=== PATIENT | male | born 1950 | race African-American/Black ===

== ENCOUNTER 2016-12-18 23:55 | Emergency (ER) | payer MEDICARE, SELFPAY ==
[~2016-12-18 23:55] MED LIST: /AMLO25TA PO; /PANT40TA PO; ALB2.5NEB INH; ALBU17IN INH; ALBU17IN2 INH; AMLO10TA PO; AMLO2.5T PO; AMLO5TAB2 PO; AMOX500T PO; ASPI81TA85 PO; BIAX500T PO; BISAPOW4 PO; BUDEPOW INH; CARA1SUS PO; CARA1TAB2 PO; HYDR12.55 PO; INSUH10VL SC; INSUHUMDS SC; INSULANT SC; IRON325T3 PO; KLOR1TAB69 PO; LEVA500T PO; LISI20TA PO; LOPR1TAB6 PO; METO12TA PO; METO25TAB PO; MICR10CA PO; MONT10TA2 PO; MULTCAP PO; NICO14DI20 TD; NICO14PA EXT; POTA20TA4 PO; PROT1TAB2 PO; REGL10TA6 PO; SPIRIVA HANDIHALER INH; SUCR1TA PO; SYMB16INH INH; TIOT18INH INH; TIOTROPIUM INH; VIAG100T PO; VITMTA PO; ZEST40TA PO
[2016-12-19] MEDS ORDERED: ONDANSETRON 4MG/2ML VIAL (J2405) As Ordered ONE (00:33)
[2016-12-19] MEDS ORDERED: METOCLOPRAMIDE INJ 10MG/2ML VIAL (J2765) As Ordered ONE (00:58)
[2016-12-19 01:02] LABS: BASO % 0.2 % (0.0-1.0); EOS # 0.1 K/mm3 (0.0-0.50); LARGE UNSTAINED CELL # 0.2 K/mm3 (0.0-0.4); LARGE UNSTAINED CELL % 3.1 % (0.0-4.0); LYMPH % 25.9 % (24.0-44.0); MEAN CORPUSCULAR HEMOGLOBIN 24.6 pg (27.0-33.0); MEAN CORPUSCULAR HGB CONC 31.5 g/dl (32.0-36.5); MEAN CORPUSCULAR VOLUME 78.1 fl (80.0-96.0); MONO # 0.5 K/mm3 (0.0-0.8); MONO % 7.1 % (0.0-5.0); NEUTROPHILS # 4.8 K/mm3 (1.8-7.7); NEUTROPHILS % 62.7 % (36.0-66.0); PLATELET COUNT, AUTOMATED 254 k/mm3 (150-450); RED CELL DISTRIBUTION WIDTH 17.4 % (11.5-14.5); WHITE BLOOD COUNT 7.7 K/mm3 (4.0-10.0)
[2016-12-19 01:19] LABS: ALBUMIN 3.8 GM/DL (3.2-5.2); ALBUMIN/GLOBULIN RATIO 0.76 (1.00-1.93); ALKALINE PHOSPHATASE 131 U/L (45-117); ALT/SGPT 133 U/L (12-78); AMYLASE 69 U/L (25-115); ANION GAP 9 MEQ/L (8-16); AST/SGOT 141 U/L (15-37); BILIRUBIN,DIRECT 0.5 MG/DL (0.0-0.2); BILIRUBIN,TOTAL 1.4 MG/DL (0.2-1.0); BLOOD UREA NITROGEN 7 MG/DL (7-18); CARBON DIOXIDE LEVEL 29 MEQ/L (21-32); CHLORIDE LEVEL 98 MEQ/L (98-107); CREATININE FOR GFR 1.22 MG/DL (0.70-1.30); GLOMERULAR FILTRATION RATE > 60.0 (>49); GLUCOSE, FASTING 145 MG/DL (80-110); POTASSIUM SERUM 3.7 MEQ/L (3.5-5.1); SODIUM LEVEL 136 MEQ/L (136-145); TOTAL PROTEIN 8.8 GM/DL (6.4-8.2)
[2016-12-19] MEDS ORDERED: SIMETHICONE 80 MG CHEW TAB PO ONE (01:30)
[2016-12-19] MEDS ORDERED: MORPHINE 2 MG/ML 1ML SYRINGE As Ordered ONE (01:58)
[2016-12-19] MEDS ORDERED: ISOVUE-370 76% 100ML VIAL (Q9967) As Ordered ONE (01:59)
--- NOTE | 2016-12-19 03:10 | REPUSA ---
CLINICAL HISTORY: Abdominal pain. TECHNIQUE: Multiple axial, sagittal and coronal CT images were obtained through the abdomen and pelvi s after administration of intravenous contrast material. COMMENTS: Comparison is made to the prior exam performed on 09/18/2016. Small sliding hernia. Fluid filled distended stomach. The liver is mildly enlarged with decreased attenuation without mass or defect. There is no intra or extrahepatic biliary ductal dilatation. The spleen is normal. The gallbladder contains a gallstone.. The pancreas is of normal contour and attenuation characteristics. There is no evidence of adrenal ma ss. Both kidneys demonstrate prompt and equal nephrograms. The kidneys are normal in size, shape and conf iguration. There is no evidence of renal or ureteral mass. No renal or ureteral calculi are identifie d. There is no hydroureter or hydronephrosis. No evidence for appendicitis. There is no bowel wall thickening. No evidence for small or large katie l obstruction. There is no evidence of abdominal ascites or lymphadenopathy. There is no evidence of intrinsic or extrinsic bladder mass. There is no pelvic ascites or lymphadeno maddie. Images of the lung bases show no evidence of pleural or parenchymal mass. There are no pleural effusi ons. The bony structures are free of lytic or blastic lesions. Multilevel degenerative changes are seen in volving the thoracolumbar spine. Scattered calcifications are seen involving the aorta and major bran ches compatible with atherosclerosis. IMPRESSION: Mild irregularity of the hepatic contour. Fatty liver infiltration. Hiatal hernia. Gastroparesis. Cholelithiasis. No evidence of acute abdominal or pelvic pathology. Thank you for your kind referral of this patient.
[2016-12-19] MEDS ORDERED: HYDROmorphone HCL 1 MG/ML SYRINGE (J1170) As Ordered ONE (03:17)
[2016-12-19] MEDS ORDERED: cloNIDine 0.2 MG TAB As Ordered ONE (03:54)
--- NOTE | 2016-12-19 04:50 | EDDOCDS ---
Nurse's Notes [facility] Name: Kenny Ramirez Age: 66 yrs Sex: Male : 1950 Arrival Date: 12/18/2016 Time: 23:55 Bed 9 Private MD: [facility] Diagnosis: Cholelithiasis;Nonalcoholic steatohepatitis (BAKER);Gastroparesis Presentation: 12/19 00:05 Presenting complaint: Patient states: Epigastric pain, nausea, vomiting. Adult Sepsis km Screening: The patient does not have new or worsening altered mentation. Patient has a respiratory rate of greater than or equal to 22 (1 point). Systolic blood pressure is greater than 100. Patient has a qSOFA score of 0- Negative Sepsis Screen. Suicide/Homicide risk assessment- the patient denies having any suicidal and/or homicidal ideations and does not present with any other emotional, behavioral or mental health complaints. 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 Transition of care: patient was not received from another setting of care. 00:05 Acuity: LETICIA Level 3 km 00:05 Method Of Arrival: Walkin/Carried/Asstd km Triage Assessment: 00:10 General: Appears ill, uncomfortable, well nourished, Behavior is appropriate for age, kmg1 cooperative. Pain: Location: epigastric area Pain currently is 9 out of 10 on a pain scale. Quality of pain is described as pressure, "uncomfortable" Alleviated by nothing. Aggravated by nothing. HIV screening NA for this visit Offered previously. Respiratory: Airway is patent Respiratory effort is even, unlabored, Respiratory pattern is regular, symmetrical. GI: Pt is actively vomiting clear fluid, Reports epigastric pain, nausea, vomiting. Historical: - Allergies: No known drug Allergies; - Home Meds: 1. albuterol sulfate 90 mcg/actuation Inhl aepb 2 puffs every 6 hours (Last dose: 12/18/2016) 2. amlodipine 5 mg Oral tab twice a day (Last dose: 12/18/2016 09:00) 3. budesonide-formoterol 160-4.5 mcg/actuation inhalation HFAA 2 puffs 2 times per day (Last dose: 12/18/2016) 4. Carafate 1 gram Oral tab 1 tab 4 times per day (Last dose: 12/18/2016 12:00) 5. insulin aspart sliding scale subcutaneous crtg daily 6. insulin glargine 100 unit/mL (3 mL) Sub-Q inpn 30 unit daily 7. metoprolol tartrate 25 mg Oral tab 1 tab three times a day (Last dose: 12/18/2016 09:00) 8. multivitamin Oral tab 1 tab daily (Last dose: 12/18/2016) 9. pantoprazole 40 mg oral TbEC 1 tab 2 times per day (Last dose: 12/18/2016 21:00) 10. Spiriva with HandiHaler 18 mcg Inhl CpDv 1 cap once daily (Last dose: 12/18/2016) - PMHx: Asthma; COPD; Diabetes - IDDM: uncontrolled; gi bleed; Hiatal Hernia; Hypertension; - Social history: Smoking status: Patient uses tobacco products, light tobacco smoker. No barriers to communication noted, The patient speaks fluent Angolan, Speaks appropriately for age. - : The pt / caregiver states he / she is not on anticoagulants. Home medication list is obtained from the patient, [employer] import data. - Exposure Risk Screening:: None identified. Screenin:54 Screening information is obtained from the patient. Fall risk: No risks identified. mcp Assistance ADL's: requires no assistance with activities of daily living. Abuse/DV Screen: The patient / caregiver reports he/she is: not in a situation that causes fear, pain or injury. Nutritional screening: No deficits noted. Advance Directives: There is no active DNR order. home support is adequate. Assessment: 00:30 General: Appears ill, uncomfortable, Behavior is cooperative. Pain: Location: mcp epigastric area Pain currently is 8 out of 10 on a pain scale. Neurological: No deficits noted. Respiratory: Airway is patent Respiratory effort is even, unlabored. GI: Pt is actively vomiting bile, Bowel sounds present X 4 quads. Abd is soft X 4 quads Reports epigastric pain, nausea, vomiting. Derm: Skin is pink, warm & dry. 01:52 Reassessment: pt requesting pain medication for his discomfort provider aware. cz 03:11 Reassessment: pt vomited 200 cc of dark emesis . cz 03:26 Adult Sepsis Screening: The patient does not have new or worsening altered mentation. cz Patient's respiratory rate is less than 22. Systolic blood pressure is greater than 100. Patient has a qSOFA score of 0- Negative Sepsis Screen. Vital Signs: 12/18 23:57 BP 223 / 100; Pulse 92; Resp 22 S; Temp 98.0; Pulse Ox 97% on R/A; Weight 92.99 kg (R); dd6 Height 5 ft. 11 in. (180.34 cm) (R); 12/19 00:15 BP 225 / 101 (auto/); cz 00:30 Pulse 74 MON; Pulse Ox 95% ; cz 00:31 BP 206 / 104 (auto/); cz 00:44 Pulse 74 MON; Pulse Ox 95% ; cz 00:45 BP 205 / 95 (auto/); cz 00:59 Pulse 72 MON; Pulse Ox 95% ; cz 01:00 BP 207 / 95 (auto/); cz 01:14 Pulse 64 MON; Pulse Ox 97% ; cz 01:15 BP 203 / 96 (auto/); cz 01:29 Pulse 78 MON; Pulse Ox 100% ; cz 01:30 BP 219 / 93 (auto/); cz 01:44 Pulse 88 MON; cz 01:45 BP 235 / 102 (auto/); cz 01:59 Pulse 66 MON; Pulse Ox 97% ; cz 02:00 BP 178 / 86 (auto/); cz 04:36 BP 192 / 96; Pulse 98; Resp 16; Pulse Ox 99% on R/A; cz 12/18 23:57 Body Mass Index 28.59 (92.99 kg, 180.34 cm) dd6 Vitals: 12/18 23:57 Log In Time: December 18, 2016 at 23:55. dd6 23:58 RN notified that patient meets Red Flag criteria. dd6 ED Course: 23:56 Patient visited by Luiz Johnson PCA. dd6 23:56 Patient moved to Waiting dd6 23:57 [facility] is Private Physician. dd6 23:59 Patient moved to 9 km 12/19 00:06 Triage Initiated kmg1 00:13 Patient visited by Josselin Conte, HILDA. kmg1 00:16 EKG done. (by ED staff). Reviewed by Mynor Villegas DO. kb5 00:17 Patient visited by Riaz Alicia PCA. kb5 00:30 Inserted saline lock: 20 gauge in right antecubital area and blood collected. The [facility] patient tolerated the procedure well. Labs drawn. (by ED staff). Sent per order to lab. 00:33 Mynor Villegas DO is Attending Physician. cs11 00:33 Patient visited by Mynor Villegas DO. cs11 00:53 Cardiac Marker Panel Sent. mcp 00:53 Lipase Sent. mcp 00:53 Amylase Sent. mcp 00:53 Liver Profile Sent. mcp 00:53 MED Profile Sent. mcp 00:53 CBC with Diff Sent. mcp 00:55 Patient visited by Melinda Leigh RN. mcp 01:08 Patient visited by Melinda Leigh RN. mcp 01:39 Patient visited by Ibrahima Bright RN. cz 02:[address] cz 02:15 Patient visited by Ibrahima Bright RN. cz 02:15 Patient moved to 9 cz 02:38 Patient visited by Lauren Mims. ng1 03:10 Patient visited by Ibrahima Bright RN. cz 03:15 Chriss Matamoros is Referral Physician. cs11 03:27 CT ABD & PELVIS: IV Contrast Only Returned. EDMS 03:35 [facility] Payment Agreement was scanned into [employer] and attached to record. [facility] 04:49 The patient / caregiver is instructed regarding the plan of care and ED course. cz 04:49 No procedures done that require assistance. cz Administered Medications: 00:30 Drug: Ondansetron 4 mg [ondansetron HCl 2 mg/mL intravenous solution (2 mL)] Route: mcp IVP; Site: right antecubital; 01:00 Drug: NS 0.9% 1000 ml [sodium chloride 0.9 % intravenous solution] Route: IV; Rate: mcp bolus; Site: right antecubital; 04:48 Follow up: IV Status: Completed infusion cz 01:00 Drug: Metoclopramide 10 mg [metoclopramide 5 mg/mL injection solution] Route: IV; Rate: mcp 40 mg/hr; Infused Over: 15 mins; Site: right antecubital; 01:28 Drug: Simethicone 360 mg {Note: 4 tabs of simethcone given one tab fell on the floor.} cz Route: PO; 02:00 Drug: morphine 2 mg [morphine 2 mg/mL intravenous cartridge (1 mL)] Route: IVP; Site: cz right antecubital; 03:20 Drug: Dilaudid - HYDROmorphone 1 mg [hydromorphone 1 mg/mL injection syringe (1 mL)] cz Route: IVP; Site: right antecubital; 03:57 Drug: cloNIDine 0.2 mg [clonidine HCl 0.2 mg tablet (1 tabs)] Route: PO; cz Output: 02:27 Gastric: 300.00ml (Emesis); Total: 300.00ml. cz 02:37 Urine: 300.00ml (Voided); Total: 600.00ml. cz 03:10 Gastric: 200.00ml (Emesis); Total: 800.00ml. cz 03:24 Urine: 500.00ml (Voided); Total: 1300.00ml. cz Order Results: Lab Order: CBC with Diff; SPEC'M 12/19/16 00:31 Test: WHITE BLOOD COUNT; Value: 7.7; Range: 4.0-10.0; Units: K/mm3; Status: F Test: RED BLOOD COUNT; Value: 5.78; Range: 4.30-6.10; Units: M/mm3; Status: F Test: HEMOGLOBIN; Value: 14.2; Range: 14.0-18.0; Units: g/dl; Status: F Test: HEMATOCRIT; Value: 45.1; Range: 42.0-52.0; Units: %; Status: F Test: MEAN CORPUSCULAR VOLUME; Value: 78.1; Range: 80.0-96.0; Abnormal: Below low normal; Units: fl; Status: F Test: MEAN CORPUSCULAR HEMOGLOBIN; Value: 24.6; Range: 27.0-33.0; Abnormal: Below low normal; Units: pg; Status: F Test: MEAN CORPUSCULAR HGB CONC; Value: 31.5; Range: 32.0-36.5; Abnormal: Below low normal; Units: g/dl; Status: F Test: RED CELL DISTRIBUTION WIDTH; Value: 17.4; Range: 11.5-14.5; Abnormal: Above high normal; Units: %; Status: F Test: PLATELET COUNT, AUTOMATED; Value: 254; Range: 150-450; Units: k/mm3; Status: F Test: NEUTROPHILS %; Value: 62.7; Range: 36.0-66.0; Units: %; Status: F Test: LYMPH %; Value: 25.9; Range: 24.0-44.0; Units: %; Status: F Test: MONO %; Value: 7.1; Range: 0.0-5.0; Abnormal: Above high normal; Units: %; Status: F Test: EOS %; Value: 1.0; Range: 0.0-3.0; Units: %; Status: F Test: BASO %; Value: 0.2; Range: 0.0-1.0; Units: %; Status: F Test: LARGE UNSTAINED CELL %; Value: 3.1; Range: 0.0-4.0; Units: %; Status: F Test: NEUTROPHILS #; Value: 4.8; Range: 1.8-7.7; Units: K/mm3; Status: F Test: LYMPH #; Value: 2.0; Range: 1.5-4.5; Units: K/mm3; Status: F Test: MONO #; Value: 0.5; Range: 0.0-0.8; Units: K/mm3; Status: F Test: EOS #; Value: 0.1; Range: 0.0-0.50; Units: K/mm3; Status: F Test: BASO #; Value: 0.0; Range: 0.0-0.2; Units: K/mm3; Status: F Test: LARGE UNSTAINED CELL #; Value: 0.2; Range: 0.0-0.4; Units: K/mm3; Status: F Lab Order: MED Profile; SPEC'M 12/19/16 00:31 Test: GLUCOSE, FASTING; Value: 145; Range: 80-110; Abnormal: Above high normal; Units: MG/DL; Status: F Test: BLOOD UREA NITROGEN; Value: 7; Range: 7-18; Units: MG/DL; Status: F Test: CREATININE FOR GFR; Value: 1.22; Range: 0.70-1.30; Units: MG/DL; Status: F Test: GLOMERULAR FILTRATION RATE; Value: > 60.0; Range: >49; Status: F Test: SODIUM LEVEL; Value: 136; Range: 136-145; Units: MEQ/L; Status: F Test: POTASSIUM SERUM; Value: 3.7; Range: 3.5-5.1; Units: MEQ/L; Status: F Test: CHLORIDE LEVEL; Value: 98; Range: 98-107; Units: MEQ/L; Status: F Test: CARBON DIOXIDE LEVEL; Value: 29; Range: 21-32; Units: MEQ/L; Status: F Test: ANION GAP; Value: 9; Range: 8-16; Units: MEQ/L; Status: F Test: CALCIUM LEVEL; Value: 10.0; Range: 8.8-10.2; Units: MG/DL; Status: F Test Note: ; Units are mL/min/1.73 m2 Chronic Kidney Disease Staging per NKF: Stage I & II GFR >=60 Normal to Mildly Decreased Stage III GFR 30-59 Moderately Decreased Stage IV GFR 15-29 Severely Decreased Stage V GFR <15 Very Little GFR Left ESRD GFR <15 on CALCULUS TUTOR Lab Order: Liver Profile; SPEC'M 12/19/16 00:31 Test: AST/SGOT; Value: 141; Range: 15-37; Abnormal: Above high normal; Units: U/L; Status: F Test: ALT/SGPT; Value: 133; Range: 12-78; Abnormal: Above high normal; Units: U/L; Status: F Test: ALKALINE PHOSPHATASE; Value: 131; Range: 45-117; Abnormal: Above high normal; Units: U/L; Status: F Test: BILIRUBIN,TOTAL; Value: 1.4; Range: 0.2-1.0; Abnormal: Above high normal; Units: MG/DL; Status: F Test: BILIRUBIN,DIRECT; Value: 0.5; Range: 0.0-0.2; Abnormal: Above high normal; Units: MG/DL; Status: F Test: TOTAL PROTEIN; Value: 8.8; Range: 6.4-8.2; Abnormal: Above high normal; Units: GM/DL; Status: F Test: ALBUMIN; Value: 3.8; Range: 3.2-5.2; Units: GM/DL; Status: F Test: ALBUMIN/GLOBULIN RATIO; Value: 0.76; Range: 1.00-1.93; Abnormal: Below low normal; Status: F Lab Order: Amylase; SPEC'M 12/19/16 00:31 Test: AMYLASE; Value: 69; Range: 25-115; Units: U/L; Status: F Lab Order: Lipase; SPEC'M 12/19/16 00:31 Test: LIPASE; Value: 101; Range: 73-393; Units: U/L; Status: F Lab Order: Cardiac Marker Panel; SPEC'M 12/19/16 00:31 Test: CPK CREATINE PHOSPHOKINASE; Value: 510; Range: 39-308; Abnormal: Above high normal; Units: U/L; Status: F Test: CK-MB VALUE MASS; Value: 4.4; Range: 0.0-3.6; Abnormal: Above high normal; Units: NG/ML; Status: F Test: MB/CK RELATIVE INDEX; Value: 0.86; Range: < OR =4; Status: F Test: TROPONIN I; Value: < 0.02; Range: < 0.10; Units: NG/ML; Status: F Test Note: ; DIAGNOSIS CRITERIA MMB ng/ml Relative Index (RI) NON-AMI < or = 5 N/A FLEMING ZONE > 5 < or = 4 AMI > 5 > 4 Radiology Order: CT ABD & PELVIS: IV Contrast Only Test: CT ABD & PELVIS: IV Contrast Only REASON FOR EXAMINATION: Biliary Colic; ; CLINICAL HISTORY: Abdominal pain.; TECHNIQUE: Multiple axial, sagittal and coronal CT images were obtained through the abdomen and pelvi; s after administration of intravenous contrast material.; COMMENTS:; Comparison is made to the prior exam performed on 09/18/2016.; Small sliding hernia. Fluid filled distended stomach.; The liver is mildly enlarged with decreased attenuation without mass or defect. There is no intra or; extrahepatic biliary ductal dilatation. The spleen is normal. The gallbladder contains a gallstone..; The pancreas is of normal contour and attenuation characteristics. There is no evidence of adrenal ma; ss.; Both kidneys demonstrate prompt and equal nephrograms. The kidneys are normal in size, shape and conf; iguration. There is no evidence of renal or ureteral mass. No renal or ureteral calculi are identifie; d. There is no hydroureter or hydronephrosis.; No evidence for appendicitis. There is no bowel wall thickening. No evidence for small or large katie; l obstruction. There is no evidence of abdominal ascites or lymphadenopathy.; There is no evidence of intrinsic or extrinsic bladder mass. There is no pelvic ascites or lymphadeno; maddie.; Images of the lung bases show no evidence of pleural or parenchymal mass. There are no pleural effusi; ons.; The bony structures are free of lytic or blastic lesions. Multilevel degenerative changes are seen in; volving the thoracolumbar spine. Scattered calcifications are seen involving the aorta and major bran; ches compatible with atherosclerosis.; IMPRESSION:; Mild irregularity of the hepatic contour.; Fatty liver infiltration.; Hiatal hernia.; Gastroparesis.; Cholelithiasis.; No evidence of acute abdominal or pelvic pathology.; Thank you for your kind referral of this patient.; ; Outcome: 03:17 Discharge ordered by Provider. cs11 04:48 Discharge Assessment: Patient awake, alert and oriented x 3. No cognitive and/or cz functional deficits noted. Patient verbalized understanding of disposition instructions. patient administered narcotics - yes. Pt provided with safe discharge. The following High Risk Discharge criteria are identified: None. Discharged to home ambulatory, with family. Condition: stable. Discharge instructions given to patient, Instructed on discharge instructions, follow up and referral plans. Demonstrated understanding of instructions, Pt was receptive of discharge instructions/ teaching. CT Study completed. Property :Personal belongings accompany Pt. pt was discharged via wheelchair to daughter who picked pt up at E.D. entrance. 04:50 Patient left the ED. cz Signatures: Dispatcher [employer] EDMS Josselin Conte RN RN kmg1 Melinda Leigh RN Ibrahima James mcp, RN RN Riaz Alicia, ADJUNCT INSTRUCTOR OF WOMEN'S STUDIES ADJUNCT INSTRUCTOR OF WOMEN'S STUDIES kb5 Luiz Johnson, ADJUNCT INSTRUCTOR OF WOMEN'S STUDIES ADJUNCT INSTRUCTOR OF WOMEN'S STUDIES dd6 Mynor Villegas, DO cs11 Lauren Mims1 Sandra Barragan [facility] MTDD
--- NOTE | 2016-12-19 04:50 | EDDOCDS ---
Physician Documentation [facility] Name: Kenny Ramirez Age: 66 yrs Sex: Male : 1950 Arrival Date: 12/18/2016 Time: 23:55 Bed 9 Private MD: [facility] Disposition: 12/19/16 03:17 Discharged to Home/Self Care. Impression: Cholelithiasis, Nonalcoholic steatohepatitis (BAKER), Gastroparesis. - Condition is Stable. - Medication Reconciliation, Local Pharmacy Hours form. - Follow up: Chriss Matamoros; When: Call to arrange an appointment; Reason: Recheck today's complaints. - Problem is chronic. - Symptoms have improved. Historical: - Allergies: No known drug Allergies; - Home Meds: 1. albuterol sulfate 90 mcg/actuation Inhl aepb 2 puffs every 6 hours (Last dose: 12/18/2016) 2. amlodipine 5 mg Oral tab twice a day (Last dose: 12/18/2016 09:00) 3. budesonide-formoterol 160-4.5 mcg/actuation inhalation HFAA 2 puffs 2 times per day (Last dose: 12/18/2016) 4. Carafate 1 gram Oral tab 1 tab 4 times per day (Last dose: 12/18/2016 12:00) 5. insulin aspart sliding scale subcutaneous crtg daily 6. insulin glargine 100 unit/mL (3 mL) Sub-Q inpn 30 unit daily 7. metoprolol tartrate 25 mg Oral tab 1 tab three times a day (Last dose: 12/18/2016 09:00) 8. multivitamin Oral tab 1 tab daily (Last dose: 12/18/2016) 9. pantoprazole 40 mg oral TbEC 1 tab 2 times per day (Last dose: 12/18/2016 21:00) 10. Spiriva with HandiHaler 18 mcg Inhl CpDv 1 cap once daily (Last dose: 12/18/2016) - PMHx: Asthma; COPD; Diabetes - IDDM: uncontrolled; gi bleed; Hiatal Hernia; Hypertension; - Social history: Smoking status: Patient uses tobacco products, light tobacco smoker. No barriers to communication noted, The patient speaks fluent Persian, Speaks appropriately for age. - : The pt / caregiver states he / she is not on anticoagulants. Home medication list is obtained from the patient, [employer] import data. - Exposure Risk Screening:: None identified. Vital Signs: 12/18 23:57 BP 223 / 100; Pulse 92; Resp 22 S; Temp 98.0; Pulse Ox 97% on R/A; Weight 92.99 kg / dd6 205.01 lbs (R); Height 5 ft. 11 in. (180.34 cm) (R); 12/19 00:15 BP 225 / 101 (auto/); cz 00:30 Pulse 74 MON; Pulse Ox 95% ; cz 00:31 BP 206 / 104 (auto/); cz 00:44 Pulse 74 MON; Pulse Ox 95% ; cz 00:45 BP 205 / 95 (auto/); cz 00:59 Pulse 72 MON; Pulse Ox 95% ; cz 01:00 BP 207 / 95 (auto/); cz 01:14 Pulse 64 MON; Pulse Ox 97% ; cz 01:15 BP 203 / 96 (auto/); cz 01:29 Pulse 78 MON; Pulse Ox 100% ; cz 01:30 BP 219 / 93 (auto/); cz 01:44 Pulse 88 MON; cz 01:45 BP 235 / 102 (auto/); cz 01:59 Pulse 66 MON; Pulse Ox 97% ; cz 02:00 BP 178 / 86 (auto/); cz 04:36 BP 192 / 96; Pulse 98; Resp 16; Pulse Ox 99% on R/A; cz 12/18 23:57 Body Mass Index 28.59 (92.99 kg, 180.34 cm) dd6 MDM: 00:10 ECG WITH READING ER PHYS+CARDIAG ordered. EDMS 00:42 NS 0.9% 1000 ml IV at bolus once ordered. cs11 00:42 Metoclopramide 10 mg IV at 40 mg/hr once over 15 mins ordered. cs11 00:42 Simethicone 360 mg PO once ordered. cs11 00:42 Ondansetron 4 mg IVP once ordered. cs11 00:43 CBC with Diff Ordered. EDMS 00:43 MED Profile Ordered. EDMS 00:43 Liver Profile Ordered. EDMS 00:43 Amylase Ordered. EDMS 00:43 Lipase Ordered. EDMS 00:43 Cardiac Marker Panel Ordered. EDMS 01:53 CBC with Diff Reviewed. cs11 01:53 MED Profile Reviewed. cs11 01:53 Liver Profile Reviewed. cs11 01:53 Cardiac Marker Panel Reviewed. cs11 01:53 Amylase Reviewed. cs11 01:53 Lipase Reviewed. cs11 01:55 morphine 2 mg IVP once ordered. cs11 01:55 CT ABD & PELVIS: IV Contrast Only Ordered. EDVT 01:57 Financial registration complete. [facility] 03:12 Dilaudid - HYDROmorphone 1 mg IVP once ordered. [facility] 03:35 [facility] Payment Agreement was scanned into [employer] and attached to record. [facility] 03:52 cloNIDine 0.2 mg PO once ordered. cs11 Administered Medications: 00:30 Drug: Ondansetron 4 mg [ondansetron HCl 2 mg/mL intravenous solution (2 mL)] Route: mcp IVP; Site: right antecubital; 01:00 Drug: NS 0.9% 1000 ml [sodium chloride 0.9 % intravenous solution] Route: IV; Rate: mcp bolus; Site: right antecubital; 04:48 Follow up: IV Status: Completed infusion 01:00 Drug: Metoclopramide 10 mg [metoclopramide 5 mg/mL injection solution] Route: IV; Rate: mcp 40 mg/hr; Infused Over: 15 mins; Site: right antecubital; 01:28 Drug: Simethicone 360 mg {Note: 4 tabs of simethcone given one tab fell on the floor.} cz Route: PO; 02:00 Drug: morphine 2 mg [morphine 2 mg/mL intravenous cartridge (1 mL)] Route: IVP; Site: cz right antecubital; 03:20 Drug: Dilaudid - HYDROmorphone 1 mg [hydromorphone 1 mg/mL injection syringe (1 mL)] cz Route: IVP; Site: right antecubital; 03:57 Drug: cloNIDine 0.2 mg [clonidine HCl 0.2 mg tablet (1 tabs)] Route: PO; cz Signatures: Dispatcher [employer] EDVT Josselin Conte RN RN [facility] Ibrahima Bright RN RN cz Schiff, Craig, DO DO cs11 Sandra Barragan Melinda Tirado RN [facility] The chart was reviewed and I authenticate all verbal orders and agree with the evaluation and treatment provided.Attachments: 03:35 [facility] Payment Agreement [facility] MTDD
--- NOTE | 2016-12-19 08:17 | ECGEPIP ---
Stationary ECG Study [facility] - ED Test Date: 2016-12-19 Pat Name: HATTIE DAMON Department: Room: - Gender: M [employer]: COS[employer] : 1950 Requested By: HERB PENA Order Number: [id number] Reading MD: Hanna Cassidy Measurements Intervals [place] Rate: 80 P: 62 [place]: 198 QRS: -72 QRSD: 170 T: 20 QT: 411 QTc: 475 Interpretive Statements SINUS RHYTHM RIGHT BUNDLE BRANCH BLOCK LEFT ANTERIOR FASCICULAR BLOCK VOLTAGE CRITERIA FOR LVH T WAVE ABNORMALITY SEEN 09/29/16 RESOLVED Electronically Signed On 12-19-2016 8:16:43 EST by Hanna Cassidy
[2016-12-20] MEDS ORDERED: METO25TAB PO (07:40)
[2016-12-20] MEDS ORDERED: AMLO5TAB2 PO (07:40)
--- NOTE | 2016-12-21 05:51 | EDDOCDS ---
Nurse's Notes [facility] Name: Kenny Ramirez Age: 66 yrs Sex: Male : 1950 Arrival Date: 12/18/2016 Time: 23:55 Bed 9 Private MD: [facility] Diagnosis: Cholelithiasis;Nonalcoholic steatohepatitis (BAKER);Gastroparesis Presentation: 12/19 00:05 Presenting complaint: Patient states: Epigastric pain, nausea, vomiting. Adult Sepsis km Screening: The patient does not have new or worsening altered mentation. Patient has a respiratory rate of greater than or equal to 22 (1 point). Systolic blood pressure is greater than 100. Patient has a qSOFA score of 0- Negative Sepsis Screen. Suicide/Homicide risk assessment- the patient denies having any suicidal and/or homicidal ideations and does not present with any other emotional, behavioral or mental health complaints. Status: Patient is not a phlebotomy services representative or dependent. Transition of care: patient was not received from another setting of care. 00:05 Acuity: LETICIA Level 3 km 00:05 Method Of Arrival: Walkin/Carried/Asstd km Triage Assessment: 00:10 General: Appears ill, uncomfortable, well nourished, Behavior is appropriate for age, kmg1 cooperative. Pain: Location: epigastric area Pain currently is 9 out of 10 on a pain scale. Quality of pain is described as pressure, "uncomfortable" Alleviated by nothing. Aggravated by nothing. HIV screening NA for this visit Offered previously. Respiratory: Airway is patent Respiratory effort is even, unlabored, Respiratory pattern is regular, symmetrical. GI: Pt is actively vomiting clear fluid, Reports epigastric pain, nausea, vomiting. Historical: - Allergies: No known drug Allergies; - Home Meds: 1. albuterol sulfate 90 mcg/actuation Inhl aepb 2 puffs every 6 hours (Last dose: 12/18/2016) 2. amlodipine 5 mg Oral tab twice a day (Last dose: 12/18/2016 09:00) 3. budesonide-formoterol 160-4.5 mcg/actuation inhalation HFAA 2 puffs 2 times per day (Last dose: 12/18/2016) 4. Carafate 1 gram Oral tab 1 tab 4 times per day (Last dose: 12/18/2016 12:00) 5. insulin aspart sliding scale subcutaneous crtg daily 6. insulin glargine 100 unit/mL (3 mL) Sub-Q inpn 30 unit daily 7. metoprolol tartrate 25 mg Oral tab 1 tab three times a day (Last dose: 12/18/2016 09:00) 8. multivitamin Oral tab 1 tab daily (Last dose: 12/18/2016) 9. pantoprazole 40 mg oral TbEC 1 tab 2 times per day (Last dose: 12/18/2016 21:00) 10. Spiriva with HandiHaler 18 mcg Inhl CpDv 1 cap once daily (Last dose: 12/18/2016) - PMHx: Asthma; COPD; Diabetes - IDDM: uncontrolled; gi bleed; Hiatal Hernia; Hypertension; - Social history: Smoking status: Patient uses tobacco products, light tobacco smoker. No barriers to communication noted, The patient speaks fluent Greenlandic, Speaks appropriately for age. - : The pt / caregiver states he / she is not on anticoagulants. Home medication list is obtained from the patient, [email or web address] import data. - Exposure Risk Screening:: None identified. Screenin:54 Screening information is obtained from the patient. Fall risk: No risks identified. mcp Assistance ADL's: requires no assistance with activities of daily living. Abuse/DV Screen: The patient / caregiver reports he/she is: not in a situation that causes fear, pain or injury. Nutritional screening: No deficits noted. Advance Directives: There is no active DNR order. home support is adequate. Assessment: 00:30 General: Appears ill, uncomfortable, Behavior is cooperative. Pain: Location: mcp epigastric area Pain currently is 8 out of 10 on a pain scale. Neurological: No deficits noted. Respiratory: Airway is patent Respiratory effort is even, unlabored. GI: Pt is actively vomiting bile, Bowel sounds present X 4 quads. Abd is soft X 4 quads Reports epigastric pain, nausea, vomiting. Derm: Skin is pink, warm & dry. 01:52 Reassessment: pt requesting pain medication for his discomfort provider aware. cz 03:11 Reassessment: pt vomited 200 cc of dark emesis . cz 03:26 Adult Sepsis Screening: The patient does not have new or worsening altered mentation. cz Patient's respiratory rate is less than 22. Systolic blood pressure is greater than 100. Patient has a qSOFA score of 0- Negative Sepsis Screen. Vital Signs: 12/18 23:57 BP 223 / 100; Pulse 92; Resp 22 S; Temp 98.0; Pulse Ox 97% on R/A; Weight 92.99 kg (R); dd6 Height 5 ft. 11 in. (180.34 cm) (R); 12/19 00:15 BP 225 / 101 (auto/); cz 00:30 Pulse 74 MON; Pulse Ox 95% ; cz 00:31 BP 206 / 104 (auto/); cz 00:44 Pulse 74 MON; Pulse Ox 95% ; cz 00:45 BP 205 / 95 (auto/); cz 00:59 Pulse 72 MON; Pulse Ox 95% ; cz 01:00 BP 207 / 95 (auto/); cz 01:14 Pulse 64 MON; Pulse Ox 97% ; cz 01:15 BP 203 / 96 (auto/); cz 01:29 Pulse 78 MON; Pulse Ox 100% ; cz 01:30 BP 219 / 93 (auto/); cz 01:44 Pulse 88 MON; cz 01:45 BP 235 / 102 (auto/); cz 01:59 Pulse 66 MON; Pulse Ox 97% ; cz 02:00 BP 178 / 86 (auto/); cz 04:36 BP 192 / 96; Pulse 98; Resp 16; Pulse Ox 99% on R/A; cz 12/18 23:57 Body Mass Index 28.59 (92.99 kg, 180.34 cm) dd6 Vitals: 12/18 23:57 Log In Time: December 18, 2016 at 23:55. dd6 23:58 RN notified that patient meets Red Flag criteria. dd6 ED Course: 23:56 Patient visited by Luiz Johnson PCA. dd6 23:56 Patient moved to Waiting dd6 23:57 [facility] is Private Physician. dd6 23:59 Patient moved to 9 km 12/19 00:06 Triage Initiated kmg1 00:13 Patient visited by Josselin Conte, HILDA. kmg1 00:16 EKG done. (by ED staff). Reviewed by Herb Pena DO. kb5 00:17 Patient visited by Riaz Alicia PCA. kb5 00:30 Inserted saline lock: 20 gauge in right antecubital area and blood collected. The [facility] patient tolerated the procedure well. Labs drawn. (by ED staff). Sent per order to lab. 00:33 Herb Pena DO is Attending Physician. cs11 00:33 Patient visited by Herb Pena DO. cs11 00:53 Cardiac Marker Panel Sent. mcp 00:53 Lipase Sent. mcp 00:53 Amylase Sent. mcp 00:53 Liver Profile Sent. mcp 00:53 MED Profile Sent. mcp 00:53 CBC with Diff Sent. mcp 00:55 Patient visited by Melinda Leigh RN. mcp 01:08 Patient visited by Melinda Leigh RN. mcp 01:39 Patient visited by Ibrahima Bright RN. cz 02:[address] cz 02:15 Patient visited by Ibrahima Bright RN. cz 02:15 Patient moved to 9 cz 02:38 Patient visited by Lauren Mims. ng1 03:10 Patient visited by Ibrahima Bright RN. cz 03:15 Chriss Matamoros is Referral Physician. cs11 03:27 CT ABD & PELVIS: IV Contrast Only Returned. EDMS 03:35 [facility] Payment Agreement was scanned into [employer] and attached to record. [facility] 04:49 The patient / caregiver is instructed regarding the plan of care and ED course. cz 04:49 No procedures done that require assistance. cz 08:42 EKG-ADULT Returned. EDMS 12:49 ECG/EKG was scanned into [employer] and attached to record. gb 12:50 T-Sheet-- Draft Copy was scanned into [employer] and attached to record. gb 12:50 Radiology Report was scanned into [employer] and attached to record. gb 14:48 Radiology Report was scanned into [employer] and attached to record. gb Administered Medications: 00:30 Drug: Ondansetron 4 mg [ondansetron HCl 2 mg/mL intravenous solution (2 mL)] Route: mcp IVP; Site: right antecubital; 01:00 Drug: NS 0.9% 1000 ml [sodium chloride 0.9 % intravenous solution] Route: IV; Rate: mcp bolus; Site: right antecubital; 04:48 Follow up: IV Status: Completed infusion cz 01:00 Drug: Metoclopramide 10 mg [metoclopramide 5 mg/mL injection solution] Route: IV; Rate: mcp 40 mg/hr; Infused Over: 15 mins; Site: right antecubital; 01:28 Drug: Simethicone 360 mg {Note: 4 tabs of simethcone given one tab fell on the floor.} cz Route: PO; 02:00 Drug: morphine 2 mg [morphine 2 mg/mL intravenous cartridge (1 mL)] Route: IVP; Site: cz right antecubital; 03:20 Drug: Dilaudid - HYDROmorphone 1 mg [hydromorphone 1 mg/mL injection syringe (1 mL)] cz Route: IVP; Site: right antecubital; 03:57 Drug: cloNIDine 0.2 mg [clonidine HCl 0.2 mg tablet (1 tabs)] Route: PO; cz Output: 02:27 Gastric: 300.00ml (Emesis); Total: 300.00ml. cz 02:37 Urine: 300.00ml (Voided); Total: 600.00ml. cz 03:10 Gastric: 200.00ml (Emesis); Total: 800.00ml. cz 03:24 Urine: 500.00ml (Voided); Total: 1300.00ml. cz Order Results: Lab Order: CBC with Diff; SPEC'M 12/19/16 00:31 Test: WHITE BLOOD COUNT; Value: 7.7; Range: 4.0-10.0; Units: K/mm3; Status: F Test: RED BLOOD COUNT; Value: 5.78; Range: 4.30-6.10; Units: M/mm3; Status: F Test: HEMOGLOBIN; Value: 14.2; Range: 14.0-18.0; Units: g/dl; Status: F Test: HEMATOCRIT; Value: 45.1; Range: 42.0-52.0; Units: %; Status: F Test: MEAN CORPUSCULAR VOLUME; Value: 78.1; Range: 80.0-96.0; Abnormal: Below low normal; Units: fl; Status: F Test: MEAN CORPUSCULAR HEMOGLOBIN; Value: 24.6; Range: 27.0-33.0; Abnormal: Below low normal; Units: pg; Status: F Test: MEAN CORPUSCULAR HGB CONC; Value: 31.5; Range: 32.0-36.5; Abnormal: Below low normal; Units: g/dl; Status: F Test: RED CELL DISTRIBUTION WIDTH; Value: 17.4; Range: 11.5-14.5; Abnormal: Above high normal; Units: %; Status: F Test: PLATELET COUNT, AUTOMATED; Value: 254; Range: 150-450; Units: k/mm3; Status: F Test: NEUTROPHILS %; Value: 62.7; Range: 36.0-66.0; Units: %; Status: F Test: LYMPH %; Value: 25.9; Range: 24.0-44.0; Units: %; Status: F Test: MONO %; Value: 7.1; Range: 0.0-5.0; Abnormal: Above high normal; Units: %; Status: F Test: EOS %; Value: 1.0; Range: 0.0-3.0; Units: %; Status: F Test: BASO %; Value: 0.2; Range: 0.0-1.0; Units: %; Status: F Test: LARGE UNSTAINED CELL %; Value: 3.1; Range: 0.0-4.0; Units: %; Status: F Test: NEUTROPHILS #; Value: 4.8; Range: 1.8-7.7; Units: K/mm3; Status: F Test: LYMPH #; Value: 2.0; Range: 1.5-4.5; Units: K/mm3; Status: F Test: MONO #; Value: 0.5; Range: 0.0-0.8; Units: K/mm3; Status: F Test: EOS #; Value: 0.1; Range: 0.0-0.50; Units: K/mm3; Status: F Test: BASO #; Value: 0.0; Range: 0.0-0.2; Units: K/mm3; Status: F Test: LARGE UNSTAINED CELL #; Value: 0.2; Range: 0.0-0.4; Units: K/mm3; Status: F Lab Order: MED Profile; SPEC'M 12/19/16 00:31 Test: GLUCOSE, FASTING; Value: 145; Range: 80-110; Abnormal: Above high normal; Units: MG/DL; Status: F Test: BLOOD UREA NITROGEN; Value: 7; Range: 7-18; Units: MG/DL; Status: F Test: CREATININE FOR GFR; Value: 1.22; Range: 0.70-1.30; Units: MG/DL; Status: F Test: GLOMERULAR FILTRATION RATE; Value: > 60.0; Range: >49; Status: F Test: SODIUM LEVEL; Value: 136; Range: 136-145; Units: MEQ/L; Status: F Test: POTASSIUM SERUM; Value: 3.7; Range: 3.5-5.1; Units: MEQ/L; Status: F Test: CHLORIDE LEVEL; Value: 98; Range: 98-107; Units: MEQ/L; Status: F Test: CARBON DIOXIDE LEVEL; Value: 29; Range: 21-32; Units: MEQ/L; Status: F Test: ANION GAP; Value: 9; Range: 8-16; Units: MEQ/L; Status: F Test: CALCIUM LEVEL; Value: 10.0; Range: 8.8-10.2; Units: MG/DL; Status: F Test Note: ; Units are mL/min/1.73 m2 Chronic Kidney Disease Staging per NKF: Stage I & II GFR >=60 Normal to Mildly Decreased Stage III GFR 30-59 Moderately Decreased Stage IV GFR 15-29 Severely Decreased Stage V GFR <15 Very Little GFR Left ESRD GFR <15 on ATHLETIC DIRECTOR Lab Order: Liver Profile; [facility]' 12/19/16 00:31 Test: AST/SGOT; Value: 141; Range: 15-37; Abnormal: Above high normal; Units: U/L; Status: F Test: ALT/SGPT; Value: 133; Range: 12-78; Abnormal: Above high normal; Units: U/L; Status: F Test: ALKALINE PHOSPHATASE; Value: 131; Range: 45-117; Abnormal: Above high normal; Units: U/L; Status: F Test: BILIRUBIN,TOTAL; Value: 1.4; Range: 0.2-1.0; Abnormal: Above high normal; Units: MG/DL; Status: F Test: BILIRUBIN,DIRECT; Value: 0.5; Range: 0.0-0.2; Abnormal: Above high normal; Units: MG/DL; Status: F Test: TOTAL PROTEIN; Value: 8.8; Range: 6.4-8.2; Abnormal: Above high normal; Units: GM/DL; Status: F Test: ALBUMIN; Value: 3.8; Range: 3.2-5.2; Units: GM/DL; Status: F Test: ALBUMIN/GLOBULIN RATIO; Value: 0.76; Range: 1.00-1.93; Abnormal: Below low normal; Status: F Lab Order: Amylase; SPEC'M 12/19/16 00:31 Test: AMYLASE; Value: 69; Range: 25-115; Units: U/L; Status: F Lab Order: Lipase; SPEC'M 12/19/16 00:31 Test: LIPASE; Value: 101; Range: 73-393; Units: U/L; Status: F Lab Order: Cardiac Marker Panel; SPEC'M 12/19/16 00:31 Test: CPK CREATINE PHOSPHOKINASE; Value: 510; Range: 39-308; Abnormal: Above high normal; Units: U/L; Status: F Test: CK-MB VALUE MASS; Value: 4.4; Range: 0.0-3.6; Abnormal: Above high normal; Units: NG/ML; Status: F Test: MB/CK RELATIVE INDEX; Value: 0.86; Range: < OR =4; Status: F Test: TROPONIN I; Value: < 0.02; Range: < 0.10; Units: NG/ML; Status: F Test Note: ; DIAGNOSIS CRITERIA MMB ng/ml Relative Index (RI) NON-AMI < or = 5 N/A FLEMING ZONE > 5 < or = 4 AMI > 5 > 4 Radiology Order: EKG-ADULT Test: EKG-ADULT REASON FOR EXAMINATION: epigastric pain; Stationary ECG Study; [facility] - ED; ; Test Date: 2016-12-19; Pat Name: KENNY RAMIREZ Department:; Room: -; Gender: M Front 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 Associate: KB; : 1950 Requested By: HERB PENA; Order Number: [id number] Reading MD: Hanna Cassidy; Measurements; Intervals [place]; Rate: 80 P: 62; VT: 198 QRS: -72; QRSD: 170 T: 20; QT: 411; QTc: 475; Interpretive Statements; SINUS RHYTHM; RIGHT BUNDLE BRANCH BLOCK; LEFT ANTERIOR FASCICULAR BLOCK; VOLTAGE CRITERIA FOR LVH; T WAVE ABNORMALITY SEEN 11/1/16 RESOLVED; Electronically Signed On 12-19-2016 8:16:43 EST by Hanna Cassidy; Radiology Order: CT ABD & PELVIS: IV Contrast Only Test: CT ABD & PELVIS: IV Contrast Only REASON FOR EXAMINATION: Biliary Colic; ; CLINICAL HISTORY: Abdominal pain.; TECHNIQUE: Multiple axial, sagittal and coronal CT images were obtained through the abdomen and pelvi; s after administration of intravenous contrast material.; COMMENTS:; Comparison is made to the prior exam performed on 09/18/2016.; Small sliding hernia. Fluid filled distended stomach.; The liver is mildly enlarged with decreased attenuation without mass or defect. There is no intra or; extrahepatic biliary ductal dilatation. The spleen is normal. The gallbladder contains a gallstone..; The pancreas is of normal contour and attenuation characteristics. There is no evidence of adrenal ma; ss.; Both kidneys demonstrate prompt and equal nephrograms. The kidneys are normal in size, shape and conf; iguration. There is no evidence of renal or ureteral mass. No renal or ureteral calculi are identifie; d. There is no hydroureter or hydronephrosis.; No evidence for appendicitis. There is no bowel wall thickening. No evidence for small or large katie; l obstruction. There is no evidence of abdominal ascites or lymphadenopathy.; There is no evidence of intrinsic or extrinsic bladder mass. There is no pelvic ascites or lymphadeno; maddie.; Images of the lung bases show no evidence of pleural or parenchymal mass. There are no pleural effusi; ons.; The bony structures are free of lytic or blastic lesions. Multilevel degenerative changes are seen in; volving the thoracolumbar spine. Scattered calcifications are seen involving the aorta and major bran; ches compatible with atherosclerosis.; IMPRESSION:; Mild irregularity of the hepatic contour.; Fatty liver infiltration.; Hiatal hernia.; Gastroparesis.; Cholelithiasis.; No evidence of acute abdominal or pelvic pathology.; Thank you for your kind referral of this patient.; ; Outcome: 03:17 Discharge ordered by Provider. cs11 04:48 Discharge Assessment: Patient awake, alert and oriented x 3. No cognitive and/or cz functional deficits noted. Patient verbalized understanding of disposition instructions. patient administered narcotics - yes. Pt provided with safe discharge. The following High Risk Discharge criteria are identified: None. Discharged to home ambulatory, with family. Condition: stable. Discharge instructions given to patient, Instructed on discharge instructions, follow up and referral plans. Demonstrated understanding of instructions, Pt was receptive of discharge instructions/ teaching. CT Study completed. Property :Personal belongings accompany Pt. pt was discharged via wheelchair to daughter who picked pt up at E.D. entrance. 04:50 Patient left the ED. cz Signatures: Dispatcher [employer] EDMS Josselin Conte, RN RN kmg1 Melinda Leigh RN RN Ibrahima Bosch, RN RN cz Arminda Clements, Reg Reg gb Riaz Alicia, PLAYER MANAGER PLAYER MANAGER kb5 Luiz Johnson, PLAYER MANAGER PLAYER MANAGER dd6 Herb Pena, DO cs11 Lauren Mims ng1 Sandra Barragan [facility] Chart Complete MTDD
--- NOTE | 2016-12-21 05:51 | EDDOCDS ---
Physician Documentation [facility] Name: Kenny Ramirez Age: 66 yrs Sex: Male : 1950 Arrival Date: 12/18/2016 Time: 23:55 Bed 9 Private MD: [facility] [place] Disposition: 12/19/16 03:17 Discharged to Home/Self Care. Impression: Cholelithiasis, Nonalcoholic steatohepatitis (BAKER), Gastroparesis. - Condition is Stable. - Medication Reconciliation, Local Pharmacy Hours form. - Follow up: Chriss Matamoros; When: Call to arrange an appointment; Reason: Recheck today's complaints. - Problem is chronic. - Symptoms have improved. Historical: - Allergies: No known drug Allergies; - Home Meds: 1. albuterol sulfate 90 mcg/actuation Inhl aepb 2 puffs every 6 hours (Last dose: 12/18/2016) 2. amlodipine 5 mg Oral tab twice a day (Last dose: 12/18/2016 09:00) 3. budesonide-formoterol 160-4.5 mcg/actuation inhalation HFAA 2 puffs 2 times per day (Last dose: 12/18/2016) 4. Carafate 1 gram Oral tab 1 tab 4 times per day (Last dose: 12/18/2016 12:00) 5. insulin aspart sliding scale subcutaneous crtg daily 6. insulin glargine 100 unit/mL (3 mL) Sub-Q inpn 30 unit daily 7. metoprolol tartrate 25 mg Oral tab 1 tab three times a day (Last dose: 12/18/2016 09:00) 8. multivitamin Oral tab 1 tab daily (Last dose: 12/18/2016) 9. pantoprazole 40 mg oral TbEC 1 tab 2 times per day (Last dose: 12/18/2016 21:00) 10. Spiriva with HandiHaler 18 mcg Inhl CpDv 1 cap once daily (Last dose: 12/18/2016) - PMHx: Asthma; COPD; Diabetes - IDDM: uncontrolled; gi bleed; Hiatal Hernia; Hypertension; - Social history: Smoking status: Patient uses tobacco products, light tobacco smoker. No barriers to communication noted, The patient speaks fluent Thai, Speaks appropriately for age. - : The pt / caregiver states he / she is not on anticoagulants. Home medication list is obtained from the patient, [employer] import data. - Exposure Risk Screening:: None identified. Vital Signs: 12/18 23:57 BP 223 / 100; Pulse 92; Resp 22 S; Temp 98.0; Pulse Ox 97% on R/A; Weight 92.99 kg / dd6 205.01 lbs (R); Height 5 ft. 11 in. (180.34 cm) (R); 12/19 00:15 BP 225 / 101 (auto/); cz 00:30 Pulse 74 MON; Pulse Ox 95% ; cz 00:31 BP 206 / 104 (auto/); cz 00:44 Pulse 74 MON; Pulse Ox 95% ; cz 00:45 BP 205 / 95 (auto/); cz 00:59 Pulse 72 MON; Pulse Ox 95% ; cz 01:00 BP 207 / 95 (auto/); cz 01:14 Pulse 64 MON; Pulse Ox 97% ; cz 01:15 BP 203 / 96 (auto/); cz 01:29 Pulse 78 MON; Pulse Ox 100% ; cz 01:30 BP 219 / 93 (auto/); cz 01:44 Pulse 88 MON; cz 01:45 BP 235 / 102 (auto/); cz 01:59 Pulse 66 MON; Pulse Ox 97% ; cz 02:00 BP 178 / 86 (auto/); cz 04:36 BP 192 / 96; Pulse 98; Resp 16; Pulse Ox 99% on R/A; cz 12/18 23:57 Body Mass Index 28.59 (92.99 kg, 180.34 cm) dd6 MDM: 00:10 ECG WITH READING ER PHYS+CARDIAG ordered. EDMS 00:42 NS 0.9% 1000 ml IV at bolus once ordered. cs11 00:42 Metoclopramide 10 mg IV at 40 mg/hr once over 15 mins ordered. cs11 00:42 Simethicone 360 mg PO once ordered. cs11 00:42 Ondansetron 4 mg IVP once ordered. cs11 00:43 CBC with Diff Ordered. EDMS 00:43 MED Profile Ordered. EDMS 00:43 Liver Profile Ordered. EDMS 00:43 Amylase Ordered. EDMS 00:43 Lipase Ordered. EDMS 00:43 Cardiac Marker Panel Ordered. EDMS 01:53 CBC with Diff Reviewed. cs11 01:53 MED Profile Reviewed. cs11 01:53 Liver Profile Reviewed. cs11 01:53 Cardiac Marker Panel Reviewed. cs11 01:53 Amylase Reviewed. cs11 01:53 Lipase Reviewed. cs11 01:55 morphine 2 mg IVP once ordered. cs11 01:55 CT ABD & PELVIS: IV Contrast Only Ordered. EDMS 01:57 Financial registration complete. [facility] 03:12 Dilaudid - HYDROmorphone 1 mg IVP once ordered. cs11 03:35 [facility] [place] Agreement was scanned into [employer] and attached to record. [facility] 03:52 cloNIDine 0.2 mg PO once ordered. cs11 12:49 ECG/EKG was scanned into [employer] and attached to record. gb 12:50 T-Sheet-- Draft Copy was scanned into [employer] and attached to record. gb 12:50 Radiology Report was scanned into [employer] and attached to record. gb 14:48 Radiology Report was scanned into [employer] and attached to record. gb Administered Medications: 00:30 Drug: Ondansetron 4 mg [ondansetron HCl 2 mg/mL intravenous solution (2 mL)] Route: mcp IVP; Site: right antecubital; 01:00 Drug: NS 0.9% 1000 ml [sodium chloride 0.9 % intravenous solution] Route: IV; Rate: mcp bolus; Site: right antecubital; 04:48 Follow up: IV Status: Completed infusion cz 01:00 Drug: Metoclopramide 10 mg [metoclopramide 5 mg/mL injection solution] Route: IV; Rate: mcp 40 mg/hr; Infused Over: 15 mins; Site: right antecubital; 01:28 Drug: Simethicone 360 mg {Note: 4 tabs of simethcone given one tab fell on the floor.} cz Route: PO; 02:00 Drug: morphine 2 mg [morphine 2 mg/mL intravenous cartridge (1 mL)] Route: IVP; Site: cz right antecubital; 03:20 Drug: Dilaudid - HYDROmorphone 1 mg [hydromorphone 1 mg/mL injection syringe (1 mL)] cz Route: IVP; Site: right antecubital; 03:57 Drug: cloNIDine 0.2 mg [clonidine HCl 0.2 mg tablet (1 tabs)] Route: PO; cz Signatures: Dispatcher [employer] EDMS Conte, Josselin, RN RN kmg1 Ibrahima Bright RN RN cz Arminda Clements, Tayo Reg gb Mynor Villegas, DO cs11 Sandra Barragan Mary RN mcp The chart was reviewed and I authenticate all verbal orders and agree with the evaluation and treatment provided.Attachments: 03:35 [facility] [place] Agreement [facility] 12:49 ECG/EKG 12:50 T-Sheet-- Draft Copy gb Chart Complete MTDD
--- NOTE | 2016-12-21 05:51 | EDDOCDS ---
Physician Documentation [facility] Name: Kenny Ramirez Age: 66 yrs Sex: Male : 1950 Arrival Date: 12/18/2016 Time: 23:55 Bed 9 Private MD: [facility] Disposition: 12/19/16 03:17 Discharged to Home/Self Care. Impression: Cholelithiasis, Nonalcoholic steatohepatitis (BAKER), Gastroparesis. - Condition is Stable. - Medication Reconciliation, Local Pharmacy Hours form. - Follow up: Chriss Matamoros; When: Call to arrange an appointment; Reason: Recheck today's complaints. - Problem is chronic. - Symptoms have improved. Historical: - Allergies: No known drug Allergies; - Home Meds: 1. albuterol sulfate 90 mcg/actuation Inhl aepb 2 puffs every 6 hours (Last dose: 12/18/2016) 2. amlodipine 5 mg Oral tab twice a day (Last dose: 12/18/2016 09:00) 3. budesonide-formoterol 160-4.5 mcg/actuation inhalation HFAA 2 puffs 2 times per day (Last dose: 12/18/2016) 4. Carafate 1 gram Oral tab 1 tab 4 times per day (Last dose: 12/18/2016 12:00) 5. insulin aspart sliding scale subcutaneous crtg daily 6. insulin glargine 100 unit/mL (3 mL) Sub-Q inpn 30 unit daily 7. metoprolol tartrate 25 mg Oral tab 1 tab three times a day (Last dose: 12/18/2016 09:00) 8. multivitamin Oral tab 1 tab daily (Last dose: 12/18/2016) 9. pantoprazole 40 mg oral TbEC 1 tab 2 times per day (Last dose: 12/18/2016 21:00) 10. Spiriva with HandiHaler 18 mcg Inhl CpDv 1 cap once daily (Last dose: 12/18/2016) - PMHx: Asthma; COPD; Diabetes - IDDM: uncontrolled; gi bleed; Hiatal Hernia; Hypertension; - Social history: Smoking status: Patient uses tobacco products, light tobacco smoker. No barriers to communication noted, The patient speaks fluent Thai, Speaks appropriately for age. - : The pt / caregiver states he / she is not on anticoagulants. Home medication list is obtained from the patient, [employer] import data. - Exposure Risk Screening:: None identified. Vital Signs: 12/18 23:57 BP 223 / 100; Pulse 92; Resp 22 S; Temp 98.0; Pulse Ox 97% on R/A; Weight 92.99 kg / dd6 205.01 lbs (R); Height 5 ft. 11 in. (180.34 cm) (R); 12/19 00:15 BP 225 / 101 (auto/); cz 00:30 Pulse 74 MON; Pulse Ox 95% ; cz 00:31 BP 206 / 104 (auto/); cz 00:44 Pulse 74 MON; Pulse Ox 95% ; cz 00:45 BP 205 / 95 (auto/); cz 00:59 Pulse 72 MON; Pulse Ox 95% ; cz 01:00 BP 207 / 95 (auto/); cz 01:14 Pulse 64 MON; Pulse Ox 97% ; cz 01:15 BP 203 / 96 (auto/); cz 01:29 Pulse 78 MON; Pulse Ox 100% ; cz 01:30 BP 219 / 93 (auto/); cz 01:44 Pulse 88 MON; cz 01:45 BP 235 / 102 (auto/); cz 01:59 Pulse 66 MON; Pulse Ox 97% ; cz 02:00 BP 178 / 86 (auto/); cz 04:36 BP 192 / 96; Pulse 98; Resp 16; Pulse Ox 99% on R/A; cz 12/18 23:57 Body Mass Index 28.59 (92.99 kg, 180.34 cm) dd6 MDM: 00:10 ECG WITH READING ER PHYS+CARDIAG ordered. EDMS 00:42 NS 0.9% 1000 ml IV at bolus once ordered. cs11 00:42 Metoclopramide 10 mg IV at 40 mg/hr once over 15 mins ordered. cs11 00:42 Simethicone 360 mg PO once ordered. cs11 00:42 Ondansetron 4 mg IVP once ordered. cs11 00:43 CBC with Diff Ordered. EDMS 00:43 MED Profile Ordered. EDMS 00:43 Liver Profile Ordered. EDMS 00:43 Amylase Ordered. EDMS 00:43 Lipase Ordered. EDMS 00:43 Cardiac Marker Panel Ordered. EDMS 01:53 CBC with Diff Reviewed. cs11 01:53 MED Profile Reviewed. cs11 01:53 Liver Profile Reviewed. cs11 01:53 Cardiac Marker Panel Reviewed. cs11 01:53 Amylase Reviewed. cs11 01:53 Lipase Reviewed. cs11 01:55 morphine 2 mg IVP once ordered. cs11 01:55 CT ABD & PELVIS: IV Contrast Only Ordered. EDMS 01:57 Financial registration complete. [facility] 03:12 Dilaudid - HYDROmorphone 1 mg IVP once ordered. cs11 03:35 [facility] [place] Payment Agreement was scanned into [employer] and attached to record. [facility] 03:52 cloNIDine 0.2 mg PO once ordered. cs11 12:49 ECG/EKG was scanned into [employer] and attached to record. gb 12:50 T-Sheet-- Draft Copy was scanned into [employer] and attached to record. gb 12:50 Radiology Report was scanned into [employer] and attached to record. gb 14:48 Radiology Report was scanned into [employer] and attached to record. gb Administered Medications: 00:30 Drug: Ondansetron 4 mg [ondansetron HCl 2 mg/mL intravenous solution (2 mL)] Route: mcp IVP; Site: right antecubital; 01:00 Drug: NS 0.9% 1000 ml [sodium chloride 0.9 % intravenous solution] Route: IV; Rate: mcp bolus; Site: right antecubital; 04:48 Follow up: IV Status: Completed infusion cz 01:00 Drug: Metoclopramide 10 mg [metoclopramide 5 mg/mL injection solution] Route: IV; Rate: mcp 40 mg/hr; Infused Over: 15 mins; Site: right antecubital; 01:28 Drug: Simethicone 360 mg {Note: 4 tabs of simethcone given one tab fell on the floor.} cz Route: PO; 02:00 Drug: morphine 2 mg [morphine 2 mg/mL intravenous cartridge (1 mL)] Route: IVP; Site: cz right antecubital; 03:20 Drug: Dilaudid - HYDROmorphone 1 mg [hydromorphone 1 mg/mL injection syringe (1 mL)] cz Route: IVP; Site: right antecubital; 03:57 Drug: cloNIDine 0.2 mg [clonidine HCl 0.2 mg tablet (1 tabs)] Route: PO; cz Signatures: Dispatcher [employer] EDMS Conte, Josselin, RN RN kmg1 Ibrahima Bright RN RN cz Arminda Clements, Tayo Reg gb Mynor Villegas, DO cs11 Sandra Barragan Mary RN mcp The chart was reviewed and I authenticate all verbal orders and agree with the evaluation and treatment provided.Attachments: 03:35 [facility] [place] Payment Agreement [facility] 12:49 ECG/EKG 12:50 T-Sheet-- Draft Copy gb Chart Complete MTDD
== END 2016-12-19 04:50 | disposition home or self-care (01) ==
LOC: M ED 23:55
DX: K80.20 Calculus of gallbladder without cholecystitis without obstruction (principal); K75.81 Nonalcoholic steatohepatitis (NASH); K31.84 Gastroparesis; E11.9 Type 2 diabetes mellitus without complications; I10 Essential (primary) hypertension; J44.9 Chronic obstructive pulmonary disease, unspecified; J45.909 Unspecified asthma, uncomplicated; K21.9 Gastro-esophageal reflux disease without esophagitis; K44.9 Diaphragmatic hernia without obstruction or gangrene; Z87.19 Personal history of other diseases of the digestive system; Z79.899 Other long term (current) drug therapy; F17.210 Nicotine dependence, cigarettes, uncomplicated

== ENCOUNTER 2016-12-20 03:50 | Inpatient (IN) | payer MEDICARE ==
[~2016-12-20] VITALS: Ht 180.3 cm; Wt 94.0 kg
[2016-12-20 04:48] LABS: BASO % 0.1 % (0.0-1.0); EOS # 0.1 K/mm3 (0.0-0.50); EOS % 0.9 % (0.0-3.0); LARGE UNSTAINED CELL # 0.1 K/mm3 (0.0-0.4); LARGE UNSTAINED CELL % 0.8 % (0.0-4.0); LYMPH # 1.5 K/mm3 (1.5-4.5); LYMPH % 11.3 % (24.0-44.0); MEAN CORPUSCULAR HEMOGLOBIN 24.9 pg (27.0-33.0); MEAN CORPUSCULAR HGB CONC 31.9 g/dl (32.0-36.5); MEAN CORPUSCULAR VOLUME 78.1 fl (80.0-96.0); MONO # 0.7 K/mm3 (0.0-0.8); MONO % 5.1 % (0.0-5.0); NEUTROPHILS # 11.2 K/mm3 (1.8-7.7); NEUTROPHILS % 81.8 % (36.0-66.0); PLATELET COUNT, AUTOMATED 270 k/mm3 (150-450); RED CELL DISTRIBUTION WIDTH 17.2 % (11.5-14.5); WHITE BLOOD COUNT 13.7 K/mm3 (4.0-10.0)
[2016-12-20 06:05] LABS: ALBUMIN 3.9 GM/DL (3.2-5.2); ALBUMIN/GLOBULIN RATIO 0.81 (1.00-1.93); BILIRUBIN,DIRECT 0.7 MG/DL (0.0-0.2); CALCIUM LEVEL 11.5 MG/DL (8.8-10.2); CREATININE FOR GFR 1.7 MG/DL (0.70-1.30); GLOMERULAR FILTRATION RATE 52.6 (>49); POTASSIUM SERUM 3.4 MEQ/L (3.5-5.1); TOTAL PROTEIN 8.7 GM/DL (6.4-8.2)
[2016-12-20] MEDS ORDERED: PANTOPRAZOLE 40MG INJ (PROTONIX) (C9113) As Ordered ONE ×4 (06:39→18:46)
[2016-12-20] MEDS ORDERED: AMLO5TAB2 PO (07:40)
[2016-12-20] MEDS ORDERED: METO25TAB PO (07:40)
[2016-12-20] MEDS: TIOTROPIUM INHALER/CAPSULE (SPIRIVA) INH SCH (08:00)
[2016-12-20] MEDS: PANTOPRAZOLE SODIUM 40 MG in D5W MINI-BAG PLUS 50 ML IV SCH ×3 (08:45→18:50)
[2016-12-20] MEDS ORDERED: NS 1,000 ML IV SCH (08:45)
[2016-12-20] MEDS: MULTIVITAMINS/MINERALS THERAP 1 TAB PO SCH (09:00)
[2016-12-20] MEDS: SYMBICORT 160/4.5MCG INHALER 6GM INH SCH ×2 (09:00→21:00)
[2016-12-20] MEDS ORDERED: KCL 40MEQ in NS 1000ML 1,000 ML IV SCH (09:00)
[2016-12-20] MEDS ORDERED: LORazepam 2 MG/ML VIAL (J2060) IM PRN (09:15)
[2016-12-20] MEDS ORDERED: GLUCAGON FOR INJ 1 MG VIAL (J1610) SC PRN (09:15)
[2016-12-20] MEDS ORDERED: DEXTROSE 50% 50 ML SYRINGE IV PRN (09:15)
[2016-12-20] MEDS ORDERED: ALBUTEROL 90 MCG/ACT 8GM HFA INHALER INH PRN (09:15)
[2016-12-20] MEDS ORDERED: GLUCOSE 4 GM CHEW TABLET PO PRN (09:15)
[2016-12-20] MEDS ORDERED: KCL 40MEQ IN 0.9%NACL 1000ML As Ordered ONE (09:29)
[2016-12-20 09:40] LABS: MAGNESIUM LEVEL 2.6 MG/DL (1.8-2.4)
[2016-12-20 10:28] LABS: OSMOLALITY URINE 547 MOSM/KG (500-800)
[2016-12-20 12:00] VITALS: BP 174/90
[2016-12-20] MEDS: SUCRALFATE 1 GM TAB PO SCH ×2 (12:00→18:03)
[2016-12-20] MEDS ORDERED: MULTIVITAMINS/MINERALS THERAP 1 TAB As Ordered ONE (12:55)
[2016-12-20] MEDS ORDERED: LEVEMIR (INSULIN DETEMIR) 1 UNITS/0.01ML As Ordered ONE (12:56)
[2016-12-20] MEDS: LEVEMIR (INSULIN DETEMIR) 1 UNITS/0.01ML SC SCH (13:00)
[2016-12-20] MEDS ORDERED: HumaLOG INSULIN (NovoLOG) PER UNIT As Ordered ONE ×2 (13:08→18:00)
[2016-12-20] MEDS: HumaLOG INSULIN (NovoLOG) PER UNIT SC SCH ×2 (13:12→18:03)
--- NOTE | 2016-12-20 14:36 | HPE ---
DATE OF ADMISSION: 12/20/2016 PRIMARY CARE PROVIDER: [facility]. TAP PULLER: Dr. Foster, covered by Dr. Bingham. CONVEYOR WEIGHER OPERATOR: Dr. Pearl. CHIEF COMPLAINT: Coffee ground emesis, upper gastrointestinal (GI) bleed. HISTORY OF PRESENT ILLNESS: This is a 66-year-old male patient with underlying medical history of chronic obstructive pulmonary disease (COPD), insulin-dependent diabetes, history of gastrointestinal bleed in September 2016, hiatal hernia, hypertension, was scoped by Dr. Pearl, hepatitis C, presented to [facility] with epigastric pain and episodes of coffee ground emesis since Wednesday. Prior to admission, as per patient, occasional bright red blood in the emesis, later coffee ground. The patient reported lightheadedness, reported vomiting about 10 times over the last 24 hours. Denies any melena. The patient reported epigastric pain, 7-8 out of 10. Denies any chest pain, shortness of breath. Feeling nauseas and uncomfortable. Denies any fevers or chills. Denies any diarrhea. ALLERGIES: No known drug allergies. PAST MEDICAL HISTORY: 1. Hepatitis C. 2. Chronic obstructive pulmonary disease (COPD). 3. Insulin-dependent type 2 diabetes. 4. Gastrointestinal (GI) bleed. 5. Hiatal hernia. 6. Hypertension. 7. Also reported history of alcohol use, cutting down significantly 2012. PAST SURGICAL HISTORY: 1. Left pinky toe removal. 2. Esophagogastroduodenoscopy (EGD). 3. Banding of esophageal varices. SOCIAL HISTORY: The patient smokes a half a pack per day for 30 plus years. He used to drink a significant amount of alcohol, beers, has stopped since 2012. The patient also has a history of IV drug use in the past. FAMILY HISTORY: Noncontributory. REVIEW OF SYSTEMS: 11-point review of systems is negative except for those mentioned in the history of present illness (HPI). HOME MEDICATIONS: - Ventolin inhaler every four hours as needed - Norvasc 5 mg by mouth twice a day - Symbicort 160/4.5 mcg inhalation twice a day - NovoLog pre-meal via scale - Lantus 30 units subcutaneous daily - metoprolol 25 mg by mouth twice a day - multivitamin one tablet by mouth daily - Protonix 40 mg by mouth twice a day - Carafate 1 gram by mouth before meals and at bedtime - Spiriva inhalation once daily PHYSICAL EXAMINATION: GENERAL: The patient is alert and oriented times three, uncomfortable secondary to nasogastric (NG) tube. VITAL SIGNS: Blood pressure 178/84, pulse 104, respirations 22, temperature 96.9, pulse oximetry 100% on room air. HEENT: Normocephalic, atraumatic. Extraocular motor is intact. NG tube in place putting out coffee ground gastric content. CARDIAC: Regular, tachycardic, S1, S2. PULMONARY: Bilateral mild expiratory wheeze. No rhonchi. ABDOMEN: Soft, nontender, nondistended. Positive bowel sounds. No rebound or guarding. EXTREMITIES: No edema of bilateral lower extremities. LABORATORY DATA: WBC 13.7, hemoglobin and hematocrit 13.6/44.3, platelets 270. Chemistry: Sodium 137, potassium 3.4, chloride 88, bicarbonate 34, BUN 20, creatinine 1.7. Cardiac enzymes negative times two. CT of the abdomen shows mild irregularity of the hepatic contour, fatty liver infiltrates, hiatal hernia, gastroparesis, cholelithiasis. No evidence of acute abdominal or pelvic pathology. ASSESSMENT AND PLAN: This is a 66-year-old male patient with underlying medical history of chronic obstructive pulmonary disease (COPD), insulin-dependent diabetes, chronic kidney disease (CKD), hepatitis C, gastrointestinal (GI) bleed, hiatal hernia, hypertension, admitted with coffee ground emesis. 1. Coffee ground emesis. The patient consented for transfusion, IV fluids, followup blood pressure. Followup hemoglobin and hematocrit. Transfuse as needed. Dr. Pearl has been consulted. Protonix drip. Likely esophagogastroduodenoscopy (EGD) tomorrow, currently nothing by mouth. Continue Carafate. Nasogastric (NG) tube placed in the emergency department (ED) by emergency room team. 2. Hypokalemia, likely secondary to vomiting. Continue supplementation. Followup potassium and magnesium. Followup electrolytes. 3. Nausea and vomiting, possibly secondary to upper GI bleed. Zofran as needed, NG tube to low suction. CT scan of the abdomen appreciated. 4. Leukocytosis, likely reactive to GI bleed. Followup cultures. 5. History of COPD. Continue Symbicort. Smoking cessation counseling. Nebulizer treatment as needed and Spiriva. 6. Insulin-dependent diabetes. Patient is currently nothing by mouth. Long-acting insulin dosage has been reduced significantly, every six hours fingersticks, insulin as per scale. 7. History of alcohol abuse. Vitamins, thiamine, folic acid, Ativan as needed, monitor for withdrawal. 8. Acute on chronic renal insufficiency. Baseline creatinine 1.1 to 1.2, currently much elevated. IV fluids for hydration. Renal ultrasound. Followup renal studies. 9. Hypertension. Withholding blood pressure medication given the patient is having active GI bleed and also nothing by mouth. We will give IV medication as needed. 10. Deep vein thrombosis (DVT) prophylaxis. Venodyne sequential compression device. Avoid pharmacological agent given the patient's active GI bleed. DISPOSITION PLANNING: Pending gastroenterology (GI) consultation, esophagogastroduodenoscopy (EGD), clinical improvement.
[2016-12-20 15:00] VITALS: BP 157/72
[2016-12-20 15:38] VITALS: BP 163/78
[2016-12-20] MEDS ORDERED: LABETALOL HCL 100 MG/20 ML VIAL As Ordered ONE ×2 (15:46→22:28)
[2016-12-20 16:00] VITALS: BP 143/77
[2016-12-20] MEDS: LABETALOL HCL 100 MG/20 ML VIAL IV SCH ×2 (16:00→22:30)
[2016-12-20 16:04] LABS: ANION GAP 9 MEQ/L (8-16); BLOOD UREA NITROGEN 19 MG/DL (7-18); CALCIUM LEVEL 9.3 MG/DL (8.8-10.2); CARBON DIOXIDE LEVEL 36 MEQ/L (21-32); CHLORIDE LEVEL 96 MEQ/L (98-107); GLOMERULAR FILTRATION RATE > 60.0 (>49); GLUCOSE, FASTING 127 MG/DL (80-110); MAGNESIUM LEVEL 2.5 MG/DL (1.8-2.4); POTASSIUM SERUM 4.3 MEQ/L (3.5-5.1); SODIUM LEVEL 141 MEQ/L (136-145)
[2016-12-20] MEDS ORDERED: THIAMINE HCL 200 MG/2 ML VIAL (J3411) As Ordered ONE (16:41)
[2016-12-20] MEDS ORDERED: MORPHINE 2 MG/ML 1ML SYRINGE As Ordered ONE ×2 (16:48→20:56)
[2016-12-20] MEDS: MORPHINE 2 MG/ML 1ML SYRINGE IV PRN ×2 (16:51→21:08)
[2016-12-20] MEDS: THIAMINE HCL 200 MG/2 ML VIAL (J3411) IV SCH (16:51)
[2016-12-20] MEDS ORDERED: KCL 20MEQ IN 0.9 NS 1000 ML BAG As Ordered ONE (17:51)
[2016-12-20] MEDS: KCL 20MEQ in NS 1000ML 1,000 ML IV SCH (17:55)
[2016-12-20] MEDS ORDERED: SUCRALFATE 1 GM TAB As Ordered ONE (18:00)
[2016-12-20 20:00] VITALS: BP 167/74
--- NOTE | 2016-12-20 20:26 | REP ---
Renal ultrasound 12/20/2016 Indication acute on chronic renal disease Comparison: CT of the pelvis 12/19/2016 Findings: Kirk scale imaging ultrasound performed of the kidneys and bladder 12/20/2016 Findings: Right kidney measures 9.6 x 4.4 x 4.7 cm. The left kidney measures 9.7 x 3.2 by 4.3 cm. Kidneys are of normal contour and echogenicity bilaterally. There is no hydronephrosis bilaterally. There is mild increased renal sinus fat bilaterally.There are no visualized intrarenal masses or cysts. The bladder is moderately urine-filled and unremarkable in appearance Impression 1. Kidneys without hydronephrosis, intrarenal masses or cysts . 2. Renal cortical echogenicity within normal limits. Mild prominence of renal sinus fat bilaterally 3. Bladder is unremarkable as visualized Signed by Norma Martínez MD 12/20/2016 08:18 P
[2016-12-20] MEDS ORDERED: ONDANSETRON 4MG/2ML VIAL (J2405) As Ordered ONE (20:56)
[2016-12-20] MEDS: FOLIC ACID 1 MG in NS 50 ML IV SCH (21:06)
[2016-12-20] MEDS: ONDANSETRON 4MG/2ML VIAL (J2405) IV PRN (21:06)
[2016-12-20] MEDS: SUCRALFATE SUSP 1GM/10ML UD PO SCH (21:12)
[2016-12-21] VITALS (8 sets, daily range): BP systolic 152–173; BP diastolic 70–76; PULSE 75
[2016-12-21] MEDS: HumaLOG INSULIN (NovoLOG) PER UNIT SC SCH ×5 (00:06→20:28)
[2016-12-21] MEDS ORDERED: PANTOPRAZOLE 40MG INJ (PROTONIX) (C9113) As Ordered ONE ×3 (00:07→09:42)
[2016-12-21] MEDS: PANTOPRAZOLE SODIUM 40 MG in D5W MINI-BAG PLUS 50 ML IV SCH ×3 (00:10→10:09)
[2016-12-21] MEDS ORDERED: KCL 20MEQ IN 0.9 NS 1000 ML BAG As Ordered ONE (04:04)
[2016-12-21] MEDS: KCL 20MEQ in NS 1000ML 1,000 ML IV SCH (04:05)
[2016-12-21] MEDS: LABETALOL HCL 100 MG/20 ML VIAL IV SCH ×2 (04:06→10:00)
[2016-12-21 06:46] LABS: MEAN CORPUSCULAR HGB CONC 31.3 g/dl (32.0-36.5); RED CELL DISTRIBUTION WIDTH 17.1 % (11.5-14.5); WHITE BLOOD COUNT 11.6 K/mm3 (4.0-10.0)
[2016-12-21] MEDS ORDERED: HumaLOG INSULIN (NovoLOG) PER UNIT As Ordered ONE (06:57)
[2016-12-21 07:28] LABS: ANION GAP 11 MEQ/L (8-16); BLOOD UREA NITROGEN 17 MG/DL (7-18); CARBON DIOXIDE LEVEL 30 MEQ/L (21-32); CHLORIDE LEVEL 102 MEQ/L (98-107); GLOMERULAR FILTRATION RATE > 60.0 (>49); GLUCOSE, FASTING 108 MG/DL (80-110); MAGNESIUM LEVEL 2.5 MG/DL (1.8-2.4); POTASSIUM SERUM 3.8 MEQ/L (3.5-5.1); SODIUM LEVEL 143 MEQ/L (136-145)
[2016-12-21] MEDS: LEVEMIR (INSULIN DETEMIR) 1 UNITS/0.01ML SC SCH (09:00)
[2016-12-21] MEDS: SYMBICORT 160/4.5MCG INHALER 6GM INH SCH ×2 (09:08→21:00)
[2016-12-21] MEDS: TIOTROPIUM INHALER/CAPSULE (SPIRIVA) INH SCH (09:08)
[2016-12-21] MEDS ORDERED: IPRATROPIUM 0.5MG/ALBUTEROL 2.5MG INH SOL UD 3ML (DUONEB)(J7620) As Ordered ONE (09:13)
[2016-12-21] MEDS: IPRATROPIUM 0.5MG/ALBUTEROL 2.5MG INH SOL UD 3ML (DUONEB)(J7620) NEB SCH ×3 (09:15→19:55)
[2016-12-21] MEDS ORDERED: IPRATROPIUM 0.5MG/ALBUTEROL 2.5MG INH SOL UD 3ML (DUONEB)(J7620) NEB PRN (09:15)
[2016-12-21] MEDS ORDERED: LEVEMIR (INSULIN DETEMIR) 1 UNITS/0.01ML As Ordered ONE (09:54)
[2016-12-21] MEDS: SUCRALFATE SUSP 1GM/10ML UD PO SCH ×4 (10:06→20:49)
[2016-12-21] MEDS: MULTIVITAMINS/MINERALS THERAP 1 TAB PO SCH (10:07)
[2016-12-21] MEDS: THIAMINE HCL 200 MG/2 ML VIAL (J3411) IV SCH (10:10)
[2016-12-21] MEDS ORDERED: LABETALOL HCL 100 MG/20 ML VIAL As Ordered ONE (10:14)
[2016-12-21] MEDS ORDERED: MORPHINE 2 MG/ML 1ML SYRINGE As Ordered ONE (10:56)
[2016-12-21] MEDS: MORPHINE 2 MG/ML 1ML SYRINGE IV PRN (11:04)
--- NOTE | 2016-12-21 12:02 | EDDOCDS ---
Physician Documentation [facility] Name: Kenny Ramirez Jr Age: 66 yrs Sex: Male : 1950 Arrival Date: 12/20/2016 Time: 03:50 Bed Admit Hold Private MD: Disposition: 12/20/16 07:12 Hospitalization ordered by Tony Champion for Inpatient Admission. Preliminary diagnosis is Gastrointestinal hemorrhage, unspecified. - [facility] - Status is Inpatient Admission. [facility] - Condition is Stable. - Problem is an ongoing problem. - Symptoms have improved. Historical: - Allergies: No known drug Allergies; - Home Meds: 1. albuterol sulfate 90 mcg/actuation Inhl aepb 2 puffs every 6 hours 2. budesonide-formoterol 160-4.5 mcg/actuation inhalation HFAA 2 puffs 2 times per day 3. insulin glargine 100 unit/mL (3 mL) Sub-Q inpn 30 unit daily 4. Carafate 1 gram Oral tab 1 tab 4 times per day 5. metoprolol tartrate 25 mg Oral tab 1 tab three times a day 6. pantoprazole 40 mg oral TbEC 1 tab 2 times per day 7. insulin aspart sliding scale subcutaneous crtg daily 8. multivitamin Oral tab 1 tab daily 9. Spiriva with HandiHaler 18 mcg Inhl CpDv 1 cap once daily 10. amlodipine 5 mg Oral tab twice a day - PMHx: Asthma; COPD; Diabetes - IDDM: uncontrolled; gi bleed; Hiatal Hernia; Hypertension; - PSHx: left pinky toe removed; - Social history: No barriers to communication noted, The patient speaks fluent Georgian, Speaks appropriately for age, Smoking status: Patient uses tobacco products, light tobacco smoker. - Family history: Not pertinent. - : The pt / caregiver states he / she is not on anticoagulants. Home medication list is obtained from the patient, [employer] import data. - Exposure Risk Screening:: None identified. Vital Signs: 12/20 04:16 BP 156 / 99; Pulse 119; Resp 22; Temp 96.9(O); Pulse Ox 99% on R/A; Weight 92.99 kg / js15 205.01 lbs; Height 5 ft. 11 in. (180.34 cm); Pain 8/10; 04:45 BP 158 / 90 (auto/); js15 04:45 Pulse 108 MON; Pulse Ox 96% ; js15 05:00 BP 157 / 97 (auto/); js15 05:00 Pulse 117 MON; Pulse Ox 96% ; js15 05:15 BP 169 / 104 (auto/); js15 05:15 Pulse 131 MON; Pulse Ox 100% ; js15 05:35 BP 163 / 82 (auto/); js15 05:35 Pulse 116 MON; Pulse Ox 97% ; 15 05:45 BP 171 / 90 (auto/); js15 05:45 Pulse 120 MON; Pulse Ox 96% ; 15 06:00 BP 158 / 76 (auto/); js15 06:00 Pulse 107 MON; Pulse Ox 99% ; 15 06:15 BP 182 / 86 (auto/); 15 06:15 Pulse 112 MON; Pulse Ox 100% ; 15 06:30 BP 169 / 75 (auto/); 15 06:30 Pulse 104 MON; Pulse Ox 99% ; 15 06:45 BP 178 / 84 (auto/); 15 06:45 Pulse 111 MON; Pulse Ox 100% ; 15 07:00 Pulse 113 MON; Pulse Ox 100% ; srm 07:00 BP 170 / 79 (auto/); srm 07:15 BP 176 / 82 (auto/); srm 07:15 Pulse 106 MON; Resp 18; Pulse Ox 100% ; srm 07:30 Pulse 105 MON; Pulse Ox 100% ; srm 07:30 BP 154 / 74 (auto/); srm 07:45 Pulse 103 MON; Pulse Ox 99% ; srm 07:45 BP 168 / 81 (auto/); srm 08:00 BP 160 / 80 (auto/); srm 08:00 Pulse 106 MON; Resp 18; Pulse Ox 97% ; srm 08:15 Pulse 107 MON; Pulse Ox 99% ; srm 08:15 BP 157 / 78 (auto/); srm 08:30 Pulse 101 MON; Pulse Ox 99% ; srm 08:30 BP 159 / 77 (auto/); srm 08:44 Pulse 102 MON; Pulse Ox 99% ; srm 08:45 BP 162 / 80 (auto/); srm 09:00 BP 168 / 81 (auto/); srm 09:00 Pulse 99 MON; Resp 18; Pulse Ox 98% ; srm 09:15 Pulse 96 MON; Pulse Ox 96% ; srm 09:15 BP 177 / 86 (auto/); srm 09:30 Pulse 109 MON; srm 09:30 BP 179 / 96 (auto/); srm 10:09 BP 154 / 92 (auto/); srm 10:11 Pulse 107 MON; Resp 18; Pulse Ox 98% ; srm 10:23 Temp 97.7(O); tk 11:09 Pulse 95 MON; Pulse Ox 98% ; srm 11:09 BP 184 / 90 (auto/); srm 11:21 BP 172 / 83 (auto/); srm 11:21 Pulse 98 MON; Resp 18; Pulse Ox 100% ; srm 04:16 Body Mass Index 28.59 (92.99 kg, 180.34 cm) js15 MDM: 04:01 Undress patient appropriately for examination ordered. nov 04:01 IV Saline Lock ordered. nov 04:02 Amylase Ordered. EDMS 04:02 Basic Metabolic Profile Ordered. EDMS 04:02 CBC with Diff Ordered. EDMS 04:02 Lipase Ordered. EDMS 04:02 Liver Profile Ordered. EDMS 04:02 Type & Screen Ordered. EDMS 04:02 NOTHING BY MOUTH+DIET ordered. EDMS 04:43 IV Saline Lock ordered. nov 04:43 NS 0.9% 1000 ml IV at bolus once ordered. nov 04:43 NG Tube, 18Fr ordered. nov 04:47 Pt & Aptt Ordered. EDMS 05:29 CBC with Diff Reviewed. cs11 05:34 [facility] Payment Agreement was scanned into [employer] and attached to record. b 05:34 Financial registration complete. gjb 06:29 Basic Metabolic Profile Reviewed. cs11 06:29 Liver Profile Reviewed. cs11 06:29 Pt & Aptt Reviewed. cs11 06:29 Amylase Reviewed. cs11 06:29 Lipase Reviewed. cs11 06:29 pantoprazole 40 mg IV at bolus once ordered. cs11 06:59 BED REQUEST+ADM ordered. EDMS 09:04 CARDIAC MARKER PANEL Ordered. EDMS 09:04 BLOOD CULTURES Ordered. EDMS 09:05 BLOOD CULTURES Ordered. EDMS 09:08 RENAL US Ordered. EDMS 09:09 HEMOGLOBIN & HEMATOCRIT Ordered. EDMS 09:09 HEMOGLOBIN & HEMATOCRIT Ordered. EDMS 09:09 HEMOGLOBIN & HEMATOCRIT Ordered. EDMS 09:12 URINALYSIS Ordered. EDMS 09:12 TOTAL PROTEIN,RANDOM URINE Ordered. EDMS 09:12 CREATININE,RANDOM URINE Ordered. EDMS 09:12 OSMOLALITY,URINE Ordered. EDMS 09:12 SODIUM,RANDOM URINE Ordered. EDMS 09:12 CHLORIDE,RANDOM URINE Ordered. EDMS 09:12 POTASSIUM,RANDOM URINE Ordered. EDMS 09:14 Admission / Observation Status ordered. EDMS 09:23 CARDIAC MARKER PANEL Ordered. EDMS 09:23 MAGNESIUM LEVEL Ordered. EDMS 12:44 Fingerstick Blood Sugar Ordered. EDMS 15:35 BASIC METABOLIC PROFILE Ordered. EDMS 15:35 MAGNESIUM LEVEL Ordered. EDMS 16:02 Labetalol 10 mg IVP at bolus once over 2 mins ordered. ld5 18:06 Fingerstick Blood Sugar Ordered. EDMS 19:32 HEMOGLOBIN & HEMATOCRIT Ordered. EDMS 19:33 HEMOGLOBIN & HEMATOCRIT Ordered. EDMS 19:33 HEMOGLOBIN & HEMATOCRIT Ordered. EDMS 19:33 HEMOGLOBIN & HEMATOCRIT Ordered. EDMS 19:33 HEMOGLOBIN & HEMATOCRIT Ordered. EDMS 19:33 COMPLETE BLOOD COUNT Ordered. EDMS 19:34 BASIC METABOLIC PROFILE Ordered. EDMS 19:34 MAGNESIUM LEVEL Ordered. EDMS 12/21 07:03 Fingerstick Blood Sugar Ordered. EDMS Administered Medications: 12/20 05:00 Drug: NS 0.9% 1000 ml [sodium chloride 0.9 % intravenous solution] Route: IV; Rate: js15 bolus; Site: right hand; 06:00 Follow up: IV Status: Completed infusion; IV Intake: 1000ml js15 06:43 Drug: pantoprazole 40 mg [pantoprazole 40 mg intravenous solution] Route: IV; Rate: js15 bolus; Site: right hand; 16:00 Drug: Labetalol 10 mg [labetalol 5 mg/mL intravenous solution (2 mL)] Route: IVP; Rate: ld5 bolus; Infused Over: 2 mins; Site: right hand; Signatures: Dispatcher [employer] EDMS Charley Andrade, [employer] Unit deg Cristy Washington RN RN jan Dickerson, LauraRN RN ld5 Eugenia Ramirez RN RN cj Mynor Villegas DO DO cs11 Jaymie Chan RN RN js15 Rose Purvis The chart was reviewed and I authenticate all verbal orders and agree with the evaluation and treatment provided.Corrections: (The following items were deleted from the chart) 09:21 09:04 CARDIAC MARKER PANEL ordered. EDMS EDMS 09:23 09:04 MAGNESIUM LEVEL ordered. EDMS EDMS 12:47 09:04 ELECTROCARDIOGRAM ADULT ordered. EDMS EDMS 15:37 09:09 BASIC METABOLIC PROFILE ordered. EDMS EDMS 15:37 09:09 MAGNESIUM LEVEL ordered. EDMS EDMS 21:53 19:32 HEMOGLOBIN & HEMATOCRIT ordered. EDMS EDMS Attachments: 05:34 [facility] Payment Agreement gjb MTDD
--- NOTE | 2016-12-21 12:03 | EDDOCDS ---
Nurse's Notes [facility] Name: Kenny Ramirez Jr Age: 66 yrs Sex: Male : 1950 Arrival Date: 12/20/2016 Time: 03:50 Bed Admit Hold Private MD: Diagnosis: Gastrointestinal hemorrhage, unspecified Presentation: 12/20 04:00 Presenting complaint: Patient states: Pt states that he was seen here last night for js15 vomiting and heartburn; was discharged and sent home. Pt has continued to vomit intermittently since discharge and vomited moderate amount of dark red/brown emesis in waiting room; epigastric pain 8/10. Suicide/Homicide risk assessment- the patient denies having any suicidal and/or homicidal ideations and does not present with any other emotional, behavioral or mental health complaints. Status: . Transition of care: patient was not received from another setting of care. 04:00 Acuity: LETICIA Level 3 js15 04:00 Method Of Arrival: Wheelchair js15 04:19 Adult Sepsis Screening: The patient does not have new or worsening altered mentation. js15 Patient has a respiratory rate of greater than or equal to 22 (1 point). Systolic blood pressure is greater than 100. Patient has a qSOFA score of 1- Negative Sepsis Screen. Triage Assessment: 04:16 General: Appears uncomfortable, Behavior is cooperative. Pain: Location: epigastric js15 area Pain currently is 8 out of 10 on a pain scale. HIV screening NA for this visit Offered previously. The patient is triaged at the bedside. See Assessment in Nurses Notes section of ED record. Neurological: Level of Consciousness is awake, alert, obeys commands, Oriented to person, place, time. EENT:. Cardiovascular: Rhythm is sinus tachycardia. Respiratory: Airway is patent Respiratory effort is even, unlabored, Respiratory pattern is regular, symmetrical. Derm: Skin is normal. Historical: - Allergies: No known drug Allergies; - Home Meds: 1. albuterol sulfate 90 mcg/actuation Inhl aepb 2 puffs every 6 hours 2. budesonide-formoterol 160-4.5 mcg/actuation inhalation HFAA 2 puffs 2 times per day 3. insulin glargine 100 unit/mL (3 mL) Sub-Q inpn 30 unit daily 4. Carafate 1 gram Oral tab 1 tab 4 times per day 5. metoprolol tartrate 25 mg Oral tab 1 tab three times a day 6. pantoprazole 40 mg oral TbEC 1 tab 2 times per day 7. insulin aspart sliding scale subcutaneous crtg daily 8. multivitamin Oral tab 1 tab daily 9. Spiriva with HandiHaler 18 mcg Inhl CpDv 1 cap once daily 10. amlodipine 5 mg Oral tab twice a day - PMHx: Asthma; COPD; Diabetes - IDDM: uncontrolled; gi bleed; Hiatal Hernia; Hypertension; - PSHx: left pinky toe removed; - Social history: No barriers to communication noted, The patient speaks fluent Vietnamese, Speaks appropriately for age, Smoking status: Patient uses tobacco products, light tobacco smoker. - Family history: Not pertinent. - : The pt / caregiver states he / she is not on anticoagulants. Home medication list is obtained from the patient, [email or web address] import data. - Exposure Risk Screening:: None identified. Screenin:19 Screening information is obtained from the patient. Fall risk: At risk due to weakness. js15 The following interventions are performed due to a positive Fall Risk Screen: bed in low position, call light in reach, family at bedside. Assistance ADL's: requires no assistance with activities of daily living. Abuse/DV Screen: The patient / caregiver reports he/she is: not in a situation that causes fear, pain or injury. Nutritional screening: No deficits noted. Advance Directives: There is no active DNR order. home support is adequate. Assessment: 04:15 General: see triage note. GI: Bowel sounds present X 4 quads. Abd is soft and non js15 tender X 4 quads. 05:30 Reassessment: Pt sitting up on stretcher following NG tube insertion and hooked to low js15 intermittent suction; no distress or difficulty breathing, respirations even and unlabored; skin normal, intact. cardiac rhythm is sinus tach. will continue to monitor. 06:35 GI: Abdomen is. js15 06:35 Reassessment: Patient appears in no apparent distress at this time. Pt sitting up on js15 stretcher, awake and alert with daughter at bedside; respirations even, unlabored; skin intact, warm, dry. 07:34 General: Appears in no apparent distress, Behavior is appropriate for age, cooperative. srm Pain: Location: epigastric area Pain currently is 7 out of 10 on a pain scale. Neurological: No deficits noted. EENT: No deficits noted. Cardiovascular: Capillary refill < 3 seconds in bilateral Heart tones present. Respiratory: Airway is patent Respiratory effort is even, unlabored, Breath sounds are clear bilaterally. GI: Abdomen is distended, Bowel sounds hypoactive in right upper quadrant, left upper quadrant, right lower quadrant and left lower quadrant Abd is soft and non tender X 4 quads. Derm: Skin is intact, Skin is dry, Skin is pink, warm & dry. Skin temperature is warm. 08:22 General: pt resting on stretcher. voices no c/o. vs stable. brown secretions noted in srm NG tube. . 08:41 General: NS at 100cc/hr up per dr Ray. . srm 09:59 General: Appears in no apparent distress, Behavior is appropriate for age, cooperative. srm Neurological: Level of Consciousness is awake, alert, Oriented to person, place, time. Cardiovascular: Rhythm is sinus rhythm. Respiratory: No deficits noted. GI: Abdomen is distended, Bowel sounds hypoactive in suprapubic area, right upper quadrant, left upper quadrant, right lower quadrant and left lower quadrant Abd is soft and non tender X 4 quads. 10:15 General: at 0939 protonix drip initiated in right hand 18 G. at 0945 ns with 40 me KCL srm /L initiated to right ac 20 g. pt moved to hospital bed. voices no c/o except having hiccups. 16:02 General: First contact with pt. This RN asked to administer IV labetalol to pt. Order ld5 printed from [employer]. Pt's BP just prior to med administration was 163/78 and heart rate was 102. Pt medicated. Pt tolerated well. Will reassess BP at appropriate time. Lj RN made aware of med administration. Care turned back to lj RN (Raad Blake RN). Vital Signs: 04:16 BP 156 / 99; Pulse 119; Resp 22; Temp 96.9(O); Pulse Ox 99% on R/A; Weight 92.99 kg; js15 Height 5 ft. 11 in. (180.34 cm); Pain 8/10; 04:45 BP 158 / 90 (auto/); js15 04:45 Pulse 108 MON; Pulse Ox 96% ; js15 05:00 BP 157 / 97 (auto/); js15 05:00 Pulse 117 MON; Pulse Ox 96% ; js15 05:15 BP 169 / 104 (auto/); js15 05:15 Pulse 131 MON; Pulse Ox 100% ; js15 05:35 BP 163 / 82 (auto/); js15 05:35 Pulse 116 MON; Pulse Ox 97% ; js15 05:45 BP 171 / 90 (auto/); js15 05:45 Pulse 120 MON; Pulse Ox 96% ; js15 06:00 BP 158 / 76 (auto/); js15 06:00 Pulse 107 MON; Pulse Ox 99% ; js15 06:15 BP 182 / 86 (auto/); js15 06:15 Pulse 112 MON; Pulse Ox 100% ; 15 06:30 BP 169 / 75 (auto/); 15 06:30 Pulse 104 MON; Pulse Ox 99% ; 15 06:45 BP 178 / 84 (auto/); js15 06:45 Pulse 111 MON; Pulse Ox 100% ; 15 07:00 Pulse 113 MON; Pulse Ox 100% ; srm 07:00 BP 170 / 79 (auto/); srm 07:15 BP 176 / 82 (auto/); srm 07:15 Pulse 106 MON; Resp 18; Pulse Ox 100% ; srm 07:30 Pulse 105 MON; Pulse Ox 100% ; srm 07:30 BP 154 / 74 (auto/); srm 07:45 Pulse 103 MON; Pulse Ox 99% ; srm 07:45 BP 168 / 81 (auto/); srm 08:00 BP 160 / 80 (auto/); srm 08:00 Pulse 106 MON; Resp 18; Pulse Ox 97% ; srm 08:15 Pulse 107 MON; Pulse Ox 99% ; srm 08:15 BP 157 / 78 (auto/); srm 08:30 Pulse 101 MON; Pulse Ox 99% ; srm 08:30 BP 159 / 77 (auto/); srm 08:44 Pulse 102 MON; Pulse Ox 99% ; srm 08:45 BP 162 / 80 (auto/); srm 09:00 BP 168 / 81 (auto/); srm 09:00 Pulse 99 MON; Resp 18; Pulse Ox 98% ; srm 09:15 Pulse 96 MON; Pulse Ox 96% ; srm 09:15 BP 177 / 86 (auto/); srm 09:30 Pulse 109 MON; srm 09:30 BP 179 / 96 (auto/); srm 10:09 BP 154 / 92 (auto/); srm 10:11 Pulse 107 MON; Resp 18; Pulse Ox 98% ; srm 10:23 Temp 97.7(O); tk 11:09 Pulse 95 MON; Pulse Ox 98% ; srm 11:09 BP 184 / 90 (auto/); srm 11:21 BP 172 / 83 (auto/); srm 11:21 Pulse 98 MON; Resp 18; Pulse Ox 100% ; srm 04:16 Body Mass Index 28.59 (92.99 kg, 180.34 cm) js15 Vitals: 05:43 Log In Time: December 20, 2016 at 03:50. js15 ED Course: 03:51 Patient visited by Rose Purvis. gjb 03:51 Patient moved to Waiting gjb 03:55 Patient moved to 5 js15 04:15 Triage Initiated js15 04:19 The patient / caregiver is instructed regarding the plan of care and ED course. js15 04:38 Patient moved to Nov 04:46 Mynor Villegas DO is Attending Physician. cs11 04:46 Patient visited by Mynor Villegas DO. cs11 04:55 Inserted saline lock: 18 gauge in right hand The patient tolerated the procedure well. js15 05:25 NGT inserted 18 Fr. via right nare. Placement verified. Returned gastric contents. to js15 intermittent suction. Returned gastric contents. 05:34 [facility] Payment Agreement was scanned into [employer] and attached to record. gjb 05:39 Patient name changed from Kenny\S\E\S\James\S\ to Kenny\S\E\S\James Blackwood. EDMS 05:40 Patient visited by Jaymie Chan RN. js15 06:34 Patient visited by Jaymie Chan RN. js15 07:05 Report received from Malcolm Chan RN. srm 07:11 Tony Champion is Hospitalizing Provider. cs11 07:35 Patient visited by Luz Elena Stewart RN. srm 08:23 Patient visited by Luz Elena Stewart, HILDA. srm 08:42 Patient visited by Luz Elena Stewart, HILDA. srm 09:56 Inserted saline lock: 20 gauge in right antecubital area. srm 10:00 Patient visited by Luz Elena Stewart RN. srm 10:00 OSMOLALITY,URINE Sent. srm 10:01 Patient visited by Luz Elena Stewart RN. srm 10:01 URINALYSIS Sent. srm 10:01 CHLORIDE,RANDOM URINE Sent. srm 10:01 SODIUM,RANDOM URINE Sent. srm 10:01 POTASSIUM,RANDOM URINE Sent. srm 10:16 Patient visited by Luz Elena Stewart RN. srm 10:24 Patient visited by Sudheer Guy. tk 12:01 Patient moved to Ultrasound sm5 12:14 Patient visited by Luz Elena Stewart RN. srm 12:14 Report given to DOUG STEVENS. srm 12:28 Patient moved to 19 sm5 16:06 Patient visited by Lora aMrc RN. ld5 20:57 RENAL US Returned. EDMS 21:37 Patient moved to Admit Hold ml3 Administered Medications: 05:00 Drug: NS 0.9% 1000 ml [sodium chloride 0.9 % intravenous solution] Route: IV; Rate: js15 bolus; Site: right hand; 06:00 Follow up: IV Status: Completed infusion; IV Intake: 1000ml js15 06:43 Drug: pantoprazole 40 mg [pantoprazole 40 mg intravenous solution] Route: IV; Rate: js15 bolus; Site: right hand; 16:00 Drug: Labetalol 10 mg [labetalol 5 mg/mL intravenous solution (2 mL)] Route: IVP; Rate: ld5 bolus; Infused Over: 2 mins; Site: right hand; Intake: 06:00 IV: 1000.00ml; Total: 1000.00ml. js15 Output: 10:16 Urine: 350.00ml (Voided); Gastric: 500.00ml (NGT); Total: 850.00ml. srm Order Results: Lab Order: Amylase; SPEC'M 12/20/16 05:32 Test: AMYLASE; Value: 72; Range: 25-115; Units: U/L; Status: F Lab Order: Basic Metabolic Profile; SPEC'M 12/20/16 05:32 Test: GLUCOSE, FASTING; Value: 174; Range: 80-110; Abnormal: Above high normal; Units: MG/DL; Status: F Test: BLOOD UREA NITROGEN; Value: 20; Range: 7-18; Abnormal: High; Units: MG/DL; Status: F Test: CREATININE FOR GFR; Value: 1.70; Range: 0.70-1.30; Abnormal: Above high normal; Units: MG/DL; Status: F Test: GLOMERULAR FILTRATION RATE; Value: 52.6; Range: >49; Status: F Test: SODIUM LEVEL; Value: 137; Range: 136-145; Units: MEQ/L; Status: F Test: POTASSIUM SERUM; Value: 3.4; Range: 3.5-5.1; Abnormal: Below low normal; Units: MEQ/L; Status: F Test: CHLORIDE LEVEL; Value: 88; Range: 98-107; Abnormal: Below low normal; Units: MEQ/L; Status: F Test: CARBON DIOXIDE LEVEL; Value: 34; Range: 21-32; Abnormal: Above high normal; Units: MEQ/L; Status: F Test: ANION GAP; Value: 15; Range: 8-16; Units: MEQ/L; Status: F Test: CALCIUM LEVEL; Value: 11.5; Range: 8.8-10.2; Abnormal: Above high normal; Units: MG/DL; Status: F Test Note: ; Units are mL/min/1.73 m2 Chronic Kidney Disease Staging per NKF: Stage I & II GFR >=60 Normal to Mildly Decreased Stage III GFR 30-59 Moderately Decreased Stage IV GFR 15-29 Severely Decreased Stage V GFR <15 Very Little GFR Left ESRD GFR <15 on PETROLEUM ENGINEERING TEACHER Lab Order: CBC with Diff; SPEC'M 12/20/16 04:37 Test: WHITE BLOOD COUNT; Value: 13.7; Range: 4.0-10.0; Abnormal: Above high normal; Units: K/mm3; Status: F Test: RED BLOOD COUNT; Value: 6.06; Range: 4.30-6.10; Units: M/mm3; Status: F Test: HEMOGLOBIN; Value: 15.1; Range: 14.0-18.0; Units: g/dl; Status: F Test: HEMATOCRIT; Value: 47.3; Range: 42.0-52.0; Units: %; Status: F Test: MEAN CORPUSCULAR VOLUME; Value: 78.1; Range: 80.0-96.0; Abnormal: Below low normal; Units: fl; Status: F Test: MEAN CORPUSCULAR HEMOGLOBIN; Value: 24.9; Range: 27.0-33.0; Abnormal: Below low normal; Units: pg; Status: F Test: MEAN CORPUSCULAR HGB CONC; Value: 31.9; Range: 32.0-36.5; Abnormal: Below low normal; Units: g/dl; Status: F Test: RED CELL DISTRIBUTION WIDTH; Value: 17.2; Range: 11.5-14.5; Abnormal: Above high normal; Units: %; Status: F Test: PLATELET COUNT, AUTOMATED; Value: 270; Range: 150-450; Units: k/mm3; Status: F Test: NEUTROPHILS %; Value: 81.8; Range: 36.0-66.0; Abnormal: Above high normal; Units: %; Status: F Test: LYMPH %; Value: 11.3; Range: 24.0-44.0; Abnormal: Below low normal; Units: %; Status: F Test: MONO %; Value: 5.1; Range: 0.0-5.0; Abnormal: Above high normal; Units: %; Status: F Test: EOS %; Value: 0.9; Range: 0.0-3.0; Units: %; Status: F Test: BASO %; Value: 0.1; Range: 0.0-1.0; Units: %; Status: F Test: LARGE UNSTAINED CELL %; Value: 0.8; Range: 0.0-4.0; Units: %; Status: F Test: NEUTROPHILS #; Value: 11.2; Range: 1.8-7.7; Abnormal: Above high normal; Units: K/mm3; Status: F Test: LYMPH #; Value: 1.5; Range: 1.5-4.5; Units: K/mm3; Status: F Test: MONO #; Value: 0.7; Range: 0.0-0.8; Units: K/mm3; Status: F Test: EOS #; Value: 0.1; Range: 0.0-0.50; Units: K/mm3; Status: F Test: BASO #; Value: 0.0; Range: 0.0-0.2; Units: K/mm3; Status: F Test: LARGE UNSTAINED CELL #; Value: 0.1; Range: 0.0-0.4; Units: K/mm3; Status: F Lab Order: Lipase; SPEC'M 12/20/16 05:32 Test: LIPASE; Value: 153; Range: 73-393; Units: U/L; Status: F Lab Order: Liver Profile; [facility] 12/20/16 05:32 Test: AST/SGOT; Value: 75; Range: 15-37; Abnormal: Above high normal; Units: U/L; Status: F Test: ALT/SGPT; Value: 109; Range: 12-78; Abnormal: Above high normal; Units: U/L; Status: F Test: ALKALINE PHOSPHATASE; Value: 106; Range: 45-117; Units: U/L; Status: F Test: BILIRUBIN,TOTAL; Value: 2.0; Range: 0.2-1.0; Abnormal: Above high normal; Units: MG/DL; Status: F Test: BILIRUBIN,DIRECT; Value: 0.7; Range: 0.0-0.2; Abnormal: Above high normal; Units: MG/DL; Status: F Test: TOTAL PROTEIN; Value: 8.7; Range: 6.4-8.2; Abnormal: Above high normal; Units: GM/DL; Status: F Test: ALBUMIN; Value: 3.9; Range: 3.2-5.2; Units: GM/DL; Status: F Test: ALBUMIN/GLOBULIN RATIO; Value: 0.81; Range: 1.00-1.93; Abnormal: Below low normal; Status: F Lab Order: Type & Screen; [facility] 12/20/16 05:32 Test: BLOOD TYPE; Value: B POS; Status: F Test: AB SCREEN (INDIRECT BRANDY)GEL; Value: NEGATIVE; Status: F Lab Order: Pt & Aptt; [facility] 12/20/16 05:32 Test: PROTHROMBIN TIME; Value: 13.3; Range: 12.3-14.5; Units: SECONDS; Status: F Test: INR; Value: 1.00; Status: F Test: PARTIAL THROMBOPLASTIN TIME; Value: 24.8; Range: 26.6-37.1; Abnormal: Below low normal; Units: SECONDS; Status: F Test Note: ; THERAPUTIC HUMAN INR VALUES INDICATIONS NORMAL RANGES PROPHYLAXIS/TREATMENT OF: VENOUS THROMBOSIS 2.0-3.0 PULMONARY EMBOLISM 2.0-3.0 PREVENTION OF SYSTEMIC EMBOLISM FROM: TISSUE HEART VALVES 2.0-3.0 ACUTE MYOCARDIAL INFARCTION 2.0-3.0 VALVULAR HEART DISEASE 2.0-3.0 ATRIAL FIBRILLATION 2.0-3.0 MECHANICAL VALVES(HIGH RISK) 2.5-3.5 RECURRENT MYOCARDIAL INFARCTION 2.5-3.5 Lab Order: CARDIAC MARKER PANEL; [facility] 12/20/16 15:28 Test: CPK CREATINE PHOSPHOKINASE; Value: 500; Range: 39-308; Abnormal: Above high normal; Units: U/L; Status: F Test: CK-MB VALUE MASS; Value: 2.8; Range: 0.0-3.6; Units: NG/ML; Status: F Test: MB/CK RELATIVE INDEX; Value: 0.56; Range: < OR =4; Status: F Test: TROPONIN I; Value: 0.06; Range: < 0.10; Abnormal: Delta; Units: NG/ML; Status: F Test Note: ; DIAGNOSIS CRITERIA MMB ng/ml Relative Index (RI) NON-AMI < or = 5 N/A KIRK ZONE > 5 < or = 4 AMI > 5 > 4 Lab Order: BLOOD CULTURES; [facility] 12/20/16 09:54 Test: BLOOD CULTURE; Value: No growth after 24 hours . All specimens observed; Status: F Test: BLOOD CULTURE; Value: for 7 days. Results final at that time.; Status: F Lab Order: BLOOD CULTURES; [facility] 12/20/16 10:01 Test: BLOOD CULTURE; Value: No growth after 24 hours . All specimens observed; Status: F Test: BLOOD CULTURE; Value: for 7 days. Results final at that time.; Status: F Lab Order: HEMOGLOBIN & HEMATOCRIT; [facility] 12/20/16 11:49 Test: HEMOGLOBIN; Value: 13.6; Range: 14.0-18.0; Abnormal: Below low normal; Units: g/dl; Status: F Test: HEMATOCRIT; Value: 44.3; Range: 42.0-52.0; Units: %; Status: F Lab Order: HEMOGLOBIN & HEMATOCRIT; [facility] 12/20/16 15:28 Test: HEMOGLOBIN; Value: 13.2; Range: 14.0-18.0; Abnormal: Below low normal; Units: g/dl; Status: F Test: HEMATOCRIT; Value: 42.2; Range: 42.0-52.0; Units: %; Status: F Lab Order: HEMOGLOBIN & HEMATOCRIT; SPEC'M 12/20/16 19:59 Test: HEMOGLOBIN; Value: 12.6; Range: 14.0-18.0; Abnormal: Below low normal; Units: g/dl; Status: F Test: HEMATOCRIT; Value: 39.5; Range: 42.0-52.0; Abnormal: Below low normal; Units: %; Status: F Lab Order: URINALYSIS; SPEC'M 12/20/16 09:58 Test: APPEARANCE, URINE; Value: HAZY; Range: CLEAR; Status: F Test: COLOR, URINE; Value: YELLOW; Range: YELLOW; Status: F Test: PH,URINE; Value: 9.0; Range: 5.0-9.0; Units: UNITS; Status: F Test: SPECIFIC GRAVITY URINE AUTO; Value: 1.013; Range: 1.002-1.035; Status: F Test: PROTEIN, URINE AUTO; Value: 1+; Range: NEGATIVE; Abnormal: Above high normal; Units: mg/dL; Status: F Test: GLUCOSE, URINE (UA) AUTO; Value: NEGATIVE; Range: NEGATIVE; Units: mg/dL; Status: F Test: KETONE, URINE AUTO; Value: TRACE; Range: NEGATIVE; Abnormal: Above high normal; Units: mg/dL; Status: F Test: UROBILINOGEN, URINE AUTO; Value: 0.2; Range: 0.0-2.0; Units: mg/dL; Status: F Test: BILIRUBIN, URINE AUTO; Value: NEGATIVE; Range: NEGATIVE; Status: F Test: NITRITE, URINE AUTO; Value: NEGATIVE; Range: NEGATIVE; Status: F Test: LEUKOCYTE ESTERASE, URINE AUTO; Value: NEGATIVE; Range: NEGATIVE; Status: F Test: BLOOD, URINE BLOOD; Value: NEGATIVE; Range: NEGATIVE; Status: F Test: WBC, URINE AUTO; Value: 2; Range: 0-3; Units: /HPF; Status: F Test: RBC, URINE AUTO; Value: 1; Range: 0-3; Units: /HPF; Status: F Test: BACTERIA, URINE AUTO; Value: NEGATIVE; Range: NEGATIVE; Status: F Test: SQUAMOUS EPITHELIAL CELL UR AU; Value: 0; Range: 0-6; Units: /HPF; Status: F Test: MUCUS, URINE; Value: SMALL; Range: NEGATIVE; Status: F Test: HYALINE CAST, URINE AUTO; Value: 0; Range: 0-1; Units: /LPF; Status: F Test: AMORPHOUS SEDIMENT; Value: SMALL; Range: NEGATIVE; Abnormal: Above high normal; Status: F Lab Order: TOTAL PROTEIN,RANDOM URINE; 12/20/16 09:58 Test: TOTAL PROTEIN,RANDOM URINE; Value: 22.9; Range: 0.0-12.0; Abnormal: Above high normal; Units: MG/DL; Status: F Lab Order: CREATININE,RANDOM URINE; 12/20/16 09:58 Test: CREATININE,RANDOM URINE; Value: 103.0; Units: MG/DL; Status: F Lab Order: OSMOLALITY,URINE; 12/20/16 09:58 Test: OSMOLALITY URINE; Value: 547; Range: 500-800; Units: MOSM/KG; Status: F Lab Order: SODIUM,RANDOM URINE; 12/20/16 09:58 Test: SODIUM,RANDOM URINE; Value: 91; Units: MEQ/L; Status: F Lab Order: CHLORIDE,RANDOM URINE; 12/20/16 09:58 Test: CHLORIDE,RANDOM URINE; Value: 23; Units: MEQ/L; Status: F Lab Order: POTASSIUM,RANDOM URINE; 12/20/16 09:58 Test: POTASSIUM RANDOM URINE; Value: 51.7; Units: MEQ/L; Status: F Lab Order: CARDIAC MARKER PANEL; 12/20/16 05:32 Test: CPK CREATINE PHOSPHOKINASE; Value: 408; Range: 39-308; Abnormal: Above high normal; Units: U/L; Status: F Test: CK-MB VALUE MASS; Value: 2.8; Range: 0.0-3.6; Units: NG/ML; Status: F Test: MB/CK RELATIVE INDEX; Value: 0.68; Range: < OR =4; Status: F Test: TROPONIN I; Value: 0.02; Range: < 0.10; Units: NG/ML; Status: F Test Note: ; DIAGNOSIS CRITERIA MMB ng/ml Relative Index (RI) NON-AMI < or = 5 N/A KIRK ZONE > 5 < or = 4 AMI > 5 > 4 Lab Order: MAGNESIUM LEVEL; [facility] 12/20/16 05:32 Test: MAGNESIUM LEVEL; Value: 2.6; Range: 1.8-2.4; Abnormal: Above high normal; Units: MG/DL; Status: F Lab Order: Fingerstick Blood Sugar; [facility] 12/20/16 12:36 Test: BEDSIDE GLUCOSE; Value: 147; Range: 80-115; Abnormal: Above high normal; Units: MG/DL; Status: F Lab Order: BASIC METABOLIC PROFILE; [facility] 12/20/16 15:28 Test: GLUCOSE, FASTING; Value: 127; Range: 80-110; Abnormal: Above high normal; Units: MG/DL; Status: F Test: BLOOD UREA NITROGEN; Value: 19; Range: 7-18; Abnormal: Above high normal; Units: MG/DL; Status: F Test: CREATININE FOR GFR; Value: 1.40; Range: 0.70-1.30; Abnormal: Above high normal; Units: MG/DL; Status: F Test: GLOMERULAR FILTRATION RATE; Value: > 60.0; Range: >49; Status: F Test: SODIUM LEVEL; Value: 141; Range: 136-145; Units: MEQ/L; Status: F Test: POTASSIUM SERUM; Value: 4.3; Range: 3.5-5.1; Abnormal: Delta; Units: MEQ/L; Status: F Test: CHLORIDE LEVEL; Value: 96; Range: 98-107; Abnormal: Below low normal; Units: MEQ/L; Status: F Test: CARBON DIOXIDE LEVEL; Value: 36; Range: 21-32; Abnormal: Above high normal; Units: MEQ/L; Status: F Test: ANION GAP; Value: 9; Range: 8-16; Units: MEQ/L; Status: F Test: CALCIUM LEVEL; Value: 9.3; Range: 8.8-10.2; Abnormal: Delta; Units: MG/DL; Status: F Test Note: ; Units are mL/min/1.73 m2 Chronic Kidney Disease Staging per NKF: Stage I & II GFR >=60 Normal to Mildly Decreased Stage III GFR 30-59 Moderately Decreased Stage IV GFR 15-29 Severely Decreased Stage V GFR <15 Very Little GFR Left ESRD GFR <15 on PETROLEUM ENGINEERING TEACHER Lab Order: MAGNESIUM LEVEL; [facility] 12/20/16 15:28 Test: MAGNESIUM LEVEL; Value: 2.5; Range: 1.8-2.4; Abnormal: Above high normal; Units: MG/DL; Status: F Lab Order: Fingerstick Blood Sugar; [facility] 12/20/16 17:54 Test: BEDSIDE GLUCOSE; Value: 146; Range: 80-115; Abnormal: Above high normal; Units: MG/DL; Status: F Lab Order: HEMOGLOBIN & HEMATOCRIT; [facility] 12/20/16 23:50 Test: HEMOGLOBIN; Value: 11.9; Range: 14.0-18.0; Abnormal: Below low normal; Units: g/dl; Status: F Test: HEMATOCRIT; Value: 39.6; Range: 42.0-52.0; Abnormal: Below low normal; Units: %; Status: F Lab Order: HEMOGLOBIN & HEMATOCRIT; [facility] 12/21/16 11:01 Test: HEMOGLOBIN; Value: 11.2; Range: 14.0-18.0; Abnormal: Below low normal; Units: g/dl; Status: F Test: HEMATOCRIT; Value: 36.6; Range: 42.0-52.0; Abnormal: Below low normal; Units: %; Status: F Lab Order: COMPLETE BLOOD COUNT; [facility] 12/21/16 06:29 Test: WHITE BLOOD COUNT; Value: 11.6; Range: 4.0-10.0; Abnormal: Above high normal; Units: K/mm3; Status: F Test: RED BLOOD COUNT; Value: 4.66; Range: 4.30-6.10; Units: M/mm3; Status: F Test: HEMOGLOBIN; Value: 11.7; Range: 14.0-18.0; Abnormal: Below low normal; Units: g/dl; Status: F Test: HEMATOCRIT; Value: 37.3; Range: 42.0-52.0; Abnormal: Below low normal; Units: %; Status: F Test: MEAN CORPUSCULAR VOLUME; Value: 80.0; Range: 80.0-96.0; Units: fl; Status: F Test: MEAN CORPUSCULAR HEMOGLOBIN; Value: 25.0; Range: 27.0-33.0; Abnormal: Below low normal; Units: pg; Status: F Test: MEAN CORPUSCULAR HGB CONC; Value: 31.3; Range: 32.0-36.5; Abnormal: Below low normal; Units: g/dl; Status: F Test: RED CELL DISTRIBUTION WIDTH; Value: 17.1; Range: 11.5-14.5; Abnormal: Above high normal; Units: %; Status: F Test: PLATELET COUNT, AUTOMATED; Value: 166; Range: 150-450; Units: k/mm3; Status: F Lab Order: BASIC METABOLIC PROFILE; SPEC'12/21/16 06:29 Test: GLUCOSE, FASTING; Value: 108; Range: 80-110; Units: MG/DL; Status: F Test: BLOOD UREA NITROGEN; Value: 17; Range: 7-18; Units: MG/DL; Status: F Test: CREATININE FOR GFR; Value: 1.20; Range: 0.70-1.30; Units: MG/DL; Status: F Test: GLOMERULAR FILTRATION RATE; Value: > 60.0; Range: >49; Status: F Test: SODIUM LEVEL; Value: 143; Range: 136-145; Units: MEQ/L; Status: F Test: POTASSIUM SERUM; Value: 3.8; Range: 3.5-5.1; Units: MEQ/L; Status: F Test: CHLORIDE LEVEL; Value: 102; Range: 98-107; Units: MEQ/L; Status: F Test: CARBON DIOXIDE LEVEL; Value: 30; Range: 21-32; Units: MEQ/L; Status: F Test: ANION GAP; Value: 11; Range: 8-16; Units: MEQ/L; Status: F Test: CALCIUM LEVEL; Value: 8.0; Range: 8.8-10.2; Abnormal: Below low normal; Units: MG/DL; Status: F Test Note: ; Units are mL/min/1.73 m2 Chronic Kidney Disease Staging per NKF: Stage I & II GFR >=60 Normal to Mildly Decreased Stage III GFR 30-59 Moderately Decreased Stage IV GFR 15-29 Severely Decreased Stage V GFR <15 Very Little GFR Left ESRD GFR <15 on [employer] Lab Order: MAGNESIUM LEVEL; SPEC'12/21/16 06:29 Test: MAGNESIUM LEVEL; Value: 2.5; Range: 1.8-2.4; Abnormal: Above high normal; Units: MG/DL; Status: F Lab Order: Fingerstick Blood Sugar; SPEC'M 12/20/16 23:43 Test: BEDSIDE GLUCOSE; Value: 136; Range: 80-115; Abnormal: Above high normal; Units: MG/DL; Status: F Lab Order: Fingerstick Blood Sugar; SPEC'M 12/21/16 06:54 Test: BEDSIDE GLUCOSE; Value: 148; Range: 80-115; Abnormal: Above high normal; Units: MG/DL; Status: F Radiology Order: RENAL US Test: RENAL US REASON FOR EXAMINATION: acute on chronic; Renal ultrasound 12/20/2016; ; Indication acute on chronic renal disease; ; Comparison: CT of the pelvis 12/19/2016; ; Findings: Kirk scale imaging ultrasound performed of the kidneys and bladder; 12/20/2016; ; Findings: Right kidney measures 9.6 x 4.4 x 4.7 cm. The left kidney measures; 9.7 x 3.2 by 4.3 cm. Kidneys are of normal contour and echogenicity bilaterally.; There is no hydronephrosis bilaterally. There is mild increased renal sinus fat; bilaterally.There are no visualized intrarenal masses or cysts.; ; The bladder is moderately urine-filled and unremarkable in appearance; ; Impression; 1. Kidneys without hydronephrosis, intrarenal masses or cysts .; 2. Renal cortical echogenicity within normal limits. Mild prominence of renal; sinus fat bilaterally; 3. Bladder is unremarkable as visualized; ; ; Signed by; Norma Martínez MD 12/20/2016 08:18 P; Outcome: 07:12 Decision to Hospitalize by Provider. [id number] 12/21 12:[address] the [address] [facility] Signatures: Dispatcher [employer] EDMS Luz Elena Stewart, RN HILDA [facility] Cristy Washington RN RN jan Montroy, Stacy 5 Milly Mitchell, Lap Layer Unit ml3 Lora MarcRN RN ld5 Eugenia Ramirez RN RN [facility] Mynor Villegas DO DO cs11 Jaymie Chan RN RN [id number] Sudheer Guy Gabriela gjb MTDD
--- NOTE | 2016-12-21 15:05 | IPN ---
DATE: 12/21/2016 The patient is seen and examined. No acute events overnight. Denies any further nausea or vomiting. Does report some epigastric pain. Denies any fevers or chills, chest pain, pressure or discomfort. VITAL SIGNS: Temperature 98.3, pulse 75, respirations 20, blood pressure 163/71, pulse oximetry 96% on 2 liters nasal cannula. LABORATORY: WBC 11.6, hemoglobin and hematocrit 11.9/39.5, platelets 166. Chemistry: Sodium 143, potassium 3.8, chloride 102, bicarbonate 30, BUN 17, creatinine 1.2. PHYSICAL EXAMINATION: GENERAL: The patient is comfortable, in no acute distress. Nasogastric tube in place. HEENT: Normocephalic, atraumatic. Extraocular muscles intact. CARDIAC: Regular rate and rhythm. No longer tachycardia. S1, S2. PULMONARY: Bilateral expiratory wheeze. No rhonchi. ABDOMEN: Soft, nontender, nondistended. Positive bowel sounds. No rebound. No guarding. EXTREMITIES: No edema in bilateral lower extremities. ASSESSMENT AND PLAN: This is a 66-year-old male patient with underlying medical history of chronic obstructive pulmonary disease (COPD), insulin-dependent diabetes, chronic kidney disease, hepatitis C, gastroesophageal reflux disease (GERD), hiatal hernia, hypertension, admitted for coffee ground emesis. 1. Coffee ground emesis. The patient consented for transfusion, intravenous fluids. Followup blood pressure. Followup hemoglobin and hematocrit. Transfuse as needed. Dr. Pearl consulted. Protonix drip. Likely esophagogastroduodenoscopy (EGD) today. Nothing by mouth for now. Carafate. 2. Hypokalemia. Likely secondary to vomiting. Continue supplementation. Followup potassium and magnesium. Followup electrolytes. 3. Nausea and vomiting. Possibly secondary to gastrointestinal bleed. Zofran ordered. CT scan appreciated. Continue to follow. Initially had nasogastric tube to low suction, currently nasogastric tube removed, got dislodged and the patient refused for the nasogastric tube replacement. We will hold given the patient is no longer having nausea and vomiting. 4. Leukocytosis, likely reactive to gastrointestinal bleed. Followup cultures. 5. History of chronic obstructive pulmonary disease (COPD). Continue Symbicort. Smoking cessation counseling. Nebulizer treatment as needed. Spiriva. 6. Insulin-dependent diabetes. The patient is currently nothing by mouth. Long acting insulin dosage has been reduced significantly. Every 6 hour fingerstick. Insulin as per protocol. 7. History of alcohol abuse. Vitamin, thiamine, folic acid, and Ativan as needed. Monitor for withdrawal. 8. Acute on chronic renal insufficiency. Baseline creatinine 1.1 to 1.2. Currently much elevated. Intravenous fluids for hydration. Kidney ultrasound. Followup renal studies. Currently improved. 9. Hypertension. Holding blood pressure medications. Labetalol intravenously has been added given the patient is nothing by mouth. We will switch the patient to home medications once the patient is tolerating oral. 10. Deep vein thrombosis (DVT) prophylaxis. Venodyne sequential compression device (SCD). Avoid pharmacological agents given the patient is having active gastrointestinal bleed. DISPOSITION: EGD, clinical improvement, GI consultation.
[2016-12-21] MEDS: amLODIPine 5 MG TAB PO SCH ×2 (15:44→20:50)
[2016-12-21] MEDS ORDERED: PROPOFOL 200 MG/20 ML VIAL As Ordered ONE (15:46)
[2016-12-21] MEDS ORDERED: LIDOCAINE 2% INJ 100 MG/5 ML SDV (FOR ANES.) As Ordered ONE (15:46)
--- NOTE | 2016-12-21 15:55 | ROOR ---
Patient Name: Kenny Ramirez Procedure Date: 12/21/2016 3:34 PM Date of : 1950 Age: 66 Room: [facility] Gender: Male Note Status: Finalized Procedure: Upper GI endoscopy + Biopsies Indications: Hematemesis Providers: Brando Pearl MD Referring MD: [facility], Admin. Requesting Provider: Medicines: Monitored Anesthesia Care Complications: No immediate complications. Procedure: Pre-Anesthesia Assessment: - The heart rate, respiratory rate, oxygen saturations, blood pressure, adequacy of pulmonary ventilation, and response to care were monitored throughout the procedure. The Endoscope was introduced through the mouth, and advanced to the second part of duodenum. The upper GI endoscopy was accomplished without difficulty. The patient tolerated the procedure well. Findings: The Z-line was irregular and was found 25 cm from the incisors. Non-severe esophagitis with no bleeding was found 30 cm from the incisors. Biopsies were taken with a cold forceps for histology. A medium-sized hiatus hernia was present. Diffuse mild inflammation characterized by congestion (edema) and erosions was found in the entire examined stomach. The exam was otherwise without abnormality. Impression: - Z-line irregular, 25 cm from the incisors. - Non-severe reflux esophagitis. Rule out Pineda's esophagus. Biopsied. - Medium-sized hiatus hernia. - Acute gastritis. - The examination was otherwise normal. Recommendation: - Await pathology results. - [facility] to [facility] care. - Continue present medications. - Return to referring physician. - The findings and recommendations were discussed with the patient's family. Brando Pearl MD Brando Pearl MD 12/21/2016 3:55:15 PM This report has been signed electronically. Number of Addenda: 0 Note Initiated On: 12/21/2016 3:34 PM Estimated Blood Loss: Estimated blood loss: none.
[2016-12-21] MEDS ORDERED: GLUCAGON FOR INJ 1 MG VIAL (J1610) SC PRN (17:15)
[2016-12-21] MEDS ORDERED: GLUCOSE 4 GM CHEW TABLET PO PRN (17:15)
[2016-12-21] MEDS ORDERED: DEXTROSE 50% 50 ML SYRINGE IV PRN (17:15)
[2016-12-21] MEDS: PANTOPRAZOLE 40MG INJ (PROTONIX) (C9113) IV SCH (20:48)
[2016-12-21] MEDS: FOLIC ACID 1 MG in NS 50 ML IV SCH (20:49)
[2016-12-21] MEDS: METOPROLOL TART 25 MG TABLET PO SCH (20:49)
[2016-12-21] MEDS: ONDANSETRON 4MG/2ML VIAL (J2405) IV PRN (20:50)
[2016-12-22] MEDS: IPRATROPIUM 0.5MG/ALBUTEROL 2.5MG INH SOL UD 3ML (DUONEB)(J7620) NEB SCH ×4 (02:08→20:00)
[2016-12-22 04:00] VITALS: BP 143/67
--- NOTE | 2016-12-22 06:10 | CR ---
DATE OF CONSULTATION: 12/21/2016 This is a 66-year-old white male admitted to [facility] ([facility]) on 12/20/2016 with apparent history of sudden onset of coffee ground emesis. Patient has multiple medical problems including chronic obstructive pulmonary disease (COPD), diabetes mellitus, previous history of upper gastrointestinal (GI) bleed and last upper endoscopy was in September of 2016. He has a large hiatal hernia, hypertension, past history of apparent hepatitis C. He apparently presented to the emergency room (ER) with epigastric pain and started vomiting coffee grounds on Wednesday. Patient apparently, appeared to be stable and went home. However, he came back in with intractable vomiting again and was admitted again for vomiting and abdominal pain and had coffee ground emesis. He denies any previous episodes of abdominal pain, or shaking chills. No hematochezia or bright red blood per rectum. The patient's past medical history is positive for: 1. Apparent hepatitis C, unclear whether this has been treated. 2. COPD. 3. Diabetes mellitus. 4. Recurrent GI bleeding. 5. Hiatal hernia. 6. Hypertension. 7. Patient has a history of alcohol use and apparently, according to the patient he has decreased his ethyl alcohol intake since 2012. Past surgical history is positive for upper endoscopy previously and apparently there was some history of banding of varices. Though the last upper endoscopy did not show any varices. SOCIAL HISTORY: Patient smokes cigarettes. Smokes a pack a day for 30 years and has a longstanding history of alcohol use with alcohol and beer, also a history of IV drug abuse. Family history is noncontributory to the above problem. REVIEW OF SYSTEMS: 11 point review of systems is negative except for the history of present illness. Home medications include: - Ventolin inhaler - Norvasc - Symbicort - NovoLog - Lantus - metoprolol - Protonix 40 mg by mouth twice a day - Carafate four times a day GENERAL: He is a well-developed, well-nourished, male in no acute distress. Appears stated age. CHEST: Clear to auscultation. CARDIOVASCULAR EXAM: Showed a regular rhythm. No murmurs or gallops. Normal physiological split S1 to S2. ABDOMEN: Soft, nontender. No masses, guarding, rebound, hepatosplenomegaly. Bowel sounds positive. EXTREMITIES: No cyanosis, clubbing or edema. John's negative. Laboratory studies on admission, from 12/20/2016, showed a white count of 13,700 with a hemoglobin and hematocrit of 13 and 47.3. After hydration, the patient's count has fallen to 11.2 and 36.7. No further episodes of bleeding was noted. Coagulation profile showed a INR of 1 with a chemistry showing a total bilirubin of 2.0 with AST of 75, ALT of 109. Alkaline phosphatase was normal. Albumin is 3.9. Lipase and amylase were normal. BUN was 20, creatinine 1.7. Electrolytes were essentially normal, slightly low potassium. Imaging studies on admission: Patient currently had a renal ultrasound for possible renal insufficiency. Kidneys were without hydronephrosis or masses. Previous visits for other episodes of GI bleeding, the patient was again scoped in September and he was admitted in August. He has had a previous GI bleed in July, had episodes of vomiting in April of 2016. Hematemesis again and gastritis in January, February. The patient almost monthly in the year of 2014 comes to the emergency room for nausea and vomiting. He also had episodes of nausea and vomiting and apparent upper GI bleed in 2013. ANALYSIS: Gastrointestinal bleeding, hematemesis of unknown etiology. At the present time, going back to the patient's past medical history, he has chronic bouts of nausea and vomiting. He is also a known diabetic. I am wondering whether he has gastroparesis that is contributing to poor gastric emptying and contributing to his nausea and vomiting. Plan will be: 1. To immediately perform upper endoscopy for evaluation of bleeding. 2. Carafate will be continued. 3. IV Protonix will used and will switch over to oral medications once the upper endoscopy is performed and he is cleared. [facility]ITAL[facility]
[2016-12-22 06:18] LABS: MEAN CORPUSCULAR HEMOGLOBIN 24.6 pg (27.0-33.0); MEAN CORPUSCULAR HGB CONC 31.1 g/dl (32.0-36.5); MEAN CORPUSCULAR VOLUME 79.2 fl (80.0-96.0); RED CELL DISTRIBUTION WIDTH 16.6 % (11.5-14.5); WHITE BLOOD COUNT 7.8 K/mm3 (4.0-10.0)
[2016-12-22 06:39] LABS: ANION GAP 7 MEQ/L (8-16); BLOOD UREA NITROGEN 14 MG/DL (7-18); CALCIUM LEVEL 7.7 MG/DL (8.8-10.2); CARBON DIOXIDE LEVEL 29 MEQ/L (21-32); CHLORIDE LEVEL 102 MEQ/L (98-107); CREATININE FOR GFR 1.07 MG/DL (0.70-1.30); GLOMERULAR FILTRATION RATE > 60.0 (>49); GLUCOSE, FASTING 93 MG/DL (80-110); MAGNESIUM LEVEL 2.4 MG/DL (1.8-2.4); POTASSIUM SERUM 3.1 MEQ/L (3.5-5.1); SODIUM LEVEL 138 MEQ/L (136-145)
[2016-12-22] MEDS: HumaLOG INSULIN (NovoLOG) PER UNIT SC SCH ×4 (07:30→22:17)
[2016-12-22] MEDS: SYMBICORT 160/4.5MCG INHALER 6GM INH SCH ×2 (07:42→20:52)
[2016-12-22 08:00] VITALS: BP 151/79
[2016-12-22] MEDS: SUCRALFATE SUSP 1GM/10ML UD PO SCH ×4 (08:09→22:16)
[2016-12-22] MEDS: LEVEMIR (INSULIN DETEMIR) 1 UNITS/0.01ML SC SCH (08:10)
[2016-12-22] MEDS: THIAMINE HCL 200 MG/2 ML VIAL (J3411) IV SCH (08:10)
[2016-12-22] MEDS: MULTIVITAMINS/MINERALS THERAP 1 TAB PO SCH (08:10)
[2016-12-22] MEDS: PANTOPRAZOLE 40MG INJ (PROTONIX) (C9113) IV SCH ×2 (08:10→22:17)
[2016-12-22] MEDS: METOPROLOL TART 25 MG TABLET PO SCH ×2 (08:11→22:16)
[2016-12-22] MEDS: amLODIPine 5 MG TAB PO SCH ×2 (08:11→22:16)
[2016-12-22] MEDS ORDERED: POTASSIUM CHLORIDE 10% LIQ 20 MEQ/15 ML UDC PO ONE (09:00)
[2016-12-22] MEDS: TIOTROPIUM INHALER/CAPSULE (SPIRIVA) INH SCH (10:29)
[2016-12-22 12:00] VITALS: BP 151/73
[2016-12-22] MEDS ORDERED: MAALOX 30 ML SUSP *UDC PO PRN (12:00)
--- NOTE | 2016-12-22 16:55 | IPNPDOC ---
Assessment/Plan Date Seen The patient was seen on 12/22/16. Plan / VTE VTE Prophylaxis Ordered?: Yes Plan Plan Text 1. Coffee ground emesis. Status post EGD yesterday-patient noted to have esophagitis, but no active bleeding source We will continue the patient on Protonix, Carafate Hemoglobin has been stable here, with no additional episodes of hematemesis We will continue to monitor the patient's CBC and advance him to a regular diet 2. Hypokalemia. Given 40 mEq of potassium this morning We'll follow up with BMP 3. Nausea and vomiting. Patient has no longer had any episodes of nausea or vomiting here Continue Zofran when necessary 4. Leukocytosis, likely reactive to gastrointestinal bleed This is resolved 5. History of chronic obstructive pulmonary disease (COPD). Continue Symbicort. Smoking cessation counseling. Nebulizer treatment as needed. Spiriva. 6. Insulin-dependent diabetes. Continue insulin regimen, insulin sliding scale 7. History of alcohol abuse. Vitamin, thiamine, folic acid, and Ativan as needed. Monitor for withdrawal. 8. Acute on chronic kidney injury Serum creatinine has returned back to its baseline level 9. Hypertension, controlled 10. Deep vein thrombosis (DVT) prophylaxis. sequential compression device (SCD). DISPOSITION: We will continue to monitor the patient, and anticipate discharge in the next 24 hours. Subjective Review of Systems CC/HPI The patient is a 66-year-old male admitted with a reason for visit of Gi Bleed. General: Denies: Chills, Night Sweats Constitutional: Denies: Chills, Fever ENT: Denies: Ear Pain, Head Aches Pulmonary: Denies: Cough, Dyspnea Cardiovascular: Denies: Chest Pain, Orthopnea, Palpitations Gastrointestinal: Denies: Abdominal Pain, Nausea, Vomiting Musculoskeletal: Denies: Back Pain, Neck Pain Objective Physical Examination General Exam: Positive: Alert, Cooperative, No Acute Distress ENT Exam: Positive: Atraumatic, Mucous membr. moist/pink Chest Exam: Positive: Clear to auscultation, Normal air movement Heart Exam: Positive: Normal S1, Normal S2, Rate Normal Abdomen Exam: Positive: Soft, Negative: Tenderness Extremity Exam: Negative: Edema, Tenderness Vital Signs/I&O Vital Signs Date Time Temp Pulse Resp B/P Pulse Ox O2 Delivery O2 Flow Rate FiO2 12/22/16 12:00 97.1 68 18 151/73 99 Room Air 12/21/16 11:15 2.0 I&O- Last 24 Hours up to 6 AM 12/22/16 06:00 Intake Total 1040.2 ml Output Total 1300 ml Balance -259.8 ml Laboratory Data Labs 24H Laboratory Tests 2 12/21/16 16:54: Bedside Glucose (Misc Panel) 112 12/21/16 20:22: Bedside Glucose (Misc Panel) 85 12/22/16 05:57: Anion Gap 7L, Blood Urea Nitrogen 14, Creatinine 1.07, Sodium Level 138, Potassium Level 3.1L, Chloride Level 102, Carbon Dioxide Level 29, Calcium Level 7.7L, Glomerular Filtration Rate > 60.0, Magnesium Level 2.4 12/22/16 11:36: Bedside Glucose (Misc Panel) 87 12/22/16 16:29: Bedside Glucose (Misc Panel) 192H CBC/BMP Laboratory Tests 12/21/16 16:58 12/21/16 19:46 12/22/16 00:12 12/22/16 05:57 Calcium Level 7.7 L, Red Blood Count 4.21 L, Mean Corpuscular Volume 79.2 L, Mean Corpuscular Hemoglobin 24.6 L, Mean Corpuscular Hemoglobin Concent 31.1 L, Red Cell Distribution Width 16.6 H FSBS Laboratory Tests Test 12/21/16 16:54 12/21/16 20:22 12/22/16 11:36 12/22/16 16:29 Range/Units Bedside Glucose (Misc Panel) 112 85 87 192 80-115 MG/DL Microbiology Microbiology 12/20/16 Blood Culture - Preliminary, Resulted No Growth after 48 hours. All Specime... 12/20/16 Blood Culture - Preliminary, Resulted No Growth after 48 hours. All Specime... ANIYA TSE MD Dec 22, 2016 16:55
[2016-12-22 20:00] VITALS: BP 157/72
[2016-12-22] MEDS: FOLIC ACID 1 MG in NS 50 ML IV SCH (22:32)
[2016-12-22 23:59] VITALS: BP 143/71
[2016-12-23] MEDS: IPRATROPIUM 0.5MG/ALBUTEROL 2.5MG INH SOL UD 3ML (DUONEB)(J7620) NEB SCH ×3 (01:36→13:15)
[2016-12-23 04:00] VITALS: BP 146/69
[2016-12-23 06:25] LABS: MEAN CORPUSCULAR HEMOGLOBIN 24.5 pg (27.0-33.0); MEAN CORPUSCULAR HGB CONC 31.6 g/dl (32.0-36.5); MEAN CORPUSCULAR VOLUME 77.7 fl (80.0-96.0); RED CELL DISTRIBUTION WIDTH 16.2 % (11.5-14.5); WHITE BLOOD COUNT 6.1 K/mm3 (4.0-10.0)
[2016-12-23 06:33] LABS: ANION GAP 10 MEQ/L (8-16); BLOOD UREA NITROGEN 11 MG/DL (7-18); CALCIUM LEVEL 7.6 MG/DL (8.8-10.2); CARBON DIOXIDE LEVEL 27 MEQ/L (21-32); CHLORIDE LEVEL 102 MEQ/L (98-107); CREATININE FOR GFR 1.14 MG/DL (0.70-1.30); GLOMERULAR FILTRATION RATE > 60.0 (>49); GLUCOSE, FASTING 146 MG/DL (80-110); MAGNESIUM LEVEL 2.3 MG/DL (1.8-2.4); SODIUM LEVEL 139 MEQ/L (136-145)
[2016-12-23] MEDS: TIOTROPIUM INHALER/CAPSULE (SPIRIVA) INH SCH (07:33)
[2016-12-23] MEDS: SYMBICORT 160/4.5MCG INHALER 6GM INH SCH (07:33)
[2016-12-23 08:00] VITALS: BP_SYST 150; BP_SYST 152; BP_DIAS 74
[2016-12-23 08:05] VITALS: BP 149/71
[2016-12-23 08:10] VITALS: BP 150/73
[2016-12-23] MEDS: POTASSIUM CHLORIDE 10% LIQ 20 MEQ/15 ML UDC PO ONE ×2 (08:15→08:47)
[2016-12-23] MEDS: SUCRALFATE SUSP 1GM/10ML UD PO SCH ×2 (08:45→12:36)
[2016-12-23 08:46] VITALS: BP 150/70
[2016-12-23] MEDS: METOPROLOL TART 25 MG TABLET PO SCH (08:46)
[2016-12-23] MEDS: MULTIVITAMINS/MINERALS THERAP 1 TAB PO SCH (08:47)
[2016-12-23] MEDS: amLODIPine 5 MG TAB PO SCH (08:47)
[2016-12-23] MEDS: LEVEMIR (INSULIN DETEMIR) 1 UNITS/0.01ML SC SCH (08:48)
[2016-12-23] MEDS: THIAMINE HCL 200 MG/2 ML VIAL (J3411) IV SCH (08:48)
[2016-12-23] MEDS: PANTOPRAZOLE 40MG INJ (PROTONIX) (C9113) IV SCH (08:48)
[2016-12-23] MEDS: HumaLOG INSULIN (NovoLOG) PER UNIT SC SCH ×2 (08:49→12:37)
[2016-12-23] MEDS ORDERED: POTASSIUM CHLORIDE 10 MEQ SR TABLET PO ONE ×2 (10:15→10:30)
[2016-12-23 12:00] VITALS: BP 146/78
--- NOTE | 2016-12-23 13:03 | EDDOCDS ---
Nurse's Notes [facility] Name: Kenny Ramirez Jr Age: 66 yrs Sex: Male : 1950 Arrival Date: 12/20/2016 Time: 03:50 Bed Admit Hold Private MD: Diagnosis: Gastrointestinal hemorrhage, unspecified Presentation: 12/20 04:00 Presenting complaint: Patient states: Pt states that he was seen here last night for js15 vomiting and heartburn; was discharged and sent home. Pt has continued to vomit intermittently since discharge and vomited moderate amount of dark red/brown emesis in waiting room; epigastric pain 8/10. Suicide/Homicide risk assessment- the patient denies having any suicidal and/or homicidal ideations and does not present with any other emotional, behavioral or mental health complaints. Status: . Transition of care: patient was not received from another setting of care. 04:00 Acuity: LETICIA Level 3 js15 04:00 Method Of Arrival: Wheelchair js15 04:19 Adult Sepsis Screening: The patient does not have new or worsening altered mentation. js15 Patient has a respiratory rate of greater than or equal to 22 (1 point). Systolic blood pressure is greater than 100. Patient has a qSOFA score of 1- Negative Sepsis Screen. Triage Assessment: 04:16 General: Appears uncomfortable, Behavior is cooperative. Pain: Location: epigastric js15 area Pain currently is 8 out of 10 on a pain scale. HIV screening NA for this visit Offered previously. The patient is triaged at the bedside. See Assessment in Nurses Notes section of ED record. Neurological: Level of Consciousness is awake, alert, obeys commands, Oriented to person, place, time. EENT:. Cardiovascular: Rhythm is sinus tachycardia. Respiratory: Airway is patent Respiratory effort is even, unlabored, Respiratory pattern is regular, symmetrical. Derm: Skin is normal. Historical: - Allergies: No known drug Allergies; - Home Meds: 1. albuterol sulfate 90 mcg/actuation Inhl aepb 2 puffs every 6 hours 2. budesonide-formoterol 160-4.5 mcg/actuation inhalation HFAA 2 puffs 2 times per day 3. insulin glargine 100 unit/mL (3 mL) Sub-Q inpn 30 unit daily 4. Carafate 1 gram Oral tab 1 tab 4 times per day 5. metoprolol tartrate 25 mg Oral tab 1 tab three times a day 6. pantoprazole 40 mg oral TbEC 1 tab 2 times per day 7. insulin aspart sliding scale subcutaneous crtg daily 8. multivitamin Oral tab 1 tab daily 9. Spiriva with HandiHaler 18 mcg Inhl CpDv 1 cap once daily 10. amlodipine 5 mg Oral tab twice a day - PMHx: Asthma; COPD; Diabetes - IDDM: uncontrolled; gi bleed; Hiatal Hernia; Hypertension; - PSHx: left pinky toe removed; - Social history: No barriers to communication noted, The patient speaks fluent Jordanian, Speaks appropriately for age, Smoking status: Patient uses tobacco products, light tobacco smoker. - Family history: Not pertinent. - : The pt / caregiver states he / she is not on anticoagulants. Home medication list is obtained from the patient, [employer] import data. - Exposure Risk Screening:: None identified. Screenin:19 Screening information is obtained from the patient. Fall risk: At risk due to weakness. js15 The following interventions are performed due to a positive Fall Risk Screen: bed in low position, call light in reach, family at bedside. Assistance ADL's: requires no assistance with activities of daily living. Abuse/DV Screen: The patient / caregiver reports he/she is: not in a situation that causes fear, pain or injury. Nutritional screening: No deficits noted. Advance Directives: There is no active DNR order. home support is adequate. Assessment: 04:15 General: see triage note. GI: Bowel sounds present X 4 quads. Abd is soft and non js15 tender X 4 quads. 05:30 Reassessment: Pt sitting up on stretcher following NG tube insertion and hooked to low js15 intermittent suction; no distress or difficulty breathing, respirations even and unlabored; skin normal, intact. cardiac rhythm is sinus tach. will continue to monitor. 06:35 GI: Abdomen is. js15 06:35 Reassessment: Patient appears in no apparent distress at this time. Pt sitting up on js15 stretcher, awake and alert with daughter at bedside; respirations even, unlabored; skin intact, warm, dry. 07:34 General: Appears in no apparent distress, Behavior is appropriate for age, cooperative. srm Pain: Location: epigastric area Pain currently is 7 out of 10 on a pain scale. Neurological: No deficits noted. EENT: No deficits noted. Cardiovascular: Capillary refill < 3 seconds in bilateral Heart tones present. Respiratory: Airway is patent Respiratory effort is even, unlabored, Breath sounds are clear bilaterally. GI: Abdomen is distended, Bowel sounds hypoactive in right upper quadrant, left upper quadrant, right lower quadrant and left lower quadrant Abd is soft and non tender X 4 quads. Derm: Skin is intact, Skin is dry, Skin is pink, warm & dry. Skin temperature is warm. 08:22 General: pt resting on stretcher. voices no c/o. vs stable. brown secretions noted in srm NG tube. . 08:41 General: NS at 100cc/hr up per dr Ray. . srm 09:59 General: Appears in no apparent distress, Behavior is appropriate for age, cooperative. srm Neurological: Level of Consciousness is awake, alert, Oriented to person, place, time. Cardiovascular: Rhythm is sinus rhythm. Respiratory: No deficits noted. GI: Abdomen is distended, Bowel sounds hypoactive in suprapubic area, right upper quadrant, left upper quadrant, right lower quadrant and left lower quadrant Abd is soft and non tender X 4 quads. 10:15 General: at 0939 protonix drip initiated in right hand 18 G. at 0945 ns with 40 me KCL srm /L initiated to right ac 20 g. pt moved to hospital bed. voices no c/o except having hiccups. 16:02 General: First contact with pt. This RN asked to administer IV labetalol to pt. Order ld5 printed from 1bib. Pt's BP just prior to med administration was 163/78 and heart rate was 102. Pt medicated. Pt tolerated well. Will reassess BP at appropriate time. Lj RN made aware of med administration. Care turned back to lj RN (Raad Blake RN). Vital Signs: 04:16 BP 156 / 99; Pulse 119; Resp 22; Temp 96.9(O); Pulse Ox 99% on R/A; Weight 92.99 kg; js15 Height 5 ft. 11 in. (180.34 cm); Pain 8/10; 04:45 BP 158 / 90 (auto/); js15 04:45 Pulse 108 MON; Pulse Ox 96% ; js15 05:00 BP 157 / 97 (auto/); js15 05:00 Pulse 117 MON; Pulse Ox 96% ; js15 05:15 BP 169 / 104 (auto/); js15 05:15 Pulse 131 MON; Pulse Ox 100% ; js15 05:35 BP 163 / 82 (auto/); js15 05:35 Pulse 116 MON; Pulse Ox 97% ; js15 05:45 BP 171 / 90 (auto/); js15 05:45 Pulse 120 MON; Pulse Ox 96% ; js15 06:00 BP 158 / 76 (auto/); js15 06:00 Pulse 107 MON; Pulse Ox 99% ; js15 06:15 BP 182 / 86 (auto/); js15 06:15 Pulse 112 MON; Pulse Ox 100% ; 15 06:30 BP 169 / 75 (auto/); 15 06:30 Pulse 104 MON; Pulse Ox 99% ; 15 06:45 BP 178 / 84 (auto/); js15 06:45 Pulse 111 MON; Pulse Ox 100% ; 15 07:00 Pulse 113 MON; Pulse Ox 100% ; srm 07:00 BP 170 / 79 (auto/); srm 07:15 BP 176 / 82 (auto/); srm 07:15 Pulse 106 MON; Resp 18; Pulse Ox 100% ; srm 07:30 Pulse 105 MON; Pulse Ox 100% ; srm 07:30 BP 154 / 74 (auto/); srm 07:45 Pulse 103 MON; Pulse Ox 99% ; srm 07:45 BP 168 / 81 (auto/); srm 08:00 BP 160 / 80 (auto/); srm 08:00 Pulse 106 MON; Resp 18; Pulse Ox 97% ; srm 08:15 Pulse 107 MON; Pulse Ox 99% ; srm 08:15 BP 157 / 78 (auto/); srm 08:30 Pulse 101 MON; Pulse Ox 99% ; srm 08:30 BP 159 / 77 (auto/); srm 08:44 Pulse 102 MON; Pulse Ox 99% ; srm 08:45 BP 162 / 80 (auto/); srm 09:00 BP 168 / 81 (auto/); srm 09:00 Pulse 99 MON; Resp 18; Pulse Ox 98% ; srm 09:15 Pulse 96 MON; Pulse Ox 96% ; srm 09:15 BP 177 / 86 (auto/); srm 09:30 Pulse 109 MON; srm 09:30 BP 179 / 96 (auto/); srm 10:09 BP 154 / 92 (auto/); srm 10:11 Pulse 107 MON; Resp 18; Pulse Ox 98% ; srm 10:23 Temp 97.7(O); tk 11:09 Pulse 95 MON; Pulse Ox 98% ; srm 11:09 BP 184 / 90 (auto/); srm 11:21 BP 172 / 83 (auto/); srm 11:21 Pulse 98 MON; Resp 18; Pulse Ox 100% ; srm 04:16 Body Mass Index 28.59 (92.99 kg, 180.34 cm) js15 Vitals: 05:43 Log In Time: December 20, 2016 at 03:50. js15 ED Course: 03:51 Patient visited by Rose Purvis. gjb 03:51 Patient moved to Waiting gjb 03:55 Patient moved to 5 js15 04:15 Triage Initiated js15 04:19 The patient / caregiver is instructed regarding the plan of care and ED course. js15 04:38 Patient moved to Nov 04:46 Mynor Villegas DO is Attending Physician. cs11 04:46 Patient visited by Mynor Villegas DO. cs11 04:55 Inserted saline lock: 18 gauge in right hand The patient tolerated the procedure well. js15 05:25 NGT inserted 18 Fr. via right nare. Placement verified. Returned gastric contents. to js15 intermittent suction. Returned gastric contents. 05:34 [facility] Payment Agreement was scanned into [employer] and attached to record. gjb 05:39 Patient name changed from Kenny\S\E\S\James\S\ to Kenny\S\E\S\James Blackwood. EDMS 05:40 Patient visited by Jaymie Chan RN. js15 06:34 Patient visited by Jaymie Chan RN. js15 07:05 Report received from Malcolm Chan RN. srm 07:11 Tony Champion is Hospitalizing Provider. cs11 07:35 Patient visited by Luz Elena Stewart RN. srm 08:23 Patient visited by Luz Elena Stewart, HILDA. srm 08:42 Patient visited by Luz Elena Stewart, HILDA. srm 09:56 Inserted saline lock: 20 gauge in right antecubital area. srm 10:00 Patient visited by Luz Elena Stewart RN. srm 10:00 OSMOLALITY,URINE Sent. srm 10:01 Patient visited by Luz Elena Stewart RN. srm 10:01 URINALYSIS Sent. srm 10:01 CHLORIDE,RANDOM URINE Sent. srm 10:01 SODIUM,RANDOM URINE Sent. srm 10:01 POTASSIUM,RANDOM URINE Sent. srm 10:16 Patient visited by Luz Elena Stewart RN. srm 10:24 Patient visited by Sudheer Guy. tk 12:01 Patient moved to Ultrasound sm5 12:14 Patient visited by Luz Elena Stewart RN. srm 12:14 Report given to DOUG STEVENS. srm 12:28 Patient moved to 19 sm5 16:06 Patient visited by Lora Marc RN. ld5 20:57 RENAL US Returned. EDMS 21:37 Patient moved to Admit Hold ml3 12/21 14:33 T-Sheet-- Draft Copy was scanned into [employer] and attached to record. gb Administered Medications: 12/20 05:00 Drug: NS 0.9% 1000 ml [sodium chloride 0.9 % intravenous solution] Route: IV; Rate: js15 bolus; Site: right hand; 06:00 Follow up: IV Status: Completed infusion; IV Intake: 1000ml js15 06:43 Drug: pantoprazole 40 mg [pantoprazole 40 mg intravenous solution] Route: IV; Rate: js15 bolus; Site: right hand; 16:00 Drug: Labetalol 10 mg [labetalol 5 mg/mL intravenous solution (2 mL)] Route: IVP; Rate: ld5 bolus; Infused Over: 2 mins; Site: right hand; Intake: 06:00 IV: 1000.00ml; Total: 1000.00ml. js15 Output: 10:16 Urine: 350.00ml (Voided); Gastric: 500.00ml (NGT); Total: 850.00ml. srm Order Results: Lab Order: Amylase; SPEC'M 12/20/16 05:32 Test: AMYLASE; Value: 72; Range: 25-115; Units: U/L; Status: F Lab Order: Basic Metabolic Profile; SPEC'M 12/20/16 05:32 Test: GLUCOSE, FASTING; Value: 174; Range: 80-110; Abnormal: Above high normal; Units: MG/DL; Status: F Test: BLOOD UREA NITROGEN; Value: 20; Range: 7-18; Abnormal: High; Units: MG/DL; Status: F Test: CREATININE FOR GFR; Value: 1.70; Range: 0.70-1.30; Abnormal: Above high normal; Units: MG/DL; Status: F Test: GLOMERULAR FILTRATION RATE; Value: 52.6; Range: >49; Status: F Test: SODIUM LEVEL; Value: 137; Range: 136-145; Units: MEQ/L; Status: F Test: POTASSIUM SERUM; Value: 3.4; Range: 3.5-5.1; Abnormal: Below low normal; Units: MEQ/L; Status: F Test: CHLORIDE LEVEL; Value: 88; Range: 98-107; Abnormal: Below low normal; Units: MEQ/L; Status: F Test: CARBON DIOXIDE LEVEL; Value: 34; Range: 21-32; Abnormal: Above high normal; Units: MEQ/L; Status: F Test: ANION GAP; Value: 15; Range: 8-16; Units: MEQ/L; Status: F Test: CALCIUM LEVEL; Value: 11.5; Range: 8.8-10.2; Abnormal: Above high normal; Units: MG/DL; Status: F Test Note: ; Units are mL/min/1.73 m2 Chronic Kidney Disease Staging per NKF: Stage I & II GFR >=60 Normal to Mildly Decreased Stage III GFR 30-59 Moderately Decreased Stage IV GFR 15-29 Severely Decreased Stage V GFR <15 Very Little GFR Left ESRD GFR <15 on ELECTRICIAN OFFICE Lab Order: CBC with Diff; SPEC'M 12/20/16 04:37 Test: WHITE BLOOD COUNT; Value: 13.7; Range: 4.0-10.0; Abnormal: Above high normal; Units: K/mm3; Status: F Test: RED BLOOD COUNT; Value: 6.06; Range: 4.30-6.10; Units: M/mm3; Status: F Test: HEMOGLOBIN; Value: 15.1; Range: 14.0-18.0; Units: g/dl; Status: F Test: HEMATOCRIT; Value: 47.3; Range: 42.0-52.0; Units: %; Status: F Test: MEAN CORPUSCULAR VOLUME; Value: 78.1; Range: 80.0-96.0; Abnormal: Below low normal; Units: fl; Status: F Test: MEAN CORPUSCULAR HEMOGLOBIN; Value: 24.9; Range: 27.0-33.0; Abnormal: Below low normal; Units: pg; Status: F Test: MEAN CORPUSCULAR HGB CONC; Value: 31.9; Range: 32.0-36.5; Abnormal: Below low normal; Units: g/dl; Status: F Test: RED CELL DISTRIBUTION WIDTH; Value: 17.2; Range: 11.5-14.5; Abnormal: Above high normal; Units: %; Status: F Test: PLATELET COUNT, AUTOMATED; Value: 270; Range: 150-450; Units: k/mm3; Status: F Test: NEUTROPHILS %; Value: 81.8; Range: 36.0-66.0; Abnormal: Above high normal; Units: %; Status: F Test: LYMPH %; Value: 11.3; Range: 24.0-44.0; Abnormal: Below low normal; Units: %; Status: F Test: MONO %; Value: 5.1; Range: 0.0-5.0; Abnormal: Above high normal; Units: %; Status: F Test: EOS %; Value: 0.9; Range: 0.0-3.0; Units: %; Status: F Test: BASO %; Value: 0.1; Range: 0.0-1.0; Units: %; Status: F Test: LARGE UNSTAINED CELL %; Value: 0.8; Range: 0.0-4.0; Units: %; Status: F Test: NEUTROPHILS #; Value: 11.2; Range: 1.8-7.7; Abnormal: Above high normal; Units: K/mm3; Status: F Test: LYMPH #; Value: 1.5; Range: 1.5-4.5; Units: K/mm3; Status: F Test: MONO #; Value: 0.7; Range: 0.0-0.8; Units: K/mm3; Status: F Test: EOS #; Value: 0.1; Range: 0.0-0.50; Units: K/mm3; Status: F Test: BASO #; Value: 0.0; Range: 0.0-0.2; Units: K/mm3; Status: F Test: LARGE UNSTAINED CELL #; Value: 0.1; Range: 0.0-0.4; Units: K/mm3; Status: F Lab Order: Lipase; [facility] 12/20/16 05:32 Test: LIPASE; Value: 153; Range: 73-393; Units: U/L; Status: F Lab Order: Liver Profile; [facility] 12/20/16 05:32 Test: AST/SGOT; Value: 75; Range: 15-37; Abnormal: Above high normal; Units: U/L; Status: F Test: ALT/SGPT; Value: 109; Range: 12-78; Abnormal: Above high normal; Units: U/L; Status: F Test: ALKALINE PHOSPHATASE; Value: 106; Range: 45-117; Units: U/L; Status: F Test: BILIRUBIN,TOTAL; Value: 2.0; Range: 0.2-1.0; Abnormal: Above high normal; Units: MG/DL; Status: F Test: BILIRUBIN,DIRECT; Value: 0.7; Range: 0.0-0.2; Abnormal: Above high normal; Units: MG/DL; Status: F Test: TOTAL PROTEIN; Value: 8.7; Range: 6.4-8.2; Abnormal: Above high normal; Units: GM/DL; Status: F Test: ALBUMIN; Value: 3.9; Range: 3.2-5.2; Units: GM/DL; Status: F Test: ALBUMIN/GLOBULIN RATIO; Value: 0.81; Range: 1.00-1.93; Abnormal: Below low normal; Status: F Lab Order: Type & Screen; 12/20/16:32 Test: BLOOD TYPE; Value: B POS; Status: F Test: AB SCREEN (INDIRECT BRANDY)GEL; Value: NEGATIVE; Status: F Lab Order: Pt & Aptt; [facility] 12/20/16 05:32 Test: PROTHROMBIN TIME; Value: 13.3; Range: 12.3-14.5; Units: SECONDS; Status: F Test: INR; Value: 1.00; Status: F Test: PARTIAL THROMBOPLASTIN TIME; Value: 24.8; Range: 26.6-37.1; Abnormal: Below low normal; Units: SECONDS; Status: F Test Note: ; THERAPUTIC HUMAN INR VALUES INDICATIONS NORMAL RANGES PROPHYLAXIS/TREATMENT OF: VENOUS THROMBOSIS 2.0-3.0 PULMONARY EMBOLISM 2.0-3.0 PREVENTION OF SYSTEMIC EMBOLISM FROM: TISSUE HEART VALVES 2.0-3.0 ACUTE MYOCARDIAL INFARCTION 2.0-3.0 VALVULAR HEART DISEASE 2.0-3.0 ATRIAL FIBRILLATION 2.0-3.0 MECHANICAL VALVES(HIGH RISK) 2.5-3.5 RECURRENT MYOCARDIAL INFARCTION 2.5-3.5 Lab Order: CARDIAC MARKER PANEL; [facility] 12/20/16 15:28 Test: CPK CREATINE PHOSPHOKINASE; Value: 500; Range: 39-308; Abnormal: Above high normal; Units: U/L; Status: F Test: CK-MB VALUE MASS; Value: 2.8; Range: 0.0-3.6; Units: NG/ML; Status: F Test: MB/CK RELATIVE INDEX; Value: 0.56; Range: < OR =4; Status: F Test: TROPONIN I; Value: 0.06; Range: < 0.10; Abnormal: Delta; Units: NG/ML; Status: F Test Note: ; DIAGNOSIS CRITERIA MMB ng/ml Relative Index (RI) NON-AMI < or = 5 N/A KIRK ZONE > 5 < or = 4 AMI > 5 > 4 Lab Order: BLOOD CULTURES; [facility] 12/20/16 09:54 Test: BLOOD CULTURE; Value: No growth after 24 hours . All specimens observed; Status: F Test: BLOOD CULTURE; Value: for 7 days. Results final at that time.; Status: F Lab Order: BLOOD CULTURES; [facility] 12/20/16 10:01 Test: BLOOD CULTURE; Value: No growth after 24 hours . All specimens observed; Status: F Test: BLOOD CULTURE; Value: for 7 days. Results final at that time.; Status: F Lab Order: HEMOGLOBIN & HEMATOCRIT; [facility] 12/20/16 11:49 Test: HEMOGLOBIN; Value: 13.6; Range: 14.0-18.0; Abnormal: Below low normal; Units: g/dl; Status: F Test: HEMATOCRIT; Value: 44.3; Range: 42.0-52.0; Units: %; Status: F Lab Order: HEMOGLOBIN & HEMATOCRIT; [facility] 12/20/16 15:28 Test: HEMOGLOBIN; Value: 13.2; Range: 14.0-18.0; Abnormal: Below low normal; Units: g/dl; Status: F Test: HEMATOCRIT; Value: 42.2; Range: 42.0-52.0; Units: %; Status: F Lab Order: HEMOGLOBIN & HEMATOCRIT; SPE[facility] 12/20/16 19:59 Test: HEMOGLOBIN; Value: 12.6; Range: 14.0-18.0; Abnormal: Below low normal; Units: g/dl; Status: F Test: HEMATOCRIT; Value: 39.5; Range: 42.0-52.0; Abnormal: Below low normal; Units: %; Status: F Lab Order: URINALYSIS; SPE[facility] 12/20/16 09:58 Test: APPEARANCE, URINE; Value: HAZY; Range: CLEAR; Status: F Test: COLOR, URINE; Value: YELLOW; Range: YELLOW; Status: F Test: PH,URINE; Value: 9.0; Range: 5.0-9.0; Units: UNITS; Status: F Test: SPECIFIC GRAVITY URINE AUTO; Value: 1.013; Range: 1.002-1.035; Status: F Test: PROTEIN, URINE AUTO; Value: 1+; Range: NEGATIVE; Abnormal: Above high normal; Units: mg/dL; Status: F Test: GLUCOSE, URINE (UA) AUTO; Value: NEGATIVE; Range: NEGATIVE; Units: mg/dL; Status: F Test: KETONE, URINE AUTO; Value: TRACE; Range: NEGATIVE; Abnormal: Above high normal; Units: mg/dL; Status: F Test: UROBILINOGEN, URINE AUTO; Value: 0.2; Range: 0.0-2.0; Units: mg/dL; Status: F Test: BILIRUBIN, URINE AUTO; Value: NEGATIVE; Range: NEGATIVE; Status: F Test: NITRITE, URINE AUTO; Value: NEGATIVE; Range: NEGATIVE; Status: F Test: LEUKOCYTE ESTERASE, URINE AUTO; Value: NEGATIVE; Range: NEGATIVE; Status: F Test: BLOOD, URINE BLOOD; Value: NEGATIVE; Range: NEGATIVE; Status: F Test: WBC, URINE AUTO; Value: 2; Range: 0-3; Units: /HPF; Status: F Test: RBC, URINE AUTO; Value: 1; Range: 0-3; Units: /HPF; Status: F Test: BACTERIA, URINE AUTO; Value: NEGATIVE; Range: NEGATIVE; Status: F Test: SQUAMOUS EPITHELIAL CELL UR AU; Value: 0; Range: 0-6; Units: /HPF; Status: F Test: MUCUS, URINE; Value: SMALL; Range: NEGATIVE; Status: F Test: HYALINE CAST, URINE AUTO; Value: 0; Range: 0-1; Units: /LPF; Status: F Test: AMORPHOUS SEDIMENT; Value: SMALL; Range: NEGATIVE; Abnormal: Above high normal; Status: F Lab Order: TOTAL PROTEIN,RANDOM URINE; 12/20/16 09:58 Test: TOTAL PROTEIN,RANDOM URINE; Value: 22.9; Range: 0.0-12.0; Abnormal: Above high normal; Units: MG/DL; Status: F Lab Order: CREATININE,RANDOM URINE; 12/20/16 09:58 Test: CREATININE,RANDOM URINE; Value: 103.0; Units: MG/DL; Status: F Lab Order: OSMOLALITY,URINE; 12/20/16 09:58 Test: OSMOLALITY URINE; Value: 547; Range: 500-800; Units: MOSM/KG; Status: F Lab Order: SODIUM,RANDOM URINE; 12/20/16 09:58 Test: SODIUM,RANDOM URINE; Value: 91; Units: MEQ/L; Status: F Lab Order: CHLORIDE,RANDOM URINE; 12/20/16 09:58 Test: CHLORIDE,RANDOM URINE; Value: 23; Units: MEQ/L; Status: F Lab Order: POTASSIUM,RANDOM URINE; 12/20/16 09:58 Test: POTASSIUM RANDOM URINE; Value: 51.7; Units: MEQ/L; Status: F Lab Order: CARDIAC MARKER PANEL; 12/20/16 05:32 Test: CPK CREATINE PHOSPHOKINASE; Value: 408; Range: 39-308; Abnormal: Above high normal; Units: U/L; Status: F Test: CK-MB VALUE MASS; Value: 2.8; Range: 0.0-3.6; Units: NG/ML; Status: F Test: MB/CK RELATIVE INDEX; Value: 0.68; Range: < OR =4; Status: F Test: TROPONIN I; Value: 0.02; Range: < 0.10; Units: NG/ML; Status: F Test Note: ; DIAGNOSIS CRITERIA MMB ng/ml Relative Index (RI) NON-AMI < or = 5 N/A KIRK ZONE > 5 < or = 4 AMI > 5 > 4 Lab Order: MAGNESIUM LEVEL; [facility] 12/20/16 05:32 Test: MAGNESIUM LEVEL; Value: 2.6; Range: 1.8-2.4; Abnormal: Above high normal; Units: MG/DL; Status: F Lab Order: Fingerstick Blood Sugar; [facility] 12/20/16 12:36 Test: BEDSIDE GLUCOSE; Value: 147; Range: 80-115; Abnormal: Above high normal; Units: MG/DL; Status: F Lab Order: BASIC METABOLIC PROFILE; [facility] 12/20/16 15:28 Test: GLUCOSE, FASTING; Value: 127; Range: 80-110; Abnormal: Above high normal; Units: MG/DL; Status: F Test: BLOOD UREA NITROGEN; Value: 19; Range: 7-18; Abnormal: Above high normal; Units: MG/DL; Status: F Test: CREATININE FOR GFR; Value: 1.40; Range: 0.70-1.30; Abnormal: Above high normal; Units: MG/DL; Status: F Test: GLOMERULAR FILTRATION RATE; Value: > 60.0; Range: >49; Status: F Test: SODIUM LEVEL; Value: 141; Range: 136-145; Units: MEQ/L; Status: F Test: POTASSIUM SERUM; Value: 4.3; Range: 3.5-5.1; Abnormal: Delta; Units: MEQ/L; Status: F Test: CHLORIDE LEVEL; Value: 96; Range: 98-107; Abnormal: Below low normal; Units: MEQ/L; Status: F Test: CARBON DIOXIDE LEVEL; Value: 36; Range: 21-32; Abnormal: Above high normal; Units: MEQ/L; Status: F Test: ANION GAP; Value: 9; Range: 8-16; Units: MEQ/L; Status: F Test: CALCIUM LEVEL; Value: 9.3; Range: 8.8-10.2; Abnormal: Delta; Units: MG/DL; Status: F Test Note: ; Units are mL/min/1.73 m2 Chronic Kidney Disease Staging per NKF: Stage I & II GFR >=60 Normal to Mildly Decreased Stage III GFR 30-59 Moderately Decreased Stage IV GFR 15-29 Severely Decreased Stage V GFR <15 Very Little GFR Left ESRD GFR <15 on ELECTRICIAN OFFICE Lab Order: MAGNESIUM LEVEL; [facility] 12/20/16 15:28 Test: MAGNESIUM LEVEL; Value: 2.5; Range: 1.8-2.4; Abnormal: Above high normal; Units: MG/DL; Status: F Lab Order: Fingerstick Blood Sugar; [facility] 12/20/16 17:54 Test: BEDSIDE GLUCOSE; Value: 146; Range: 80-115; Abnormal: Above high normal; Units: MG/DL; Status: F Lab Order: HEMOGLOBIN & HEMATOCRIT; [facility] 12/20/16 23:50 Test: HEMOGLOBIN; Value: 11.9; Range: 14.0-18.0; Abnormal: Below low normal; Units: g/dl; Status: F Test: HEMATOCRIT; Value: 39.6; Range: 42.0-52.0; Abnormal: Below low normal; Units: %; Status: F Lab Order: HEMOGLOBIN & HEMATOCRIT; [facility] 12/21/16 11:01 Test: HEMOGLOBIN; Value: 11.2; Range: 14.0-18.0; Abnormal: Below low normal; Units: g/dl; Status: F Test: HEMATOCRIT; Value: 36.6; Range: 42.0-52.0; Abnormal: Below low normal; Units: %; Status: F Lab Order: COMPLETE BLOOD COUNT; [facility] 12/21/16 06:29 Test: WHITE BLOOD COUNT; Value: 11.6; Range: 4.0-10.0; Abnormal: Above high normal; Units: K/mm3; Status: F Test: RED BLOOD COUNT; Value: 4.66; Range: 4.30-6.10; Units: M/mm3; Status: F Test: HEMOGLOBIN; Value: 11.7; Range: 14.0-18.0; Abnormal: Below low normal; Units: g/dl; Status: F Test: HEMATOCRIT; Value: 37.3; Range: 42.0-52.0; Abnormal: Below low normal; Units: %; Status: F Test: MEAN CORPUSCULAR VOLUME; Value: 80.0; Range: 80.0-96.0; Units: fl; Status: F Test: MEAN CORPUSCULAR HEMOGLOBIN; Value: 25.0; Range: 27.0-33.0; Abnormal: Below low normal; Units: pg; Status: F Test: MEAN CORPUSCULAR HGB CONC; Value: 31.3; Range: 32.0-36.5; Abnormal: Below low normal; Units: g/dl; Status: F Test: RED CELL DISTRIBUTION WIDTH; Value: 17.1; Range: 11.5-14.5; Abnormal: Above high normal; Units: %; Status: F Test: PLATELET COUNT, AUTOMATED; Value: 166; Range: 150-450; Units: k/mm3; Status: F Lab Order: BASIC METABOLIC PROFILE; SPEC'M 12/21/16 06:29 Test: GLUCOSE, FASTING; Value: 108; Range: 80-110; Units: MG/DL; Status: F Test: BLOOD UREA NITROGEN; Value: 17; Range: 7-18; Units: MG/DL; Status: F Test: CREATININE FOR GFR; Value: 1.20; Range: 0.70-1.30; Units: MG/DL; Status: F Test: GLOMERULAR FILTRATION RATE; Value: > 60.0; Range: >49; Status: F Test: SODIUM LEVEL; Value: 143; Range: 136-145; Units: MEQ/L; Status: F Test: POTASSIUM SERUM; Value: 3.8; Range: 3.5-5.1; Units: MEQ/L; Status: F Test: CHLORIDE LEVEL; Value: 102; Range: 98-107; Units: MEQ/L; Status: F Test: CARBON DIOXIDE LEVEL; Value: 30; Range: 21-32; Units: MEQ/L; Status: F Test: ANION GAP; Value: 11; Range: 8-16; Units: MEQ/L; Status: F Test: CALCIUM LEVEL; Value: 8.0; Range: 8.8-10.2; Abnormal: Below low normal; Units: MG/DL; Status: F Test Note: ; Units are mL/min/1.73 m2 Chronic Kidney Disease Staging per NKF: Stage I & II GFR >=60 Normal to Mildly Decreased Stage III GFR 30-59 Moderately Decreased Stage IV GFR 15-29 Severely Decreased Stage V GFR <15 Very Little GFR Left ESRD GFR <15 on ELECTRICIAN OFFICE Lab Order: MAGNESIUM LEVEL; SPEC'M 12/21/16 06:29 Test: MAGNESIUM LEVEL; Value: 2.5; Range: 1.8-2.4; Abnormal: Above high normal; Units: MG/DL; Status: F Lab Order: Fingerstick Blood Sugar; SPEC'M 12/20/16 23:43 Test: BEDSIDE GLUCOSE; Value: 136; Range: 80-115; Abnormal: Above high normal; Units: MG/DL; Status: F Lab Order: Fingerstick Blood Sugar; SPEC'M 12/21/16 06:54 Test: BEDSIDE GLUCOSE; Value: 148; Range: 80-115; Abnormal: Above high normal; Units: MG/DL; Status: F Radiology Order: RENAL US Test: RENAL US REASON FOR EXAMINATION: acute on chronic; Renal ultrasound 12/20/2016; ; Indication acute on chronic renal disease; ; Comparison: CT of the pelvis 12/19/2016; ; Findings: Kirk scale imaging ultrasound performed of the kidneys and bladder; 12/20/2016; ; Findings: Right kidney measures 9.6 x 4.4 x 4.7 cm. The left kidney measures; 9.7 x 3.2 by 4.3 cm. Kidneys are of normal contour and echogenicity bilaterally.; There is no hydronephrosis bilaterally. There is mild increased renal sinus fat; bilaterally.There are no visualized intrarenal masses or cysts.; ; The bladder is moderately urine-filled and unremarkable in appearance; ; Impression; 1. Kidneys without hydronephrosis, intrarenal masses or cysts .; 2. Renal cortical echogenicity within normal limits. Mild prominence of renal; sinus fat bilaterally; 3. Bladder is unremarkable as visualized; ; ; Signed by; Norma Martínez MD 12/20/2016 08:18 P; Outcome: 07:12 Decision to Hospitalize by Provider. cs11 12/21 12:02 Patient left the ED. [facility] Signatures: Dispatcher [employer] EDMS Luz Elena Stewart RN Cristy Quiroz RN RN jan Barnhardt, Gloria, Katelyn Earl 5 Milly Mitchell, Program Admin Unit ml3 Lora Marc RN RN ld5 Eugenia Ramirez RN RN [facility] Mynor Villegas DO DO cs11 Jaymie ChanRN RN js15 Kenealy, Sudheer tk Purvis, Rose gjb Chart Complete MTDD
--- NOTE | 2016-12-23 13:03 | EDDOCDS ---
Physician Documentation [facility] Name: Kenny Ramirez Jr Age: 66 yrs Sex: Male : 1950 Arrival Date: 12/20/2016 Time: 03:50 Bed Admit Hold Private MD: Disposition: 12/20/16 07:12 Hospitalization ordered by Tony Champion for Inpatient Admission. Preliminary diagnosis is Gastrointestinal hemorrhage, unspecified. - [facility] - Status is Inpatient Admission. [facility] - Condition is Stable. - Problem is an ongoing problem. - Symptoms have improved. Historical: - Allergies: No known drug Allergies; - Home Meds: 1. albuterol sulfate 90 mcg/actuation Inhl aepb 2 puffs every 6 hours 2. budesonide-formoterol 160-4.5 mcg/actuation inhalation HFAA 2 puffs 2 times per day 3. insulin glargine 100 unit/mL (3 mL) Sub-Q inpn 30 unit daily 4. Carafate 1 gram Oral tab 1 tab 4 times per day 5. metoprolol tartrate 25 mg Oral tab 1 tab three times a day 6. pantoprazole 40 mg oral TbEC 1 tab 2 times per day 7. insulin aspart sliding scale subcutaneous crtg daily 8. multivitamin Oral tab 1 tab daily 9. Spiriva with HandiHaler 18 mcg Inhl CpDv 1 cap once daily 10. amlodipine 5 mg Oral tab twice a day - PMHx: Asthma; COPD; Diabetes - IDDM: uncontrolled; gi bleed; Hiatal Hernia; Hypertension; - PSHx: left pinky toe removed; - Social history: No barriers to communication noted, The patient speaks fluent Upper Sorbian, Speaks appropriately for age, Smoking status: Patient uses tobacco products, light tobacco smoker. - Family history: Not pertinent. - : The pt / caregiver states he / she is not on anticoagulants. Home medication list is obtained from the patient, [employer] import data. - Exposure Risk Screening:: None identified. Vital Signs: 12/20 04:16 BP 156 / 99; Pulse 119; Resp 22; Temp 96.9(O); Pulse Ox 99% on R/A; Weight 92.99 kg / js15 205.01 lbs; Height 5 ft. 11 in. (180.34 cm); Pain 8/10; 04:45 BP 158 / 90 (auto/); js15 04:45 Pulse 108 MON; Pulse Ox 96% ; js15 05:00 BP 157 / 97 (auto/); js15 05:00 Pulse 117 MON; Pulse Ox 96% ; js15 05:15 BP 169 / 104 (auto/); js15 05:15 Pulse 131 MON; Pulse Ox 100% ; js15 05:35 BP 163 / 82 (auto/); js15 05:35 Pulse 116 MON; Pulse Ox 97% ; 15 05:45 BP 171 / 90 (auto/); js15 05:45 Pulse 120 MON; Pulse Ox 96% ; 15 06:00 BP 158 / 76 (auto/); js15 06:00 Pulse 107 MON; Pulse Ox 99% ; 15 06:15 BP 182 / 86 (auto/); 15 06:15 Pulse 112 MON; Pulse Ox 100% ; 15 06:30 BP 169 / 75 (auto/); 15 06:30 Pulse 104 MON; Pulse Ox 99% ; 15 06:45 BP 178 / 84 (auto/); 15 06:45 Pulse 111 MON; Pulse Ox 100% ; 15 07:00 Pulse 113 MON; Pulse Ox 100% ; srm 07:00 BP 170 / 79 (auto/); srm 07:15 BP 176 / 82 (auto/); srm 07:15 Pulse 106 MON; Resp 18; Pulse Ox 100% ; srm 07:30 Pulse 105 MON; Pulse Ox 100% ; srm 07:30 BP 154 / 74 (auto/); srm 07:45 Pulse 103 MON; Pulse Ox 99% ; srm 07:45 BP 168 / 81 (auto/); srm 08:00 BP 160 / 80 (auto/); srm 08:00 Pulse 106 MON; Resp 18; Pulse Ox 97% ; srm 08:15 Pulse 107 MON; Pulse Ox 99% ; srm 08:15 BP 157 / 78 (auto/); srm 08:30 Pulse 101 MON; Pulse Ox 99% ; srm 08:30 BP 159 / 77 (auto/); srm 08:44 Pulse 102 MON; Pulse Ox 99% ; srm 08:45 BP 162 / 80 (auto/); srm 09:00 BP 168 / 81 (auto/); srm 09:00 Pulse 99 MON; Resp 18; Pulse Ox 98% ; srm 09:15 Pulse 96 MON; Pulse Ox 96% ; srm 09:15 BP 177 / 86 (auto/); srm 09:30 Pulse 109 MON; srm 09:30 BP 179 / 96 (auto/); srm 10:09 BP 154 / 92 (auto/); srm 10:11 Pulse 107 MON; Resp 18; Pulse Ox 98% ; srm 10:23 Temp 97.7(O); tk 11:09 Pulse 95 MON; Pulse Ox 98% ; srm 11:09 BP 184 / 90 (auto/); srm 11:21 BP 172 / 83 (auto/); srm 11:21 Pulse 98 MON; Resp 18; Pulse Ox 100% ; srm 04:16 Body Mass Index 28.59 (92.99 kg, 180.34 cm) js15 MDM: 04:01 Undress patient appropriately for examination ordered. nov 04:01 IV Saline Lock ordered. nov 04:02 Amylase Ordered. EDMS 04:02 Basic Metabolic Profile Ordered. EDMS 04:02 CBC with Diff Ordered. EDMS 04:02 Lipase Ordered. EDMS 04:02 Liver Profile Ordered. EDMS 04:02 Type & Screen Ordered. EDMS 04:02 NOTHING BY MOUTH+DIET ordered. EDMS 04:43 IV Saline Lock ordered. nov 04:43 NS 0.9% 1000 ml IV at bolus once ordered. nov 04:43 NG Tube, 18Fr ordered. nov 04:47 Pt & Aptt Ordered. EDMS 05:29 CBC with Diff Reviewed. cs11 05:34 [facility] Payment Agreement was scanned into [employer]bs[employer] and attached to record. b 05:34 Financial registration complete. gjb 06:29 Basic Metabolic Profile Reviewed. cs11 06:29 Liver Profile Reviewed. cs11 06:29 Pt & Aptt Reviewed. cs11 06:29 Amylase Reviewed. cs11 06:29 Lipase Reviewed. cs11 06:29 pantoprazole 40 mg IV at bolus once ordered. cs11 06:59 BED REQUEST+ADM ordered. EDMS 09:04 CARDIAC MARKER PANEL Ordered. EDMS 09:04 BLOOD CULTURES Ordered. EDMS 09:05 BLOOD CULTURES Ordered. EDMS 09:08 RENAL US Ordered. EDMS 09:09 HEMOGLOBIN & HEMATOCRIT Ordered. EDMS 09:09 HEMOGLOBIN & HEMATOCRIT Ordered. EDMS 09:09 HEMOGLOBIN & HEMATOCRIT Ordered. EDMS 09:12 URINALYSIS Ordered. EDMS 09:12 TOTAL PROTEIN,RANDOM URINE Ordered. EDMS 09:12 CREATININE,RANDOM URINE Ordered. EDMS 09:12 OSMOLALITY,URINE Ordered. EDMS 09:12 SODIUM,RANDOM URINE Ordered. EDMS 09:12 CHLORIDE,RANDOM URINE Ordered. EDMS 09:12 POTASSIUM,RANDOM URINE Ordered. EDMS 09:14 Admission / Observation Status ordered. EDMS 09:23 CARDIAC MARKER PANEL Ordered. EDMS 09:23 MAGNESIUM LEVEL Ordered. EDMS 12:44 Fingerstick Blood Sugar Ordered. EDMS 15:35 BASIC METABOLIC PROFILE Ordered. EDMS 15:35 MAGNESIUM LEVEL Ordered. EDMS 16:02 Labetalol 10 mg IVP at bolus once over 2 mins ordered. ld5 18:06 Fingerstick Blood Sugar Ordered. EDMS 19:32 HEMOGLOBIN & HEMATOCRIT Ordered. EDMS 19:33 HEMOGLOBIN & HEMATOCRIT Ordered. EDMS 19:33 HEMOGLOBIN & HEMATOCRIT Ordered. EDMS 19:33 HEMOGLOBIN & HEMATOCRIT Ordered. EDMS 19:33 HEMOGLOBIN & HEMATOCRIT Ordered. EDMS 19:33 COMPLETE BLOOD COUNT Ordered. EDMS 19:34 BASIC METABOLIC PROFILE Ordered. EDMS 19:34 MAGNESIUM LEVEL Ordered. EDMS 12/21 07:03 Fingerstick Blood Sugar Ordered. EDMS 14:33 T-Sheet-- Draft Copy was scanned into Curbside and attached to record. gb Administered Medications: 12/20 05:00 Drug: NS 0.9% 1000 ml [sodium chloride 0.9 % intravenous solution] Route: IV; Rate: js15 bolus; Site: right hand; 06:00 Follow up: IV Status: Completed infusion; IV Intake: 1000ml js15 06:43 Drug: pantoprazole 40 mg [pantoprazole 40 mg intravenous solution] Route: IV; Rate: js15 bolus; Site: right hand; 16:00 Drug: Labetalol 10 mg [labetalol 5 mg/mL intravenous solution (2 mL)] Route: IVP; Rate: ld5 bolus; Infused Over: 2 mins; Site: right hand; Signatures: Dispatcher MedHost EDMS Charley Andrade, Buffing Wheel Presser Unit deg Cristy Washington RN RN jan Barnhardt, Gloria, Reg Reg gb Lora Marc RN RN ld5 Eugenia Ramirez RN RN [facility] Mynor Villegas DO DO 11 Jaymie ChanRN RN js15 Rose Purvis The chart was reviewed and I authenticate all verbal orders and agree with the evaluation and treatment provided.Corrections: (The following items were deleted from the chart) 09:21 09:04 CARDIAC MARKER PANEL ordered. EDMS EDMS 23 09:04 MAGNESIUM LEVEL ordered. EDMS EDMS 12:47 09:04 ELECTROCARDIOGRAM ADULT ordered. EDMS EDMS 15:37 09:09 BASIC METABOLIC PROFILE ordered. EDMS EDMS 15:37 09:09 MAGNESIUM LEVEL ordered. EDMS EDMS 21:53 19:32 HEMOGLOBIN & HEMATOCRIT ordered. EDMS EDMS Attachments: 05:34 [facility] [place] Agreement gjb 12/21 14:33 T-Sheet-- Draft Copy gb Chart Complete MTDD
--- NOTE | 2016-12-23 13:03 | EDDOCDS ---
Physician Documentation [facility] Name: Kenny Ramirez Jr Age: 66 yrs Sex: Male : 1950 Arrival Date: 12/20/2016 Time: 03:50 Bed Admit Hold Private MD: Disposition: 12/20/16 07:12 Hospitalization ordered by Tony Champion for Inpatient Admission. Preliminary diagnosis is Gastrointestinal hemorrhage, unspecified. - [facility] - Status is Inpatient Admission. [facility] - Condition is Stable. - Problem is an ongoing problem. - Symptoms have improved. Historical: - Allergies: No known drug Allergies; - Home Meds: 1. albuterol sulfate 90 mcg/actuation Inhl aepb 2 puffs every 6 hours 2. budesonide-formoterol 160-4.5 mcg/actuation inhalation HFAA 2 puffs 2 times per day 3. insulin glargine 100 unit/mL (3 mL) Sub-Q inpn 30 unit daily 4. Carafate 1 gram Oral tab 1 tab 4 times per day 5. metoprolol tartrate 25 mg Oral tab 1 tab three times a day 6. pantoprazole 40 mg oral TbEC 1 tab 2 times per day 7. insulin aspart sliding scale subcutaneous crtg daily 8. multivitamin Oral tab 1 tab daily 9. Spiriva with HandiHaler 18 mcg Inhl CpDv 1 cap once daily 10. amlodipine 5 mg Oral tab twice a day - PMHx: Asthma; COPD; Diabetes - IDDM: uncontrolled; gi bleed; Hiatal Hernia; Hypertension; - PSHx: left pinky toe removed; - Social history: No barriers to communication noted, The patient speaks fluent Wolof, Speaks appropriately for age, Smoking status: Patient uses tobacco products, light tobacco smoker. - Family history: Not pertinent. - : The pt / caregiver states he / she is not on anticoagulants. Home medication list is obtained from the patient, [employer] import data. - Exposure Risk Screening:: None identified. Vital Signs: 12/20 04:16 BP 156 / 99; Pulse 119; Resp 22; Temp 96.9(O); Pulse Ox 99% on R/A; Weight 92.99 kg / js15 205.01 lbs; Height 5 ft. 11 in. (180.34 cm); Pain 8/10; 04:45 BP 158 / 90 (auto/); js15 04:45 Pulse 108 MON; Pulse Ox 96% ; js15 05:00 BP 157 / 97 (auto/); js15 05:00 Pulse 117 MON; Pulse Ox 96% ; js15 05:15 BP 169 / 104 (auto/); js15 05:15 Pulse 131 MON; Pulse Ox 100% ; js15 05:35 BP 163 / 82 (auto/); js15 05:35 Pulse 116 MON; Pulse Ox 97% ; 15 05:45 BP 171 / 90 (auto/); js15 05:45 Pulse 120 MON; Pulse Ox 96% ; 15 06:00 BP 158 / 76 (auto/); js15 06:00 Pulse 107 MON; Pulse Ox 99% ; 15 06:15 BP 182 / 86 (auto/); 15 06:15 Pulse 112 MON; Pulse Ox 100% ; 15 06:30 BP 169 / 75 (auto/); 15 06:30 Pulse 104 MON; Pulse Ox 99% ; 15 06:45 BP 178 / 84 (auto/); 15 06:45 Pulse 111 MON; Pulse Ox 100% ; 15 07:00 Pulse 113 MON; Pulse Ox 100% ; srm 07:00 BP 170 / 79 (auto/); srm 07:15 BP 176 / 82 (auto/); srm 07:15 Pulse 106 MON; Resp 18; Pulse Ox 100% ; srm 07:30 Pulse 105 MON; Pulse Ox 100% ; srm 07:30 BP 154 / 74 (auto/); srm 07:45 Pulse 103 MON; Pulse Ox 99% ; srm 07:45 BP 168 / 81 (auto/); srm 08:00 BP 160 / 80 (auto/); srm 08:00 Pulse 106 MON; Resp 18; Pulse Ox 97% ; srm 08:15 Pulse 107 MON; Pulse Ox 99% ; srm 08:15 BP 157 / 78 (auto/); srm 08:30 Pulse 101 MON; Pulse Ox 99% ; srm 08:30 BP 159 / 77 (auto/); srm 08:44 Pulse 102 MON; Pulse Ox 99% ; srm 08:45 BP 162 / 80 (auto/); srm 09:00 BP 168 / 81 (auto/); srm 09:00 Pulse 99 MON; Resp 18; Pulse Ox 98% ; srm 09:15 Pulse 96 MON; Pulse Ox 96% ; srm 09:15 BP 177 / 86 (auto/); srm 09:30 Pulse 109 MON; srm 09:30 BP 179 / 96 (auto/); srm 10:09 BP 154 / 92 (auto/); srm 10:11 Pulse 107 MON; Resp 18; Pulse Ox 98% ; srm 10:23 Temp 97.7(O); tk 11:09 Pulse 95 MON; Pulse Ox 98% ; srm 11:09 BP 184 / 90 (auto/); srm 11:21 BP 172 / 83 (auto/); srm 11:21 Pulse 98 MON; Resp 18; Pulse Ox 100% ; srm 04:16 Body Mass Index 28.59 (92.99 kg, 180.34 cm) js15 MDM: 04:01 Undress patient appropriately for examination ordered. nov 04:01 IV Saline Lock ordered. nov 04:02 Amylase Ordered. EDMS 04:02 Basic Metabolic Profile Ordered. EDMS 04:02 CBC with Diff Ordered. EDMS 04:02 Lipase Ordered. EDMS 04:02 Liver Profile Ordered. EDMS 04:02 Type & Screen Ordered. EDMS 04:02 NOTHING BY MOUTH+DIET ordered. EDMS 04:43 IV Saline Lock ordered. nov 04:43 NS 0.9% 1000 ml IV at bolus once ordered. nov 04:43 NG Tube, 18Fr ordered. nov 04:47 Pt & Aptt Ordered. EDMS 05:29 CBC with Diff Reviewed. cs11 05:34 [facility] Payment Agreement was scanned into [employer] and attached to record. b 05:34 Financial registration complete. gjb 06:29 Basic Metabolic Profile Reviewed. cs11 06:29 Liver Profile Reviewed. cs11 06:29 Pt & Aptt Reviewed. cs11 06:29 Amylase Reviewed. cs11 06:29 Lipase Reviewed. cs11 06:29 pantoprazole 40 mg IV at bolus once ordered. cs11 06:59 BED REQUEST+ADM ordered. EDMS 09:04 CARDIAC MARKER PANEL Ordered. EDMS 09:04 BLOOD CULTURES Ordered. EDMS 09:05 BLOOD CULTURES Ordered. EDMS 09:08 RENAL US Ordered. EDMS 09:09 HEMOGLOBIN & HEMATOCRIT Ordered. EDMS 09:09 HEMOGLOBIN & HEMATOCRIT Ordered. EDMS 09:09 HEMOGLOBIN & HEMATOCRIT Ordered. EDMS 09:12 URINALYSIS Ordered. EDMS 09:12 TOTAL PROTEIN,RANDOM URINE Ordered. EDMS 09:12 CREATININE,RANDOM URINE Ordered. EDMS 09:12 OSMOLALITY,URINE Ordered. EDMS 09:12 SODIUM,RANDOM URINE Ordered. EDMS 09:12 CHLORIDE,RANDOM URINE Ordered. EDMS 09:12 POTASSIUM,RANDOM URINE Ordered. EDMS 09:14 Admission / Observation Status ordered. EDMS 09:23 CARDIAC MARKER PANEL Ordered. EDMS 09:23 MAGNESIUM LEVEL Ordered. EDMS 12:44 Fingerstick Blood Sugar Ordered. EDMS 15:35 BASIC METABOLIC PROFILE Ordered. EDMS 15:35 MAGNESIUM LEVEL Ordered. EDMS 16:02 Labetalol 10 mg IVP at bolus once over 2 mins ordered. ld5 18:06 Fingerstick Blood Sugar Ordered. EDMS 19:32 HEMOGLOBIN & HEMATOCRIT Ordered. EDMS 19:33 HEMOGLOBIN & HEMATOCRIT Ordered. EDMS 19:33 HEMOGLOBIN & HEMATOCRIT Ordered. EDMS 19:33 HEMOGLOBIN & HEMATOCRIT Ordered. EDMS 19:33 HEMOGLOBIN & HEMATOCRIT Ordered. EDMS 19:33 COMPLETE BLOOD COUNT Ordered. EDMS 19:34 BASIC METABOLIC PROFILE Ordered. EDMS 19:34 MAGNESIUM LEVEL Ordered. EDMS 12/21 07:03 Fingerstick Blood Sugar Ordered. EDMS 14:33 T-Sheet-- Draft Copy was scanned into [employer] and attached to record. gb Administered Medications: 12/20 05:00 Drug: NS 0.9% 1000 ml [sodium chloride 0.9 % intravenous solution] Route: IV; Rate: js15 bolus; Site: right hand; 06:00 Follow up: IV Status: Completed infusion; IV Intake: 1000ml js15 06:43 Drug: pantoprazole 40 mg [pantoprazole 40 mg intravenous solution] Route: IV; Rate: js15 bolus; Site: right hand; 16:00 Drug: Labetalol 10 mg [labetalol 5 mg/mL intravenous solution (2 mL)] Route: IVP; Rate: ld5 bolus; Infused Over: 2 mins; Site: right hand; Signatures: Dispatcher MedHost EDMS Charley Andrade, Asset Recovery Specialist Unit deg Cristy Washington RN RN jan Barnhardt, Gloria, Reg Reg gb Lora Marc RN RN ld5 Eugenia Ramirez RN RN [facility] Mynor Villegas DO DO 11 Jaymie ChanRN RN js15 Rose Purvis The chart was reviewed and I authenticate all verbal orders and agree with the evaluation and treatment provided.Corrections: (The following items were deleted from the chart) 09:21 09:04 CARDIAC MARKER PANEL ordered. EDMS EDMS 23 09:04 MAGNESIUM LEVEL ordered. EDMS EDMS 12:47 09:04 ELECTROCARDIOGRAM ADULT ordered. EDMS EDMS 15:37 09:09 BASIC METABOLIC PROFILE ordered. EDMS EDMS 15:37 09:09 MAGNESIUM LEVEL ordered. EDMS EDMS 21:53 19:32 HEMOGLOBIN & HEMATOCRIT ordered. EDMS EDMS Attachments: 05:34 [facility] [place] Payment Agreement gjb 12/21 14:33 T-Sheet-- Draft Copy gb Chart Complete MTDD
[2016-12-23 13:35] LABS: ANION GAP 10 MEQ/L (8-16); BLOOD UREA NITROGEN 12 MG/DL (7-18); CALCIUM LEVEL 7.8 MG/DL (8.8-10.2); CARBON DIOXIDE LEVEL 25 MEQ/L (21-32); CHLORIDE LEVEL 102 MEQ/L (98-107); CREATININE FOR GFR 1.21 MG/DL (0.70-1.30); GLOMERULAR FILTRATION RATE > 60.0 (>49); GLUCOSE, FASTING 137 MG/DL (80-110); POTASSIUM SERUM 3.7 MEQ/L (3.5-5.1); SODIUM LEVEL 137 MEQ/L (136-145)
--- NOTE | 2016-12-23 14:18 | DS.PDOC ---
Discharge Summary General Date of Admission Dec 20, 2016 at 09:10 Date of Discharge 12/23/16 Specialist/Consultants Involve Dr. Pearl of GI Discharge Summary PROCEDURES PERFORMED DURING STAY: EGD COMPLICATIONS/CHIEF COMPLAINT: Gi Bleed ADMISSION DIAGNOSES: 1. . Upper GI bleed 2. . 3. . DISCHARGE DIAGNOSES: 1. . Upper GI bleed 2. . 3. . HISTORY OF PRESENT ILLNESS: 66-year-old male with past medical history of COPD, hepatitis C, type 2 diabetes mellitus, GI bleed, hypertension presented to the ER on 12/20/16 with a chief complaint of epigastric pain and episodes of coffee-ground emesis. The patient reported vomiting about 10 times over the 24 hours preceding his presentation to the ER. He denied any chest pain, shortness of breath, or any fevers, chills, or melanotic stools at home. In the ER, the patient was noted to be hemodynamically stable, with a hemoglobin level that was also within normal limits. The patient was started on a Protonix drip, kept nothing by mouth, and a consult was placed to Dr. Pearl of gastroenterology for an EGD. The patient did have an EGD done on by Dr. Pearl which revealed nonsevere reflux esophagitis with no acute source of bleeding noted. Subsequently, the patient's diet has been advanced and he has been tolerating this well without any acute complaints. His hemoglobin has remained stable throughout his stay here in the hospital. At this time, the patient will be discharged home on Protonix twice a day and Carafate. DISCHARGE MEDICATIONS: Please see below. ALLERGIES: Please see below. PHYSICAL EXAMINATION ON DISCHARGE: VITAL SIGNS: Please see below. General Exam: Positive: Alert, Cooperative, No Acute Distress ENT Exam: Positive: Atraumatic, Mucous membr. moist/pink Chest Exam: Positive: Clear to auscultation, Normal air movement Heart Exam: Positive: Normal S1, Normal S2, Rate Normal Abdomen Exam: Positive: Soft, Negative: Tenderness Extremity Exam: Negative: Edema, Tenderness LABORATORY DATA: Please see below. IMAGING: Procedure: Upper GI endoscopy + Biopsies Indications: Hematemesis Providers: Brando Pearl MD Referring MD: Eddie STEELE, OP Clinic Eddie STEELE [facility], Admin. Requesting Provider: Medicines: Monitored Anesthesia Care Complications: No immediate complications. Procedure: Pre-Anesthesia Assessment: - The heart rate, respiratory rate, oxygen saturations, blood pressure, adequacy of pulmonary ventilation, and response to care were monitored throughout the procedure. The Endoscope was introduced through the mouth, and advanced to the second part of duodenum. The upper GI endoscopy was accomplished without difficulty. The patient tolerated the procedure well. Findings: The Z-line was irregular and was found 25 cm from the incisors. Non-severe esophagitis with no bleeding was found 30 cm from the incisors. Biopsies were taken with a cold forceps for histology. A medium-sized hiatus hernia was present. Diffuse mild inflammation characterized by congestion (edema) and erosions was found in the entire examined stomach. The exam was otherwise without abnormality. Impression: - Z-line irregular, 25 cm from the incisors. - Non-severe reflux esophagitis. Rule out Pineda's esophagus. Biopsied. - Medium-sized hiatus hernia. - Acute gastritis. - The examination was otherwise normal. Recommendation: - Await pathology results. - Return patient to [facility] for [facility] care. - Continue present medications. - Return to referring physician. - The findings and recommendations were discussed with the patient's family. Brando Pearl MD VTE Prophylaxis ordered?: Yes DISCHARGE CONDITION: Medically Stable DISPOSITION: D/C Home ACTIVITY: As Tolerated DIET: Carb Consistent ITEMS TO FOLLOWUP ON OUTPATIENT: 1. .F/U with Pcp within 1 week 2. .F/U with GI regarding Pineda's Esophagus TIME SPENT ON DISCHARGE: Greater than 30 minutes. Vital Signs/I&Os Vital Signs Date Time Temp Pulse Resp B/P Pulse Ox O2 Delivery O2 Flow Rate FiO2 12/23/16 12:00 97.9 75 18 146/78 98 Room Air 12/21/16 11:15 2.0 I&O- Last 24 Hours up to 6 AM 12/23/16 06:00 Intake Total 1920 ml Output Total 2850 ml Balance -930 ml Laboratory Data Labs 24H Laboratory Tests 2 12/22/16 16:29: Bedside Glucose (Misc Panel) 192H 12/22/16 22:15: Bedside Glucose (Misc Panel) 120H 12/23/16 05:45: Anion Gap 10, Blood Urea Nitrogen 11, Creatinine 1.14, Sodium Level 139, Potassium Level 3.0L, Chloride Level 102, Carbon Dioxide Level 27, Calcium Level 7.6L, Glomerular Filtration Rate > 60.0, Magnesium Level 2.3 12/23/16 12:05: Bedside Glucose (Misc Panel) 119H 12/23/16 12:54: Anion Gap 10, Blood Urea Nitrogen 12, Creatinine 1.21, Sodium Level 137, Potassium Level 3.7#, Chloride Level 102, Carbon Dioxide Level 25, Calcium Level 7.8L, Glomerular Filtration Rate > 60.0 CBC/BMP Laboratory Tests 12/23/16 05:45 Calcium Level 7.6 L, Red Blood Count 4.43, Mean Corpuscular Volume 77.7 L, Mean Corpuscular Hemoglobin 24.5 L, Mean Corpuscular Hemoglobin Concent 31.6 L, Red Cell Distribution Width 16.2 H 12/23/16 12:54 Calcium Level 7.8 L FSBS Laboratory Tests Test 12/22/16 16:29 12/22/16 22:15 12/23/16 12:05 Range/Units Bedside Glucose (Misc Panel) 192 120 119 80-115 MG/DL Microbiology Microbiology 12/20/16 Blood Culture - Preliminary, Resulted No Growth after 72 hours. All specime... 12/20/16 Blood Culture - Preliminary, Resulted No Growth after 72 hours. All specime... Medications Scheduled Amlodipine Besylate (Amlodipine Besylate) 5 Mg Tab 5 MG PO BID Budesonide/Formoterol (Symbicort 160-4.5 Mcg/Act) 60 Puff/Inhaler Aers 2 PUFF INH BID Insulin Aspart (Novolog) 100 U/Ml Inj 1 DOSE SC AC TAKES PER SLIDING SCALE Insulin Glargine (Lantus) 1 Units/0.01 Ml Susp 30 UNITS SC DAILY Metoprolol Tartrate (Metoprolol Tartrate) 25 Mg Tab 25 MG PO BID Multivitamins *[facility] STOCKED* (Thera M Plus *[facility] STOCKED*) 1 Tab Tab 1 TAB PO DAILY Pantoprazole Sodium Sesquihydr (Protonix) 40 Mg Tab 40 MG PO BID Sucralfate (Carafate) 1 Gm Tab 1 GM PO ACHS Tiotropium [place] Monohydrate (Spiriva Handihaler) 5 Inhalation/Inhaler Powd 1 INHALATION INH DAILY Scheduled PRN Albuterol Sulfate (Ventolin Hfa) 200 Puff/8 Gm Aers 2 PUFF INH Q4H PRN PRN SHORTNESS OF BREATH Allergies Coded Allergies: No Known Allergies (Unverified , 06/02/13) ANIYA TSE MD Dec 23, 2016 14:18
== END 2016-12-23 16:40 | disposition home or self-care (01) | DRG 378 ==
LOC: M ED 03:50 → M ED INP 09:10 → M PCU 12-21 12:15
PROVIDERS: ADMIT Hospitalist; ATTEND Hospitalist
PROC: 0DB58ZX Excision of Esophagus, Via Natural or Artificial Opening Endoscopic, Diagnostic (ICD-10-PCS; principal; 2016-12-21 16:15)
DX: K92.2 Gastrointestinal hemorrhage, unspecified (principal); N17.9 Acute kidney failure, unspecified; J44.9 Chronic obstructive pulmonary disease, unspecified; E11.9 Type 2 diabetes mellitus without complications; I12.9 Hypertensive chronic kidney disease with stage 1 through stage 4 chronic kidney disease, or unspecified chronic kidney disease; K21.0 Gastro-esophageal reflux disease with esophagitis; K29.90 Gastroduodenitis, unspecified, without bleeding; K44.9 Diaphragmatic hernia without obstruction or gangrene; B18.2 Chronic viral hepatitis C; F17.200 Nicotine dependence, unspecified, uncomplicated; Z79.899 Other long term (current) drug therapy; Z79.4 Long term (current) use of insulin; E87.6 Hypokalemia; N18.9 Chronic kidney disease, unspecified

== ENCOUNTER 2017-01-30 22:46 | Emergency (ER) | payer MEDICARE ==
[~2017-01-30] VITALS: Ht 180.3 cm; Wt 93.0 kg
[2017-01-30 22:47] VITALS: BP 214/110
[2017-01-31] MEDS ORDERED: METOCLOPRAMIDE INJ 10MG/2ML VIAL (J2765) IV ONE
[2017-01-31] MEDS ORDERED: MORPHINE 2 MG/ML 1ML SYRINGE IV ONE
[2017-01-31] MEDS ORDERED: PANTOPRAZOLE 40MG INJ (PROTONIX) (C9113) IV ONE
[2017-01-31] MEDS ORDERED: NS 500 ML IV ONE
[2017-01-31 00:16] LABS: BASO % 0.3 % (0.0-1.0); EOS % 0.7 % (0.0-3.0); LARGE UNSTAINED CELL # 0.1 K/mm3 (0.0-0.4); LARGE UNSTAINED CELL % 2.2 % (0.0-4.0); LYMPH # 1.6 K/mm3 (1.5-4.5); LYMPH % 23.7 % (24.0-44.0); MEAN CORPUSCULAR HEMOGLOBIN 23.7 pg (27.0-33.0); MEAN CORPUSCULAR HGB CONC 31.4 g/dl (32.0-36.5); MEAN CORPUSCULAR VOLUME 75.4 fl (80.0-96.0); MONO # 0.4 K/mm3 (0.0-0.8); MONO % 6.2 % (0.0-5.0); NEUTROPHILS # 4.3 K/mm3 (1.8-7.7); PLATELET COUNT, AUTOMATED 214 k/mm3 (150-450); RED CELL DISTRIBUTION WIDTH 16.5 % (11.5-14.5); WHITE BLOOD COUNT 6.4 K/mm3 (4.0-10.0)
[2017-01-31 00:20] LABS: INR 0.95
[2017-01-31 00:36] LABS: ALBUMIN 3.8 GM/DL (3.2-5.2); ALKALINE PHOSPHATASE 184 U/L (45-117); ALT/SGPT 61 U/L (12-78); AMYLASE 90 U/L (25-115); ANION GAP 11 MEQ/L (8-16); AST/SGOT 86 U/L (15-37); BILIRUBIN,DIRECT 0.3 MG/DL (0.0-0.2); BLOOD UREA NITROGEN 5 MG/DL (7-18); CALCIUM LEVEL 9.2 MG/DL (8.8-10.2); CARBON DIOXIDE LEVEL 29 MEQ/L (21-32); CHLORIDE LEVEL 98 MEQ/L (98-107); CREATININE FOR GFR 1.07 MG/DL (0.70-1.30); GLOMERULAR FILTRATION RATE > 60.0 (>49); GLUCOSE, FASTING 178 MG/DL (80-110); POTASSIUM SERUM 3.7 MEQ/L (3.5-5.1); SODIUM LEVEL 138 MEQ/L (136-145); TOTAL PROTEIN 9.2 GM/DL (6.4-8.2)
[2017-01-31] MEDS ORDERED: HYDROmorphone HCL 1 MG/ML SYRINGE (J1170) IV ONE (01:45)
--- NOTE | 2017-01-31 20:15 | ECGEPIP ---
Stationary ECG Study [facility] - ED Test Date: 2017-01-30 Pat Name: HATTIE DAMON JR Department: Room: - Gender: M Court Messenger: james : 1950 Requested By: HERB PENA Order Number: [id number] Reading MD: Hanna Cassidy Measurements Intervals [place] Rate: 80 P: 60 NV: 184 QRS: -82 QRSD: 159 T: 28 QT: 431 QTc: 500 Interpretive Statements SINUS RHYTHM MARKED LEFT AXIS DEVIATION RIGHT BUNDLE BRANCH BLOCK VOLTAGE CRITERIA FOR LVH SIMILAR 12/19/16 Electronically Signed On 01-31-2017 20:15:23 EST by Hanna Cassidy
== END 2017-01-31 06:17 | disposition left against medical advice (07) ==
LOC: M ED 23:50
DX: K92.2 Gastrointestinal hemorrhage, unspecified (principal); E11.9 Type 2 diabetes mellitus without complications; I10 Essential (primary) hypertension; J44.9 Chronic obstructive pulmonary disease, unspecified; B19.20 Unspecified viral hepatitis C without hepatic coma; F17.210 Nicotine dependence, cigarettes, uncomplicated; Z79.899 Other long term (current) drug therapy; Z79.4 Long term (current) use of insulin; K21.9 Gastro-esophageal reflux disease without esophagitis; Z87.440 Personal history of urinary (tract) infections
CPT/HCPCS: 36415; 80048; 80076; 82150; 83690; 85025; 85610; 85730; 93005; 96374; 96375; 99284; C9113; J1170; J2765

== ENCOUNTER 2017-04-29 12:45 | Emergency (ER) | payer MEDICARE ==
[~2017-04-29] VITALS: Ht 180.3 cm; Wt 90.7 kg
[2017-04-29] MEDS ORDERED: FAMOTIDINE 20 MG TAB PO ONE (13:30)
[2017-04-29] MEDS ORDERED: GI COCKTAIL 50ML BTL(HYOSCYAMINE/MAALOX/LIDOCAINE VISCOUS)(1:3:1) PO ONE (13:30)
[2017-04-29] MEDS ORDERED: SUCRALFATE 1 GM TAB PO ONE (13:30)
[2017-04-29 14:08] LABS: ALBUMIN 3.5 GM/DL (3.2-5.2); ALKALINE PHOSPHATASE 76 U/L (45-117); ALT/SGPT 74 U/L (12-78); AMYLASE 72 U/L (25-115); ANION GAP 10 MEQ/L (8-16); AST/SGOT 67 U/L (15-37); BILIRUBIN,DIRECT 0.4 MG/DL (0.0-0.2); BILIRUBIN,TOTAL 1.3 MG/DL (0.2-1.0); BLOOD UREA NITROGEN 8 MG/DL (7-18); CALCIUM LEVEL 10.1 MG/DL (8.8-10.2); CARBON DIOXIDE LEVEL 27 MEQ/L (21-32); CHLORIDE LEVEL 98 MEQ/L (98-107); CREATININE FOR GFR 1.26 MG/DL (0.70-1.30); GLOMERULAR FILTRATION RATE > 60.0 (>49); GLUCOSE, FASTING 114 MG/DL (80-110); SODIUM LEVEL 135 MEQ/L (136-145); TOTAL PROTEIN 7.9 GM/DL (6.4-8.2)
[2017-04-29 14:27] LABS: BASO % 0.4 % (0.0-1.0); EOS # 0.1 K/mm3 (0.0-0.50); EOS % 1.5 % (0.0-3.0); LARGE UNSTAINED CELL # 0.1 K/mm3 (0.0-0.4); LARGE UNSTAINED CELL % 1.3 % (0.0-4.0); LYMPH # 1.7 K/mm3 (1.5-4.5); LYMPH % 24.9 % (24.0-44.0); MEAN CORPUSCULAR HEMOGLOBIN 22.2 pg (27.0-33.0); MEAN CORPUSCULAR HGB CONC 30.6 g/dl (32.0-36.5); MEAN CORPUSCULAR VOLUME 72.4 fl (80.0-96.0); MONO # 0.5 K/mm3 (0.0-0.8); MONO % 8.2 % (0.0-5.0); NEUTROPHILS # 4.1 K/mm3 (1.8-7.7); NEUTROPHILS % 63.7 % (36.0-66.0); PLATELET COUNT, AUTOMATED 229 k/mm3 (150-450); RED CELL DISTRIBUTION WIDTH 18.4 % (11.5-14.5); WHITE BLOOD COUNT 6.4 K/mm3 (4.0-10.0)
[2017-04-29 14:55] LABS: ADD MORPHOLOGY? YES; ANISOCYTOSIS 2+; HYPOCHROMASIA 2+; MICROCYTOSIS 2+
--- NOTE | 2017-04-29 15:26 | REP ---
Abdominal upper quadrant ultrasound: Comparisons are the CT abdomen pelvis dated 12/19/2016. The right upper quadrant ultrasound dated 12/28/2015. The hepatic parenchyma is a hyperechoic appearance compatible with hepato steatosis. No focal hepatic masses are identified. The and gallbladder is incompletely distended and cannot optimally evaluated. There is a small gallbladder calculus. This was also identified on the comparison CT. The gallbladder wall is apparently thickened measuring up to 3.7 mm, however, this is likely artifactual from incomplete distension. There is no pericholecystic fluid. There is no intrahepatic or extrahepatic biliary duct dilatation. The common duct is 3.8 mm. The pancreas is obscured by bowel. There is no right renal hydronephrosis, calculus, mass or cyst. Right kidney is normal size , in the low normal range, measuring 9.1 cm craniocaudad. Impression: Small gallbladder calculus. Gallbladder incompletely distended. No biliary duct dilatation. Hepato steatosis. Pancreas obscured by bowel. Right kidney unremarkable. Signed by Lm Fermin MD 04/29/2017 03:18 P
[2017-04-29] MEDS ORDERED: PANTOPRAZOLE 40MG INJ (PROTONIX) (C9113) IV ONE (16:15)
[2017-04-29] MEDS ORDERED: ZOFR4TAB3 PO (17:12)
[2017-04-29 17:26] VITALS: BP 181/91
--- NOTE | 2017-05-01 07:09 | ECGEPIP ---
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
== END 2017-04-29 18:04 | disposition home or self-care (01) ==
LOC: M ED 14:14
DX: K21.9 Gastro-esophageal reflux disease without esophagitis (principal); E11.9 Type 2 diabetes mellitus without complications; I10 Essential (primary) hypertension; J44.9 Chronic obstructive pulmonary disease, unspecified; K44.9 Diaphragmatic hernia without obstruction or gangrene; Z86.19 Personal history of other infectious and parasitic diseases; F17.200 Nicotine dependence, unspecified, uncomplicated; K80.20 Calculus of gallbladder without cholecystitis without obstruction; K76.0 Fatty (change of) liver, not elsewhere classified; Z79.4 Long term (current) use of insulin; Z79.899 Other long term (current) drug therapy
CPT/HCPCS: 76705; 80048; 80076; 82150; 82550; 82553; 83690; 84484; 85025; 85610; 85730; 86850; 86900; 86901; 93005; 93041; 96374; 99285; C9113

== ENCOUNTER 2017-05-02 15:13 | Emergency (ER) | payer MEDICARE ==
[~2017-05-02] VITALS: Ht 182.9 cm; Wt 90.7 kg
[~2017-05-02 15:13] MED LIST changes: +ZOFR4TAB3 PO
[2017-05-02] MEDS ORDERED: NS 1,000 ML IV ONE (16:00)
[2017-05-02] MEDS ORDERED: METOCLOPRAMIDE INJ 10MG/2ML VIAL (J2765) IV ONE (16:00)
[2017-05-02 16:10] LABS: ADD MORPHOLOGY? YES; BASO % 0.4 % (0.0-1.0); EOS # 0.1 K/mm3 (0.0-0.50); EOS % 2.2 % (0.0-3.0); LARGE UNSTAINED CELL # 0.1 K/mm3 (0.0-0.4); LARGE UNSTAINED CELL % 1.6 % (0.0-4.0); LYMPH # 1.9 K/mm3 (1.5-4.5); LYMPH % 32.8 % (24.0-44.0); MEAN CORPUSCULAR HEMOGLOBIN 21.3 pg (27.0-33.0); MEAN CORPUSCULAR HGB CONC 29.9 g/dl (32.0-36.5); MEAN CORPUSCULAR VOLUME 71.2 fl (80.0-96.0); MONO # 0.4 K/mm3 (0.0-0.8); MONO % 7.4 % (0.0-5.0); NEUTROPHILS # 3.1 K/mm3 (1.8-7.7); NEUTROPHILS % 55.6 % (36.0-66.0); PLATELET COUNT, AUTOMATED 247 k/mm3 (150-450); RED CELL DISTRIBUTION WIDTH 17.9 % (11.5-14.5); WHITE BLOOD COUNT 5.6 K/mm3 (4.0-10.0)
[2017-05-02 16:24] LABS: ALBUMIN 3.8 GM/DL (3.2-5.2); ALBUMIN/GLOBULIN RATIO 0.79 (1.00-1.93); ALKALINE PHOSPHATASE 77 U/L (45-117); ALT/SGPT 73 U/L (12-78); AMYLASE 79 U/L (25-115); ANION GAP 6 MEQ/L (8-16); AST/SGOT 66 U/L (15-37); BILIRUBIN,DIRECT 0.2 MG/DL (0.0-0.2); BILIRUBIN,TOTAL 1.4 MG/DL (0.2-1.0); BLOOD UREA NITROGEN 8 MG/DL (7-18); CARBON DIOXIDE LEVEL 31 MEQ/L (21-32); CHLORIDE LEVEL 96 MEQ/L (98-107); GLOMERULAR FILTRATION RATE > 60.0 (>49); GLUCOSE, FASTING 112 MG/DL (80-110); POTASSIUM SERUM 4.2 MEQ/L (3.5-5.1); SODIUM LEVEL 133 MEQ/L (136-145); TOTAL PROTEIN 8.6 GM/DL (6.4-8.2)
[2017-05-02] MEDS ORDERED: amLODIPine 5 MG TAB PO ONE (16:30)
[2017-05-02] MEDS ORDERED: METOPROLOL TART 25 MG TABLET PO ONE (16:30)
[2017-05-02] MEDS ORDERED: ISOVUE-370 76% 100ML VIAL (Q9967) As Ordered ONE (16:41)
[2017-05-02 16:46] LABS: ANISOCYTOSIS 1+
[2017-05-02 16:47] LABS: MICROCYTOSIS 2+; POIKILOCYTOSIS 1+
[2017-05-02 16:48] LABS: HYPOCHROMASIA 1+
[2017-05-02 16:50] LABS: STOMATOCYTES 1+
[2017-05-02 16:53] LABS: OVALOCYTES 1+
[2017-05-02] MEDS ORDERED: ONDANSETRON 4MG/2ML VIAL (J2405) IV ONE (17:30)
--- NOTE | 2017-05-02 17:50 | REPUSA ---
CT of the abdomen and pelvis with contrast Clinical statement: Pain. Technique: Multiple axial CT images were obtained from the base of the lungs through the floor of the pelvis utilizing 5 mm axial slices after administration of nonionic intravenous contrast. Coronal an d sagittal reconstructions were also obtained. Comparison: 12/19/2016. Findings: Chest: The visualized lung bases demonstrate mild chronic interstitial changes in emphysema. There is a small hiatal hernia. Abdomen: The liver, spleen, pancreas, kidneys, and adrenal glands are unremarkable. A 1 mm gallstone is seen in the gallbladder is unchanged. The aorta is within normal limits but does demonstrate moder ate atherosclerotic calcifications. There is no evidence of abdominal lymphadenopathy or ascites. Pelvis: The bowel is unremarkable, with no obstructive or inflammatory changes. The appendix is bridget l. There is a very tiny umbilical hernia containing only omental fat. The urinary bladder is within n ormal limits. The other pelvic structures appear grossly intact. There is no evidence of pelvic lymph adenopathy or ascites. Bones: There are no suspicious osseous abnormalities seen. Impression: 1. No obstructive or inflammatory bowel changes. 2. The kidneys and renal collecting system are grossly unremarkable. 3. Cholelithiasis, without evidence of acute cholecystitis. 4. Moderate atherosclerosis of the abdominal aorta. 5. Tiny umbilical hernia containing only omental fat. 6.. Emphysema and pulmonary fibrosis noted in the lung bases.
[2017-05-02 19:03] VITALS: BP 191/100
== END 2017-05-02 19:16 | disposition home or self-care (01) ==
LOC: M ED 15:59
DX: K80.20 Calculus of gallbladder without cholecystitis without obstruction (principal); K42.9 Umbilical hernia without obstruction or gangrene; J43.9 Emphysema, unspecified; I25.10 Atherosclerotic heart disease of native coronary artery without angina pectoris; I10 Essential (primary) hypertension; J45.909 Unspecified asthma, uncomplicated; E11.9 Type 2 diabetes mellitus without complications; Z86.14 Personal history of Methicillin resistant Staphylococcus aureus infection; K92.2 Gastrointestinal hemorrhage, unspecified; F17.200 Nicotine dependence, unspecified, uncomplicated; Z79.4 Long term (current) use of insulin; Z79.899 Other long term (current) drug therapy

== ENCOUNTER 2017-05-04 13:41 | Inpatient (IN) | payer MEDICARE ==
[~2017-05-04] VITALS: Ht 180.3 cm; Wt 92.6 kg
[2017-05-04] MEDS ORDERED: IPRATROPIUM 0.5MG/ALBUTEROL 2.5MG INH SOL UD 3ML (DUONEB)(J7620) As Ordered ONE (14:13)
[2017-05-04] MEDS ORDERED: NS IV ONE (14:15)
[2017-05-04] MEDS ORDERED: DILUENT IV ONE (14:15)
[2017-05-04] MEDS ORDERED: ALBUTEROL SULFATE 2.5 MG/0.5 ML INH NEB SOLN As Ordered ONE (14:25)
[2017-05-04] MEDS ORDERED: IPRATROPIUM 0.5MG/ALBUTEROL 2.5MG INH SOL UD 3ML (DUONEB)(J7620) NEB ONE (14:30)
[2017-05-04] MEDS ORDERED: ALBUTEROL SULFATE 2.5 MG/0.5 ML INH NEB SOLN NEB ONE (14:30)
[2017-05-04] MEDS ORDERED: PANTOPRAZOLE 40MG INJ (PROTONIX) (C9113) IV ONE (14:30)
[2017-05-04 14:41] LABS: ALBUMIN 2.5 GM/DL (3.2-5.2); ALBUMIN/GLOBULIN RATIO 0.81 (1.00-1.93); BILIRUBIN,DIRECT 0.3 MG/DL (0.0-0.2); BILIRUBIN,TOTAL 0.7 MG/DL (0.2-1.0); CALCIUM LEVEL 8.7 MG/DL (8.8-10.2); CREATININE FOR GFR 2.72 MG/DL (0.70-1.30); GLOMERULAR FILTRATION RATE 30.6 (>49); TOTAL PROTEIN 5.6 GM/DL (6.4-8.2)
[2017-05-04 14:48] LABS: ABG BASE EXCESS -17.4 (-2.0-2.0); ABG HCO3 12.8 MEQ/L (22.0-26.0); ABG PARTIAL PRESSURE CO2 50.6 mmHg (35.0-45.0); ABG PARTIAL PRESSURE O2 121.3 mmHg (75.0-100.0); ABG STANDARD HCO3 11.1 MEQ/L (22.0-26.0); ABG TOTAL CO2 14.4 MEQ/L (23.0-31.0)
[2017-05-04 14:49] LABS: ABG pH (ARTERIAL) 7.021 UNITS (7.350-7.450)
[2017-05-04] MEDS ORDERED: SODIUM BICARBONATE 8.4% INJ 50 ML SYRINGE IV STA ×2 (14:55→15:46)
--- NOTE | 2017-05-04 15:04 | REP ---
Chest one-view HISTORY: Sepsis Comparison: 09/27/2016 The lungs are clear. The heart is normal in size. The pulmonary vasculature is normal in appearance. Impression: No acute disease. Signed by Tonio Berman MD 05/04/2017 02:54 P
[2017-05-04] MEDS: PANTOPRAZOLE SODIUM 40 MG in D5W MINI-BAG PLUS 50 ML IV SCH ×2 (15:22→21:14)
--- NOTE | 2017-05-04 15:32 | REP ---
CT HEAD WITHOUT CONTRAST: HISTORY: Trauma. Areas of decreased attenuation are present in the periventricular white matter. This represents small vessel ischemic disease. There is no intraparenchymal hemorrhage, mass or midline shift. The ventricular system and cortical sulci are dilated consistent with minimal volume loss. There is no extracerebral collection. There is no fracture. Mucosal thickening is present in the ethmoid and left maxillary sinuses. IMPRESSION: 1. Small vessel ischemic disease. 2. Minimal volume loss. Signed by Tonio Berman MD 05/04/2017 03:43 P
--- NOTE | 2017-05-04 15:35 | REP ---
CT CERVICAL SPINE WITHOUT CONTRAST: HISTORY: Trauma. There is no acute fracture or subluxation. A disc bulge is present at the C3-4 level. Disc bulges with associated osteophyte formation are present at the C4-5 through C6-7 levels. There is minimal narrowing of the spinal canal. Uncinate process and/or facet hypertrophy are present at the C2-3 through C7-T1 levels. These findings produce minimal to mild narrowing of the neural foramina. The C3-4 through C6-7 intervertebral discs are decreased in height consistent with disc degeneration. Anterior osteophytes are present at the C1-2 through C6-7 levels. IMPRESSION: 1. There is no acute fracture or subluxation. 2. There is cervical spondylosis at the C1-2 through C7-T1 levels. Signed by Tonio Berman MD 05/04/2017 03:43 P
[2017-05-04 16:09] LABS: BASO % 0.2 % (0.0-1.0); EOS # 0.1 K/mm3 (0.0-0.50); EOS % 0.5 % (0.0-3.0); LARGE UNSTAINED CELL # 0.2 K/mm3 (0.0-0.4); LYMPH # 1.4 K/mm3 (1.5-4.5); LYMPH % 6.7 % (24.0-44.0); MEAN CORPUSCULAR HEMOGLOBIN 22.2 pg (27.0-33.0); MEAN CORPUSCULAR HGB CONC 29.5 g/dl (32.0-36.5); MEAN CORPUSCULAR VOLUME 75.2 fl (80.0-96.0); MONO % 5.4 % (0.0-5.0); NEUTROPHILS # 15.8 K/mm3 (1.8-7.7); NEUTROPHILS % 86.2 % (36.0-66.0); PLATELET COUNT, AUTOMATED 195 k/mm3 (150-450); RED CELL DISTRIBUTION WIDTH 17.8 % (11.5-14.5); WHITE BLOOD COUNT 18.3 K/mm3 (4.0-10.0)
[2017-05-04 16:18] LABS: INR 1.35
[2017-05-04 16:38] LABS: ABG BASE EXCESS -5.2 (-2.0-2.0); ABG HCO3 19.4 MEQ/L (22.0-26.0); ABG PARTIAL PRESSURE CO2 34.3 mmHg (35.0-45.0); ABG PARTIAL PRESSURE O2 218.7 mmHg (75.0-100.0); ABG STANDARD HCO3 20.2 MEQ/L (22.0-26.0); ABG TOTAL CO2 20.5 MEQ/L (23.0-31.0); ABG pH (ARTERIAL) 7.371 UNITS (7.350-7.450)
[2017-05-04] MEDS ORDERED: ONDANSETRON 4MG/2ML VIAL (J2405) IV ONE (17:00)
[2017-05-04] MEDS ORDERED: fentaNYL 100 MCG/2 ML INJECTION (J3010) IV ONE (17:00)
[2017-05-04] MEDS ORDERED: GLUCAGON FOR INJ 1 MG VIAL (J1610) SC PRN (18:00)
[2017-05-04] MEDS ORDERED: DEXTROSE 50% 50 ML SYRINGE IV PRN (18:00)
[2017-05-04] MEDS ORDERED: GLUCOSE 4 GM CHEW TABLET PO PRN (18:00)
[2017-05-04 18:55] LABS: ALBUMIN 2.2 GM/DL (3.2-5.2); ALBUMIN/GLOBULIN RATIO 0.88 (1.00-1.93); BILIRUBIN,TOTAL 0.7 MG/DL (0.2-1.0); CALCIUM LEVEL 7.4 MG/DL (8.8-10.2); CREATININE FOR GFR 2.79 MG/DL (0.70-1.30); GLOMERULAR FILTRATION RATE 29.7 (>49); POTASSIUM SERUM 3.8 MEQ/L (3.5-5.1); TOTAL PROTEIN 4.7 GM/DL (6.4-8.2)
--- NOTE | 2017-05-04 19:23 | REP ---
CT study of the abdomen and pelvis without IV or oral contrast: History: Hematemesis. Comparison CT study is from 05/02/2017. 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 There is bilateral lower lobe and right middle lobe and lingular bronchiectasis and fibrosis. There is a moderate size hiatal hernia. The NG tube terminates in the body of the stomach. No focal hepatic lesion is seen. Spleen is unremarkable. There is a tiny gallstone in the dependent portion the gallbladder again seen. No adrenal lesion is seen on either side. The kidneys are morphologically intact bilaterally. There is fluid content seen throughout the nondilated small and large bowel. Heavy vascular calcification is seen in the aorta and iliac arteries. Urinary bladder, prostate and seminal vesicles are unremarkable. No abdominal wall defect is seen. Impression: Moderate size hiatal hernia. NG tube in place. No abnormal vascular channels visualized. Cholelithiasis. Fluid content in the nondilated small and large bowel. Signed by Terrell Roy MD 05/05/2017 01:31 P
--- NOTE | 2017-05-04 19:25 | REP ---
CT study of the right hip without contrast: History: Injury in a fall. Technique: Helical scanning is acquired. 4 mm axial images were reformatted. Coronal and sagittal multiplanar re-formation images are generated and reviewed. CT findings: There is mild osteoarthritic femoral acetabular spurring. No hip or right pelvic fracture is appreciated. Bones joints and soft tissues are otherwise unremarkable. Impression: No fracture seen. Right hip osteoarthritic spurring mild in degree. Signed by Terrell Roy MD 05/05/2017 01:32 P
--- NOTE | 2017-05-04 20:28 | HPEPDOC ---
Medical History and Physical Date of Admission May 04, 2017 at 17:54 History and Physical PRIMARY CARE PROVIDER: [facility] ATTENDING: Chito Blanco MD CHIEF COMPLAINT: Unresponsiveness HISTORY OF PRESENT ILLNESS: This is a 66-year-old male past medical history of acute gastritis, nonsevere subjective this, COPD, insulin-dependent a BE as well as, hepatitis C, hypertension, GERD, history of obesity presents unresponsive. The patient states that since Wednesday, he's been having nausea, and vomiting, of which she states consisted of coffee ground emesis. Patient states since then he's been having 3 bowel movements a day, which were melanotic in nature. Patient states that he was in the bathroom today and had another melanotic bowel movement, and when he went to get up, he notices his right leg numb and tingling, felt dizzy and lightheaded, and could not remember anything else. ED staff state that the son had found patient unresponsive in the bathroom, EMS was called and patient was found to have a blood pressure in the 70s, sinus tachycardia. In the ED patient remained initially hypotensive and unresponsive, until Dr. Perkins had used laryngoscope for possible intubation. Patient then woke up and return to his baseline. Patient received 2-3 L of normal saline in the ED, and was started on 2 units of PRBC. His blood pressure did respond to this therapy. NG tube was placed and coffee ground output was noted. I did speak with Dr. Matamoros and updated him on the patient's status, as well as to 5 g drop in hemoglobin, and we will observe in ICU in case he decompensates. Patient denies any use of aspirin/NSAIDs/steroids. PAST MEDICAL HISTORY: As per HPI PAST SURGICAL HISTORY: Left pinky toe removal SOCIAL HISTORY: H/o alcohol abuse, states he recently drank alcohol a week ago. Smokes half a pack per day 30 years, history of IV drug use. FAMILY HISTORY:Non contributory ALLERGIES: Please see below. REVIEW OF SYSTEMS: HEENT: Denies sore throat/headache CARDIOVASCULAR: Denies chest pain/palpitations RESPIRATORY: Denies shortness of breath/cough GASTROINTESTINAL: + nausea/vomiting GENITOURINARY: Denies dysuria/urinary urgency. MUSCULOSKELETAL: Denies myalgias/arthralgias NEUROLOGICAL: Denies any focal weakness HOME MEDICATIONS: Please see below. PHYSICAL EXAMINATION: Vitals: (see below) General: No acute distress, laying comfortably in bed. HEENT: Moist mucous membranes. NG tube suctioning coffee ground. Neck: No JVD or lymphadenopathy Cardiac: Tachycardic, No murmurs Pulm: Clear to auscultation b/l. No wheezing, rhonchi Abd: NT/ND + BS. Obese. Right hip tender to palpation. No bruising. Strength 5/ 5 BLE. Distal pulses intact. Ext: No edema or cyanosis Neuro: Strength 5/5 BUE and BLE. CN 2-12 intact. F to N intact Negative Babinki. Decreased Sensation to fine touch intact RLE. LABORATORY DATA: See below. IMAGING: CT abd/pelvis 05/04/17 Impression:Moderate size hiatal hernia. NG tube in place. No abnormal vascular channel visualized. Cholelithiasis. Fluid content in the nondilated small and large bowel. CT RLE 05/04/17 Impression: No fracture seen. Right hip osteoarthritic spurring mild in degree. CT cervical spine 05/04/17 IMPRESSION: 1. There is no acute fracture or subluxation. 2. There is cervical spondylosis at the C1-2 through C7-T1 levels. CT head 05/04/17 IMRESSION: 1. Small vessel ischemic disease. 2. Minimal volume loss. CXR 05/04/17 Impression: No acute disease. MICROBIOLOGY: Please see below. ASSESSMENT/PLAN: 1. Acute upper GI bleed- questionable whether patient had Myrtle-Noe tear vs gastric ulcer vs hiatal hernia with erosion. He did have an EGD on 11/[address] Pearl, which noted acute gastritis, nonsevere subjective this, irregular Z line. Patient was started on a Protonix drip. 4 units PRBC have been ordered. Patient is responding to IV fluids as well as blood transfusion. He is less tachycardic now. Patient will be admitted to the ICU for close monitoring. Dr. Matamoros is aware of the patient's critical condition in case he will need to be scoped soon. 2. Metabolic encephalopathy/Unresponsiveness secondary to hypotension from upper GI bleed 3. Lactic acidosis due to hypotension to hypotension, we'll repeat lactic acid. PH is improving. 4. Acute Hypoxic and hypercap. Resp Failure 2/2 the above. Ph 7.0 improving. Was about to be intubated in the ED, but woke up and became more responsive. 4. Leukocytosis- likely secondary to stress event/as well as upper GI bleed 5. Acute renal failure - secondary to #1. Patient has been started on IV fluids and is being transfused PRBC. Consider nephrology consult if this does not improve. 6. Anion gap metabolic acidosis- likely secondary to lactic acidosis from hypotension and acute renal failure. Based excess down from -17 to -5. We'll continue to monitor. 7. Elevated troponin- likely secondary to acute blood loss and hypotension, we' ll trend cardiac markers. No chest pain. Echocardiogram ordered. 8. Elevated lipase- likely secondary to GI bleed. Patient denies any abdominal pain. 9. History of hepatitis C will need inpatient follow-up 10. Diabetes mellitus- Levemir dose decreased. SSI. 11. COPD- nebulizer therapy 12. History of hypertension- currently hypotensive. no BP meds 13. Right leg numbness- strength preserved. CT head negative for acute CVA. Right hip CT negative for fracture. MRI ordered to rule out CVA. Distal pulses intact. Neuro checks. 14. Elevated ammonia level- may be related to the patient's recent upper GI bleed. Patient does have a history of hepatitis C however his mentation is appropriate and he has mild elevations of his AST. We'll repeat in a.m. continue to monitor. DVT prophylaxis- SCDs Prognosis guarded. I have asked the patient if he would like me to call his family, he stated that his daughter and son recently here, and he does not wish for me to call anybody. Full code. Patient was followed by Dr. Steve Arciniega starting 05/05/17 at 7 AM. Vital Signs Vital Signs Date Time Temp Pulse Resp B/P (MAP) Pulse Ox O2 Delivery O2 Flow Rate FiO2 05/04/17 19:59 122/73 (89) 05/04/17 19:50 99 100 05/04/17 17:24 18 05/04/17 13:54 Non-Rebreather Laboratory Data Labs 24H Laboratory Tests 2 05/04/17 13:56: Bedside Glucose (Misc Panel) 197H 05/04/17 13:58: Anion Gap 25H, Glomerular Filtration Rate 30.6L, Calcium Level 8.7L, Aspartate Amino Transf (AST/SGOT) 46H, Alanine Aminotransferase (ALT/SGPT) 49, Alkaline Phosphatase 50, Total Bilirubin 0.7, Direct Bilirubin 0.3H, Total Creatine Kinase 363H, Creatine Kinase MB 5.0H, Creatine Kinase MB Relative Index 1.37, Troponin I 0.22H, C-Reactive Protein, Quantitative 0.59H, Total Protein 5.6#L, Albumin 2.5#L, Albumin/Globulin Ratio 0.81L, Amylase Level 276H, Lipase 2294H 05/04/17 14:20: Blood Gas Bicarbonate Standard 11.1L, Arterial Blood pH 7.021*L, Arterial Blood Partial Pressure CO2 50.6H, Arterial Blood Partial Pressure O2 121.3H, Arterial Blood Total CO2 14.4L, Arterial Blood HCO3 12.8L, Arterial Blood Base Excess - 17.4L, Arterial Blood Oxygen Saturation 95.4 05/04/17 15:40: Anion Gap 21H, Glomerular Filtration Rate 29.7L, Calcium Level 7.4L, Aspartate Amino Transf (AST/SGOT) 71H, Alanine Aminotransferase (ALT/SGPT) 58, Alkaline Phosphatase 46, Total Bilirubin 0.7, Total Protein 4.7L, Albumin 2.2L, Albumin/ Globulin Ratio 0.88L, White Blood Count 18.3H, Red Blood Count 3.75L, Hemoglobin 8.3#L, Hematocrit 28.2L, Mean Corpuscular Volume 75.2L, Mean Corpuscular Hemoglobin 22.2L, Mean Corpuscular Hemoglobin Concent 29.5L, Red Cell Distribution Width 17.8H, Platelet Count 195, Neutrophils (%) (Auto) 86.2H , Lymphocytes (%) (Auto) 6.7L, Monocytes (%) (Auto) 5.4H, Eosinophils (%) (Auto ) 0.5, Basophils (%) (Auto) 0.2, Neutrophils # (Auto) 15.8H, Lymphocytes # (Auto ) 1.4L, Monocytes # (Auto) 1.0H, Eosinophils # (Auto) 0.1, Basophils # (Auto) 0.0, Large Unclassified Cells % 1.0, Large Unclassified Cells # 0.2, Prothrombin Time 16.8H, Prothromb Time International Ratio 1.35, Activated Partial Thromboplast Time 27.3, Lactic Acid Level 12.0*H, Blood Urea Nitrogen 43H, Creatinine 2.79H, Sodium Level 140, Potassium Level 3.8, Chloride Level 99 , Carbon Dioxide Level 20L, Magnesium Level 3.0H, Ammonia 77H 05/04/17 16:31: Blood Gas Bicarbonate Standard 20.2L, Arterial Blood pH 7.371, Arterial Blood Partial Pressure CO2 34.3L, Arterial Blood Partial Pressure O2 218.7H, Arterial Blood Total CO2 20.5L, Arterial Blood HCO3 19.4L, Arterial Blood Base Excess - 5.2L, Arterial Blood Oxygen Saturation 99.3H CBC/BMP Laboratory Tests 05/04/17 13:58 05/04/17 15:40 Red Blood Count 3.75 L, Mean Corpuscular Volume 75.2 L, Mean Corpuscular Hemoglobin 22.2 L, Mean Corpuscular Hemoglobin Concent 29.5 L, Red Cell Distribution Width 17.8 H, Neutrophils (%) (Auto) 86.2 H, Lymphocytes (%) (Auto ) 6.7 L, Monocytes (%) (Auto) 5.4 H, Eosinophils (%) (Auto) 0.5, Basophils (%) ( Auto) 0.2, Neutrophils # (Auto) 15.8 H, Lymphocytes # (Auto) 1.4 L, Monocytes # (Auto) 1.0 H, Eosinophils # (Auto) 0.1, Basophils # (Auto) 0.0, Calcium Level 7.4 L, Aspartate Amino Transf (AST/SGOT) 71 H, Alanine Aminotransferase (ALT/ SGPT) 58, Alkaline Phosphatase 46, Total Bilirubin 0.7, Total Protein 4.7 L, Albumin 2.2 L Microbiology Microbiology 05/04/17 Blood Culture, Received Pending 05/04/17 Blood Culture, Received Pending Home Medications Scheduled Amlodipine Besylate (Amlodipine Besylate) 5 Mg Tab, 5 MG PO BID Budesonide/Formoterol (Symbicort 160-4.5 Mcg/Act) 60 Puff/Inhaler Aers, 2 PUFF INH BID Insulin Aspart (Novolog) 100 U/Ml Inj, 1 DOSE SC AC TAKES PER SLIDING SCALE Insulin Glargine (Lantus) 1 Units/0.01 Ml Susp, 30 UNITS SC DAILY Metoprolol Tartrate (Metoprolol Tartrate) 25 Mg Tab, 25 MG PO BID Multivitamins *[facility] STOCKED* (Thera M Plus *[facility] STOCKED*) 1 Tab Tab, 1 TAB PO DAILY Pantoprazole Sodium Sesquihydr (Protonix) 40 Mg Tab, 40 MG PO BID Sucralfate (Carafate) 1 Gm Tab, 1 GM PO ACHS Tiotropium [place] Monohydrate (Spiriva Handihaler) 5 Inhalation/Inhaler Powd, 1 INHALATION INH DAILY Scheduled PRN Albuterol Sulfate (Ventolin Hfa) 200 Puff/8 Gm Aers, 2 PUFF INH Q4H PRN for SHORTNESS OF BREATH Ondansetron (Zofran Odt) 4 Mg Tab, 4 MG PO TIDP PRN for NAUSEA Allergies Coded Allergies: No Known Allergies (Unverified , 05/04/17) CHITO BLANCO MD May 04, 2017 20:28
[2017-05-04] MEDS ORDERED: ALBUTEROL SULFATE 2.5 MG/0.5 ML INH NEB SOLN INH PRN (20:45)
[2017-05-04 20:51] LABS: MEAN CORPUSCULAR HEMOGLOBIN 23.4 pg (27.0-33.0); MEAN CORPUSCULAR HGB CONC 30.4 g/dl (32.0-36.5); RED CELL DISTRIBUTION WIDTH 18.5 % (11.5-14.5); WHITE BLOOD COUNT 20.4 K/mm3 (4.0-10.0)
[2017-05-04] MEDS ORDERED: HumaLOG INSULIN (NovoLOG) PER UNIT SC SCH (21:00)
[2017-05-04 21:04] VITALS: BP 121/65
[2017-05-04 22:00] VITALS: BP 140/93
[2017-05-04 22:06] LABS: ABG BASE EXCESS -0.7 (-2.0-2.0); ABG HCO3 22.7 MEQ/L (22.0-26.0); ABG PARTIAL PRESSURE CO2 33.7 mmHg (35.0-45.0); ABG PARTIAL PRESSURE O2 140.5 mmHg (75.0-100.0); ABG TOTAL CO2 23.8 MEQ/L (23.0-31.0); ABG pH (ARTERIAL) 7.447 UNITS (7.350-7.450)
[2017-05-04] MEDS: NS 1,000 ML IV SCH (22:09)
[2017-05-04] MEDS: CEFEPIME HCL 2 GM in D5W MINI-BAG PLUS 50 ML IV SCH (22:15)
[2017-05-04 23:00] VITALS: BP 128/60
[2017-05-04 23:44] LABS: CALCIUM LEVEL 7.6 MG/DL (8.8-10.2); CREATININE FOR GFR 2.6 MG/DL (0.70-1.30); GLOMERULAR FILTRATION RATE 32.2 (>49); POTASSIUM SERUM 3.9 MEQ/L (3.5-5.1)
[2017-05-05] VITALS (17 sets, daily range): BP systolic 115–162; BP diastolic 55–80
[2017-05-05] MEDS: MORPHINE 2 MG/ML 1ML SYRINGE IV PRN ×5 (00:04→11:51)
[2017-05-05 01:22] LABS: MEAN CORPUSCULAR HEMOGLOBIN 24.5 pg (27.0-33.0); MEAN CORPUSCULAR HGB CONC 31.8 g/dl (32.0-36.5); RED CELL DISTRIBUTION WIDTH 18.7 % (11.5-14.5); WHITE BLOOD COUNT 9.7 K/mm3 (4.0-10.0)
[2017-05-05] MEDS: PANTOPRAZOLE SODIUM 40 MG in D5W MINI-BAG PLUS 50 ML IV SCH ×4 (01:52→22:09)
[2017-05-05] MEDS: IPRATROPIUM 0.5MG/ALBUTEROL 2.5MG INH SOL UD 3ML (DUONEB)(J7620) NEB SCH ×7 (04:00→23:51)
[2017-05-05 05:09] LABS: VENOUS BASE EXCESS 0.9 (-2.0-2.0); VENOUS PARTIAL PRESSURE CO2 34.9 mmHg (38.0-50.0); VENOUS PARTIAL PRESSURE O2 109.3 mmHg (30.0-50.0); VENOUS STANDARD HCO3 25.3 MEQ/L; VENOUS TOTAL CO2 25.3 MEQ/L (24.0-28.0)
[2017-05-05 05:22] LABS: CALCIUM LEVEL 6.9 MG/DL (8.8-10.2); CREATININE FOR GFR 2.37 MG/DL (0.70-1.30); GLOMERULAR FILTRATION RATE 35.9 (>49); POTASSIUM SERUM 3.9 MEQ/L (3.5-5.1)
--- NOTE | 2017-05-05 07:21 | ECGEPIP ---
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
[2017-05-05] MEDS ORDERED: HumaLOG INSULIN (NovoLOG) PER UNIT SC SCH (07:30)
[2017-05-05] MEDS: NS 1,000 ML IV SCH ×3 (08:13→22:09)
[2017-05-05] MEDS ORDERED: LEVEMIR (INSULIN DETEMIR) 1 UNITS/0.01ML SC SCH (09:00)
--- NOTE | 2017-05-05 12:09 | CR ---
DATE OF CONSULTATION: 05/05/2017 REQUESTING PROVIDER: Steve Arciniega DO REASON FOR CONSULTATION: Acute renal failure in this gentleman with gastrointestinal bleed. HISTORY OF PRESENT ILLNESS: Mr. Ramirez is a 66-year-old -[place] male who was admitted to [facility] 2 days ago due to unresponsiveness. He reports history of heartburn for a few days for which he has been seen in the emergency room. Other medical problems are chronic obstructive pulmonary disease (COPD), diabetes, hepatitis C, hypertension and gastroesophageal reflux disease. On the day of admission, he passed out at home, due to which he was brought to the emergency room. Apparently, his initial hemoglobin was noticed to be 8.3 and he was transfused 2 units of packed red blood cells. There has been no active bleeding seen. Treated with nasogastric tube suctioning and IV fluids. His kidney function on admission was down to GFR of 30% with BUN of 40 and creatinine 2.72. Later his creatinine was up to 2.79 and today it is 2.37. A nephrology consultation was requested today because of his acute and chronic kidney disease. The patient also had a lactic acid level of 5.3 this morning. PAST MEDICAL AND SURGICAL HISTORY: Significant for: 1. History of acute gastritis. 2. COPD. 3. Gastroesophageal reflux disease. 4. Insulin-dependent diabetes. 5. Hypertension. 6. Hepatitis C. 7. History of diabetic nephropathy. PAST SURGICAL HISTORY: Left fifth toe amputation. PERSONAL AND SOCIAL HISTORY: The patient does have history of alcohol use. He smokes about a half a pack of cigarettes daily. He denies any recreational drug use. FAMILY HISTORY: Negative for end-stage renal disease. REVIEW OF SYSTEMS: The patient has no fever or chills. He reports that he had difficulty eating and severe heartburn for a few days, due to which he probably got dehydrated. He denies any prior history of stroke or transient ischemic attack. Head and neck is otherwise unremarkable. Cardiovascular system is negative for dyspnea or chest pain. Respiratory system is significant for history of COPD with active smoking. There is no history of hemoptysis or pleuritic type of chest pain. Endocrine system is significant for insulin-dependent diabetes. Psychosocial system negative for depression or anxiety. Hematological system is significant for anemia on admission, which has improved following transfusion. There is no history of easy bruising or excessive bleeding. Musculoskeletal system is significant for a fall and lower extremity weakness. Skin is negative for rash or ulcers. PHYSICAL EXAMINATION: The patient is awake and alert at the time of my visit. Temperature is 98.8 degrees Fahrenheit, heart rate 107 per minute and respiratory rate 18 per minute. Blood pressure 154/80 mmHg and oxygen saturation 99% on 2 liters oxygen. His head is atraumatic. Pupils are equal and reactive to light and sclera is anicteric. He has a nasogastric tube in place. Oral mucosa is dry. Neck veins are not abnormally distended. Neck is supple and there is no thyroid enlargement. Heart sounds are somewhat tachycardiac. Lungs have good bilateral air entry. There is no wheezing at this time. Abdomen is soft and nontender. Bowel sounds are normal. Extremities have no cyanosis or clubbing. Skin has no rash or ulcers. Neurologically, he is awake, alert and oriented times three. LABORATORY DATA On admission, BUN was 40 and creatinine 2.72. A lactic acid level was 12.0. Sodium 135 and potassium 4.0. Calcium level 8.7, CPK 363 and total protein 5.6. A repeat lactic acid level was 7.2 yesterday and now it is down to 4.1. He had a CPK level of 4041 yesterday, which has increased to 22,216 today. BUN is 42 and creatinine 2.37. PROBLEMS: 1. Acute renal failure possibly superimposed on chronic kidney disease. Most likely this is related to dehydration. The patient is currently nothing by mouth and he is receiving IV fluid. I suggest to continue with 100 mL per hour IV fluids and monitor his kidney function. 2. Lactic acidosis. Most likely related to dehydration, hypotension. This is improving with IV fluid. He does not look septic to me at this time. 3. Rhabdomyolysis. Most likely related to fall at home in the setting of dehydration. I suggest to continue with aggressive IV fluid hydration for now and monitor his electrolytes and CPK level. 4. GI bleed. He probably had some bleeding; however, after 2 units of packed red blood cells his hematocrit has improved significantly, which made me think that he may not have any significant bleeding. It remains to be determined if the initial CBC was a lab error, which did show a significantly low hemoglobin of 8.3. In any event, he has improved and at this point no intervention is indicated. I will defer to surgery and hospitalist service if his NG tube removal is an option. I thank you for involving me in the care of Mr. Ramirez. I will follow him along with you.
[2017-05-05 12:10] LABS: MEAN CORPUSCULAR HEMOGLOBIN 24.4 pg (27.0-33.0); MEAN CORPUSCULAR HGB CONC 32.2 g/dl (32.0-36.5); MEAN CORPUSCULAR VOLUME 75.7 fl (80.0-96.0); RED CELL DISTRIBUTION WIDTH 18.8 % (11.5-14.5)
--- NOTE | 2017-05-05 12:45 | IPN ---
DATE: 05/05/2017 66-year-old gentleman admitted for upper GI bleed. He does appear to be comfortable at bedside regarding any abdominal issues. He does have an NG tube in place. He does have some chronic pain and numbness issues involving the right leg. Nursing informed me that they did have some difficulty with getting a distal pulse in the right ankle but did get a popliteal pulse. His extremities do not appear to be cool. He does have decent sensation bilaterally and there has been some additional testing ordered to see if we can determine better blood flow regarding an arterial ultrasound of the right lower extremity. CT angio had been ordered. I am recommending that we hold off on this since the patient does have some acute on chronic renal failure. I will discuss this further with Dr. Foster as well. OBJECTIVE: 98.4, pulse 109, respiratory rate 20, BP 115/55, SPO2 is 95% on room air. General: The patient appears to be in no acute distress. He is alert. HEENT: Unremarkable. Lungs: Clear. Heart: Regular rate and rhythm. Abdomen: Vague tenderness. Positive bowel sounds. No masses or rebound. Extremities: As described. LABORATORY DATA: White count 9.7 down from 20.4, hemoglobin is 13.8, platelets 173,000. Sodium 139, potassium 3.9, chloride 103, bicarb 25, anion gap 11, BUN is 42, creatinine 2.37, glucose 106. Initial lactic acid was 12, repeat 5.3. Followup this morning is 4.1. Calcium 6.9, ammonia 36, CK did elevate to 22,216, troponin slightly increased to 0.59 up from 0.41. Initial 0.22. ASSESSMENT/PLAN: 1. Acute upper GI bleed with symptomatic anemia. He did receive a couple units of blood. I question whether the patient had a Myrtle Noe tear versus gastric ulcer versus hiatal hernia erosion. Did have an EGD performed November 2016 that showed some acute gastritis. Will continue on a Protonix drip and appreciate input from Dr. Matamoros with possible EGD either today or tomorrow. Will continue with monitoring his hemoglobin and hematocrit and will transfuse if necessary if he does continue to drop. Continue with Protonix drip for the time being. Appreciate Dr. Matamoros's further input. 2. Metabolic encephalopathy secondary to upper GI bleed, hypotension, however, I did receive from sign out from the nighttime hospitalist it was unsure whether the patient had had a seizure. There is no previous reported seizure activity. However, the patient does have an elevated CK this morning, lactic acid level. Will check an EEG on him in the meantime. His head CT did show some small vessel ischemic disease with minimal volume loss. No acute findings. CT of the cervical spine was negative for any acute fracture or subluxation. CT of the hip without contrast involving the right hip, no acute fracture seen. He does have some right hip osteoarthritic spurring mild in degree. CT abdomen and pelvis, no acute findings were noted. However, he did have fluid content in nondilated small and large bowel. Chest x-ray on admission showed no acute findings. At any rate, will go ahead and check an EEG on him today. 3. Lactic acidosis likely secondary to hypotension. Will continue to follow. He has been hydrated. Did receive 2 units of blood. He is typed and screened for two additional units if necessary. 4. Leukocytosis possibly stress related. This does appear to be trending down. 5. Acute renal failure secondary to acute upper GI bleed and hypotension. Did discuss with Dr. Foster who is kind enough to see the patient on consult today. Appreciate his input. Will avoid any nephrotoxic drugs. 6. Anion gap metabolic acidosis likely secondary to lactic acidosis, it does appear to be trending better. Will continue to follow. 7. Elevated troponin likely secondary to acute blood loss hypotension and acute renal failure. Echocardiogram has been ordered and is pending at this time. We will see how he trends. Repeat EKG. 8. Elevated lipase with no intra-abdominal abnormality or pancreatitis noted. This is likely secondary to GI bleed. Will see how he trends 9. History of hepatitis C. Will continue to follow. He will need outpatient followup. 10. Diabetes. Continue with fingersticks every 6 hours while he is n.p.o. with sliding scale coverage. Will hold his Levemir since his fingersticks seem to be running a little on the low side. 11. Prior history of chronic obstructive pulmonary disease (COPD) by history. Continue nebulizer therapy. 12. History of hypertension, currently was admitted with hypotension, blood pressure medications are on hold 13. Right leg numbness. Strength is preserved. He does have some sensation. Head CT negative for CVA. CT of the right hip negative for fracture or dislocation. Apparently he had an MRI that was ordered for rule out CVA that is pending. Will continue with neuro checks and will see if we can get an arterial ultrasound to check for arterial flow. He does apparently have records in [place] from previously being evaluated by vascular surgery. We will see if we can obtain those records as well. 14. Elevated ammonia level again likely secondary to GI bleed and underlying history of Hep C. His mentation is improved. Will continue to monitor his LFTs and see if we can get an EEG on him. 15. Deep venous thrombosis (DVT) prophylaxis. Thromboembolic deterrent stockings (TEDS) and sequential compression devices (SCD)s. Will avoid any pharmacologic anticoagulation or heparin products. Prognosis remains guarded. Again he requested we not contact any of his family. He remains a FULL CODE.
--- NOTE | 2017-05-05 16:20 | REP ---
RIGHT LOWER EXTREMITY DUPLEX DOPPLER ARTERIAL EVALUATION: Real-time ultrasound evaluation and duplex Doppler interrogation of the right lower extremity arterial system is performed. Visually, there is mild to moderate scattered calcified and partially calcified plaque throughout the right common femoral and superficial femoral arteries, most significantly in the distal right superficial femoral artery. There is also moderate partially calcified plaque in the right popliteal artery. The right common femoral artery is patent with monophasic waveform, peak systolic velocity is 81.6 cm/s. Proximal and mid right superficial femoral artery are patent with velocities of 25.2 and 27.7 cm/s respectively. There is occlusion of the right superficial femoral artery distally. Right popliteal artery is patent with peak systolic velocity 23.9 cm/s. Portions of the posterior tibial artery are visualized, specifically proximally as well as distally with peak systolic velocities 4.8 and 3.7 cm per second respectively. The anterior tibial artery is seen proximally and distally. Peak systolic velocity 5.2 cm/s and distally peak systolic velocity 4.3 cm/s. IMPRESSION: Mild to moderate narrowing of the right common femoral artery and superficial femoral artery with occlusion of the distal right superficial femoral artery. There is apparent reconstitution with patency of a mild to moderately narrowed popliteal artery. Flow is noted in distal anterior and posterior tibial arteries. Signed by Lm Kirk MD 05/06/2017 03:33 P
--- NOTE | 2017-05-05 17:02 | REP ---
MR BRAIN WITHOUT CONTRAST: HISTORY: Rule out infarction. COMPARISON: CT 05/04/2017. Scattered punctate areas of increased signal intensity on T2 weighted images are present in the periventricular and subcortical white matter. This represents small vessel ischemic disease. There is no intraparenchymal hemorrhage, infarct, mass or midline shift. The ventricular system and cortical sulci are dilated consistent with minimal volume loss. There is no extracerebral collection. Minimal mucosal thickening is present in the sinuses. IMPRESSION:1. Small vessel ischemic disease. 2. Minimal volume loss. Signed by Tonio Berman MD 05/05/2017 05:18 P
--- NOTE | 2017-05-05 21:09 | ECGEPIP ---
Stationary ECG Study [facility] Test Date: 2017-05-05 Pat Name: HATTIE DAMON JR Department: Room: [place] [address] Gender: M Netsuite Developer: GERARD : 1950 Requested By: TRISTAN Davison Order Number: [id number] Reading MD: Yuri Leroy Measurements Intervals Dunn Rate: 115 P: -27 FL: 247 QRS: -58 QRSD: 149 T: 86 QT: 376 QTc: 522 Interpretive Statements SINUS TACHYCARDIA WITH FIRST DEGREE AV BLOCK Left anterior fascicular block Right bundle branch block LEFT VENTRICULAR HYPERTROPHY AND ST-T CHANGE Delayed anterior R wave progression Similar to tracing done 05-04-17 Electronically Signed On 05-05-2017 21:09:06 EDT by Yuri Leroy
[2017-05-05] MEDS: CEFEPIME HCL 2 GM in D5W MINI-BAG PLUS 50 ML IV SCH (22:09)
[2017-05-06] VITALS (11 sets, daily range): BP systolic 132–156; BP diastolic 63–79
[2017-05-06] MEDS: IPRATROPIUM 0.5MG/ALBUTEROL 2.5MG INH SOL UD 3ML (DUONEB)(J7620) NEB SCH ×2 (03:18→07:46)
[2017-05-06 05:04] LABS: CALCIUM LEVEL 6.9 MG/DL (8.8-10.2); CREATININE FOR GFR 1.85 MG/DL (0.70-1.30); GLOMERULAR FILTRATION RATE 47.7 (>49); POTASSIUM SERUM 3.9 MEQ/L (3.5-5.1)
[2017-05-06] MEDS: PANTOPRAZOLE SODIUM 40 MG in D5W MINI-BAG PLUS 50 ML IV SCH ×6 (05:22→21:40)
[2017-05-06] MEDS: NS 1,000 ML IV SCH ×2 (05:23→14:31)
[2017-05-06 09:39] LABS: INR 1.25
[2017-05-06 10:26] LABS: ALBUMIN 2.5 GM/DL (3.2-5.2); ALBUMIN/GLOBULIN RATIO 0.71 (1.00-1.93); BILIRUBIN,DIRECT 1.9 MG/DL (0.0-0.2); BILIRUBIN,TOTAL 2.9 MG/DL (0.2-1.0)
--- NOTE | 2017-05-06 11:48 | REP ---
Complete abdominal sonography: Visceral Doppler assessment: History: Abdominal pain. GI bleeding. Comparison is made with CT study of the abdomen from May 04, 2017. Comparison sonography is from April 29, 2017. Sonographic findings: Scanning through right upper quadrant of the abdomen demonstrates a normal sized thin-walled gallbladder without evidence of polyp. A small dependent calculus is seen near the neck of the gallbladder as before. Common bile duct is normal measuring 0.4 cm in greatest diameter. The pancreas is obscured by abdominal gas. No focal liver lesion is seen. The spleen is homogeneous in texture normal in size. 8.2 cm greatest dimension. Renal cortical echogenicity pattern is normal and renal contours are smooth bilaterally. The right kidney measures 10.4 x 5.0 x 4.2 cm. Left renal dimensions are 11.6 x 4.7 x 4.9 cm. Dilated bowel loops are seen. The aorta could not be visualized. Impression: Cholelithiasis. Doppler assessment: Main portal vein is 9.9 mm in diameter. Portal venous flow is normal in direction and velocity and 19.2 cm/sec. Splenic vein velocity of 17.6 cm/sec. Waveforms in the portal vein, hepatic veins and intrahepatic portal venous radicles are normal. Impression: No visceral Doppler abnormality in the liver or spleen. Hepatic arterial Doppler flow was not accessible. Signed by Terrell Roy MD 05/06/2017 12:48 P
--- NOTE | 2017-05-06 12:00 | IPN ---
DATE: 05/06/2017 66-year-old gentleman seen at bedside. No overnight issues reported. Continues with an NG tube in place, low intermittent suction. Has not had any further blood. He denies chest pain, nausea, vomiting. States his leg pain is doing about the same. OBJECTIVE: Temperature 97.9, pulse 93 and regular, respiratory rate 21, BP 144/70, SpO2 is 96% on room air. General: The patient appears to be in no acute distress. He is pleasant. HEENT: Unremarkable. NG tube is in place still on low intermittent suction. Lungs: Clear. Heart: Regular rate and rhythm. Abdomen is slightly distended with positive bowel sounds which appear to be normoactive. No masses or rebound. Extremities: He does have poor pulses noted of the right ankle. No edema. LABORATORY DATA: White count is 8.0, hemoglobin 11.5 this morning and platelets 166,000. Sodium 141, potassium 2.9, chloride 108, bicarb 26, anion gap 7, BUN 31, creatinine 1.85 down from 2.37, glucose 113, total bilirubin 2.9, AST 686, ALT is 264, alkaline phosphatase 150. CK is pending at this time. Albumin is 2.5, INR is 1.25. Arterial ultrasound of right lower extremity did show some distal femoral artery occlusion. This appears to be longstanding. Liver ultrasound results pending. ASSESSMENT/PLAN: 1. Acute blood loss symptomatic anemia from upper GI bleed. Has received a couple units of blood. He appears to be stable at this time. We need to rule out Myrtle-Hai tear versus other findings. He does have elevated LFTs and ultrasound of the liver is pending. Will need to rule out hypertension as possible cause. Appreciate Dr. Matamoros's input and it looks like the patient will be scheduled for EGD. Will continue to monitor his hemoglobin and hematocrit. Continue with Protonix drip. 2. Elevated liver enzymes. Ultrasound pending. His INR is normal. I would like to make sure that he does not have portal hypertension. Dr. Watt is involved as well. Appreciate his consult to see if the patient perhaps need a TIPS procedure if the bleeding is related to esophageal varices that might be secondary to portal hypertension. At any rate, the ultrasound is pending. Appreciate Dr. Watt's further evaluation. 3. 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 I did speak to Dr. Wilson this morning. He was kind enough to give us a consult from vascular surgery. He did feel that this had no emergent need to be treated and he can followup in his office as an outpatient. The more appropriate priority however is to focus on his GI bleed and perhaps the liver issues. 4. Lactic acidosis likely from hypotension and low blood pressure. This appears to be slowly improving. 5. Metabolic encephalopathy multifactorial likely due to the upper GI bleed, anemia, hypotension. There was still some question of his loss of consciousness and whether or not he had had a seizure. EEG is pending at this time. 6. Acute renal failure, creatinine is improved. We will avoid nephrotoxic drugs. 7. Anion gap metabolic acidosis with lactic acidosis improved. 8. Elevated troponin likely related to blood loss abd hypotension. Repeat EKG did not show any acute findings. Repeat troponin is pending as well. 9. Elevated CK with likely rhabdomyolysis, CK is pending. Will continue with IV hydration and I do suspect this will be improved as well since his creatinine and renal function is improving. Again appreciate Dr. Foster's input. 10. Previously elevated lipase. No intra-abdominal abnormality suggesting any pancreas on CT scan and will continue to follow. 11. History of hepatitis C. Will need outpatient follow up. 12. Diabetes. Continue to monitor fingersticks, coverage if needed 13. History of chronic obstructive pulmonary disease (COPD), previously in no acute exacerbation but will continue with as needed nebulizers. 14. Hypertension. Medications currently on hold due to hypotension. Will resume once it is needed. 15. Right leg numbness as indicated above. Appreciate vascular surgery's input. 16. Elevated ammonia likely secondary to GI bleed versus alcoholism versus hepatitis C. His mentation is improved. EEG is pending. 17. Deep venous thrombosis (DVT) prophylaxis. Thromboembolic deterrent stockings (TEDS) and sequentials. Avoid any heparin products and no anticoagulation due to his upper GI bleed. He remains FULL CODE. Hemodynamically he does appear to be much improved. Will go ahead and downgrade him the general medical floor today.
--- NOTE | 2017-05-06 12:38 | IPN ---
DATE OF VISIT: 05/06/2017 Mr. Ramirez is seen this afternoon on his bedside. He has moved out of intensive care unit to a regular medical floor. He still has the nasogastric (NG) tube in place. The patient feels thirsty and wants to have a drink. He denies any chest pain or dyspnea. He continues to have complaint of pain in his right lower leg. On physical examination, temperature 97.9 degrees Fahrenheit, heart rate 90 per minute, and respiratory rate 20 per minute. Blood pressure 138/67 mmHg and oxygen saturation 97% on room air. Intake and output records from yesterday show only 25 mL negative fluid balance. His head is atraumatic. Nasogastric tube is in place. Oral mucosa is dry. Neck is supple and without jugular venous distention (JVD) or thyroid enlargement. Heart sounds are regular. Lungs clear to auscultation. Abdomen: Soft and nontender. Bowel sounds are normal. Extremities have no cyanosis or clubbing. Today's laboratories show sodium level 141 and potassium 3.9. CO2 26, BUN 31, and creatinine 1.85. Calcium level 6.9. His CPK yesterday was 28,845, and today's level is still pending. Hemoglobin is 11.5 today. PROBLEMS: 1. Acute kidney injury superimposed on chronic kidney disease. The patient remains on IV fluid with gradual improvement in kidney function. Electrolytes are still within normal range. 2. Rhabdomyolysis. Most likely related to fall at home. Creatine phosphokinase (CPK) level is still pending. I suggest to continue checking his CPK on daily basis until it comes down to a safe level. At present, he has good urine output, and we will continue with current IV fluid. 3. Anemia with upper gastrointestinal (GI) bleed. Anemia is stable at present, and no intervention is indicated. All other issues are being addressed by surgery and his primary care team.
[2017-05-06] MEDS: MORPHINE 2 MG/ML 1ML SYRINGE IV PRN ×2 (20:10→23:29)
[2017-05-06] MEDS: CEFEPIME HCL 2 GM in D5W MINI-BAG PLUS 50 ML IV SCH (21:40)
[2017-05-07] MEDS: NS 1,000 ML IV SCH (02:03)
[2017-05-07] MEDS: PANTOPRAZOLE SODIUM 40 MG in D5W MINI-BAG PLUS 50 ML IV SCH ×5 (02:52→22:45)
[2017-05-07 06:00] VITALS: BP 143/76
[2017-05-07 06:41] LABS: MEAN CORPUSCULAR HGB CONC 32.1 g/dl (32.0-36.5); MEAN CORPUSCULAR VOLUME 77.9 fl (80.0-96.0); RED CELL DISTRIBUTION WIDTH 18.9 % (11.5-14.5); WHITE BLOOD COUNT 7.2 K/mm3 (4.0-10.0)
[2017-05-07 06:45] LABS: ANION GAP 7 MEQ/L (8-16); BLOOD UREA NITROGEN 17 MG/DL (7-18); CARBON DIOXIDE LEVEL 24 MEQ/L (21-32); CHLORIDE LEVEL 109 MEQ/L (98-107); CREATININE FOR GFR 1.17 MG/DL (0.70-1.30); GLOMERULAR FILTRATION RATE > 60.0 (>49); GLUCOSE, FASTING 94 MG/DL (80-110); POTASSIUM SERUM 3.4 MEQ/L (3.5-5.1); SODIUM LEVEL 140 MEQ/L (136-145)
[2017-05-07] MEDS: KCL 20MEQ IN D5/NS 1000ML 1,000 ML IV SCH ×2 (07:58→21:27)
[2017-05-07] MEDS ORDERED: POTASSIUM CHLORIDE 10 MEQ SR TABLET PO ONE (09:45)
--- NOTE | 2017-05-07 10:32 | IPN ---
DATE: 05/07/2017 This is a 66-year-old gentleman seen at bedside resting more comfortably. His NG tube was actually pulled out this morning when he went to reposition himself in bed. He denies any nausea. He feels his abdominal discomfort has improved and he denies any hematochezia, melena, or any hematemesis. No chest pain. OBJECTIVE: Temperature is 99.7, pulse 89, respiratory rate is 19, BP 143/76, SPO2 is 94% on room air. General: The patient appears to be in no acute distress. He is pleasant. HEENT: Head is atraumatic, normocephalic. Eyes: Pupils equal, round, and reactive to light and accommodation. Throat clear. Lungs: Diminished bibasilar breath sounds, otherwise clear. Heart: Regular rhythm. Abdomen: Slightly distended. Positive bowel sounds. No masses or rebound. Extremities: No edema. No calf tenderness. LABORATORY DATA: White count 7.2, hemoglobin 10.3, platelets are 136,000, sodium 140, potassium 3.4, which we will supplement, chloride 109, bicarb 24, anion gap 7, BUN 17, creatinine 1.17, glucose 94, calcium 7.0. ASSESSMENT/PLAN. 1. Acute blood loss symptomatic anemia from upper GI bleed. He has not required any further blood transfusions. He did have a liver ultrasound yesterday, we wanted to rule out any portal hypertension which appears to be none demonstrable. I appreciate Dr. Watt's involvement and he did not see any interventional procedures needed at this time . I did discuss with Dr. Matamoros yesterday and to my understanding the patient may be going for a EGD in the near future. I will defer this to Dr. Matamoros's expertise. He remains relatively nothing by mouth, however, we will let him have some ice chips and sips of water since he does appear to be passing flatus and no further problems at this time. His H H remains stable. No requirement for any further blood transfusion. 2. Hypokalemia, possibly related to GI loss. We will go ahead and give him a one-time dose of potassium chloride 20 mEq times one to see how he does with this. 3. Acute renal failure. His creatinine does appear to be much improved. We will continue to follow and appreciate Dr. Foster's involvement. He likely has underlying rhabdomyolysis. We will repeat a CK today to see how it is trending his troponin level does appear to be trending down as well, this likely is related to the acute blood loss anemia and acute renal failure as well as the combination of rhabdomyolysis. 4. Femoral artery occlusion. I spoke with Dr. Spaulding yesterday, he did not feel there was any emergent need for surgical intervention. He can followup as outpatient. 5. Lactic acidosis and hypotension related to low blood pressure, this appears to be improved. 6. Metabolic encephalopathy, multifactorial. The patient does appear to be improving towards baseline. EEG has been completed, awaiting for those results. 7. History of hepatitis C. We will need outpatient followup. 8. Diabetes. Continue fingersticks, monitoring and coverage as needed. 9. History of COPD. He appears to be at baseline with no exacerbation at this time. 10. Hypertension. We will continue to follow his blood pressure and withhold parameters on his medications. 11. Right leg numbness as indicated above. Will need outpatient followup with vascular surgery. 12. Deep venous thrombosis (DVT) prophylaxis, thromboembolic deterrent stockings (TEDS) and sequential, we will avoid any heparin products. At this time no anticoagulation. DISPOSITION: He remains full code. He is hemodynamically stable and he appears to be doing well on the medical floor. Would appreciate further recommendations from general surgery regarding his upper GI bleed and possibly need for EGD. MTDD
--- NOTE | 2017-05-07 10:54 | CR ---
DATE OF CONSULTATION: 05/07/2017 Reason for consultation is gastrointestinal (GI) bleed. HISTORY OF THE PRESENT ILLNESS: The patient is a pleasant, 66-year-old man who presented to the emergency department on 05/04/2017, in the evening. He presented actually for an episode of syncope with unresponsiveness. The patient does have a history of chronic lung disease as well as diabetes mellitus, hepatitis C, hypertension, and gastroesophageal reflux disease. The patient had been having some nausea and even some vomiting for a day or two. He was actually seen in the emergency department on 05/02/2017 for a complaint of abdominal pain. He noted some diarrhea on 05/02/2017. He was treated and released. A CT scan was done during that hospital visit. That study was interpreted as showing no acute findings. He was noted to have gallstones but no evidence of acute cholecystitis. He had atherosclerosis as well as a tiny umbilical hernia and some emphysema. He returned as noted on 05/04/2017 with the history that he was on the toilet to have a bowel movement. He reports remembering that he finished the bowel movement and noted that his right leg felt numb. He fell forward by his report, though he later admits that he does not really remember exactly what happened, into the bathtub. The emergency room (ER) record reports that his son heard a crash and found his father unconscious in the bathtub. He was brought to the emergency department. He was initially unresponsive in the emergency department and the ER physician was preparing to intubate him when he had a significant improvement suddenly in his mental status and wakened. He reported that he had, had some really dark stool and some coffee ground emesis. It was found that his hematocrit had dropped significantly in the 2 days since he had previously been seen in the emergency department. He was found to have some acute kidney injury with a creatinine up to 2.7 at the time of presentation. He had a very high lactic acid at the time of presentation at 12.0. His amylase and lipase were both slightly elevated. He was admitted by the hospitalist service to the intensive care unit. Consultation was obtained from nephrology. His renal function has been improving since admission. He has been receiving hydration. He did receive 2 units of packed red blood cells and his current hematocrit is 32. He is now awake and alert. He has not had any evidence of bleeding since admission to the hospital. There is a history that several years ago he had been seen in [place] and had banding of esophageal varices, but then in November of 2016 he underwent an upper endoscopy by Dr. Pearl, which revealed a hiatal hernia with some non-severe esophagitis and some diffuse mild gastritis. It showed intestinal metaplasia but no dysplasia. A prior upper endoscopy in September of 2016 showed a hiatal hernia with some scarring at the gastroesophageal junction. The patient's renal function has now improved significantly. He had a marked rise in his total creatine kinase but this has now started to come back down. He did have a slight rise in his troponin to 0.63. He has not had any evidence of any further bleeding and has remained hemodynamically stable. I am now requested to proceed with an upper endoscopy to evaluate potential source of his bleeding. MEDICATIONS: The patient's current medications include only Protonix as a drip, albuterol nebulizers, cefepime for antibiotic coverage, morphine as needed and IV fluid with some additional potassium. The patient denies any known drug allergies. Surgical history is significant only for some prior upper endoscopies. He has had a procedure to remove his left small toe. Medical history is significant for a history of hepatitis C. He has diabetes mellitus type 2 not requiring insulin coverage. He is a former drinker. There is a history of banding of esophageal varices several years ago, but varices were not identified on his other endoscopies. He does have a history of hypercholesterolemia and hypertension and chronic obstructive pulmonary disease (COPD). Family history is significant for coronary artery disease in his parents. SOCIAL HISTORY: Patient is currently living with his daughter. REVIEW OF SYSTEMS: The patient denies chest pain or palpitations. He has had no shortness of breath or wheezing. He reports this time that he had some like coffee ground emesis and some really dark stool. He is not having any abdominal pain currently. He reports that he has cut out alcohol. He has been voiding without difficulty. He still has some discomfort in his right lower extremity, which he says feels like a muscle ache more than anything. He denies any history of previous claudication, though it is unclear exactly what his activity level has been. Physical exam reveals a very pleasant, perhaps mildly obese man lying quietly in the hospital bed. He is alert, oriented and cooperative. Most recent vital signs show a temperature of 99.7 with a pulse of 89, respirations of 19 and a blood pressure of 143/76. Oxygen saturation is 94% on room air. Mucous membranes are perhaps slightly tacky. The neck is supple without mass. Heart exam shows a regular rhythm. The lungs are clear. The abdomen is mildly obese and soft and nontender. Extremities show no peripheral edema. I do not feel pulses in either foot. The feet are warm and there are no areas of obvious ischemia. Laboratory studies from today show white count of 7.2 with a hemoglobin of 10, hematocrit of 32 and platelet count of 136,000. His chemistry shows sodium of 140, potassium 3.4, chloride 109, CO2 of 24, BUN of 17, creatinine 1.17 and a glucose of 94. Total CK is 18,885 and this is down from a peak of 29,100 yesterday. He has a total protein of 6.0 with an albumin of 2.5 as of 05/06/2017. He has had a number of imaging studies, which are as noted in the record. IMPRESSION: Gastrointestinal bleed of unclear etiology. He does have a history of prior gastritis and esophagitis. There is a report that he had an esophageal varix banded several years ago in [place], but subsequent endoscopies have not shown any signs of esophageal varices. PLAN: The patient and I discussed the option of proceeding with an upper endoscopy. He has not had any ongoing bleeding since presentation to the hospital. He has had a upper endoscopy as recently as November of 2016. I suspect that we will identify the same sort of gastritis and esophagitis that have been noted previously, but it is not unreasonable to proceed with an endoscopy to look for significant worsening of either of these processes. He could also have developed a Myrtle Noe tear with his history of vomiting. The patient and I agreed that we will proceed with the endoscopy and we will try to accomplish this today, which would be 05/07/2017. I will add him onto the schedule to get this done today. YOLANDA
[2017-05-07] MEDS ORDERED: LIDOCAINE 2% INJ 100 MG/5 ML SDV (FOR ANES.) As Ordered ONE (11:50)
[2017-05-07] MEDS ORDERED: PROPOFOL 200 MG/20 ML VIAL As Ordered ONE (11:50)
[2017-05-07] MEDS ORDERED: ONDANSETRON 4MG/2ML VIAL (J2405) IV PRN (12:15)
[2017-05-07] MEDS ORDERED: LR 1,000 ML IV SCH (12:15)
[2017-05-07 12:45] VITALS: BP 140/59
[2017-05-07] MEDS: SUCRALFATE SUSP 1GM/10ML UD PO SCH ×3 (13:19→21:27)
[2017-05-07 13:45] VITALS: BP 148/70
--- NOTE | 2017-05-07 16:24 | EEG ---
DATE OF PROCEDURE: 05/07/2017 REFERRING PHYSICIAN: Dr. Steve Arciniega DIAGNOSIS: Metabolic encephalopathy. EEG #: [id number] HISTORY: The patient is a 66-year-old man who was found unresponsive in bathroom. His blood pressure was around 70 with sinus tachycardia when he was found by emergency medical services. He has nausea, vomiting and coffee-ground emesis and stools. This EEG was done to rule out epileptic potential. He is currently taking Protonix, cefepime, etc. TECHNICAL DESCRIPTION: This digital EEG was recorded by 21 scalp, ear and two EKG electrodes and was reviewed in bipolar and referential montages following reformatting in 10-20 international electrode placement system. INTERPRETATION: The patient was noted to be in awake and drowsy states during this EEG. Resting awake background rhythm consisted of well-formed posterior dominant rhythm with anterior/posterior gradient comprising of 10 Hz alpha activity measuring 15-40 microvolts in amplitude which was symmetric and reactive to eye opening. Attenuation of posterior dominant rhythm was seen during transition into drowsiness. Stage I and II sleep were reviewed and were symmetric bilaterally. Anteriorly low voltage and mixed frequency activity was noted. Hyperventilation could not be performed. Photic stimulation remained unremarkable. EKG revealed normal sinus rhythm. No focal, lateralizing or epileptiform abnormalities were seen. No clinical or electrographic seizures were recorded. CONCLUSION: This EEG in awake, drowsy states, stage I and II sleep is within normal limits.
[2017-05-07] MEDS: HumaLOG INSULIN (NovoLOG) PER UNIT SC SCH ×2 (17:16→20:15)
--- NOTE | 2017-05-07 18:46 | IPN ---
DATE: 05/07/2017 Mr. Ramirez was seen for acute renal failure which was felt to be related to dehydration. He is receiving intravenous (IV) fluid and kidney function has been improving. Today's labs show a BUN of 17 and creatinine 1.17. His potassium level is 3.4 and rest of chemistry is stable. CPK level is down to 18,885. His vital signs today show temperature 99.7, heart rate 88 per minute and blood pressure 143/76 mmHg and respiratory rate is 19 per minute and oxygen saturation 94% on room air. Intake and output records from yesterday showed negative balance of 260 mL. PROBLEMS: 1. Acute renal failure. Kidney function has improved nicely and the patient remains on IV fluid hydration. Once his oral intake is adequate then IV fluid can be stopped. 2. Hypokalemia. This is related to poor oral intake and IV fluids. His IV fluid is being switched to D5 normal saline with 20 mEq potassium chloride in each liter. 3. Rhabdomyolysis. CPK level is improving and will continue with IV fluid for next 24 hours. His CPK level should be checked again tomorrow morning. All other issues are being addressed by hospitalist service.
[2017-05-07] MEDS: CEFEPIME HCL 2 GM in D5W MINI-BAG PLUS 50 ML IV SCH (21:28)
[2017-05-07 22:00] VITALS: BP 158/65
--- NOTE | 2017-05-07 23:39 | ROOR ---
Patient Name: Kenny Ramirez Procedure Date: 05/07/2017 11:00 AM Date of : 1950 Age: 66 Gender: Male Note Status: Finalized Procedure: Upper GI endoscopy Indications: Coffee-ground emesis, Melena Providers: Chriss Matamoros MD Referring MD: TRISTAN NEW DO Requesting Provider: Medicines: Monitored Anesthesia Care Complications: No immediate complications. Procedure: Pre-Anesthesia Assessment: - Prior to the procedure, a History and Physical was performed, and patient medications and allergies were reviewed. The patient is competent. The risks and benefits of the procedure and the sedation options and risks were discussed with the patient. All questions were answered and informed consent was obtained. Patient identification and proposed procedure were verified by the physician, the nurse and the pre k special education teacher in the procedure room. Mental Status Examination: alert and oriented. Airway Examination: normal oropharyngeal airway and neck mobility. CV Examination: regular rate and rhythm. Prophylactic Antibiotics: The patient does not require prophylactic antibiotics. Prior Anticoagulants: The patient has taken no previous anticoagulant or antiplatelet agents. ASA Grade Assessment: III - A patient with severe systemic disease. After reviewing the risks and benefits, the patient was deemed in satisfactory condition to undergo the procedure. The anesthesia plan was to use monitored anesthesia care (MAC). Immediately prior to administration of medications, the patient was re-assessed for adequacy to receive sedatives. The heart rate, respiratory rate, oxygen saturations, blood pressure, adequacy of pulmonary ventilation, and response to care were monitored throughout the procedure. The physical status of the patient was re-assessed after the procedure. The Endoscope was introduced through the mouth, and advanced to the second part of duodenum. The upper GI endoscopy was accomplished without difficulty. The patient tolerated the procedure well. Findings: One superficial esophageal ulcer with no bleeding and no stigmata of recent bleeding was found 29 cm from the incisors. The lesion was 20 mm in largest dimension. Diffuse mildly erythematous mucosa without bleeding was found on the greater curvature of the stomach. The examined duodenum was normal. Impression: - Non-bleeding esophageal ulcer. - Erythematous mucosa in the greater curvature. - Normal examined duodenum. - No specimens collected. Recommendation: - Return patient to [facility]. - Clear liquid diet. - Use sucralfate suspension 1 gram PO QID. Attending Participation: I personally performed the entire procedure. Chriss Matamoros MD 05/07/2017 11:38:47 PM Number of Addenda: 0 Note Initiated On: 05/07/2017 11:00 AM Estimated Blood Loss: Estimated blood loss: none.
[2017-05-08 02:00] VITALS: BP 149/72
[2017-05-08] MEDS: PANTOPRAZOLE SODIUM 40 MG in D5W MINI-BAG PLUS 50 ML IV SCH ×4 (03:43→17:42)
[2017-05-08 06:00] VITALS: BP 132/60
[2017-05-08 06:14] LABS: MEAN CORPUSCULAR HEMOGLOBIN 24.4 pg (27.0-33.0); MEAN CORPUSCULAR HGB CONC 31.7 g/dl (32.0-36.5); MEAN CORPUSCULAR VOLUME 77.1 fl (80.0-96.0); RED CELL DISTRIBUTION WIDTH 19.1 % (11.5-14.5); WHITE BLOOD COUNT 8.4 K/mm3 (4.0-10.0)
[2017-05-08 06:25] LABS: INR 1.15
[2017-05-08 06:39] LABS: ANION GAP 8 MEQ/L (8-16); BLOOD UREA NITROGEN 8 MG/DL (7-18); CALCIUM LEVEL 7.1 MG/DL (8.8-10.2); CARBON DIOXIDE LEVEL 21 MEQ/L (21-32); CHLORIDE LEVEL 108 MEQ/L (98-107); CREATININE FOR GFR 1.14 MG/DL (0.70-1.30); GLOMERULAR FILTRATION RATE > 60.0 (>49); POTASSIUM SERUM 3.3 MEQ/L (3.5-5.1); SODIUM LEVEL 137 MEQ/L (136-145)
[2017-05-08 06:44] LABS: GLUCOSE, FASTING 130 MG/DL (80-110)
[2017-05-08] MEDS: HumaLOG INSULIN (NovoLOG) PER UNIT SC SCH ×4 (07:30→21:00)
[2017-05-08] MEDS: SUCRALFATE SUSP 1GM/10ML UD PO SCH ×4 (08:45→21:27)
[2017-05-08] MEDS: KCL 20MEQ IN D5/NS 1000ML 1,000 ML IV SCH (08:46)
[2017-05-08 10:00] VITALS: BP 169/77
--- NOTE | 2017-05-08 10:50 | IPNPDOC ---
Date Seen The patient was seen on 05/08/17. Progress Note SUBJECTIVE: Patient does not offer any complaints this am . denies any abdominal pain , denies any nausea or vomiting , says right leg is better, numbness is gone. OBJECTIVE PHYSICAL EXAMINATION: VITAL SIGNS: Please see below. General: The patient appears to be in no acute distress. He is pleasant. HEENT: Head is atraumatic, normocephalic. Eyes: Pupils equal, round, and reactive to light and accommodation. Throat clear. Lungs: Diminished bibasilar breath sounds, otherwise clear. Heart: Regular rhythm. Abdomen: Slightly distended. Positive bowel sounds. No masses or rebound. Extremities: No edema. No calf tenderness. LABORATORY DATA: Please see below. MICROBIOLOGY: Please see below. EGD: Esophageal ulcer non bleeding , erythema in the greater curvature of the stomach. ASSESSMENT/PLAN. 1. Acute blood loss symptomatic anemia from upper GI bleed due to esophageal ulcer seen in EGD done on 05/07/17. Will continue with pantoprazole gtt and sucralfate, diet advancement as per Dr Matamoros. will continue to monitor h/h . 2. Hypokalemia, possibly related to GI loss. will continue with replacement 3. Acute renal failure and Rhabdomyolysis: from the fall at house so possibly traumatic rhabdomyolysis. Improving now. 4. Femoral artery occlusion. As per Dr. Spaulding yesterday, he did not feel there was any emergent need for surgical intervention. He can followup as outpatient. 5. Lactic acidosis and hypotension related to low blood pressure, this appears to be improved. 6. Metabolic encephalopathy and Syncope due to GIB and hypotension The patient does appear to be improving towards baseline. EEG normal 7. History of hepatitis C: Liver us negative for cirrhotic features and portal venous Doppler negative for portal hypertension. We will need outpatient followup. 8. Diabetes. Continue fingersticks, monitoring and coverage as needed. 9. History of COPD. He appears to be at baseline with no exacerbation at this time. 10. Hypertension. We will continue to follow his blood pressure and withhold parameters on his medications. 11. Right leg numbness as indicated above. Will need outpatient followup with vascular surgery. Continue PT. 12. Deep venous thrombosis (DVT) prophylaxis, thromboembolic deterrent stockings (TEDS) and sequential, we will avoid any heparin products. At this time no anticoagulation. VS, I&O, 24H, Fishbone Vital Signs/I&O Vital Signs Date Time Temp Pulse Resp B/P (MAP) Pulse Ox O2 Delivery O2 Flow Rate FiO2 05/08/17 10:00 97.4 80 18 169/77 (107) 99 Room Air 05/06/17 04:00 2.0 I&O- Last 24 Hours up to 6 AM 05/08/17 06:00 Intake Total 2470 ml Output Total 400 ml Balance 2070 ml Laboratory Data 24H LABS Laboratory Tests 2 05/08/17 05:43: Prothrombin Time 14.8H, Prothromb Time International Ratio 1.15, Anion Gap 8, Glomerular Filtration Rate > 60.0, Blood Urea Nitrogen 8#, Creatinine 1.14, Sodium Level 137, Potassium Level 3.3L, Chloride Level 108H, Carbon Dioxide Level 21, Calcium Level 7.1L CBC/BMP Laboratory Tests 05/08/17 05:43 Red Blood Count 3.95 L, Mean Corpuscular Volume 77.1 L, Mean Corpuscular Hemoglobin 24.4 L, Mean Corpuscular Hemoglobin Concent 31.7 L, Red Cell Distribution Width 19.1 H, Calcium Level 7.1 L Microbiology Microbiology 05/04/17 Blood Culture - Preliminary, Resulted No Growth after 72 hours. All specime... 05/04/17 Blood Culture - Preliminary, Resulted No Growth after 72 hours. All specime... GLENYS GALAN MD May 08, 2017 10:50
[2017-05-08] MEDS: KCL 10MEQ IN 100ML SWI (KRUN) 10 MEQ in APPROPRIATE DILUENT 1 EA IV SCH ×4 (11:24→12:44)
[2017-05-08] MEDS ORDERED: CALCIUM GLUCONATE 1,000 MG in D5W MINI-BAG PLUS 100 ML IV ONE (12:00)
[2017-05-08] MEDS: KCL 20MEQ in NS 1000ML 1,000 ML IV SCH (12:43)
--- NOTE | 2017-05-08 13:52 | IPN ---
DATE: 05/08/2017 SUBJECTIVE: Patient was seen and examined at the bedside today in the morning. The patient's renal function continues to improve. He denies any active complaints. He is otherwise hemodynamically stable at this time. He continues to be on IV fluids. REVIEW OF SYSTEMS: Patient reports fever spikes with a T-max of 101 degrees Fahrenheit. He denies any chest pain or shortness of breath. He denies any pain in the abdomen, constipation or diarrhea. He reports that he had some loose bowel movements, but he denies any blood in the stools. The patient also reports mild pain in the right leg, which is improving at this time. Rest of review of systems is negative. OBJECTIVE: VITAL SIGNS: Temperature is 97.4 degrees Fahrenheit, T-max is 101 degrees Fahrenheit this morning, blood pressure 169/77, pulse is 80, respiratory rate of 18, saturating 99% on room air. Intake and output urine output recorded is 475 mL yesterday, 400 mL so far today. Weight on the bed scale is not available. PHYSICAL EXAMINATION: GENERAL: Patient is awake, alert and oriented times three, laying in bed in no apparent distress. HEAD AND NECK EXAM: Extraocular muscles intact. Pupils equal, round, reactive to light. Mucous membranes are moist. Neck is supple. CARDIOVASCULAR: S1 and S2, regular rate, no murmur, rub or gallop. RESPIRATORY: Chest is clear to auscultation bilaterally. Bilateral equal air entry. No rales or rhonchi. ABDOMEN: Soft. Positive bowel sounds. Nontender. No ascites. No organomegaly. EXTREMITIES: No clubbing or cyanosis. Pulses are 2+. Patient has mild edema of the right upper extremity where the IV lines were removed. CELL ATTENDANT: No focal neurological deficit. Power is 5/5. PSYCH: Normal mood and affect. LABORATORY REVIEW: CBC showed a WBC of 8.4, hemoglobin 9.7, platelets of 132. BMP showed sodium 137, potassium 3.3, chloride 108, bicarb 21, BUN 8, creatinine is 1.14, it was 1.17 yesterday. Calcium is 7.1. Microbiology: Initial blood cultures sent on 05/04/2017 are negative. CURRENT MEDICATIONS: Current medications were all reviewed by me. Patient was given a dose of calcium gluconate 1 gram IV times one dose today morning. I ordered a dose of potassium chloride 10 mEq IV times two doses. He continues to be on IV cefepime. Protonix drip has been stopped. Patient continues to be on IV fluid, KCL 20 mEq and D5 normal saline at 80 mL an hour. Patient is currently on clear liquid diet at this time. ASSESSMENT: 66-year-old male with a recent acute kidney injury after GI bleed, fall at home and rhabdomyolysis. PLAN: 1. Acute kidney injury. Patient's creatinine continues to improve. It is down to 1.14 now. Continue the IV fluid hydration at this time. Patient started a clear liquid diet. I will change the fluid to normal saline only with no D5 and I would increase the potassium in the fluid. 2. Hypokalemia. Potassium is 3.3. He already has potassium in the IV fluids, but I gave extra K runs 10 mEq times two IV. 3. Rhabdomyolysis. It is secondary to fall. CPK level is improving. It was 18,000 yesterday. Today's level is pending. Continue the gentle IV fluid hydration at this time. 4. Acute upper GI bleeding. Patient's hemoglobin is stable at 9.7. Diet has been advanced to a liquid diet. Protonix drip has been stopped. The rest of the management is as per primary team. No need of Aranesp administration at this time.
[2017-05-08 14:00] VITALS: BP 142/86
[2017-05-08 18:00] VITALS: BP 167/83
[2017-05-08] MEDS: CEFEPIME HCL 2 GM in D5W MINI-BAG PLUS 50 ML IV SCH (21:27)
[2017-05-08] MEDS: PANTOPRAZOLE 40MG INJ (PROTONIX) (C9113) IV SCH (21:27)
[2017-05-08 22:00] VITALS: BP 160/72
[2017-05-09] MEDS: KCL 20MEQ in NS 1000ML 1,000 ML IV SCH ×2 (00:58→17:36)
[2017-05-09 02:00] VITALS: BP 152/67
[2017-05-09 05:49] LABS: MEAN CORPUSCULAR HEMOGLOBIN 25.1 pg (27.0-33.0); MEAN CORPUSCULAR HGB CONC 32.9 g/dl (32.0-36.5); MEAN CORPUSCULAR VOLUME 76.3 fl (80.0-96.0); WHITE BLOOD COUNT 7.9 K/mm3 (4.0-10.0)
[2017-05-09 06:00] VITALS: BP 156/75
[2017-05-09 06:09] LABS: ANION GAP 10 MEQ/L (8-16); BLOOD UREA NITROGEN 8 MG/DL (7-18); CALCIUM LEVEL 7.3 MG/DL (8.8-10.2); CARBON DIOXIDE LEVEL 21 MEQ/L (21-32); CHLORIDE LEVEL 110 MEQ/L (98-107); CREATININE FOR GFR 0.96 MG/DL (0.70-1.30); GLOMERULAR FILTRATION RATE > 60.0 (>49); GLUCOSE, FASTING 92 MG/DL (80-110); MAGNESIUM LEVEL 1.6 MG/DL (1.8-2.4); PHOSPHORUS LEVEL 1.3 MG/DL (2.5-4.9); POTASSIUM SERUM 3.5 MEQ/L (3.5-5.1); SODIUM LEVEL 141 MEQ/L (136-145)
[2017-05-09 06:21] LABS: IONIZED CALCIUM 4.4 MG/DL (4.5-5.3)
[2017-05-09] MEDS: MAG SULF 1GM/100ML (MAG RUN) 1 GM in APPROPRIATE DILUENT 1 EA IV SCH ×2 (07:15→09:00)
[2017-05-09] MEDS: HumaLOG INSULIN (NovoLOG) PER UNIT SC SCH ×4 (07:30→20:52)
[2017-05-09] MEDS: SUCRALFATE SUSP 1GM/10ML UD PO SCH ×4 (09:00→20:51)
[2017-05-09] MEDS ORDERED: SODIUM PHOSPHATE INJ 30 MMOL in D5W 500 ML IV ONE (09:00)
[2017-05-09] MEDS: K-PHOS ORIGINAL (POT.ACID PHOSPHATE) 500MG TAB PO SCH ×2 (09:00→20:51)
[2017-05-09] MEDS: PANTOPRAZOLE 40MG INJ (PROTONIX) (C9113) IV SCH ×2 (09:00→20:51)
--- NOTE | 2017-05-09 09:59 | IPNPDOC ---
Date Seen The patient was seen on 05/09/17. Progress Note SUBJECTIVE: Patient does not offer any complaints this am . denies any abdominal pain , denies any nausea or vomiting , says right leg numbness is improving. Has been ambulating with walker from bed to bath room . No fever or chills, no chest pain or SOb . OBJECTIVE PHYSICAL EXAMINATION: VITAL SIGNS: Please see below. General: The patient appears to be in no acute distress. He is pleasant. HEENT: Head is atraumatic, normocephalic. Eyes: Pupils equal, round, and reactive to light and accommodation. Throat clear. Lungs: Diminished bibasilar breath sounds, otherwise clear. Heart: Regular rhythm. Abdomen: Slightly distended. Positive bowel sounds. No masses or rebound. Extremities: No edema. No calf tenderness. LABORATORY DATA: Please see below. MICROBIOLOGY: Please see below. EGD: Esophageal ulcer non bleeding , erythema in the greater curvature of the stomach. ASSESSMENT/PLAN. 1. Acute blood loss symptomatic anemia from upper GI bleed due to esophageal ulcer seen in EGD done on 05/07/17. Will continue with pantoprazole gtt and sucralfate, diet advancement as per Dr Matamoros. will continue to monitor h/h . 2. Hypokalemia resolved. will continue with replacement 3. Acute renal failure and Rhabdomyolysis: from the fall at house so possibly traumatic rhabdomyolysis. Improving now. 4. Femoral artery occlusion. As per Dr. Spaulding yesterday, he did not feel there was any emergent need for surgical intervention. He can followup as outpatient. 5. Lactic acidosis and hypotension related to low blood pressure, this appears to be improved. 6. Metabolic encephalopathy and Syncope due to GIB and hypotension The patient does appear to be improving towards baseline. EEG normal 7. History of hepatitis C: Liver us negative for cirrhotic features and portal venous Doppler negative for portal hypertension. We will need outpatient followup. 8. Diabetes. Continue fingersticks, monitoring and coverage as needed. 9. History of COPD. He appears to be at baseline with no exacerbation at this time. 10. Hypertension. We will continue to follow his blood pressure and withhold parameters on his medications. 11. Right leg numbness as indicated above. Will need outpatient followup with vascular surgery. Continue PT. 12. Deep venous thrombosis (DVT) prophylaxis, thromboembolic deterrent stockings (TEDS) and sequential, we will avoid any heparin products. At this time no anticoagulation. VS, I&O, 24H, Fishbone Vital Signs/I&O Vital Signs Date Time Temp Pulse Resp B/P (MAP) Pulse Ox O2 Delivery O2 Flow Rate FiO2 05/09/17 06:00 98.7 74 16 156/75 (102) 98 Room Air 05/06/17 04:00 2.0 I&O- Last 24 Hours up to 6 AM 05/09/17 06:00 Intake Total 3285 ml Output Total 1625 ml Balance 1660 ml Laboratory Data 24H LABS Laboratory Tests 2 05/08/17 11:33: Bedside Glucose (Misc Panel) 118H 05/08/17 16:54: Bedside Glucose (Misc Panel) 78L 05/08/17 20:13: Bedside Glucose (Misc Panel) 122H 05/09/17 05:27: Anion Gap 10, Glomerular Filtration Rate > 60.0, Lactic Acid Level 1.5, Blood Urea Nitrogen 8, Creatinine 0.96, Sodium Level 141, Potassium Level 3.5, Chloride Level 110H, Carbon Dioxide Level 21, Calcium Level 7.3L, Whole Blood Ionized Calcium 4.4L, Phosphorus Level 1.3L, Magnesium Level 1.6L, Total Creatine Kinase 47011W CBC/BMP Laboratory Tests 05/09/17 05:27 Red Blood Count 3.89 L, Mean Corpuscular Volume 76.3 L, Mean Corpuscular Hemoglobin 25.1 L, Mean Corpuscular Hemoglobin Concent 32.9, Red Cell Distribution Width 19.0 H, Calcium Level 7.3 L Microbiology Microbiology 05/04/17 Blood Culture - Preliminary, Resulted No Growth after 72 hours. All specime... 05/04/17 Blood Culture - Preliminary, Resulted No Growth after 72 hours. All specime... GLENYS GALAN MD May 09, 2017 09:59
[2017-05-09 10:00] VITALS: BP 156/73
[2017-05-09] MEDS ORDERED: CALCIUM GLUCONATE 1,000 MG in D5W MINI-BAG PLUS 100 ML IV ONE (13:00)
--- NOTE | 2017-05-09 13:56 | IPN ---
DATE: 05/09/2017 SUBJECTIVE: Patient was seen and examined at the bedside today in the morning. He was laying int the bed. No apparent distress at this time. Patient is hemodynamically stable. His creatinine continues to improve and CPK level is coming down. However, patient has multiple electrolyte abnormalities today. REVIEW OF SYSTEMS: Patient denies any fevers, chills, rigors, headache, nausea, vomiting, or chest pain. He does report mild wheezing and he is asking for nebulization, which he has not received for the last 2-3 weeks. He denies any pain int he abdomen, constipation or diarrhea. Patient reports right leg swelling and pain is getting better. Rest of review of systems is negative. OBJECTIVE: VITAL SIGNS: Temperature is 98.6 degrees Fahrenheit, blood pressure 153/73, pulse is 63, respiratory rate of 16, saturating 100% on room air. Intake and output urine output recorded is 1.1 liters yesterday, 1650 mL so far today since overnight. Weight on the bed scale is not available. PHYSICAL EXAMINATION: GENERAL: Patient is awake, alert and oriented times three, laying in bed in no apparent distress. HEAD AND NECK EXAM: Extraocular muscles intact. Pupils equal, round, reactive to light. Mucous membranes are moist. Neck is supple. CARDIOVASCULAR: S1 and S2, regular rate, no murmur, rub or gallop. RESPIRATORY: Patient has mild expiratory rhonchi at the bases. Otherwise, bilateral equal air entry. ABDOMEN: Soft. Positive bowel sounds. Nontender. No ascites. No organomegaly. EXTREMITIES: No clubbing or cyanosis. Pulses are 2+. No tenderness of the bilateral lower extremities. SILVERING APPLICATOR: No focal neurological deficit. Power is 5/5 in all extremities. LABORATORY REVIEW: CBC showed a WBC of 7.9, hemoglobin 9.8, platelets of 149. BMP showed sodium 141, potassium 3.5, chloride 110, bicarb 21, BUN 8, creatinine is 0.9, calcium is 7.3, ionized calcium is 4.4, phosphorous is 1.3, magnesium is 1.6, total creatinine kinase is 13,750. CURRENT MEDICATIONS: Patent's medications were all reviewed by me. I have ordered a dose of calcium gluconate 1 gram IV times one dose. His IV fluid rate has been changed to 50 mL an hour. Patient will get sodium phosphate 30 millimoles IV times one dose. He will also get magnesium sulfate 1 gram IV times two doses. There is no other change in the medications. ASSESSMENT: 66-year-old male with a recent acute kidney injury after GI bleed, and fall at home along with rhabdomyolysis. He currently has multiple electrolyte abnormalities. PLAN: 1. Acute kidney injury. Patient's creatinine continues to improve. It is down to 0.9 today. It is almost close to his baseline kidney function, however I will continue the IV fluid hydration at this time until his CPK level comes to below 5000. 2. Hypokalemia. Potassium level is improved to 3.5 today and patient is also getting potassium phosphate 1 gram by mouth twice a day, which will help maintain his potassium level above 3.5 and patient is also getting potassium in the IV fluids as well. 3. Rhabdomyolysis. CPK level is improving. It is down to 13,000 today. Continue gentle IV fluid hydration at this time. No need of bicarb administration. 4. Hypocalcemia. I have ordered a dose of calcium gluconate 1 gram IV times one dose. 5. Hypophosphatemia. Patient will get sodium phosphate 30 millimoles IV times one dose today and he has also been started on potassium phosphate 1 gram by mouth twice a day. 6. Hypomagnesemia. Patient will get magnesium sulfate 1 gram IV times one dose. 7. Upper GI bleeding. Patient's hemoglobin is stable at 9.8 at this time. Patient is tolerating a regular diet at this time. The rest of the management is as per primary team.
[2017-05-09 14:00] VITALS: BP 160/65
[2017-05-09] MEDS: TIOTROPIUM INHALER/CAPSULE (SPIRIVA) INH SCH (14:03)
[2017-05-09] MEDS: IPRATROPIUM 0.5MG/ALBUTEROL 2.5MG INH SOL UD 3ML (DUONEB)(J7620) NEB SCH ×2 (14:03→22:12)
[2017-05-09] MEDS: CEPACOL LOZENGE PO PRN (16:51)
[2017-05-09 18:00] VITALS: BP 150/65
[2017-05-09 22:00] VITALS: BP 145/72
[2017-05-09] MEDS: SYMBICORT 160/4.5MCG INHALER 6GM INH SCH (22:02)
[2017-05-10] MEDS: IPRATROPIUM 0.5MG/ALBUTEROL 2.5MG INH SOL UD 3ML (DUONEB)(J7620) NEB SCH ×4 (01:46→19:48)
[2017-05-10 02:00] VITALS: BP 148/66
[2017-05-10 06:00] VITALS: BP 148/66
[2017-05-10 06:01] LABS: MEAN CORPUSCULAR HEMOGLOBIN 24.8 pg (27.0-33.0); MEAN CORPUSCULAR VOLUME 75.1 fl (80.0-96.0); RED CELL DISTRIBUTION WIDTH 19.1 % (11.5-14.5); WHITE BLOOD COUNT 8.4 K/mm3 (4.0-10.0)
[2017-05-10 06:26] LABS: ANION GAP 7 MEQ/L (8-16); BLOOD UREA NITROGEN 7 MG/DL (7-18); CALCIUM LEVEL 7.8 MG/DL (8.8-10.2); CARBON DIOXIDE LEVEL 23 MEQ/L (21-32); CHLORIDE LEVEL 108 MEQ/L (98-107); CREATININE FOR GFR 0.96 MG/DL (0.70-1.30); GLOMERULAR FILTRATION RATE > 60.0 (>49); GLUCOSE, FASTING 98 MG/DL (80-110); MAGNESIUM LEVEL 1.5 MG/DL (1.8-2.4); PHOSPHORUS LEVEL 1.9 MG/DL (2.5-4.9); POTASSIUM SERUM 3.1 MEQ/L (3.5-5.1); SODIUM LEVEL 138 MEQ/L (136-145)
[2017-05-10] MEDS: TIOTROPIUM INHALER/CAPSULE (SPIRIVA) INH SCH (07:21)
[2017-05-10] MEDS: SYMBICORT 160/4.5MCG INHALER 6GM INH SCH ×2 (07:21→19:47)
[2017-05-10] MEDS: HumaLOG INSULIN (NovoLOG) PER UNIT SC SCH ×4 (07:30→20:33)
[2017-05-10] MEDS: SUCRALFATE SUSP 1GM/10ML UD PO SCH ×4 (08:05→20:33)
[2017-05-10] MEDS: PANTOPRAZOLE 40MG INJ (PROTONIX) (C9113) IV SCH ×2 (08:05→20:33)
[2017-05-10] MEDS ORDERED: MAG SULF 1GM/100ML (MAG RUN) 1 GM in APPROPRIATE DILUENT 1 EA IV ONE (09:00)
[2017-05-10] MEDS: CEPACOL LOZENGE PO PRN ×2 (09:28→19:49)
[2017-05-10 10:00] VITALS: BP 155/77
[2017-05-10] MEDS ORDERED: POTASSIUM PHOSPHATE INJ 30 MMOL in D5W 500 ML IV ONE (10:00)
[2017-05-10] MEDS: K-PHOS ORIGINAL (POT.ACID PHOSPHATE) 500MG TAB PO SCH ×2 (10:25→20:32)
--- NOTE | 2017-05-10 12:19 | IPNPDOC ---
Date Seen The patient was seen on 05/10/17. Progress Note SUBJECTIVE: Patient does not offer any complaints this am . denies any abdominal pain , denies any nausea or vomiting , says right leg numbness is improving. Has been ambulating with walker from bed to bath room . No fever or chills, no chest pain or SOB . OBJECTIVE PHYSICAL EXAMINATION: VITAL SIGNS: Please see below. General: The patient appears to be in no acute distress. He is pleasant. HEENT: Head is atraumatic, normocephalic. Eyes: Pupils equal, round, and reactive to light and accommodation. Throat clear. Lungs: Diminished bibasilar breath sounds, otherwise clear. Heart: Regular rhythm. Abdomen: Slightly distended. Positive bowel sounds. No masses or rebound. Extremities: No edema. No calf tenderness. LABORATORY DATA: Please see below. MICROBIOLOGY: Please see below. EGD: Esophageal ulcer non bleeding , erythema in the greater curvature of the stomach. ASSESSMENT/PLAN. 1. Acute blood loss symptomatic anemia from upper GI bleed due to esophageal ulcer seen in EGD done on 05/07/17. Will continue with pantoprazole gtt and sucralfate, will continue to monitor h/h . 2. Hypokalemia resolved. will continue with replacement 3. Acute renal failure and Rhabdomyolysis: from the fall at house so possibly traumatic rhabdomyolysis. Improving now. 4. Femoral artery occlusion. As per Dr. Spaulding yesterday, he did not feel there was any emergent need for surgical intervention. He can followup as outpatient. 5. Lactic acidosis and hypotension related to low blood pressure, this appears to be improved. 6. Metabolic encephalopathy and Syncope due to GIB and hypotension The patient does appear to be improving towards baseline. EEG normal 7. History of hepatitis C: Liver us negative for cirrhotic features and portal venous Doppler negative for portal hypertension. We will need outpatient followup. 8. Diabetes. Continue fingersticks, monitoring and coverage as needed. 9. History of COPD. He appears to be at baseline with no exacerbation at this time. 10. Hypertension. We will continue to follow his blood pressure and withhold parameters on his medications. 11. Right leg numbness as indicated above. Will need outpatient followup with vascular surgery. Continue PT. 12. Deep venous thrombosis (DVT) prophylaxis, thromboembolic deterrent stockings (TEDS) and sequential, we will avoid any heparin products. At this time no anticoagulation. 13. Electrolyte abnormalities. Pateint has hypokalemia, hypomagnesemia and hypophosphatemia which are being replaced. VS, I&O, 24H, Fishbone Vital Signs/I&O Vital Signs Date Time Temp Pulse Resp B/P (MAP) Pulse Ox O2 Delivery O2 Flow Rate FiO2 05/10/17 10:00 97.8 75 18 155/77 (103) 99 Room Air 05/06/17 04:00 2.0 I&O- Last 24 Hours up to 6 AM 05/10/17 06:00 Intake Total 2630 ml Output Total 2925 ml Balance -295 ml Laboratory Data 24H LABS Laboratory Tests 2 05/09/17 16:47: Bedside Glucose (Misc Panel) 126H 05/09/17 20:15: Bedside Glucose (Misc Panel) 154H 05/10/17 05:48: Anion Gap 7L, Glomerular Filtration Rate > 60.0, Blood Urea Nitrogen 7, Creatinine 0.96, Sodium Level 138, Potassium Level 3.1L, Chloride Level 108H, Carbon Dioxide Level 23, Calcium Level 7.8L, Phosphorus Level 1.9#L, Magnesium Level 1.5L, Total Creatine Kinase 99181D 05/10/17 11:13: Bedside Glucose (Misc Panel) 118H CBC/BMP Laboratory Tests 05/10/17 05:48 Red Blood Count 3.86 L, Mean Corpuscular Volume 75.1 L, Mean Corpuscular Hemoglobin 24.8 L, Mean Corpuscular Hemoglobin Concent 33.0, Red Cell Distribution Width 19.1 H, Calcium Level 7.8 L Microbiology Microbiology 05/04/17 Blood Culture - Final, Complete NO GROWTH AFTER 5 DAYS 05/04/17 Blood Culture - Final, Complete NO GROWTH AFTER 5 DAYS GLENYS GALAN MD May 10, 2017 12:19
--- NOTE | 2017-05-10 13:28 | IPN ---
DATE OF SERVICE: 05/10/2017 SUBJECTIVE: The patient was seen and examined at the bedside today in the morning. He feels much better. He reports that right leg pain is improving. The patient's renal function continues to improve, although the patient still has multiple electrolyte abnormalities. His creatine phosphokinase (CPK) is trending down, as well. REVIEW OF SYSTEMS: The patient denies any fevers, chills, rigors, headache, nausea, vomiting, chest pain, shortness of breath. He reports that nebulizations helped with his shortness of breath. He denies any pain abdomen, constipation, or diarrhea. Rest of review of systems is negative. OBJECTIVE: VITAL SIGNS: Temperature is 97.8 degrees Fahrenheit, blood pressure 155/77, pulse is 75, respiratory rate of 18, saturating 99% on room air. INTAKE AND OUTPUT: Urine output recorded is 2.5 liters yesterday, 1.8 liters so far today since overnight. Weight on the bed scale is not available. PHYSICAL EXAMINATION: GENERAL: The patient is awake, alert, oriented times three, laying in bed, in no apparent distress. HEAD AND NECK EXAMINATION: Extraocular muscles intact. Pupils equally round and reactive to light. Mucous membranes are moist. Neck is supple. There is no jugular venous distention (JVD). CARDIOVASCULAR: S1, S2, regular rate, no murmur, rub, and gallop. RESPIRATORY: Very mild expiratory rhonchi at the bases. Otherwise, bilateral equal air entry. ABDOMEN: Soft. Positive bowel sounds. Nontender. No ascites. No organomegaly. EXTREMITIES: No clubbing or cyanosis. Pulses are 2+. The patient has mild tenderness to deep palpation in the right calf muscles. CENTRAL NERVOUS SYSTEM (DIAGNOSTIC ASSISTANT): No focal neurological deficit. Power is 5/5 in all extremities. LABORATORY REVIEW: CBC showed a WBC of 8.4, hemoglobin 9.6, platelets are 166. BMP showed sodium 138, potassium 3.1, chloride 108, bicarbonate is 23, BUN 7, creatinine is 0.96, calcium is 7.8, phosphorous is 1.9, magnesium is 1.5, CPK is 10,803. CURRENT MEDICATIONS: The patent's current inpatient medications were all reviewed by me. He is going to get magnesium sulfate 1 gram intravenous (IV) times one dose, potassium phosphate 30 millimoles IV times one dose. He was started on Spiriva yesterday and Symbicort yesterday, as well. ASSESSMENT: A 66-year-old male with a recent acute kidney injury after gastrointestinal (GI) bleed and fall at home, along with rhabdomyolysis. The patient has multiple electrolyte abnormalities. PLAN: 1. Acute kidney injury. The patient's creatinine is improved now. It is 0.96 now. However, because of the rhabdomyolysis, I will continue the gentle IV fluid hydration. 2. Hypokalemia. The patient's potassium is 3.1 now. The patient is going to get potassium phosphate. That will help improve potassium level, as well. There is no need to give additional potassium. The patient is also getting potassium in the IV fluids, as well. 3. Hypophosphatemia. The patient is going to get will get sodium phosphate 30 millimoles IV. He is also on potassium phosphate 1 gram by mouth twice a day. Continue to monitor daily phos levels. 4. Hypomagnesemia. The patient will get another dose of magnesium sulfate 1 gram IV today. I am going to start the patient on by mouth magnesium sulfate, as well. 5. Rhabdomyolysis. Continue gentle IV fluid hydration. CPK level is down to 10,000. IV fluids can be stopped once CPK drops to below 5000. 6. Anemia secondary to upper gastrointestinal bleed. Hemoglobin is stable around 9.6. No need of blood transfusion at this time.
[2017-05-10 14:00] VITALS: BP 158/77
[2017-05-10] MEDS: MAGNESIUM OXIDE 400 MG TAB (MAG-OX) PO SCH (20:33)
[2017-05-10 22:00] VITALS: BP 184/86
[2017-05-11 02:00] VITALS: BP 142/68
[2017-05-11] MEDS: IPRATROPIUM 0.5MG/ALBUTEROL 2.5MG INH SOL UD 3ML (DUONEB)(J7620) NEB SCH ×3 (02:00→13:52)
[2017-05-11 06:00] VITALS: BP 158/70
[2017-05-11 06:49] LABS: MEAN CORPUSCULAR HEMOGLOBIN 24.7 pg (27.0-33.0); MEAN CORPUSCULAR HGB CONC 32.8 g/dl (32.0-36.5); MEAN CORPUSCULAR VOLUME 75.3 fl (80.0-96.0); RED CELL DISTRIBUTION WIDTH 19.3 % (11.5-14.5); WHITE BLOOD COUNT 8.6 K/mm3 (4.0-10.0)
[2017-05-11 07:14] LABS: ANION GAP 5 MEQ/L (8-16); BLOOD UREA NITROGEN 5 MG/DL (7-18); CALCIUM LEVEL 7.6 MG/DL (8.8-10.2); CARBON DIOXIDE LEVEL 26 MEQ/L (21-32); CHLORIDE LEVEL 106 MEQ/L (98-107); CREATININE FOR GFR 0.91 MG/DL (0.70-1.30); GLOMERULAR FILTRATION RATE > 60.0 (>49); GLUCOSE, FASTING 101 MG/DL (80-110); MAGNESIUM LEVEL 1.6 MG/DL (1.8-2.4); POTASSIUM SERUM 3.7 MEQ/L (3.5-5.1); SODIUM LEVEL 137 MEQ/L (136-145)
[2017-05-11] MEDS: TIOTROPIUM INHALER/CAPSULE (SPIRIVA) INH SCH (07:43)
[2017-05-11] MEDS: SYMBICORT 160/4.5MCG INHALER 6GM INH SCH ×2 (07:43→20:08)
[2017-05-11] MEDS: PANTOPRAZOLE 40MG INJ (PROTONIX) (C9113) IV SCH (08:24)
[2017-05-11] MEDS: K-PHOS ORIGINAL (POT.ACID PHOSPHATE) 500MG TAB PO SCH ×2 (08:24→20:47)
[2017-05-11] MEDS: SUCRALFATE SUSP 1GM/10ML UD PO SCH ×4 (08:24→21:00)
[2017-05-11] MEDS: MAGNESIUM OXIDE 400 MG TAB (MAG-OX) PO SCH ×2 (08:25→20:46)
[2017-05-11] MEDS: HumaLOG INSULIN (NovoLOG) PER UNIT SC SCH ×4 (08:26→20:32)
[2017-05-11] MEDS: MAG SULF 1GM/100ML (MAG RUN) 1 GM in APPROPRIATE DILUENT 1 EA IV SCH ×2 (08:27→09:47)
[2017-05-11 10:00] VITALS: BP 130/78
[2017-05-11] MEDS ORDERED: CALCIUM GLUCONATE 1,000 MG in D5W MINI-BAG PLUS 100 ML IV ONE (10:00)
[2017-05-11] MEDS ORDERED: POTASSIUM PHOSPHATE INJ 30 MMOL in D5W 500 ML IV ONE (11:00)
--- NOTE | 2017-05-11 11:58 | IPN ---
DATE OF SERVICE: 05/11/2017 SUBJECTIVE: The patient was seen and examined at the bedside today in the morning. He was actually sitting on the sofa. He feels much better. His renal function is stable; however, he continues to have multiple electrolyte abnormalities. CPK is trending down. REVIEW OF SYSTEMS: The patient denies any fevers, chills, rigors, headache, nausea, vomiting, chest pain, shortness of breath, pain in abdomen, constipation or diarrhea. He does report mild soreness in the right thigh, otherwise the rest of the review of systems is negative. OBJECTIVE: VITAL SIGNS: Temperature is 98.3 degrees Fahrenheit, blood pressure 138/78, pulse 95, respiratory rate of 18, saturating 96% on room air. INTAKE AND OUTPUT: Urine output recorded as 4 liters yesterday, 800 mL so far today since overnight. PHYSICAL EXAMINATION: GENERAL: The patient is awake, alert, oriented times three, sitting on the sofa in apparent distress. HEAD AND NECK EXAMINATION: Extraocular muscles intact. Pupils equally round and reactive to light. Mucous membranes are moist. Neck is supple. There is no jugular venous distention (JVD). CARDIOVASCULAR: S1, S2, regular rate, no murmur, rub, and gallop. RESPIRATORY: Chest is clear to auscultation bilaterally. Bilateral equal air entry. No rales. No rhonchi. ABDOMEN: Soft. Positive bowel sounds. Nontender. No ascites. No organomegaly. EXTREMITIES: No clubbing or cyanosis. Pulses are 2+. No edema of the bilateral lower extremities. CENTRAL NERVOUS SYSTEM (RESAW OPERATOR): No focal neurological deficit. Power is 5/5 in all extremities. LABORATORY REVIEW: CBC showed a WBC of 8.6, hemoglobin 9.8, platelets 180. BMP showed sodium 137, potassium 3.7, chloride 106, bicarbonate 26, BUN 5, creatinine is 0.91, calcium is 7.6, phosphorous is 2, magnesium is 1.6, CPK is 7,710. CURRENT INPATIENT MEDICATIONS: The patent's medications were all reviewed by me. The patient is going to get calcium gluconate 1 gram intravenous (IV) times one dose today. He will also get magnesium sulfate 1 gram IV times two doses. He will get potassium phosphate 30 millimoles IV times one dose. There is no other change in the medication today as compared with yesterday. ASSESSMENT: 66-year-old male with a recent acute kidney injury after gastrointestinal (GI) bleeding and fall at home. The patient has rhabdomyolysis as well along with multiple electrolyte abnormalities. PLAN: 1. Acute kidney injury. The patient's renal function has normalized. Creatinine is fluctuating around 0.9. No need of IV fluids at this time. 2. Hypokalemia. Potassium is improved to 3.7 now. Continue potassium phosphate which will help improve his potassium level as well. 3. Hypophosphatemia. Continue the oral K-Phos. The patient is going to get IV K-Phos 30 millimoles IV times one dose as well. 4. Hypomagnesemia. The patient is currently on magnesium oxide 400 mg by mouth twice a day and he is also going to get magnesium 1 gram IV times two doses. 5. Rhabdomyolysis. His CPK level is trending down. It is down to 7000 now. No need of IV fluids at this time. Continue to encourage oral hydration. 6. Anemia secondary to gastrointestinal bleed. Hemoglobin is 9.8 today. No need of blood transfusion or Aranesp administration at this time. The patient's renal function has improved at this time. The electrolytes can be monitored daily and replete as needed by the primary medical team. Nephrology service will sign off at this moment. Please call nephrology services for any help in the management of this patient in the future. YOLANDA
[2017-05-11 14:00] VITALS: BP 150/70
--- NOTE | 2017-05-11 14:11 | IPNPDOC ---
Date Seen The patient was seen on 05/11/17. Progress Note SUBJECTIVE: Patient does not offer any complaints this am . denies any abdominal pain , denies any nausea or vomiting , says right leg numbness is improving. Has been ambulating with walker from bed to bath room . No fever or chills, no chest pain or SOB . Discussed with patient in length about the advantage of going to rehab . Explained that he could still go for his outpatient appointments from the rehab He can follow up with his wastewater treatment plant supervisor and his vascular surgeon in [place]. Explained that he may not be able to get the procedure required for the leg immediately because of his recent GIB as many vascular surgeries require anticoagulation in the leonardo and post op period. Patient now more amenable to going to Rehab. OBJECTIVE PHYSICAL EXAMINATION: VITAL SIGNS: Please see below. General: The patient appears to be in no acute distress. He is pleasant. HEENT: Head is atraumatic, normocephalic. Eyes: Pupils equal, round, and reactive to light and accommodation. Throat clear. Lungs: Otherwise clear. Heart: Regular rhythm. Abdomen: Soft nontender, Positive bowel sounds. No masses or rebound. Extremities: No edema. No calf tenderness. LABORATORY DATA: Please see below. MICROBIOLOGY: Please see below. EGD: Esophageal ulcer non bleeding , erythema in the greater curvature of the stomach. ASSESSMENT/PLAN. 1. Acute blood loss symptomatic anemia from upper GI bleed due to esophageal ulcer seen in EGD done on 05/07/17. Will continue with pantoprazole po. and sucralfate, hh stable. Patient does have h/o recurrent gastritis, reflux esophagitis and esophageal ulceration since 2013 with recurrent GIBs 2. Hypokalemia resolved. will continue with replacement 3. Acute renal failure and Rhabdomyolysis: from the fall at house so possibly traumatic rhabdomyolysis. Improved 4. Femoral artery occlusion. As per Dr. Spaulding yesterday, he did not feel there was any emergent need for surgical intervention. He can followup as outpatient. Patient has his own vascular surgeon in [facility] and wants to follow with him. 5. Lactic acidosis and hypotension related to low blood pressure, this appears to be improved. 6. Metabolic encephalopathy and Syncope due to GIB and hypotension . Resolved. EEG normal 7. History of hepatitis C: Liver us negative for cirrhotic features and portal venous Doppler negative for portal hypertension. We will need outpatient followup. No esopahgeal varices or portal hypertensive gastropathy in EGD. 8. Diabetes. Continue fingersticks, monitoring and coverage as needed. 9. History of COPD. He appears to be at baseline with no exacerbation at this time. 10. Hypertension. We will continue to follow his blood pressure and have hold. parameters on his medications. 11. Right leg numbness as indicated above. Will need outpatient followup with vascular surgery. Continue PT. 12. Deep venous thrombosis (DVT) prophylaxis, thromboembolic deterrent stockings (TEDS) and sequential, we will avoid any heparin products. At this time no anticoagulation. 13. Electrolyte abnormalities. Patient has hypokalemia, hypomagnesemia and hypophosphatemia which are being replaced. VS, [facility] Vital Signs Date Time Temp Pulse Resp B/P (MAP) Pulse Ox O2 Delivery O2 Flow Rate FiO2 05/11/17 10:00 98.3 95 20 130/78 (95) 96 Room Air 05/06/17 04:00 2.0 I&O- Last 24 Hours up to 6 AM 05/11/17 06:00 Intake Total 1800 ml Output Total 3450 ml Balance -1650 ml Laboratory Data 24H LABS Laboratory Tests 2 05/10/17 16:18: Bedside Glucose (Misc Panel) 90 05/10/17 20:27: Bedside Glucose (Misc Panel) 104 05/11/17 06:31: Anion Gap 5L, Glomerular Filtration Rate > 60.0, Blood Urea Nitrogen 5L, Creatinine 0.91, Sodium Level 137, Potassium Level 3.7, Chloride Level 106, Carbon Dioxide Level 26, Calcium Level 7.6L, Phosphorus Level 2.0L, Magnesium Level 1.6L, Total Creatine Kinase 7710H 05/11/17 11:46: Bedside Glucose (Misc Panel) 146H CBC/BMP Laboratory Tests 05/11/17 06:31 Red Blood Count 3.98 L, Mean Corpuscular Volume 75.3 L, Mean Corpuscular Hemoglobin 24.7 L, Mean Corpuscular Hemoglobin Concent 32.8, Red Cell Distribution Width 19.3 H, Calcium Level 7.6 L Microbiology Microbiology 05/04/17 Blood Culture - Final, Complete NO GROWTH AFTER 5 DAYS 05/04/17 Blood Culture - Final, Complete NO GROWTH AFTER 5 DAYS GLENYS GALAN MD May 11, 2017 14:11
[2017-05-11] MEDS: CEPACOL LOZENGE PO PRN (17:34)
[2017-05-11 18:00] VITALS: BP 140/70
[2017-05-11] MEDS: MORPHINE 2 MG/ML 1ML SYRINGE IV PRN (18:44)
[2017-05-11] MEDS: PANTOPRAZOLE 40MG TAB (PROTONIX) PO SCH (20:47)
[2017-05-11 22:00] VITALS: BP 152/68
[2017-05-12 02:00] VITALS: BP 158/74
[2017-05-12 06:00] VITALS: BP 158/72
[2017-05-12 06:42] LABS: MEAN CORPUSCULAR HEMOGLOBIN 24.4 pg (27.0-33.0); MEAN CORPUSCULAR HGB CONC 31.9 g/dl (32.0-36.5); MEAN CORPUSCULAR VOLUME 76.4 fl (80.0-96.0); RED CELL DISTRIBUTION WIDTH 19.5 % (11.5-14.5); WHITE BLOOD COUNT 7.7 K/mm3 (4.0-10.0)
[2017-05-12 07:02] LABS: ANION GAP 7 MEQ/L (8-16); BLOOD UREA NITROGEN 5 MG/DL (7-18); CALCIUM LEVEL 8.1 MG/DL (8.8-10.2); CARBON DIOXIDE LEVEL 25 MEQ/L (21-32); CHLORIDE LEVEL 104 MEQ/L (98-107); CREATININE FOR GFR 0.93 MG/DL (0.70-1.30); GLOMERULAR FILTRATION RATE > 60.0 (>49); GLUCOSE, FASTING 100 MG/DL (80-110); MAGNESIUM LEVEL 1.8 MG/DL (1.8-2.4); PHOSPHORUS LEVEL 2.4 MG/DL (2.5-4.9); POTASSIUM SERUM 3.9 MEQ/L (3.5-5.1); SODIUM LEVEL 136 MEQ/L (136-145)
[2017-05-12] MEDS: HumaLOG INSULIN (NovoLOG) PER UNIT SC SCH ×4 (07:30→21:00)
[2017-05-12] MEDS: SYMBICORT 160/4.5MCG INHALER 6GM INH SCH ×2 (08:04→20:09)
[2017-05-12] MEDS: TIOTROPIUM INHALER/CAPSULE (SPIRIVA) INH SCH (08:05)
[2017-05-12] MEDS: SUCRALFATE SUSP 1GM/10ML UD PO SCH ×4 (08:38→22:04)
[2017-05-12] MEDS: MAGNESIUM OXIDE 400 MG TAB (MAG-OX) PO SCH ×2 (08:38→22:04)
[2017-05-12] MEDS: K-PHOS ORIGINAL (POT.ACID PHOSPHATE) 500MG TAB PO SCH ×2 (08:38→22:04)
[2017-05-12] MEDS: PANTOPRAZOLE 40MG TAB (PROTONIX) PO SCH ×2 (08:38→22:04)
[2017-05-12 10:00] VITALS: BP 144/72
[2017-05-12] MEDS ORDERED: KPHOS50TA PO (11:11)
[2017-05-12] MEDS ORDERED: MAG400TA PO (11:11)
[2017-05-12 14:00] VITALS: BP 152/68
--- NOTE | 2017-05-12 14:07 | IPNPDOC ---
Date Seen The patient was seen on 05/12/17. Progress Note SUBJECTIVE: Patient does not offer any complaints this am . denies any abdominal pain , denies any nausea or vomiting , says right leg numbness is improving. Has been ambulating with walker from bed to bath room . No fever or chills, no chest pain or SOB . Patient seems very upbeat and agreeable to go to rehab temporarily either in the hospital or around [place]. PM and R is evaluating the patient at present. OBJECTIVE PHYSICAL EXAMINATION: VITAL SIGNS: Please see below. General: The patient appears to be in no acute distress. He is pleasant. HEENT: Head is atraumatic, normocephalic. Eyes: Pupils equal, round, and reactive to light and accommodation. Throat clear. Lungs: Otherwise clear. Heart: Regular rhythm. Abdomen: Soft nontender, Positive bowel sounds. No masses or rebound. Extremities: No edema. No calf tenderness. LABORATORY DATA: Please see below. MICROBIOLOGY: Please see below. EGD: Esophageal ulcer non bleeding , erythema in the greater curvature of the stomach. ASSESSMENT/PLAN. 1. Acute blood loss symptomatic anemia from upper GI bleed due to esophageal ulcer seen in EGD done on 05/07/17. Will continue with pantoprazole po. and sucralfate, hh stable. Patient does have h/o recurrent gastritis, reflux esophagitis and esophageal ulceration since 2013 with recurrent GIBs 2. Hypokalemia resolved. will continue with replacement 3. Acute renal failure and Rhabdomyolysis: from the fall at house so possibly traumatic rhabdomyolysis. Improved 4. Femoral artery occlusion. As per Dr. Spaulding yesterday, he did not feel there was any emergent need for surgical intervention. He can followup as outpatient. Patient has his own vascular surgeon in [facility] and wants to follow with him. 5. Lactic acidosis and hypotension related to low blood pressure, this appears to be improved. 6. Metabolic encephalopathy and Syncope due to GIB and hypotension . Resolved. EEG normal 7. History of hepatitis C: Liver us negative for cirrhotic features and portal venous Doppler negative for portal hypertension. We will need outpatient followup. No esopahgeal varices or portal hypertensive gastropathy in EGD. 8. Diabetes. Continue fingersticks, monitoring and coverage as needed. 9. History of COPD. He appears to be at baseline with no exacerbation at this time. 10. Hypertension. We will continue to follow his blood pressure and have hold. parameters on his medications. 11. Right leg numbness as indicated above. Will need outpatient followup with vascular surgery. Continue PT. 12. Deep venous thrombosis (DVT) prophylaxis, thromboembolic deterrent stockings (TEDS) and sequential, we will avoid any heparin products. At this time no anticoagulation. 13. Electrolyte abnormalities: hypokalemia, hypomagnesemia and hypophosphatemia which are being replaced. VS, I&O, 24H, Fishbone Vital Signs/I&O Vital Signs Date Time Temp Pulse Resp B/P (MAP) Pulse Ox O2 Delivery O2 Flow Rate FiO2 05/12/17 10:00 97.7 78 18 144/72 (96) 91 Room Air 05/06/17 04:00 2.0 I&O- Last 24 Hours up to 6 AM 05/12/17 06:00 Intake Total 2470 ml Output Total 1900 ml Balance 570 ml Laboratory Data 24H LABS Laboratory Tests 2 05/11/17 16:50: Bedside Glucose (Misc Panel) 141H 05/11/17 22:09: Lab Scanned Report Transfusion Record 05/12/17 06:25: Anion Gap 7L, Glomerular Filtration Rate > 60.0, Blood Urea Nitrogen 5L, Creatinine 0.93, Sodium Level 136, Potassium Level 3.9, Chloride Level 104, Carbon Dioxide Level 25, Calcium Level 8.1L, Phosphorus Level 2.4L, Magnesium Level 1.8, Total Creatine Kinase 4725H 05/12/17 11:33: Bedside Glucose (Misc Panel) 93 CBC/BMP Laboratory Tests 05/12/17 06:25 Red Blood Count 4.17 L, Mean Corpuscular Volume 76.4 L, Mean Corpuscular Hemoglobin 24.4 L, Mean Corpuscular Hemoglobin Concent 31.9 L, Red Cell Distribution Width 19.5 H, Calcium Level 8.1 L Microbiology Microbiology 05/04/17 Blood Culture - Final, Complete NO GROWTH AFTER 5 DAYS 05/04/17 Blood Culture - Final, Complete NO GROWTH AFTER 5 DAYS GLENYS GALAN MD May 12, 2017 14:07
[2017-05-12 18:00] VITALS: BP 140/80
[2017-05-12 22:00] VITALS: BP 150/70
[2017-05-13 02:00] VITALS: BP 154/78
[2017-05-13 06:00] VITALS: BP 140/70
[2017-05-13 07:04] LABS: MEAN CORPUSCULAR HEMOGLOBIN 24.4 pg (27.0-33.0); MEAN CORPUSCULAR HGB CONC 31.7 g/dl (32.0-36.5); MEAN CORPUSCULAR VOLUME 77.1 fl (80.0-96.0); RED CELL DISTRIBUTION WIDTH 19.4 % (11.5-14.5); WHITE BLOOD COUNT 7.4 K/mm3 (4.0-10.0)
[2017-05-13] MEDS: SUCRALFATE SUSP 1GM/10ML UD PO SCH ×2 (07:51→11:37)
[2017-05-13] MEDS: HumaLOG INSULIN (NovoLOG) PER UNIT SC SCH ×2 (07:52→11:40)
[2017-05-13] MEDS: PANTOPRAZOLE 40MG TAB (PROTONIX) PO SCH (08:17)
[2017-05-13] MEDS: K-PHOS ORIGINAL (POT.ACID PHOSPHATE) 500MG TAB PO SCH (08:17)
[2017-05-13] MEDS: MAGNESIUM OXIDE 400 MG TAB (MAG-OX) PO SCH (08:17)
[2017-05-13] MEDS: SYMBICORT 160/4.5MCG INHALER 6GM INH SCH (08:39)
[2017-05-13 10:00] VITALS: BP 150/78
--- NOTE | 2017-05-16 18:17 | DSES ---
DATE OF ADMISSION: 05/04/2017 DATE OF DISCHARGE: 05/13/2017 PRIMARY CARE PROVIDER: [facility] DISCHARGE DIAGNOSES: 1. Upper gastrointestinal bleed due to esophagitis and gastritis and nonbleeding esophageal ulcer. 2. Acute blood loss anemia due to the above. 3. Traumatic rhabdomyolysis 4. Acute renal failure. 5. Acute metabolic encephalopathy and syncope due to hypotension and gastrointestinal bleed. 6. Hepatitis C. 7. Diabetes. 8. History of chronic obstructive pulmonary disease (COPD). 9. Hypertension. 10. 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 11. Multiple electrolyte abnormalities. 12. Hypokalemia. 13. Hypomagnesemia. 14. Hypophosphatemia, corrected. DISCHARGE MEDICATIONS: - magnesium oxide 400 mg by mouth twice a day - potassium phosphate 1000 mg by mouth twice a day - albuterol sulfate two puff inhalation every 4 hours as needed for shortness of breath - amlodipine 5 mg by mouth twice a day - Symbicort 61/4.5 two puffs twice a day - NovoLog by sliding scale - metoprolol 25 mg by mouth twice a day - multivitamin one tablet daily - ondansetron 4 mg by mouth three times a day as needed for nausea - pantoprazole 40 mg by mouth twice a day - sucralfate 1 gram by mouth before food and nightly - Spiriva one inhalation daily HOSPITAL COURSE: This is a 66-year-old male who presented to the hospital with complaints of coffee ground emesis and melena for one day, followed by dizziness , lightheadedness, sudden right leg numbness, tingling, loss of strength while he stood up after having a bowel movement in the bathroom, causing him to fall into the bathtub. The patient was found by the son unresponsive in the tub. Emergency medical services (EMS) was called and he was brought to the emergency department. The patient's blood pressure was in the 70s with sinus tachycardia. In the emergency department, the patient was initially hypotensive and unresponsive. The patient was in the process of being intubated for airway protection when the patient became conscious and returned to his baseline mental status. He was found to be anemic with a hemoglobin of 8.3, which was a drop of about 5 points from his baseline. He was given bolus of IV fluid and 2 units of packed red blood cell. His blood pressure improved. Nasogastric tube was placed and coffee ground output was noted. The patient was also noted to have rhabdomyolysis and acute renal failure, which became more prominent on day one of admission. The patient subsequently underwent EGD by Dr. Matamoros and was found to have nonbleeding esophageal ulcer, as well as erythematous mucosa in the curvature of the stomach, felt to be due to gastritis. The patient does have a history of recurrent gastrointestinal bleed since 2013 with multiple EGDs and colonoscopies, each time showing recurrent gastritis , reflux esophagitis with esophageal /gastric ulceration. The patient did not have any esophageal or gastric varices. The patient was seen by nephrology for his acute renal failure and subsequently with hydration the patient's rhabdomyolysis and renal failure improved. The patient was also seen by Dr. Spaulding from vascular surgery because of his right leg tingling, numbness and weakness. CT scan of the extremity did not show any acute fractures or any abnormality in the bones or soft tissue. He had an extremity arterial study, which showed mild to moderate narrowing of the right common femoral artery and superficial femoral artery with occlusion of the distal right superficial femoral artery. There was upper reconstitution and patency of a mild to moderately narrowed popliteal artery. Flow was noted to distal anterior and posterior tibial arteries. As per vascular surgery, the patient did not need any acute intervention; however, the patient needed to followup with vascular surgery as an outpatient. The patient was seen by physical therapy (PT). With several sessions of physical therapy (PT) during the hospitalization, the patient's right leg strength improved from admission and the patient was able to ambulate well with the help of a walker, but still the patient was not back to his functional baseline. As per physical therapy (PT) recommendations, the patient needed short term rehabilitation for improvement in his functional status so the patient was discharged to [facility] for rehabilitation. On the day of discharge, the patient's vital signs are stable. He did not have any complaints. The patient was gradually improving in his functional status. PHYSICAL EXAMINATION: VITAL SIGNS: Temperature 98.3, pulse 81, respiratory rate 18, blood pressure 150/78, pulse oximetry 98% on room air. GENERAL : The patient is awake, alert, oriented times three. Sitting up in bed in no acute distress. HEENT: Normocephalic, atraumatic. Moist mucous membranes. Anicteric eyes. CHEST: Clear to auscultation. CARDIOVASCULAR: S1, S2 regular. No rub, murmur, or gallop. ABDOMEN: Soft, nontender. Bowel sounds present. EXTREMITIES: No edema. LABORATORY DATA: WBC 7.4, hemoglobin 10, platelets 237. Sodium 136, potassium 3.9, chloride 104, bicarbonate 25, BUN 5, creatinine 0.9, calcium 8.1, phosphorous 2.4, magnesium 1.8, CK improving to 4725. Blood glucose was 106. IMAGING: MRI of the brain showed small vessel ischemic disease and minimal volume loss. Liver ultrasound showed cholelithiasis. Normal portal venous flow. No visible Doppler abnormality in the liver or spleen. Hepatic artery on Doppler flow was not accessible. Extremity arterial study, as mentioned above, showed moderate narrowing of the right common femoral artery and superficial femoral artery and occlusion of the distal right femoral artery. Abdomen and pelvis CT showed moderate hiatal hernia, cholelithiasis. Extremity CT did not show any fracture of the right limb. Cervical spine CT did not show any acute fracture, dislocation. There was cervical spondylosis from C1-2 up to C7, T11 levels. Chest x-ray did not show any acute disease. DISPOSITION: The patient is discharged to [facility] for short term rehabilitation. DISCHARGE INSTRUCTIONS: The patient is to followup with Dr. Pearson in one week. Patient is to followup with vascular surgery in 2 to 3 weeks. Activity as tolerated. Carbohydrate consistent diet. MTDD
== END 2017-05-13 13:13 | DRG 377 ==
LOC: EDBD 13:41 → M ED 14:16 → M ED INP 17:54 → M ICU 20:58 → M MSPAV 05-06 11:00
PROVIDERS: ADMIT Internal Medicine; ATTEND Internal Medicine Nephrology
PROC: 30233N1 Transfusion of Nonautologous Red Blood Cells into Peripheral Vein, Percutaneous Approach (ICD-10-PCS; 2017-05-04)
PROC: 0WJP8ZZ Inspection of Gastrointestinal Tract, Via Natural or Artificial Opening Endoscopic Approach (ICD-10-PCS; principal; 2017-05-07 10:04)
DX: K92.2 Gastrointestinal hemorrhage, unspecified (principal); G93.41 Metabolic encephalopathy; E87.2 Acidosis; N17.9 Acute kidney failure, unspecified; M62.82 Rhabdomyolysis; D62 Acute posthemorrhagic anemia; K22.10 Ulcer of esophagus without bleeding; F17.210 Nicotine dependence, cigarettes, uncomplicated; K21.0 Gastro-esophageal reflux disease with esophagitis; K29.70 Gastritis, unspecified, without bleeding; E11.9 Type 2 diabetes mellitus without complications; I10 Essential (primary) hypertension; E87.6 Hypokalemia; E83.42 Hypomagnesemia; E83.51 Hypocalcemia; E83.39 Other disorders of phosphorus metabolism; E66.9 Obesity, unspecified; B19.20 Unspecified viral hepatitis C without hepatic coma; I95.9 Hypotension, unspecified; I77.1 Stricture of artery; Z79.4 Long term (current) use of insulin; Z79.899 Other long term (current) drug therapy; Z89.422 Acquired absence of other left toe(s); Z68.28 Body mass index [BMI] 28.0-28.9, adult

== ENCOUNTER → 2017-05-17 | Outpatient (REF) ==
[~2017-05-17] MED LIST changes: +KPHOS50TA PO; +MAG400TA PO
[2017-05-17 12:57] LABS: MEAN CORPUSCULAR HEMOGLOBIN 24.4 pg (27.0-33.0); MEAN CORPUSCULAR HGB CONC 31.2 g/dl (32.0-36.5); MEAN CORPUSCULAR VOLUME 78.2 fl (80.0-96.0); RED CELL DISTRIBUTION WIDTH 19.4 % (11.5-14.5); WHITE BLOOD COUNT 5.7 K/mm3 (4.0-10.0)
[2017-05-17 13:34] LABS: ANION GAP 11 MEQ/L (8-16); BLOOD UREA NITROGEN 9 MG/DL (7-18); CALCIUM LEVEL 8.4 MG/DL (8.8-10.2); CARBON DIOXIDE LEVEL 21 MEQ/L (21-32); CHLORIDE LEVEL 105 MEQ/L (98-107); CREATININE FOR GFR 1.28 MG/DL (0.70-1.30); GLOMERULAR FILTRATION RATE > 60.0 (>49); GLUCOSE, FASTING 92 MG/DL (80-110); POTASSIUM SERUM 4.3 MEQ/L (3.5-5.1); SODIUM LEVEL 137 MEQ/L (136-145)
== END ==
PROVIDERS: ATTEND Internal Medicine
DX: M62.82 Rhabdomyolysis (principal); K92.2 Gastrointestinal hemorrhage, unspecified

== ENCOUNTER → 2017-05-25 | Outpatient (REF) ==
[~2017-05-25] MED LIST changes: +AMLO10TA2 PO; +ASCO25TA PO; +CARA1TAB6 PO; +FERR1TAB8 PO; +FOLI1TAB4 PO; +HARV1TAB PO; +LEVA1TAB2 PO; -LEVA500T PO; +METF500T13 PO; -METO12TA PO; +METO1TAB7 PO; +METO1TAB87 PO; +METO25TA4 PO; +MILKSUS PO; +NICO14PA TD; +SENN1TAB2 PO; +SPIR1CAP INH; +SUCR10SS PO
[2017-05-25 10:39] LABS: MEAN CORPUSCULAR HEMOGLOBIN 23.8 pg (27.0-33.0); MEAN CORPUSCULAR HGB CONC 30.8 g/dl (32.0-36.5); MEAN CORPUSCULAR VOLUME 77.1 fl (80.0-96.0); RED CELL DISTRIBUTION WIDTH 18.7 % (11.5-14.5); WHITE BLOOD COUNT 5.6 K/mm3 (4.0-10.0)
[2017-05-25 10:56] LABS: ANION GAP 11 MEQ/L (8-16); BLOOD UREA NITROGEN 8 MG/DL (7-18); CALCIUM LEVEL 8.7 MG/DL (8.8-10.2); CARBON DIOXIDE LEVEL 23 MEQ/L (21-32); CHLORIDE LEVEL 106 MEQ/L (98-107); CREATININE FOR GFR 1.35 MG/DL (0.70-1.30); GLOMERULAR FILTRATION RATE > 60.0 (>49); GLUCOSE, FASTING 124 MG/DL (80-110); POTASSIUM SERUM 4.2 MEQ/L (3.5-5.1); SODIUM LEVEL 140 MEQ/L (136-145)
== END ==
PROVIDERS: ATTEND Internal Medicine
DX: K92.2 Gastrointestinal hemorrhage, unspecified (principal)

== ENCOUNTER → 2017-05-31 | Outpatient (REF) ==
[2017-05-31 12:01] LABS: MEAN CORPUSCULAR HEMOGLOBIN 23.1 pg (27.0-33.0); MEAN CORPUSCULAR HGB CONC 30.5 g/dl (32.0-36.5); MEAN CORPUSCULAR VOLUME 75.8 fl (80.0-96.0); RED CELL DISTRIBUTION WIDTH 18.9 % (11.5-14.5); WHITE BLOOD COUNT 5.4 K/mm3 (4.0-10.0)
== END ==
PROVIDERS: ATTEND Internal Medicine
DX: D64.9 Anemia, unspecified (principal); K92.2 Gastrointestinal hemorrhage, unspecified

== ENCOUNTER 2017-10-10 08:37 | Inpatient (IN) | payer MEDICARE ==
[2017-10-10] VITALS (33 sets, daily range): BP systolic 143–202; BP diastolic 65–99
[~2017-10-10] VITALS: Ht 180.3 cm; Wt 83.0 kg
[2017-10-10] MEDS ORDERED: ONDANSETRON 4MG/2ML VIAL (J2405) IV ONE (09:00)
[2017-10-10] MEDS ORDERED: NS 1,000 ML IV ONE (09:15)
[2017-10-10] MEDS ORDERED: diphenhydrAMINE INJ 50MG/ML VIAL (J1200) IV ONE (09:15)
[2017-10-10] MEDS ORDERED: MORPHINE 4 MG/ML 1ML SYRINGE IV ONE ×3 (09:15→12:45)
[2017-10-10 10:14] LABS: BASO % 0.1 % (0.0-1.0); IMMATURE GRANULOCYTE % 0.3 % (0-0); LYMPH % 10.8 % (24.0-44.0); MEAN CORPUSCULAR HEMOGLOBIN 21.3 pg (27.0-33.0); MEAN CORPUSCULAR VOLUME 68.8 fl (80.0-96.0); MONO # 0.5 10^3/uL (0.0-0.8); MONO % 4.9 % (0.0-5.0); NEUTROPHILS # 7.7 10^3/uL (1.8-7.7); NEUTROPHILS % 83.9 % (36.0-66.0); PLATELET COUNT, AUTOMATED 387 10^3/uL (150-450); RED CELL DISTRIBUTION WIDTH 18.9 % (11.5-14.5); WHITE BLOOD COUNT 9.2 10^3/uL (4.0-10.0)
[2017-10-10 10:14] LABS: ALBUMIN 4.3 GM/DL (3.2-5.2); ALBUMIN/GLOBULIN RATIO 0.86 (1.00-1.93); ALKALINE PHOSPHATASE 129 U/L (45-117); ALT/SGPT 20 U/L (12-78); ANION GAP 12 MEQ/L (8-16); AST/SGOT 15 U/L (7-37); BLOOD UREA NITROGEN 8 MG/DL (7-18); CALCIUM LEVEL 9.7 MG/DL (8.8-10.2); CARBON DIOXIDE LEVEL 26 MEQ/L (21-32); CHLORIDE LEVEL 98 MEQ/L (98-107); CREATININE FOR GFR 1.13 MG/DL (0.70-1.30); GLOMERULAR FILTRATION RATE > 60.0 (>49); GLUCOSE, FASTING 157 MG/DL (80-110); POTASSIUM SERUM 3.6 MEQ/L (3.5-5.1); SODIUM LEVEL 136 MEQ/L (136-145); TOTAL PROTEIN 9.3 GM/DL (6.4-8.2)
[2017-10-10] MEDS ORDERED: PROMETHAZINE INJ 25 MG/ML VIAL (J2550) IV ONE (10:15)
[2017-10-10] MEDS ORDERED: PANTOPRAZOLE 40MG INJ (PROTONIX) (C9113) IV ONE (11:45)
[2017-10-10] MEDS ORDERED: PANTOPRAZOLE SODIUM 40 MG in D5W 50 ML IV SCH (11:45)
[2017-10-10] MEDS ORDERED: niCARdipine IV 40 MG in APPROPRIATE DILUENT 1 EA IV SCH (12:45)
[2017-10-10 13:15] LABS: INR 1.07
--- NOTE | 2017-10-10 13:30 | REP ---
Chest one-view HISTORY: Upper GI bleed Comparison: 05/04/2017 The lungs are clear. The heart is normal in size. The pulmonary vasculature is normal in appearance. Impression: No acute disease. Signed by Tonio Berman MD 10/10/2017 01:21 P
[2017-10-10] MEDS ORDERED: hydrALAZINE INJ 20 MG/ML VIAL IV SCH (14:00)
[2017-10-10] MEDS ORDERED: ALBUTEROL 90 MCG/ACT 8GM HFA INHALER INH PRN (14:15)
[2017-10-10] MEDS ORDERED: ACETAMINOPHEN 650 MG SUPP PR PRN (14:15)
[2017-10-10 14:28] LABS: MAGNESIUM LEVEL 1.9 MG/DL (1.8-2.4)
[2017-10-10] MEDS: METOCLOPRAMIDE INJ 10MG/2ML VIAL (J2765) IV PRN (15:20)
[2017-10-10] MEDS: KCL 20MEQ IN 0.45NS 1000ML 1,000 ML IV SCH (15:22)
[2017-10-10] MEDS: PANTOPRAZOLE SODIUM 40 MG in D5W 50 ML IV SCH ×2 (15:25→18:22)
[2017-10-10] MEDS ORDERED: DEXTROSE 50% 50 ML SYRINGE IV PRN (15:30)
[2017-10-10] MEDS ORDERED: GLUCAGON FOR INJ 1 MG VIAL (J1610) SC PRN (15:30)
[2017-10-10] MEDS ORDERED: GLUCOSE 4 GM CHEW TABLET PO PRN (15:30)
[2017-10-10] MEDS: raNITIdine SYRUP 150 MG/10 ML UDC PO SCH ×2 (15:31→21:10)
[2017-10-10] MEDS: SUCRALFATE SUSP 1GM/10ML UD PO SCH ×2 (15:31→18:22)
[2017-10-10] MEDS: diltiaZEM 125 MG in NS 100 ML IV SCH (15:38)
[2017-10-10] MEDS: ONDANSETRON 4MG/2ML VIAL (J2405) IV PRN ×2 (16:06→21:10)
--- NOTE | 2017-10-10 16:11 | HPE ---
DATE OF ADMISSION: 10/10/2017 TIME SEEN: Around 1 p.m. PRIMARY CARE PROVIDER: [facility]. MED SPECIALIST: Dr. Pearl. CHIEF COMPLAINT: Nausea and vomiting with coffee-ground emesis and also one loose stool yesterday. HISTORY OF PRESENT ILLNESS: A 66-year-old male presented with the patient's daughter who also works here as a nurse, with a past medical history of hepatitis C undergoing treatment, type 2 diabetes on metformin, gastritis, and gastroesophageal reflux disease (GERD), and also hiatal hernia, history of esophageal varices status post banding, history of gastrointestinal (GI) bleed, chronic obstructive pulmonary disease (COPD), asthma, hypertension, alcohol abuse, last one was six months ago, tobacco dependence, iron-deficiency anemia secondary to GI bleed, also abnormal electrocardiogram (EKG), who presented with intractable nausea and vomiting with coffee-ground emesis. Per patient's daughter, it started yesterday morning two hours after the patient ate breakfast. Initially the patient was burping around 9 a.m., and continued burping throughout the day, and around 8 p.m., the patient started having coffee-ground emesis. The patient also admits to chill; however, no actual fever. The patient also had a loose stool yesterday. The patient also admits to some dizziness. Denies any chest pain, trouble breathing however. Denies any problem with urination or any blood in the stool. Denies any sick contacts, recent traveling or weight loss. ALLERGIES: No known drug allergies. HOME MEDICATIONS: - Ventolin two puff inhalation every four hours as needed - amlodipine 10 mg one tablet by mouth at bedtime - vitamin C 250 mg one tablet by mouth twice a day - Symbicort two puff inhalation twice a day - ferrous sulfate 325 mg one tablet by mouth twice a day - folic acid 1 mg by mouth daily - Harvoni 90/400 mg one tablet by mouth daily - magnesium oxide 400 mg one tablet by mouth twice a day - metformin 500 mg one tablet by mouth twice a day - metoprolol succinate 50 mg one tablet by mouth daily - milk of magnesia 30 mL by mouth daily - multivitamin one tablet by mouth daily - nicotine one patch daily - Protonix 40 mg one tablet by mouth twice a day - Colace with senna one tablet by mouth daily - Carafate 1 gram by mouth before food and at bedtime - Spiriva one tablet by mouth daily PAST MEDICAL HISTORY: 1. Hepatitis C undergoing treatment. 2. Type 2 diabetes, not on insulin. 3. Gastritis, hiatal hernia, GERD, remote history of esophageal varices. 4. Alcohol abuse. 5. COPD/asthma. 6. Hypertension. 7. Iron-deficiency anemia due to GI bleed. 8. Abnormal EKG with right bundle branch block, left anterior fascicular block, and left ventricular hypertrophy. PAST SURGICAL HISTORY: Left pinkie toe removal. SOCIAL HISTORY: The patient used to drink. Last drink was a few months ago. Still smokes roughly a half pack per day for the past 38 years. The patient does have a history of intravenous (IV) drug use. FAMILY HISTORY: Both of his parents in the 50s from heart disease. REVIEW OF SYSTEMS: GENERAL: The patient denies any recent traveling or sick contacts. The patient was recently in the hospital back in August. Denies any fever, admits to chills. HEENT: Denies any changes of vision, small, hearing or taste. CARDIOVASCULAR: Admits to chest pain; however, it was with vomit. Denies any shortness of breath or any palpitations. PULMONARY: no shortness of breath currently. GI: Admits to nausea and vomiting, and also one time of diarrhea. Also admits to coffee-ground emesis. MUSCULOSKELETAL: Denies any discomfort anywhere. : Denies any problem with urination. ENDOCRINE: Denies any head or cold intolerance. HEMATOLOGY/ONCOLOGY: Denies any easy bruising; however, the patient does have a history of GI bleed, was recently scoped with Dr. Pearl. PSYCHIATRIC: Denies any anxiety or depression. NEUROLOGIC: Denies any weakness on any one side of his body; however, he did admit to some dizziness while he was vomiting. PHYSICAL EXAMINATION: VITAL SIGNS: Temperature 97.2, pulse 113, respirations 20, blood pressure 192/95 , oxygen saturation 100% on room air. GENERAL: The patient is a well-developed, well-nourished black elderly male who was alert, awake, oriented times three. Appears to be somewhat drowsy with head elevated at 90 degrees. HEENT: Normocephalic, atraumatic. Extraocular motor intact. Mucus moist. NECK: Supple. No neck lymphadenopathy. CARDIOVASCULAR: Tachycardiac, normal S1, S2. No murmurs. LUNGS: Clear to auscultation bilaterally. No wheezes, rales, or rhonchi. ABDOMEN: Positive bowel sounds. Slightly distended. No peritoneal signs. No ecchymosis. EXTREMITIES: No edema, clubbing or cyanosis. SKIN: Warm and dry. NEUROLOGIC: Cranial nerves II through XII intact. No focal neurological deficit. LABORATORY DATA: WBC 9.2, hemoglobin 11.6, hematocrit 37.4 with platelet count of 387 Sodium 136, potassium 3.6, chloride 98, bicarbonate 26, anion gap 11, BUN eight, creatinine 1.13, GFR greater than 60, fasting glucose 157. A1c was six. Calcium 9.7. Total bilirubin one, direct bilirubin was not measured. AST 15, ALT 20, alkaline phosphatase 129. Cardiac markers are pending. Protein 9.3, albumin 4.3, lipase 157. TSH is pending. PT 14, INR 1.07, PTT 28.8. IMAGING: The patient had a one-view chest x-ray that shows no acute disease. ASSESSMENT AND PLAN: A 66-year-old male with past medical history of Pineda's esophagus, esophageal varices, gastritis, gastroesophageal reflux disease (GERD), hiatal hernia, hepatitis C undergoing treatment, type 2 diabetes not on insulin, chronic obstructive pulmonary disease (COPD)/asthma, hypertension, alcohol abuse, iron-deficiency anemia due to gastrointestinal (GI) bleed and also abnormal EKG, presented with: 1. Nausea and vomiting and also one time diarrhea with coffee-ground emesis, suspecting upper GI bleed. Dr. Pearl from gastroenterology has been consulted and agreed to see patient, and possibly perform esophagogastroduodenoscopy (EGD) in the morning for tomorrow. The patient will be kept nothing by mouth, Reglan and Zofran for nausea. Protonix drip as well as continue to monitor for any signs of severe vomiting. On aspiration precautions. At this point, the patient refused nasogastric tube placement. However, we will try to convince him again if he continues to have nausea and vomiting. 2. Hypertensive urgency. Initial blood pressure was with systolic in the 200s; however, the patient denies any headache or any chest pain, and there was no end-organ damage observed on any laboratory data. The patient stated that he did not take any of his daily blood pressure medications due to his having nausea and vomiting. Will place the patient on Cardizem drip at this point, and also IV hydralazine with hold parameter, hold if systolic blood pressure is less than 150. 3. History of hepatitis C. The patient has two more doses of Harvoni left. Will continue to monitor. At this point, the patient does not have elevated aspartate transaminase (AST) or alanine transaminase (ALT). No elevation of international normalized ratio (INR). 4. History of chronic obstructive pulmonary disease (COPD)/asthma. Continue home inhaler and DuoNeb as needed. 5. History of alcohol abuse. Per patient, he has quit several months ago. Continue to monitor for any possible signs of withdrawal. If patient does have any signs, we will add Serax. 6. Type 2 diabetes on metformin. We will hold metformin for now due to severe nausea and vomiting. Will place the patient on insulin sliding scale and continue to monitor with fingersticks. 7. History of gastroesophageal reflux disease (GERD), hiatal hernia, Pineda's esophagus, history of upper GI bleed, and also history of esophageal varices. We will continue to monitor, possibly contribute to patient's symptoms. 8. Iron-deficiency anemia secondary to upper GI bleed. The patient is still anemic. We will check the patient's iron level and we will continue supplement as necessary. 9. Abnormal electrocardiogram (EKG). EKG was done at this time and showed similar to prior EKG. Current ventricular rate is 110. The patient does have frequent premature atrial contractions (PACs) and also right bundle branch block and left anterior fascicular block. We will continue to monitor patient. 10. Deep venous thrombosis (DVT) prophylaxis, on sequential compression devices (SCDs) only for now due to patient's GI bleed. 11. Fluid, Electrolytes And Nutrition: The patient is currently on potassium 20 with half normal saline at a rate of 60 mL per hour. We will keep the patient's potassium at a goal of four, and the patient will be kept nothing by mouth for now due to nausea, vomiting and possible procedure tomorrow. 12. Disposition: The patient does have intractable nausea and vomiting, and also possible upper GI bleed. Dr. Pearl from gastroenterology has been consulted. Will follow his recommendations for possible EGD in the morning. In the meanwhile, we will continue to monitor patient for any signs of aspiration. The patient has been discussed with the attending doctor, Dr. Leroy. My preceptor for this patient encounter was Dr. Leroy. The preceptor was physically present in the building during the encounter and was fully available as needed. All aspects of the patient interview, examination, medical decision making process, and medical care plan development were reviewed and approved by the preceptor. The preceptor is aware and concurs with the plan as stated in the body of this note and will attest to such by his/her co-signature. YOLANDA
[2017-10-10] MEDS: HumaLOG INSULIN (NovoLOG) PER UNIT SC SCH ×2 (17:30→20:55)
--- NOTE | 2017-10-10 17:52 | IPNPDOC ---
Text Note Date of Service The patient was seen on 10/10/17. NOTE Patient with upper gi bleed and uncontrolled hypertension. I discussed the case with Dr. Pearl by phone, plan for repeat EGD tomorrow. Repeat hgb this evening. I discussed case with daughter at bedside. VS,Fishbone, I+O VS, Fishbone, I+O Laboratory Tests 10/10/17 09:18 Calcium Level 9.7, Aspartate Amino Transf (AST/SGOT) 15, Alanine Aminotransferase (ALT/SGPT) 20, Alkaline Phosphatase 129 H, Total Bilirubin 1.0 , Total Protein 9.3 H, Albumin 4.3 10/10/17 10:01 Red Blood Count 5.44, Mean Corpuscular Volume 68.8 L, Mean Corpuscular Hemoglobin 21.3 L, Mean Corpuscular Hemoglobin Concent 31.0 L, Red Cell Distribution Width 18.9 H, Neutrophils (%) (Auto) 83.9 H, Lymphocytes (%) (Auto ) 10.8 L, Monocytes (%) (Auto) 4.9, Eosinophils (%) (Auto) 0.0, Basophils (%) ( Auto) 0.1, Neutrophils # (Auto) 7.7, Lymphocytes # (Auto) 1.0 L, Monocytes # ( Auto) 0.5, Eosinophils # (Auto) 0.0, Basophils # (Auto) 0.0 10/10/17 13:04 Vital Signs Date Time Temp Pulse Resp B/P (MAP) Pulse Ox O2 Delivery O2 Flow Rate FiO2 10/10/17 17:00 98 161/74 (103) 10/10/17 16:14 20 10/10/17 16:00 Nasal Cannula 2.0 10/10/17 15:37 96.7 100 I&O- Last 24 Hours up to 6 AM 10/11/17 06:00 Intake Total 1000 ml Output Total 400 ml Balance 600 ml ROXANE GUZMAN MD Oct 10, 2017 17:52
[2017-10-10] MEDS: SYMBICORT 160/4.5MCG INHALER 6GM INH SCH (20:11)
[2017-10-10] MEDS ORDERED: hydrALAZINE INJ 20 MG/ML VIAL IV STA (20:38)
[2017-10-10 21:22] LABS: MEAN CORPUSCULAR HGB CONC 30.1 g/dl (32.0-36.5); MEAN CORPUSCULAR VOLUME 69.8 fl (80.0-96.0); PLATELET COUNT, AUTOMATED 328 10^3/uL (150-450); RED CELL DISTRIBUTION WIDTH 18.7 % (11.5-14.5); WHITE BLOOD COUNT 11.5 10^3/uL (4.0-10.0)
[2017-10-11] VITALS (34 sets, daily range): BP systolic 129–179; BP diastolic 60–78
[2017-10-11] MEDS: SUCRALFATE SUSP 1GM/10ML UD PO SCH ×5 (00:01→23:41)
[2017-10-11] MEDS: METOCLOPRAMIDE INJ 10MG/2ML VIAL (J2765) IV PRN (00:05)
[2017-10-11] MEDS: PANTOPRAZOLE SODIUM 40 MG in D5W 50 ML IV SCH ×4 (00:05→20:25)
[2017-10-11] MEDS: diltiaZEM 125 MG in NS 100 ML IV SCH ×2 (00:06→14:00)
[2017-10-11] MEDS: hydrALAZINE INJ 20 MG/ML VIAL IV SCH ×4 (02:18→19:54)
[2017-10-11] MEDS: ONDANSETRON 4MG/2ML VIAL (J2405) IV PRN (02:19)
[2017-10-11 04:29] LABS: BASO % 0.1 % (0.0-1.0); EOS % 0.4 % (0.0-3.0); IMMATURE GRANULOCYTE % 0.3 % (0-0); LYMPH # 1.7 10^3/uL (1.5-4.5); LYMPH % 17.8 % (24.0-44.0); MEAN CORPUSCULAR HEMOGLOBIN 21.2 pg (27.0-33.0); MEAN CORPUSCULAR HGB CONC 30.9 g/dl (32.0-36.5); MEAN CORPUSCULAR VOLUME 68.8 fl (80.0-96.0); MONO % 10.6 % (0.0-5.0); NEUTROPHILS # 6.5 10^3/uL (1.8-7.7); NEUTROPHILS % 70.8 % (36.0-66.0); PLATELET COUNT, AUTOMATED 335 10^3/uL (150-450); RED CELL DISTRIBUTION WIDTH 18.4 % (11.5-14.5); WHITE BLOOD COUNT 9.3 10^3/uL (4.0-10.0)
[2017-10-11 04:54] LABS: ANION GAP 9 MEQ/L (8-16); BLOOD UREA NITROGEN 9 MG/DL (7-18); CARBON DIOXIDE LEVEL 26 MEQ/L (21-32); CHLORIDE LEVEL 104 MEQ/L (98-107); CREATININE FOR GFR 1.07 MG/DL (0.70-1.30); FERRITIN 10 NG/ML (26-388); GLOMERULAR FILTRATION RATE > 60.0 (>49); GLUCOSE, FASTING 110 MG/DL (80-110); PERCENT SATURATION 7.7 % (19.7-50.0); POTASSIUM SERUM 3.7 MEQ/L (3.5-5.1); SODIUM LEVEL 139 MEQ/L (136-145); TOTAL IRON BINDING CAPACITY 440 UG/DL (250-450)
[2017-10-11] MEDS: KCL 20MEQ IN 0.45NS 1000ML 1,000 ML IV SCH ×2 (05:07→23:41)
[2017-10-11 05:15] LABS: CALCIUM LEVEL 8.2 MG/DL (8.8-10.2)
--- NOTE | 2017-10-11 05:45 | ECGEPIP ---
Stationary ECG Study [facility] - ED Test Date: 2017-10-10 Pat Name: HATTIE DAMON Department: Room: [place] [address] Gender: M [employer] Supervisor: damon : 1950 Requested By: Jatinder Red Order Number: [id number] Reading MD: Jatinder Bustos Measurements Intervals Dawson Rate: 110 P: -75 MN: 142 QRS: -64 QRSD: 153 T: 84 QT: 371 QTc: 502 Interpretive Statements ECTOPIC ATRIAL TACHYCARDIA POSSIBLE LEFT ATRIAL ENLARGEMENT RIGHT BUNDLE BRANCH BLOCK LEFT ANTERIOR FASCICULAR BLOCK LEFT VENTRICULAR HYPERTROPHY AND ST-T CHANGE SIMILAR TO 09/21/17 Electronically Signed On 10-11-2017 5:45:39 EST by Jatinder Bustos
[2017-10-11] MEDS: HumaLOG INSULIN (NovoLOG) PER UNIT SC SCH ×4 (07:25→20:34)
[2017-10-11 07:54] LABS: T UPTAKE 40 % (33-40); THYROXINE (T4) 12.3 UG/DL (4.5-12.0)
[2017-10-11] MEDS: NICOTINE 14 MG/24 HR TRANSDERMAL TD SCH (08:09)
[2017-10-11] MEDS: raNITIdine SYRUP 150 MG/10 ML UDC PO SCH ×2 (08:09→20:35)
[2017-10-11] MEDS: TIOTROPIUM INHALER/CAPSULE (SPIRIVA) INH SCH (08:24)
[2017-10-11] MEDS: SYMBICORT 160/4.5MCG INHALER 6GM INH SCH ×2 (08:24→19:56)
[2017-10-11] MEDS: METOPROLOL SUCC (TopROL XL) 50MG **XL** TAB PO SCH (09:18)
[2017-10-11] MEDS ORDERED: METOPROLOL 5 MG/5 ML VIAL As Ordered ONE (15:03)
[2017-10-11] MEDS ORDERED: PROPOFOL 200 MG/20 ML VIAL As Ordered ONE (15:03)
--- NOTE | 2017-10-11 15:13 | ROOR ---
Patient Name: Kenny Ramirez Procedure Date: 10/11/2017 2:59 PM Date of : 1950 Age: 66 Room: [facility] Gender: Male Note Status: Finalized Procedure: Upper Endoscopy + Biopsies Indications: Coffee-ground emesis, Hematemesis, Nausea with vomiting Providers: Brando Pearl MD Referring MD: 2. Inpatient 2. Inpatient Requesting Provider: Medicines: Monitored Anesthesia Care Complications: No immediate complications. Procedure: Pre-Anesthesia Assessment: - The heart rate, respiratory rate, oxygen saturations, blood pressure, adequacy of pulmonary ventilation, and response to care were monitored throughout the procedure. The Endoscope was introduced through the mouth, and advanced to the second part of duodenum. The upper GI endoscopy was accomplished without difficulty. The patient tolerated the procedure well. Findings: The Z-line was irregular and was found 30 cm from the incisors. Moderately severe esophagitis with bleeding was found 30 to 40 cm from the incisors. Biopsies were taken with a cold forceps for histology. A medium-sized hiatal hernia was present. No other significant abnormalities were identified in a careful examination of the stomach. The exam of the duodenum was otherwise normal. Impression: - Z-line irregular, 30 cm from the incisors. - Moderately severe chronic esophagitis. Rule out Pineda's esophagus. Biopsied. - Medium-sized hiatal hernia. - The examination was otherwise normal. Recommendation: - Await pathology results. - Discharge patient to home. - Follow an antireflux regimen. - Continue present medications. - Await pathology results. - Telephone GI clinic for pathology results in 1 week. - Check Portal Online for Path Results.([email or web address]) - The findings and recommendations were discussed with the referring physician. Brando Pearl MD Brando Pearl MD 10/11/2017 3:13:49 PM This report has been signed electronically. Number of Addenda: 0 Note Initiated On: 10/11/2017 2:59 PM Estimated Blood Loss: Estimated blood loss: none.
[2017-10-11] MEDS: METOCLOPRAMIDE 5 MG TAB PO SCH (17:25)
[2017-10-11] MEDS ORDERED: hydrALAZINE INJ 20 MG/ML VIAL IV ONE (18:00)
[2017-10-11] MEDS: amLODIPine 10 MG TAB PO SCH (20:35)
--- NOTE | 2017-10-11 23:01 | IPNPDOC ---
Subjective Date Seen The patient was seen on 10/11/17. Subjective Chief Complaint/HPI The patient is a 66-year-old male admitted with a reason for visit of Upper Gi Bleeding. Examined at bedside. No n/v or coffee-ground emesis since admission. No acute complaints. Constitutional: Denies: Chills, Fever, Weakness Eyes: Denies: Pain ENT: Denies: Head Aches, Dysphagia, Epistaxis Pulmonary: Denies: Dyspnea, Cough Cardiovascular: Denies: Chest Pain, Edema, Lt Headedness Gastrointestinal: Denies: Nausea, Vomiting, Abdominal Pain, Melena, Hematochezia Genitourinary: Denies: Dysuria, Hematuria Hematologic: Denies: Bleeding Excessively Neurological: Denies: Weakness, Numbness Objective Physical Examination General Exam: Positive: Alert, Cooperative, No Acute Distress Eye Exam: Positive: EOMI, Negative: Ptosis ENT Exam: Positive: Atraumatic, Tongue Midline Neck Exam: Positive: Supple, Negative: JVD, Lymphadenopathy Chest Exam: Positive: Clear to auscultation, Normal air movement Heart Exam: Positive: Rate Normal, Normal S1, Normal S2 Abdomen Exam: Positive: BS Hypoactive, Soft, Negative: Tenderness Extremity Exam: Positive: Normal pulses, Negative: Cyanosis, Edema, Tenderness Neuro Exam: Positive: Normal Speech, Sensation Intact Psych Exam: Positive: Mental status NL, Mood NL, Oriented x 3 Assessment /Plan Assessment Upper GI bleed no n/v or hematemesis since admission GI consulted. Likely EGD with GI Dr. Pearl today NPO. Reglan & Zofran antiemetics working well. Possible NG tube if n/v persists H&H stable. Consented for transfusion if needed HTN better controlled since admission. Plan to restart Norvasc & Metoprolol after possible EGD today instead of restarting Cardizem drip & IV hydralazine Hyperthyroidism labs reveal low TSH and elevated T4. Thyroid nuclear study scan would be recommended, but pt recently had a CT with contrast on Sep 21, and thus, per Nuclear Medicine, is unable to get this test performed for 8 weeks, which would be early November. Outpatient follow up with PCP and possible Endocrinology referral may be warranted. continue B-jeana in hospital setting Anemia labs suggest iron deficient anemia. Supplement iron after scope. COPD duonebs DM2 not insulin dependent at home. Continus ISS since pt was not able to tolerate po on admission. May restart home meds on d/c Hepatitis C hx stable. 2 doses of Harvoni remaining DVT ppx SHENA/SCD, hold anticoagulation due to bleed Plan/VTE VTE Prophylaxis Ordered?: Yes VS, I&O, 24H, Subhashbonnancie Vital Signs/I&O Vital Signs Date Time Temp Pulse Resp B/P (MAP) Pulse Ox O2 Delivery O2 Flow Rate FiO2 10/11/17 06:00 70 147/65 (92) 10/11/17 04:00 98.9 16 95 Room Air 10/10/17 19:30 2.0 Laboratory Data 24H LABS Laboratory Tests 2 10/10/17 09:18: Anion Gap 12, Glomerular Filtration Rate > 60.0, Blood Urea Nitrogen 8, Creatinine 1.13, Sodium Level 136, Potassium Level 3.6, Chloride Level 98, Carbon Dioxide Level 26, Calcium Level 9.7, Aspartate Amino Transf (AST/SGOT) 15 , Alanine Aminotransferase (ALT/SGPT) 20, Alkaline Phosphatase 129H, Total Bilirubin 1.0, Total Protein 9.3H, Albumin 4.3, Albumin/Globulin Ratio 0.86L, Lipase 157 10/10/17 10:00: Prothrombin Time 14.0, Prothromb Time International Ratio 1.07, Activated Partial Thromboplast Time 28.8 10/10/17 10:01: Immature Granulocyte % (Auto) 0.3H, White Blood Count 9.2, Red Blood Count 5.44 , Hemoglobin 11.6L, Hematocrit 37.4L, Mean Corpuscular Volume 68.8L, Mean Corpuscular Hemoglobin 21.3L, Mean Corpuscular Hemoglobin Concent 31.0L, Red Cell Distribution Width 18.9H, Platelet Count 387, Neutrophils (%) (Auto) 83.9H , Lymphocytes (%) (Auto) 10.8L, Monocytes (%) (Auto) 4.9, Eosinophils (%) (Auto ) 0.0, Basophils (%) (Auto) 0.1, Neutrophils # (Auto) 7.7, Lymphocytes # (Auto) 1.0L, Monocytes # (Auto) 0.5, Eosinophils # (Auto) 0.0, Basophils # (Auto) 0.0, Immature Granulocyte # (Auto) 0.0, Nucleated Red Blood Cells % (auto) 0.0 10/10/17 13:04: Erythrocyte Sedimentation Rate 44H, Estimated Mean Plasma Glucose 126H, Hemoglobin A1c 6.0 10/10/17 13:49: Magnesium Level 1.9, Total Creatine Kinase 171, Creatine Kinase MB 1.4, Creatine Kinase MB Relative Index 0.81, Troponin I < 0.02, C-Reactive Protein, Quantitative 0.41H, OI-Nyw-N-Type Natriuretic Peptide 367H, Thyroid Stimulating Hormone (TSH) 0.140L 10/10/17 18:15: Bedside Glucose (Misc Panel) 123H 10/10/17 20:53: Bedside Glucose (Misc Panel) 116H 10/10/17 20:54: Total Creatine Kinase 134, Creatine Kinase MB 1.3, Creatine Kinase MB Relative Index 0.97, Troponin I < 0.02, Nucleated Red Blood Cells % (auto) 0.0 10/11/17 04:13: Immature Granulocyte % (Auto) 0.3H, White Blood Count 9.3, Red Blood Count 4.71 , Hemoglobin 10.0L, Hematocrit 32.4L, Mean Corpuscular Volume 68.8L, Mean Corpuscular Hemoglobin 21.2L, Mean Corpuscular Hemoglobin Concent 30.9L, Red Cell Distribution Width 18.4H, Platelet Count 335, Neutrophils (%) (Auto) 70.8H , Lymphocytes (%) (Auto) 17.8L, Monocytes (%) (Auto) 10.6H, Eosinophils (%) ( Auto) 0.4, Basophils (%) (Auto) 0.1, Neutrophils # (Auto) 6.5, Lymphocytes # ( Auto) 1.7, Monocytes # (Auto) 1.0H, Eosinophils # (Auto) 0.0, Basophils # (Auto ) 0.0, Immature Granulocyte # (Auto) 0.0, Nucleated Red Blood Cells % (auto) 0.0 , Anion Gap 9, Glomerular Filtration Rate > 60.0, Blood Urea Nitrogen 9, Creatinine 1.07, Sodium Level 139, Potassium Level 3.7, Chloride Level 104, Carbon Dioxide Level 26, Calcium Level 8.2#L, Magnesium Level 2.0, Iron Level 34L, Total Iron Binding Capacity 440, Transferrin % Saturation 7.7L, Ferritin 10L, Thyroid Stimulating Hormone (TSH) 0.234L, Free Thyroxine Index 4.9H, Thyroxine (T4) 12.3H, Triiodothyronine (T3) Uptake 40 CBC/BMP Laboratory Tests 10/10/17 09:18 Calcium Level 9.7, Aspartate Amino Transf (AST/SGOT) 15, Alanine Aminotransferase (ALT/SGPT) 20, Alkaline Phosphatase 129 H, Total Bilirubin 1.0 , Total Protein 9.3 H, Albumin 4.3 10/10/17 10:01 Red Blood Count 5.44, Mean Corpuscular Volume 68.8 L, Mean Corpuscular Hemoglobin 21.3 L, Mean Corpuscular Hemoglobin Concent 31.0 L, Red Cell Distribution Width 18.9 H, Neutrophils (%) (Auto) 83.9 H, Lymphocytes (%) (Auto ) 10.8 L, Monocytes (%) (Auto) 4.9, Eosinophils (%) (Auto) 0.0, Basophils (%) ( Auto) 0.1, Neutrophils # (Auto) 7.7, Lymphocytes # (Auto) 1.0 L, Monocytes # ( Auto) 0.5, Eosinophils # (Auto) 0.0, Basophils # (Auto) 0.0 10/10/17 13:04 10/10/17 20:54 Red Blood Count 5.10, Mean Corpuscular Volume 69.8 L, Mean Corpuscular Hemoglobin 21.0 L, Mean Corpuscular Hemoglobin Concent 30.1 L, Red Cell Distribution Width 18.7 H 10/11/17 04:13 Red Blood Count 4.71, Mean Corpuscular Volume 68.8 L, Mean Corpuscular Hemoglobin 21.2 L, Mean Corpuscular Hemoglobin Concent 30.9 L, Red Cell Distribution Width 18.4 H, Neutrophils (%) (Auto) 70.8 H, Lymphocytes (%) (Auto ) 17.8 L, Monocytes (%) (Auto) 10.6 H, Eosinophils (%) (Auto) 0.4, Basophils (% ) (Auto) 0.1, Neutrophils # (Auto) 6.5, Lymphocytes # (Auto) 1.7, Monocytes # ( Auto) 1.0 H, Eosinophils # (Auto) 0.0, Basophils # (Auto) 0.0, Calcium Level 8.2 #L GME ATTESTATION GME ATTESTATION My preceptor for this patient encounter was physically present in the building during the encounter and was fully available. As needed, all aspects of the patient interview, examination, medical decision making process, and medical care plan development were reviewed and approved by the preceptor. Preceptor is aware and concurs with the plan as stated in the body of this note and will attest to such by his/her cosignature. ATTENDING NOTE I have both independently examined this patient as well as reviewed the note. I have discussed in detail with the resident the findings and plan of treatment as documented in the residents note. I will continue to follow the patient and offer further guidance to the patients care as necessary during this hospital stay. EARLE Ingram MD, DO Oct 11, 2017 08:04 MARCELA GAY MD Oct 12, 2017 11:58
[2017-10-12] VITALS (16 sets, daily range): BP systolic 137–169; BP diastolic 63–83
[2017-10-12] MEDS: PANTOPRAZOLE SODIUM 40 MG in D5W 50 ML IV SCH ×6 (01:18→22:30)
[2017-10-12] MEDS: hydrALAZINE INJ 20 MG/ML VIAL IV SCH ×4 (02:00→19:38)
[2017-10-12 05:10] LABS: BASO % 0.5 % (0.0-1.0); EOS # 0.1 10^3/uL (0.0-0.50); EOS % 1.4 % (0.0-3.0); IMMATURE GRANULOCYTE % 0.4 % (0-0); LYMPH # 1.8 10^3/uL (1.5-4.5); LYMPH % 31.9 % (24.0-44.0); MEAN CORPUSCULAR HEMOGLOBIN 21.3 pg (27.0-33.0); MEAN CORPUSCULAR HGB CONC 30.5 g/dl (32.0-36.5); MEAN CORPUSCULAR VOLUME 69.7 fl (80.0-96.0); MONO # 0.7 10^3/uL (0.0-0.8); NEUTROPHILS % 53.8 % (36.0-66.0); PLATELET COUNT, AUTOMATED 271 10^3/uL (150-450); RED CELL DISTRIBUTION WIDTH 18.3 % (11.5-14.5); WHITE BLOOD COUNT 5.7 10^3/uL (4.0-10.0)
[2017-10-12 05:28] LABS: ANION GAP 7 MEQ/L (8-16); BLOOD UREA NITROGEN 8 MG/DL (7-18); CALCIUM LEVEL 8.2 MG/DL (8.8-10.2); CARBON DIOXIDE LEVEL 24 MEQ/L (21-32); CHLORIDE LEVEL 106 MEQ/L (98-107); CREATININE FOR GFR 0.98 MG/DL (0.70-1.30); GLOMERULAR FILTRATION RATE > 60.0 (>49); GLUCOSE, FASTING 92 MG/DL (80-110); POTASSIUM SERUM 3.4 MEQ/L (3.5-5.1); SODIUM LEVEL 137 MEQ/L (136-145)
[2017-10-12] MEDS: SUCRALFATE SUSP 1GM/10ML UD PO SCH ×3 (05:53→16:53)
[2017-10-12] MEDS ORDERED: POTASSIUM CHLORIDE 10 MEQ SR TABLET PO ONE (06:30)
[2017-10-12] MEDS: HumaLOG INSULIN (NovoLOG) PER UNIT SC SCH ×4 (07:07→20:51)
[2017-10-12] MEDS ORDERED: CALCIUM CARBONATE 500 MG CHEW U/D PO ONE (08:00)
[2017-10-12] MEDS: SYMBICORT 160/4.5MCG INHALER 6GM INH SCH ×2 (08:17→20:03)
[2017-10-12] MEDS: TIOTROPIUM INHALER/CAPSULE (SPIRIVA) INH SCH (08:18)
[2017-10-12] MEDS: METOCLOPRAMIDE 5 MG TAB PO SCH ×3 (08:42→16:53)
[2017-10-12] MEDS: METOPROLOL SUCC (TopROL XL) 50MG **XL** TAB PO SCH (08:43)
[2017-10-12] MEDS: raNITIdine SYRUP 150 MG/10 ML UDC PO SCH ×2 (08:43→20:51)
[2017-10-12] MEDS: NICOTINE 14 MG/24 HR TRANSDERMAL TD SCH (08:43)
--- NOTE | 2017-10-12 09:19 | IPNPDOC ---
Subjective Date Seen The patient was seen on 10/12/17. Subjective Chief Complaint/HPI The patient is a 66-year-old male admitted with a reason for visit of Upper Gi Bleeding. Examined at bedside. Pt has not had any n/v or hematemesis since admission. Had EGD perfomred yesterday by Dr. Pearl, and is scheduled to go have gastric emptying study today. No acute complaints or reported events overnight. Constitutional: Denies: Chills, Fever Eyes: Denies: Vision change ENT: Denies: Head Aches, Dysphagia, Epistaxis Pulmonary: Denies: Dyspnea, Cough Cardiovascular: Denies: Chest Pain, Palpitations, Edema, Lt Headedness Gastrointestinal: Denies: Nausea, Vomiting Genitourinary: Denies: Hematuria Hematologic: Denies: Bleeding Excessively Neurological: Denies: Weakness Objective Physical Examination General Exam: Positive: Alert, Cooperative, No Acute Distress Eye Exam: Positive: EOMI, Negative: Ptosis ENT Exam: Positive: Atraumatic, Tongue Midline Neck Exam: Positive: Supple, Negative: JVD, Lymphadenopathy Chest Exam: Positive: Clear to auscultation, Normal air movement Heart Exam: Positive: Rate Normal, Normal S1, Normal S2 Abdomen Exam: Positive: BS Hypoactive, Soft, Negative: Tenderness Extremity Exam: Positive: Normal pulses, Negative: Cyanosis, Edema, Tenderness Neuro Exam: Positive: Normal Speech, Sensation Intact Psych Exam: Positive: Mental status NL, Mood NL, Oriented x 3 Assessment /Plan Assessment Upper GI bleed no n/v or hematemesis since admission GI consulted. EGD performed yesterday 10/[address] Pearl, revealing chronic esophagitis, small hiatal hernia, and awaiting pathology results for possible Pineda's esophagus. GI recommended to f/u outpatient. Gastric emptying study scheduled for later today for esophagitis NPO. Reglan & Zofran antiemetics working well H&H stable. Consented for transfusion if needed HTN better controlled since admission. Has not needed Cardizem drip yesterday. Possibly d/c if bp's are better controlled consistently. Norvasc & Metoprolol was started after EGD yesterday, along with IV Hydralazine. Continue those 3 for now, with Cardizem if needed. Hyperthyroidism labs reveal low TSH and elevated T4. Thyroid nuclear study scan would be recommended, but pt recently had a CT with contrast on Sep 21, and thus, per Nuclear Medicine, is unable to get this test performed for 8 weeks, which would be early November. Outpatient follow up with PCP and possible Endocrinology referral may be warranted. continue B-jeana in hospital setting Acute Blood Loss Anemia, 2/2 GI Bleed labs suggest iron deficient anemia. Start ferrous sulfate. Reassess later in the week. Hypokalemia supplement Hypocalcemia supplement COPD duonebs DM2 not insulin dependent at home. Continus ISS since pt was not able to tolerate po on admission. May restart home meds on d/c Hepatitis C hx stable. 2 doses of Harvoni remaining DVT ppx SHENA/SCD, hold anticoagulation due to bleed Plan/VTE VTE Prophylaxis Ordered?: Yes VS, I&O, 24H, Fishbone Vital Signs/I&O Vital Signs Date Time Temp Pulse Resp B/P (MAP) Pulse Ox O2 Delivery O2 Flow Rate FiO2 10/12/17 08:43 79 169/83 10/12/17 04:00 97.9 18 98 Room Air 10/10/17 19:30 2.0 Laboratory Data 24H LABS Laboratory Tests 2 10/11/17 12:02: Bedside Glucose (Misc Panel) 103 10/11/17 16:35: Bedside Glucose (Misc Panel) 91 10/11/17 20:29: Bedside Glucose (Misc Panel) 95 10/12/17 04:46: Immature Granulocyte % (Auto) 0.4H, White Blood Count 5.7, Red Blood Count 4.46 , Hemoglobin 9.5L, Hematocrit 31.1L, Mean Corpuscular Volume 69.7L, Mean Corpuscular Hemoglobin 21.3L, Mean Corpuscular Hemoglobin Concent 30.5L, Red Cell Distribution Width 18.3H, Platelet Count 271, Neutrophils (%) (Auto) 53.8, Lymphocytes (%) (Auto) 31.9, Monocytes (%) (Auto) 12.0H, Eosinophils (%) (Auto) 1.4, Basophils (%) (Auto) 0.5, Neutrophils # (Auto) 3.0, Lymphocytes # (Auto) 1.8, Monocytes # (Auto) 0.7, Eosinophils # (Auto) 0.1, Basophils # (Auto) 0.0, Immature Granulocyte # (Auto) 0.0, Nucleated Red Blood Cells % (auto) 0.0, Anion Gap 7L, Glomerular Filtration Rate > 60.0, Blood Urea Nitrogen 8, Creatinine 0.98, Sodium Level 137, Potassium Level 3.4L, Chloride Level 106, Carbon Dioxide Level 24, Calcium Level 8.2L, Magnesium Level 2.0 CBC/BMP Laboratory Tests 10/11/17 15:59 10/12/17 04:46 Red Blood Count 4.46, Mean Corpuscular Volume 69.7 L, Mean Corpuscular Hemoglobin 21.3 L, Mean Corpuscular Hemoglobin Concent 30.5 L, Red Cell Distribution Width 18.3 H, Neutrophils (%) (Auto) 53.8, Lymphocytes (%) (Auto) 31.9, Monocytes (%) (Auto) 12.0 H, Eosinophils (%) (Auto) 1.4, Basophils (%) ( Auto) 0.5, Neutrophils # (Auto) 3.0, Lymphocytes # (Auto) 1.8, Monocytes # (Auto ) 0.7, Eosinophils # (Auto) 0.1, Basophils # (Auto) 0.0, Calcium Level 8.2 L GME ATTESTATION GME ATTESTATION My preceptor for this patient encounter was physically present in the building during the encounter and was fully available. As needed, all aspects of the patient interview, examination, medical decision making process, and medical care plan development were reviewed and approved by the preceptor. Preceptor is aware and concurs with the plan as stated in the body of this note and will attest to such by his/her cosignature. EARLE GAMING DO Oct 12, 2017 09:20
[2017-10-12] MEDS: diltiaZEM 125 MG in NS 100 ML IV SCH (09:39)
[2017-10-12] MEDS ORDERED: LIDOCAINE 2% INJ 100 MG/5 ML SDV (FOR ANES.) As Ordered ONE (10:24)
[2017-10-12] MEDS ORDERED: PROPOFOL 200 MG/20 ML VIAL As Ordered ONE (10:24)
[2017-10-12] MEDS: FERROUS GLUCONATE 324 MG TAB PO SCH ×2 (12:50→20:51)
--- NOTE | 2017-10-12 13:07 | REP ---
NUCLEAR GASTRIC EMPTYING SCAN: Following the oral administration of 1.1 mCi of technetium-99m sulfur colloid in 1.5 scrambled eggs and 6 ounces of water. Multiple images of the upper abdomen are performed in the anterior and posterior projections for 90 minutes. Gastric activity is measured. At the end of the 90 minutes 99% of the ingested activity has emptied from the stomach. This yields a T1/2 of 25 minutes which is normal. IMPRESSION: Normal gastric emptying. Signed by Lm Kirk MD 10/12/2017 01:32 P
[2017-10-12] MEDS: KCL 20MEQ IN 0.45NS 1000ML 1,000 ML IV SCH (16:54)
[2017-10-12] MEDS: amLODIPine 10 MG TAB PO SCH (20:51)
[2017-10-13] VITALS: BP 152/68
[2017-10-13] MEDS: SUCRALFATE SUSP 1GM/10ML UD PO SCH ×3 (00:18→12:03)
[2017-10-13 01:00] VITALS: BP 118/56
[2017-10-13] MEDS: hydrALAZINE INJ 20 MG/ML VIAL IV SCH ×2 (02:00→08:00)
[2017-10-13] MEDS: PANTOPRAZOLE SODIUM 40 MG in D5W 50 ML IV SCH (03:27)
[2017-10-13 04:00] VITALS: BP 137/62
[2017-10-13 05:37] LABS: BASO % 0.3 % (0.0-1.0); EOS # 0.1 10^3/uL (0.0-0.50); EOS % 2.4 % (0.0-3.0); IMMATURE GRANULOCYTE % 0.2 % (0-0); LYMPH # 2.2 10^3/uL (1.5-4.5); LYMPH % 37.3 % (24.0-44.0); MEAN CORPUSCULAR HEMOGLOBIN 21.5 pg (27.0-33.0); MEAN CORPUSCULAR HGB CONC 30.8 g/dl (32.0-36.5); MEAN CORPUSCULAR VOLUME 69.8 fl (80.0-96.0); MONO # 0.7 10^3/uL (0.0-0.8); MONO % 12.7 % (0.0-5.0); NEUTROPHILS # 2.7 10^3/uL (1.8-7.7); NEUTROPHILS % 47.1 % (36.0-66.0); PLATELET COUNT, AUTOMATED 269 10^3/uL (150-450); RED CELL DISTRIBUTION WIDTH 18.1 % (11.5-14.5); WHITE BLOOD COUNT 5.8 10^3/uL (4.0-10.0)
[2017-10-13 05:54] LABS: ANION GAP 7 MEQ/L (8-16); BLOOD UREA NITROGEN 8 MG/DL (7-18); CALCIUM LEVEL 8.1 MG/DL (8.8-10.2); CARBON DIOXIDE LEVEL 23 MEQ/L (21-32); CHLORIDE LEVEL 106 MEQ/L (98-107); CREATININE FOR GFR 1.05 MG/DL (0.70-1.30); GLOMERULAR FILTRATION RATE > 60.0 (>49); GLUCOSE, FASTING 97 MG/DL (80-110); POTASSIUM SERUM 3.7 MEQ/L (3.5-5.1); SODIUM LEVEL 136 MEQ/L (136-145)
[2017-10-13] MEDS: HumaLOG INSULIN (NovoLOG) PER UNIT SC SCH ×2 (07:30→12:00)
[2017-10-13 08:00] VITALS: BP 130/76
[2017-10-13] MEDS: TIOTROPIUM INHALER/CAPSULE (SPIRIVA) INH SCH (08:12)
[2017-10-13] MEDS: SYMBICORT 160/4.5MCG INHALER 6GM INH SCH (08:12)
[2017-10-13 09:00] VITALS: BP 130/76
[2017-10-13] MEDS: METOPROLOL SUCC (TopROL XL) 50MG **XL** TAB PO SCH (09:00)
[2017-10-13] MEDS ORDERED: PANTOPRAZOLE 40MG TAB (PROTONIX) PO SCH (09:00)
[2017-10-13] MEDS: NICOTINE 14 MG/24 HR TRANSDERMAL TD SCH (09:00)
[2017-10-13] MEDS: FERROUS GLUCONATE 324 MG TAB PO SCH (09:01)
[2017-10-13] MEDS: METOCLOPRAMIDE 5 MG TAB PO SCH ×2 (09:01→12:03)
[2017-10-13] MEDS: raNITIdine SYRUP 150 MG/10 ML UDC PO SCH (09:02)
[2017-10-13 12:00] VITALS: BP 170/87
--- NOTE | 2017-10-13 17:08 | DS.PDOC ---
Discharge Summary General Date of Admission Oct 10, 2017 at 14:06 Date of Discharge 10/13/17 Attending Physician: ANIYA TES MD Specialist/Consultants Involve: Brando Pearl Discharge Summary PROCEDURES PERFORMED DURING STAY: EGD, Gastric emptying study ADMITTING DIAGNOSES: 1. Upper GI bleed 2. Hypertensive urgency DISCHARGE DIAGNOSES: 1. Anemia 2/2 Upper GI bleed 2. Esophagitis 3. Hypertensive urgency 4. Hiatal hernia 5. Hyperthyroidism 6. NIDDM2 7. COPD 8. GERD 9. Gastritis 10. Hepatitis C 11. History of esophageal varices s/p banding COMPLICATIONS/CHIEF COMPLAINT: Upper Gi Bleeding. HISTORY OF PRESENT ILLNESS: Mr. Ramirez presented to the ED on 10/10/2017 after noticing coffee ground emesis a few hours after eating breakfast the day before. Patient also felt chills, but no fever, and positive for associated loose stool and dizziness. Patient has a relevant history of GI bleeds, esophageal varices s/p banding, gastritis, GERD. Other PMH includes COPD, hepatitis C with 2 doses of Harvoni remaining at time of admission, and NIDDM2. Patient also has a history of alcohol abuse and IV drug use, and is currently a heavy smoker. On presentation, patient had hypertensive urgency with bp of ~200/ 100 and tachycardic with HR ~110 on admission. HOSPITAL COURSE: Patient was placed on a Protonix drip for GI bleed, as well as a Cardizem drip and IV hydralazine for HTN urgency. [employer] Dr. Pearl was consulted, and EGD was performed, which revealed hiatal hernia and chronic esophagitis, and biopsies were taken to rule out other causes such as Pineda's esophagus. At time of discharge, pathology results are pending. After the EGD, patient's home meds of Norvasc and Metoprolol were restarted, as patient's BP was better controlled. Patient also had a gastric emptying study performed, which returned negative. Patient was also noted to be hyperthyroid on lab, but thyroid scan was not able to be performed since patient had a CT with contrast recently done on 07/22/2017 during the previous stay, thus the test has to be delayed at least 8 weeks, and it is recommended to follow-up outpatient with PCP and endocrinology. Symptoms were controlled on beta jeana. Throughout his admission, patient did not have any vomiting episodes, and patient subjectively felt normal throughout stay. H&H was stable throughout the stay, and no transfusions were needed. Patient tolerated diet well once restarted, and was deemed safe for discharge with outpatient follow-up. It was explained to patient to return to ED if symptoms return or worsen. DISCHARGE MEDICATIONS: Please see below. ALLERGIES: Please see below. PHYSICAL EXAMINATION ON DISCHARGE: VITAL SIGNS: Please see below. GENERAL: NAD, A&x3 HEENT: atraumatic, normocephalic NECK: supple CARDIOVASCULAR EXAMINATION: RRR, Normal S1, S2 RESPIRATORY EXAMINATION: CTAB, no wheezing or rhonchi ABDOMINAL EXAMINATION: soft, nontender, nondistended EXTREMITIES: no c/c/e SKIN: warm, dry NEUROLOGICAL EXAMINATION: no motor or sensory deficits PSYCHIATRIC EXAMINATION: normal mood & affect LABORATORY DATA: Please see below. IMAGING: * 10/10 CXR: No acute disease. * 10/11 EGD: Z-line irregular, 30 cm from the incisors. Moderately severe chronic esophagitis. Rule out Pineda's esophagus. Biopsied. Medium-sized hiatal hernia. The examination was otherwise normal. Recommendation: Await pathology results.vDischarge patient to home. Follow an antireflux regimen. Continue present medications. Await pathology results. Telephone GI clinic for pathology results in 1 week. Check Portal Online for Path Results. ( [email or web address]). * 10/12 Gastric Emptying Studying: Normal gastric emptying. PROGNOSIS: Good ACTIVITY: As tolerated DIET: as tolerated DISCHARGE INSTRUCTIONS: 1. F/u with GI Dr. Pearl's office with EGD biopsy results 2. F/u with PCP in 1 week. Appt scheduled for 10/19 for 11:30 at [facility] 3. Return to ED if symptoms return or worsen DISCHARGE CONDITION: Stable TIME SPENT ON DISCHARGE: Greater than 40 minutes. Vital Signs/I&Os Vital Signs Date Time Temp Pulse Resp B/P (MAP) Pulse Ox O2 Delivery O2 Flow Rate FiO2 10/13/17 04:00 99.4 85 20 137/62 (87) 99 Room Air 10/10/17 19:30 2.0 Laboratory Data Labs 24H Laboratory Tests 2 10/12/17 12:38: Bedside Glucose (Misc Panel) 90 10/12/17 16:46: Bedside Glucose (Misc Panel) 70L 10/12/17 18:29: Bedside Glucose (Misc Panel) 97 10/12/17 20:40: Bedside Glucose (Misc Panel) 94 10/13/17 05:04: Immature Granulocyte % (Auto) 0.2H, White Blood Count 5.8, Red Blood Count 4.14L , Hemoglobin 8.9L, Hematocrit 28.9L, Mean Corpuscular Volume 69.8L, Mean Corpuscular Hemoglobin 21.5L, Mean Corpuscular Hemoglobin Concent 30.8L, Red Cell Distribution Width 18.1H, Platelet Count 269, Neutrophils (%) (Auto) 47.1, Lymphocytes (%) (Auto) 37.3, Monocytes (%) (Auto) 12.7H, Eosinophils (%) (Auto) 2.4, Basophils (%) (Auto) 0.3, Neutrophils # (Auto) 2.7, Lymphocytes # (Auto) 2.2, Monocytes # (Auto) 0.7, Eosinophils # (Auto) 0.1, Basophils # (Auto) 0.0, Immature Granulocyte # (Auto) 0.0, Nucleated Red Blood Cells % (auto) 0.0, Anion Gap 7L, Glomerular Filtration Rate > 60.0, Blood Urea Nitrogen 8, Creatinine 1.05, Sodium Level 136, Potassium Level 3.7, Chloride Level 106, Carbon Dioxide Level 23, Calcium Level 8.1L, Magnesium Level 2.0 CBC/BMP Laboratory Tests 10/13/17 05:04 Red Blood Count 4.14 L, Mean Corpuscular Volume 69.8 L, Mean Corpuscular Hemoglobin 21.5 L, Mean Corpuscular Hemoglobin Concent 30.8 L, Red Cell Distribution Width 18.1 H, Neutrophils (%) (Auto) 47.1, Lymphocytes (%) (Auto) 37.3, Monocytes (%) (Auto) 12.7 H, Eosinophils (%) (Auto) 2.4, Basophils (%) ( Auto) 0.3, Neutrophils # (Auto) 2.7, Lymphocytes # (Auto) 2.2, Monocytes # (Auto ) 0.7, Eosinophils # (Auto) 0.1, Basophils # (Auto) 0.0, Calcium Level 8.1 L FSBS Laboratory Tests Test 10/12/17 12:38 10/12/17 16:46 10/12/17 18:29 10/12/17 20:40 Range/Units Bedside Glucose (Misc Panel) 90 70 97 94 80-115 MG/DL Discharge Medications Scheduled (Harvoni 90-400 mg) 1 Tab Tab, 1 TAB PO DAILY, (Reported) (Senna Plus 8.6-50 mg) 1 Tab Tab, 1 TAB PO DAILY Amlodipine Besylate (Amlodipine Besylate) 10 Mg Tab, 10 MG PO QHS, (Reported) Ascorbic Acid (Vitamin C) 250 Mg Tab, 250 MG PO BID Budesonide/Formoterol (Symbicort 160-4.5 Mcg/Act) 60 Puff/Inhaler Aers, 2 PUFF INH BID, (Reported) Ferrous Sulfate (Ferrous Sulfate) 325 Mg Tab, 325 MG PO BID Folic Acid (Folic Acid) 1 Mg Tab, 1 MG PO DAILY Magnesium Oxide (Magnesium Oxide) 400 Mg Tab, 400 MG PO BID, (Reported) Metformin Hydrochloride (Metformin HCl) 500 Mg Tab, 500 MG PO BID, (Reported) Metoprolol Succinate (Metoprolol Succinate ER) 50 Mg Tab, 50 MG PO DAILY, ( Reported) Multivitamins *[facility] STOCKED* (Thera M Plus *[facility] STOCKED*) 1 Tab Tab, 1 TAB PO DAILY, (Reported) Nicotine (Nicotine Transdermal Syst) 14 Mg/24 Hr Dis, 1 PATCH TD DAILY Pantoprazole Sodium Sesquihydr (Protonix) 40 Mg Tab, 40 MG PO BID Sucralfate (Sucralfate) 1 Gm/10 Ml Aura, 1 GM PO ACHS Tiotropium [place] Monohydrate (Spiriva Handihaler) 18 Mcg Cap, 1 CAP INH DAILY, (Reported) Scheduled PRN Albuterol Sulfate (Ventolin Hfa) 200 Puff/8 Gm Aers, 2 PUFF INH Q4H PRN for SHORTNESS OF BREATH, (Reported) Milk Of Magnesia (Milk of Magnesia) 1,200 Mg/15 Ml Aura, 30 ML PO DAILY PRN for CONSTIPATION, (Reported) Allergies Coded Allergies: No Known Allergies (Unverified , 05/04/17) GME ATTESTATION GME ATTESTATION My preceptor for this patient encounter was physically present in the building during the encounter and was fully available. As needed, all aspects of the patient interview, examination, medical decision making process, and medical care plan development were reviewed and approved by the preceptor. Preceptor is aware and concurs with the plan as stated in the body of this note and will attest to such by his/her cosignature. EARLE GAMING DO Oct 13, 2017 08:00
== END 2017-10-13 12:18 | disposition home or self-care (01) | DRG 392 ==
LOC: M ED 08:37 → M ED INP 14:06 → M ICU 15:00
PROVIDERS: ADMIT Internal Medicine; ATTEND Internal Medicine
PROC: 0DB58ZX Excision of Esophagus, Via Natural or Artificial Opening Endoscopic, Diagnostic (ICD-10-PCS; principal; 2017-10-11 14:00)
DX: K20.8 Other esophagitis (principal); K92.2 Gastrointestinal hemorrhage, unspecified; D62 Acute posthemorrhagic anemia; I45.2 Bifascicular block; B18.2 Chronic viral hepatitis C; I16.0 Hypertensive urgency; K21.9 Gastro-esophageal reflux disease without esophagitis; J44.9 Chronic obstructive pulmonary disease, unspecified; E11.9 Type 2 diabetes mellitus without complications; E05.90 Thyrotoxicosis, unspecified without thyrotoxic crisis or storm; K44.9 Diaphragmatic hernia without obstruction or gangrene; Z79.899 Other long term (current) drug therapy; F10.10 Alcohol abuse, uncomplicated; F17.200 Nicotine dependence, unspecified, uncomplicated; E87.6 Hypokalemia; E83.51 Hypocalcemia

== ENCOUNTER 2017-12-29 07:26 | Day surgery (SDC) | payer MEDICARE ==
[2017-12-29] MEDS ORDERED: ALBUTEROL SULFATE 2.5 MG/0.5 ML INH NEB SOLN As Ordered (07:50)
[2017-12-29] MEDS: ALBUTEROL SULFATE 2.5 MG/0.5 ML INH NEB SOLN INH (07:57)
[2017-12-29] MEDS ORDERED: PROPOFOL 200 MG/20 ML VIAL As Ordered ×2 (07:57)
[2017-12-29] MEDS ORDERED: LIDOCAINE 2% INJ 100 MG/5 ML SDV (FOR ANES.) As Ordered (07:57)
[2017-12-29 08:09] LABS: BEDSIDE GLUCOSE 110 MG/DL (80-115)
== END 2017-12-29 09:02 | disposition home or self-care (01) ==
LOC: M OPP 07:26
DX: R12 Heartburn (principal); R11.2 Nausea with vomiting, unspecified; K22.8 Other specified diseases of esophagus; K44.9 Diaphragmatic hernia without obstruction or gangrene; K21.0 Gastro-esophageal reflux disease with esophagitis; I10 Essential (primary) hypertension; E11.9 Type 2 diabetes mellitus without complications; D64.9 Anemia, unspecified; Z86.19 Personal history of other infectious and parasitic diseases; J45.909 Unspecified asthma, uncomplicated; F17.210 Nicotine dependence, cigarettes, uncomplicated; Z79.899 Other long term (current) drug therapy
CPT/HCPCS: 43235

== ENCOUNTER 2018-01-30 00:52 | Inpatient (IN) | payer MEDICARE, OTHER ==
[2018-01-30 01:31] LABS: BASO % 0.2 % (0.0-1.0); EOS % 0.1 % (0.0-3.0); HEMATOCRIT 36.8 % (42.0-52.0); HEMOGLOBIN 11.2 g/dl (14.0-18.0); IMMATURE GRANULOCYTE % 0.4 % (0-3.0); LYMPH # 1.6 10^3/uL (1.5-4.5); LYMPH % 15.1 % (24.0-44.0); MEAN CORPUSCULAR HGB CONC 30.4 g/dl (32.0-36.5); MEAN CORPUSCULAR VOLUME 65.8 fl (80.0-96.0); MONO # 0.6 10^3/uL (0.0-0.8); NEUTROPHILS # 8.1 10^3/uL (1.8-7.7); NEUTROPHILS % 78.2 % (36.0-66.0); PLATELET COUNT, AUTOMATED 286 10^3/uL (150-450); RED BLOOD COUNT 5.59 10^6/uL (4.30-6.10); RETIC HEMOGLOBIN EQUIVALENT 21.5 pg (24-36); RETICULOCYTE # 102.3 10^9/L (17-77); RETICULOCYTE % 1.8 % (0.5-1.5); WHITE BLOOD COUNT 10.4 10^3/uL (4.0-10.0)
[2018-01-30] MEDS: PANTOPRAZOLE 40MG INJ (PROTONIX) (C9113) IV ×3 (01:40→20:34)
[2018-01-30 01:44] LABS: INR 1.01; PARTIAL THROMBOPLASTIN TIME 24.5 SECONDS (26.8-37.9); PROTHROMBIN TIME 13.4 SECONDS (12.4-14.5)
[2018-01-30 01:59] LABS: ANION GAP 10 MEQ/L (8-16); BLOOD UREA NITROGEN 12 MG/DL (7-18); CALCIUM LEVEL 9.4 MG/DL (8.8-10.2); CARBON DIOXIDE LEVEL 30 MEQ/L (21-32); CHLORIDE LEVEL 97 MEQ/L (98-107); GLOMERULAR FILTRATION RATE > 60.0 (>49); GLUCOSE, FASTING 154 MG/DL (70-100); POTASSIUM SERUM 3.7 MEQ/L (3.5-5.1); SODIUM LEVEL 137 MEQ/L (136-145)
[2018-01-30] MEDS ORDERED: KETOROLAC 30 MG/ML VIAL (J1885) As Ordered ×2 (04:54→04:58)
[2018-01-30] MEDS ORDERED: DEXTROSE 50% 50 ML SYRINGE IV (05:00)
[2018-01-30] MEDS ORDERED: GLUCOSE 4 GM CHEW TABLET PO (05:00)
[2018-01-30] MEDS ORDERED: GLUCAGON FOR INJ 1 MG VIAL (J1610) SC (05:00)
[2018-01-30] MEDS: KETOROLAC 30 MG/ML VIAL (J1885) IV (05:07)
[2018-01-30] MEDS: ONDANSETRON 4 MG TAB (S0181) PO (05:08)
[2018-01-30] MEDS: NS 1,000 ML IV (05:09)
[2018-01-30 05:13] LABS: ALBUMIN 4.2 GM/DL (3.2-5.2); ALBUMIN/GLOBULIN RATIO 0.91 (1.00-1.93); ALKALINE PHOSPHATASE 132 U/L (45-117); ALT/SGPT 19 U/L (12-78); AST/SGOT 14 U/L (7-37); BILIRUBIN,DIRECT 0.2 MG/DL (0.0-0.2); BILIRUBIN,TOTAL 0.9 MG/DL (0.2-1.0); C REACTIVE PROTEIN QUANTITATIV 0.62 MG/DL (0.00-0.30); TOTAL PROTEIN 8.8 GM/DL (6.4-8.2)
[2018-01-30] MEDS ORDERED: METOCLOPRAMIDE INJ 10MG/2ML VIAL (J2765) IV (05:15)
[2018-01-30] MEDS: HumaLOG INSULIN (NovoLOG) PER UNIT SC ×4 (05:23→23:53)
[2018-01-30 05:28] LABS: ERYTHROCYTE SEDIMENTATION RATE 11 mm/hr (0-20)
[2018-01-30 05:32] LABS: BEDSIDE GLUCOSE 146 MG/DL (80-115)
[2018-01-30] MEDS ORDERED: ALBUTEROL 90 MCG/ACT 8GM HFA INHALER INH (06:30)
[2018-01-30 06:49] LABS: HEMATOCRIT 34.5 % (42.0-52.0); HEMOGLOBIN 10.4 g/dl (14.0-18.0); MEAN CORPUSCULAR HEMOGLOBIN 19.7 pg (27.0-33.0); MEAN CORPUSCULAR HGB CONC 30.1 g/dl (32.0-36.5); MEAN CORPUSCULAR VOLUME 65.2 fl (80.0-96.0); PLATELET COUNT, AUTOMATED 300 10^3/uL (150-450); RED BLOOD COUNT 5.29 10^6/uL (4.30-6.10); RED CELL DISTRIBUTION WIDTH 21.2 % (11.5-14.5)
[2018-01-30 07:11] LABS: ANION GAP 9 MEQ/L (8-16); BLOOD UREA NITROGEN 14 MG/DL (7-18); CALCIUM LEVEL 9.2 MG/DL (8.8-10.2); CARBON DIOXIDE LEVEL 27 MEQ/L (21-32); CHLORIDE LEVEL 100 MEQ/L (98-107); GLOMERULAR FILTRATION RATE > 60.0 (>49); GLUCOSE, FASTING 122 MG/DL (70-100); POTASSIUM SERUM 3.7 MEQ/L (3.5-5.1); SODIUM LEVEL 136 MEQ/L (136-145)
[2018-01-30] MEDS: hydroCHLOROthiazide 12.5 MG CAPSULE PO (08:21)
[2018-01-30] MEDS: LISINOPRIL 20 MG TAB PO (08:21)
[2018-01-30] MEDS: SUCRALFATE SUSP 1GM/10ML UD PO ×2 (08:21→20:35)
[2018-01-30] MEDS ORDERED: ACETAMINOPHEN 500 MG TAB PO (09:00)
[2018-01-30] MEDS ORDERED: MORPHINE 4 MG/ML 1ML VIAL (J2270) IV (09:00)
[2018-01-30] MEDS: TIOTROPIUM INHALER/CAPSULE (SPIRIVA) INH (09:36)
[2018-01-30] MEDS: SYMBICORT 160/4.5MCG INHALER 6GM INH ×2 (09:37→20:22)
[2018-01-30] MEDS: NADOLOL 20MG TABLET PO (10:22)
[2018-01-30] MEDS: KCL 20MEQ IN 0.45NS 1000ML 1,000 ML IV ×2 (10:46→18:19)
[2018-01-30 12:20] LABS: BEDSIDE GLUCOSE 116 MG/DL (80-115)
[2018-01-30 12:24] LABS: HEMATOCRIT 30.2 % (42.0-52.0); HEMOGLOBIN 9.2 g/dl (14.0-18.0); MEAN CORPUSCULAR HGB CONC 30.5 g/dl (32.0-36.5); MEAN CORPUSCULAR VOLUME 65.7 fl (80.0-96.0); PLATELET COUNT, AUTOMATED 249 10^3/uL (150-450); RED CELL DISTRIBUTION WIDTH 20.7 % (11.5-14.5); WHITE BLOOD COUNT 8.8 10^3/uL (4.0-10.0)
[2018-01-30 17:21] LABS: BEDSIDE GLUCOSE 145 MG/DL (80-115)
[2018-01-30 18:26] LABS: HEMATOCRIT 30.9 % (42.0-52.0); HEMOGLOBIN 9.4 g/dl (14.0-18.0); MEAN CORPUSCULAR HEMOGLOBIN 20.1 pg (27.0-33.0); MEAN CORPUSCULAR HGB CONC 30.4 g/dl (32.0-36.5); MEAN CORPUSCULAR VOLUME 66.2 fl (80.0-96.0); PLATELET COUNT, AUTOMATED 264 10^3/uL (150-450); RED BLOOD COUNT 4.67 10^6/uL (4.30-6.10); RED CELL DISTRIBUTION WIDTH 20.7 % (11.5-14.5); WHITE BLOOD COUNT 9.2 10^3/uL (4.0-10.0)
[2018-01-30] MEDS: MONTELUKAST 10 MG TAB PO (20:35)
[2018-01-31 00:05] LABS: BEDSIDE GLUCOSE 101 MG/DL (80-115)
[2018-01-31 00:29] LABS: HEMATOCRIT 28.9 % (42.0-52.0); HEMOGLOBIN 8.9 g/dl (14.0-18.0); MEAN CORPUSCULAR HEMOGLOBIN 20.4 pg (27.0-33.0); MEAN CORPUSCULAR HGB CONC 30.8 g/dl (32.0-36.5); MEAN CORPUSCULAR VOLUME 66.1 fl (80.0-96.0); PLATELET COUNT, AUTOMATED 237 10^3/uL (150-450); RED BLOOD COUNT 4.37 10^6/uL (4.30-6.10); RED CELL DISTRIBUTION WIDTH 20.5 % (11.5-14.5); WHITE BLOOD COUNT 7.2 10^3/uL (4.0-10.0)
[2018-01-31] MEDS: KCL 20MEQ IN 0.45NS 1000ML 1,000 ML IV ×2 (02:12→09:43)
[2018-01-31 04:41] LABS: HEMATOCRIT 28.7 % (42.0-52.0); HEMOGLOBIN 8.6 g/dl (14.0-18.0); MEAN CORPUSCULAR VOLUME 66.6 fl (80.0-96.0); PLATELET COUNT, AUTOMATED 237 10^3/uL (150-450); RED BLOOD COUNT 4.31 10^6/uL (4.30-6.10); RED CELL DISTRIBUTION WIDTH 20.4 % (11.5-14.5); WHITE BLOOD COUNT 6.8 10^3/uL (4.0-10.0)
[2018-01-31 04:56] LABS: ANION GAP 5 MEQ/L (8-16); BLOOD UREA NITROGEN 12 MG/DL (7-18); CALCIUM LEVEL 7.8 MG/DL (8.8-10.2); CARBON DIOXIDE LEVEL 26 MEQ/L (21-32); CHLORIDE LEVEL 107 MEQ/L (98-107); GLOMERULAR FILTRATION RATE > 60.0 (>49); GLUCOSE, FASTING 95 MG/DL (70-100); POTASSIUM SERUM 4.2 MEQ/L (3.5-5.1); SODIUM LEVEL 138 MEQ/L (136-145)
[2018-01-31] MEDS: HumaLOG INSULIN (NovoLOG) PER UNIT SC ×3 (06:09→17:18)
[2018-01-31] MEDS: TIOTROPIUM INHALER/CAPSULE (SPIRIVA) INH (08:15)
[2018-01-31] MEDS: SYMBICORT 160/4.5MCG INHALER 6GM INH ×2 (08:15→20:00)
[2018-01-31] MEDS: SUCRALFATE SUSP 1GM/10ML UD PO ×2 (08:27→20:52)
[2018-01-31] MEDS: PANTOPRAZOLE 40MG INJ (PROTONIX) (C9113) IV ×2 (08:27→20:52)
[2018-01-31] MEDS: NADOLOL 20MG TABLET PO (09:00)
[2018-01-31 11:38] LABS: BEDSIDE GLUCOSE 97 MG/DL (80-115)
[2018-01-31 17:06] LABS: BEDSIDE GLUCOSE 100 MG/DL (80-115)
[2018-01-31] MEDS: MONTELUKAST 10 MG TAB PO (20:52)
[2018-02-01 00:07] LABS: BEDSIDE GLUCOSE 99 MG/DL (80-115)
[2018-02-01 03:51] LABS: HEMATOCRIT 30.5 % (42.0-52.0); MEAN CORPUSCULAR HEMOGLOBIN 19.7 pg (27.0-33.0); MEAN CORPUSCULAR HGB CONC 29.5 g/dl (32.0-36.5); MEAN CORPUSCULAR VOLUME 66.6 fl (80.0-96.0); PLATELET COUNT, AUTOMATED 257 10^3/uL (150-450); RED BLOOD COUNT 4.58 10^6/uL (4.30-6.10); RED CELL DISTRIBUTION WIDTH 20.9 % (11.5-14.5); WHITE BLOOD COUNT 10.4 10^3/uL (4.0-10.0)
[2018-02-01 04:18] LABS: ANION GAP 7 MEQ/L (8-16); BLOOD UREA NITROGEN 13 MG/DL (7-18); CALCIUM LEVEL 8.1 MG/DL (8.8-10.2); CARBON DIOXIDE LEVEL 23 MEQ/L (21-32); CHLORIDE LEVEL 108 MEQ/L (98-107); CREATININE FOR GFR 1.19 MG/DL (0.70-1.30); GLOMERULAR FILTRATION RATE > 60.0 (>49); GLUCOSE, FASTING 88 MG/DL (70-100); POTASSIUM SERUM 4.1 MEQ/L (3.5-5.1); SODIUM LEVEL 138 MEQ/L (136-145)
[2018-02-01] MEDS: HumaLOG INSULIN (NovoLOG) PER UNIT SC ×2 (06:00)
[2018-02-01 06:05] LABS: BEDSIDE GLUCOSE 115 MG/DL (80-115)
[2018-02-01] MEDS: SYMBICORT 160/4.5MCG INHALER 6GM INH (08:47)
[2018-02-01] MEDS: TIOTROPIUM INHALER/CAPSULE (SPIRIVA) INH (08:48)
[2018-02-01] MEDS: SUCRALFATE SUSP 1GM/10ML UD PO (09:14)
[2018-02-01] MEDS: NADOLOL 20MG TABLET PO (09:15)
[2018-02-01] MEDS: PANTOPRAZOLE 40MG INJ (PROTONIX) (C9113) IV (09:15)
== END 2018-02-01 10:10 | disposition home or self-care (01) | DRG 392 ==
LOC: M ED 00:52 → M ED INP 05:10 → M ICU 07:10
PROC: 0DJ08ZZ Inspection of Upper Intestinal Tract, Via Natural or Artificial Opening Endoscopic (ICD-10-PCS; principal; 2018-01-31 16:04)
DX: K21.0 Gastro-esophageal reflux disease with esophagitis (principal); K92.2 Gastrointestinal hemorrhage, unspecified; D62 Acute posthemorrhagic anemia; F17.200 Nicotine dependence, unspecified, uncomplicated; I10 Essential (primary) hypertension; J44.9 Chronic obstructive pulmonary disease, unspecified; B18.2 Chronic viral hepatitis C; K44.9 Diaphragmatic hernia without obstruction or gangrene; E11.9 Type 2 diabetes mellitus without complications; F10.21 Alcohol dependence, in remission

== ENCOUNTER 2018-02-03 17:13 | Emergency (ER) | payer MEDICARE ==
[2018-02-03] MEDS: NS 1,000 ML IV (17:42)
[2018-02-03] MEDS: PANTOPRAZOLE 40MG INJ (PROTONIX) (C9113) IV (17:42)
[2018-02-03] MEDS: ONDANSETRON 4MG/2ML VIAL (J2405) IV (17:42)
[2018-02-03] MEDS: SUCRALFATE 1 GM TAB PO (17:43)
[2018-02-03 17:58] LABS: BASO % 0.2 % (0.0-1.0); EOS # 0.1 10^3/uL (0.0-0.50); EOS % 1.4 % (0.0-3.0); HEMATOCRIT 35.1 % (42.0-52.0); HEMOGLOBIN 10.2 g/dl (14.0-18.0); IMMATURE GRANULOCYTE % 0.2 % (0-3.0); LYMPH # 2.1 10^3/uL (1.5-4.5); LYMPH % 25.2 % (24.0-44.0); MEAN CORPUSCULAR HGB CONC 29.1 g/dl (32.0-36.5); MONO # 0.5 10^3/uL (0.0-0.8); MONO % 6.6 % (0.0-5.0); NEUTROPHILS # 5.4 10^3/uL (1.8-7.7); NEUTROPHILS % 66.4 % (36.0-66.0); PLATELET COUNT, AUTOMATED 259 10^3/uL (150-450); RED BLOOD COUNT 5.09 10^6/uL (4.30-6.10); RED CELL DISTRIBUTION WIDTH 21.6 % (11.5-14.5); WHITE BLOOD COUNT 8.1 10^3/uL (4.0-10.0)
[2018-02-03 18:11] LABS: INR 1.08; PROTHROMBIN TIME 14.2 SECONDS (12.4-14.5)
[2018-02-03 18:33] LABS: ALBUMIN 3.8 GM/DL (3.2-5.2); ALBUMIN/GLOBULIN RATIO 0.78 (1.00-1.93); ALKALINE PHOSPHATASE 112 U/L (45-117); ALT/SGPT 17 U/L (12-78); ANION GAP 8 MEQ/L (8-16); AST/SGOT 13 U/L (7-37); BILIRUBIN,DIRECT 0.1 MG/DL (0.0-0.2); BILIRUBIN,TOTAL 0.5 MG/DL (0.2-1.0); BLOOD UREA NITROGEN 9 MG/DL (7-18); CALCIUM LEVEL 8.8 MG/DL (8.8-10.2); CARBON DIOXIDE LEVEL 26 MEQ/L (21-32); CHLORIDE LEVEL 103 MEQ/L (98-107); CREATININE FOR GFR 1.13 MG/DL (0.70-1.30); GLOMERULAR FILTRATION RATE > 60.0 (>49); GLUCOSE, FASTING 108 MG/DL (70-100); LIPASE 137 U/L (73-393); POTASSIUM SERUM 3.8 MEQ/L (3.5-5.1); SODIUM LEVEL 137 MEQ/L (136-145); TOTAL PROTEIN 8.7 GM/DL (6.4-8.2)
[2018-02-03] MEDS: ONDANSETRON 4 MG ORAL DISINTEGRATING TAB (S0181) PO (19:40)
== END 2018-02-03 19:47 | disposition home or self-care (01) ==
LOC: M ED 17:13
DX: R11.2 Nausea with vomiting, unspecified (principal); F10.21 Alcohol dependence, in remission; Z79.899 Other long term (current) drug therapy; Z79.84 Long term (current) use of oral hypoglycemic drugs
CPT/HCPCS: C9113

== ENCOUNTER 2018-02-06 00:07 | Emergency (ER) | payer MEDICARE ==
[2018-02-06 00:45] LABS: BASO % 0.2 % (0.0-1.0); EOS # 0.1 10^3/uL (0.0-0.50); HEMATOCRIT 33.9 % (42.0-52.0); HEMOGLOBIN 10.1 g/dl (14.0-18.0); IMMATURE GRANULOCYTE % 0.4 % (0-3.0); LYMPH # 1.9 10^3/uL (1.5-4.5); LYMPH % 21.1 % (24.0-44.0); MEAN CORPUSCULAR HEMOGLOBIN 20.1 pg (27.0-33.0); MEAN CORPUSCULAR HGB CONC 29.8 g/dl (32.0-36.5); MEAN CORPUSCULAR VOLUME 67.5 fl (80.0-96.0); MONO # 0.6 10^3/uL (0.0-0.8); MONO % 6.8 % (0.0-5.0); NEUTROPHILS # 6.5 10^3/uL (1.8-7.7); NEUTROPHILS % 70.5 % (36.0-66.0); PLATELET COUNT, AUTOMATED 229 10^3/uL (150-450); RED BLOOD COUNT 5.02 10^6/uL (4.30-6.10); RED CELL DISTRIBUTION WIDTH 21.1 % (11.5-14.5); WHITE BLOOD COUNT 9.2 10^3/uL (4.0-10.0)
[2018-02-06] MEDS: PANTOPRAZOLE 40MG INJ (PROTONIX) (C9113) IV (00:45)
[2018-02-06] MEDS: METOCLOPRAMIDE INJ 10MG/2ML VIAL (J2765) IV (00:45)
[2018-02-06] MEDS: NS 1,000 ML IV (00:45)
[2018-02-06 01:04] LABS: INR 1.05; PROTHROMBIN TIME 13.8 SECONDS (12.4-14.5)
[2018-02-06 01:19] LABS: LACTIC ACID SEPSIS PROTOCOL 1.5 MMOL/L (0.4-2.0)
[2018-02-06 01:22] LABS: ALBUMIN 3.7 GM/DL (3.2-5.2); ALBUMIN/GLOBULIN RATIO 0.74 (1.00-1.93); ALKALINE PHOSPHATASE 109 U/L (45-117); ALT/SGPT 18 U/L (12-78); AMYLASE 83 U/L (25-115); ANION GAP 9 MEQ/L (8-16); AST/SGOT 15 U/L (7-37); BILIRUBIN,DIRECT 0.1 MG/DL (0.0-0.2); BILIRUBIN,TOTAL 0.6 MG/DL (0.2-1.0); BLOOD UREA NITROGEN 9 MG/DL (7-18); CALCIUM LEVEL 8.7 MG/DL (8.8-10.2); CARBON DIOXIDE LEVEL 24 MEQ/L (21-32); CHLORIDE LEVEL 101 MEQ/L (98-107); CK-MB VALUE MASS 1.4 NG/ML (0.0-3.6); CPK CREATINE PHOSPHOKINASE 242 U/L (39-308); CREATININE FOR GFR 1.07 MG/DL (0.70-1.30); GLOMERULAR FILTRATION RATE > 60.0 (>49); GLUCOSE, FASTING 106 MG/DL (70-100); LIPASE 223 U/L (73-393); MB/CK RELATIVE INDEX 0.57 (< OR =4); POTASSIUM SERUM 3.7 MEQ/L (3.5-5.1); SODIUM LEVEL 134 MEQ/L (136-145); TOTAL PROTEIN 8.7 GM/DL (6.4-8.2); TROPONIN I < 0.02 NG/ML (< 0.10)
[2018-02-06] MEDS: SIMETHICONE 80 MG CHEW TAB PO (01:45)
[2018-02-06] MEDS: ONDANSETRON 4MG/2ML VIAL (J2405) IV (01:45)
== END 2018-02-06 07:08 | disposition home or self-care (01) ==
LOC: M ED 00:07
DX: K44.9 Diaphragmatic hernia without obstruction or gangrene (principal); F17.210 Nicotine dependence, cigarettes, uncomplicated; Z98.890 Other specified postprocedural states
CPT/HCPCS: C9113

== ENCOUNTER 2019-11-12 07:06 | Inpatient (IN) | payer MEDICARE, SELFPAY ==
[2019-11-12] VITALS (10 sets, daily range): BP systolic 125–152; BP diastolic 58–80
[~2019-11-12] VITALS: Ht 180.3 cm; Wt 79.5 kg
[~2019-11-12 07:06] MED LIST changes: -/AMLO25TA PO; -/PANT40TA PO; -AMLO10TA2 PO; +AMLO10TA5 PO; -AMLO2.5T PO; +AMLO2.5T3 PO; -AMLO5TAB2 PO; +AMLO5TAB6 PO; -ASCO25TA PO; +FERR325T3 PO; +FOLI1TAB11 PO; -FOLI1TAB4 PO; +HYDR12CA PO; +LISI-538 PO; +LISI20TA19 PO; +METO1TAB63 PO; -METO25TAB PO; +MILK120011 PO; -MILKSUS PO; +NICO14DI20 EXT; -NICO14PA EXT; +NORV2TAB PO; +OMEP40CA97 PO; +PANT40TA3 PO; +PATIENT COMMENTS; +SENN-53 PO; -SENN1TAB2 PO; +SIME1CAP5 PO; +SUCR1SS PO; +VITA1TAB23 PO; +ZOFR4TAB14 PO; -ZOFR4TAB3 PO
[2019-11-12] MEDS ORDERED: CLOP75TA2 PEG (11:21)
[2019-11-12] MEDS ORDERED: ATOR80TA59 PEG (11:21)
[2019-11-12] MEDS ORDERED: CYCL5TAB PEG (11:21)
[2019-11-12] MEDS ORDERED: MILKSUS7 PO (11:21)
[2019-11-12] MEDS ORDERED: FLEEENE12 PR (11:21)
[2019-11-12] MEDS ORDERED: SENN8.8S5 PEG (11:21)
[2019-11-12] MEDS ORDERED: CARV12.5 PEG (11:21)
[2019-11-12] MEDS ORDERED: FERR1TAB8 PEG (11:21)
[2019-11-12] MEDS ORDERED: VITMTA PEG (11:21)
[2019-11-12] MEDS ORDERED: HUMA100I5 SC (11:21)
[2019-11-12] MEDS ORDERED: FAMO20TA PEG (11:21)
[2019-11-12] MEDS ORDERED: CAPT62TA PEG (11:21)
[2019-11-12] MEDS ORDERED: DOXA1TAB67 PEG (11:21)
[2019-11-12] MEDS ORDERED: FOLI1TAB11 PEG (11:21)
[2019-11-12] MEDS ORDERED: BISA10SU27 PR (11:21)
[2019-11-12] MEDS ORDERED: THIA100T7 PEG (11:21)
[2019-11-12 11:35] LABS: HEMATOCRIT 26.3 % (42.0-52.0); HEMOGLOBIN 7.5 g/dl (13.5-17.5); MEAN CORPUSCULAR HEMOGLOBIN 19.8 pg (27.0-33.0); MEAN CORPUSCULAR HGB CONC 28.5 g/dl (32.0-36.5); MEAN CORPUSCULAR VOLUME 69.6 fl (80.0-96.0); PLATELET COUNT, AUTOMATED 376 10^3/uL (150-450); RED BLOOD COUNT 3.78 10^6/uL (4.30-6.10); WHITE BLOOD COUNT 12.8 10^3/uL (4.0-10.0)
[2019-11-12 11:58] LABS: ALBUMIN 1.9 GM/DL (3.2-5.2); ALT/SGPT 40 U/L (12-78); BILIRUBIN,TOTAL 0.6 MG/DL (0.2-1.0); BLOOD UREA NITROGEN 23 MG/DL (7-18); CARBON DIOXIDE LEVEL 27 MEQ/L (21-32); CHLORIDE LEVEL 108 MEQ/L (98-107); CREATININE FOR GFR 1.04 MG/DL (0.70-1.30); GLOMERULAR FILTRATION RATE > 60.0 (>49); GLUCOSE, FASTING 126 MG/DL (70-100); MAGNESIUM LEVEL 2.1 MG/DL (1.8-2.4); POTASSIUM SERUM 4.8 MEQ/L (3.5-5.1); SODIUM LEVEL 145 MEQ/L (136-145); TOTAL PROTEIN 8.5 GM/DL (6.4-8.2)
--- NOTE | 2019-11-12 12:53 | HPEPDOC ---
[facility] Medical History & Physical Date of Admission Nov 12, 2019 Date of Service: Nov 12, 2019 History and Physical CHIEF COMPLAINT: Coffee ground emesis HISTORY OF PRESENT ILLNESS: Patient is a 68M with PMH Jasper's esophagus (previous documentation reported varices with banding?) s/p multiple admission for endoscopies, recent CVA 3 weeks prior at [facility] s/p PEG tube placement, GERD, NIDDM, Hep C s/p treatment, COPD, HTN was transferred here from [facility] for concern of GI bleed. Patient reportedly was transferred to LTAC facility in [place] after having a stroke from [facility] and noted to have coffee ground emesis and went to [place] ER where a request was made to transfer patient to [facility] overnight for GI evaluation. History are not able to be obtain from patient as a result for the stroke and he only shakes his head as a form of communication. Unable to ascertain further history or ROS based on clinical status. History obtained from previous documentation and partly from daughter through the phone. PAST MEDICAL HISTORY: Refer to HPI PAST SURGICAL HISTORY: EGDs SOCIAL HISTORY: Previous smoking, alcohol and drug use. FAMILY HISTORY: CAD in both parents ALLERGIES: Please see below. REVIEW OF SYSTEMS: Unable to obtain HOME MEDICATIONS: Please see below. PHYSICAL EXAMINATION: General: Alert, limited extremity movement and verbal communication, somewhat overall contracted Eyes: Normal sclera, EOMI, MIA HENT: Atraumatic Cardiovascular: Normal rate, normal rhythm. Pulmonary: Clear to auscultation b/l, no wheezing GI: Soft, nondistended, PEG tube intact. Skin: Warm and dry Neuro: Limited movement in extremities spontaneously, unable to fully assess due to neurological status. LABORATORY DATA: See below. MICROBIOLOGY: Please see below. ASSESSMENT AND PLAN: 1. Coffee ground emesis with anemia - Suspect UGIB 2/2 esophagitis vs. gastritis vs. PEG tube site bleeding from in side? - Hb appear to be around 10 at baseline, now dropped to 7.5. - 3 units pRBC ordered. - s/p Rocephin given at [place], will continue. - GI consulted, plan for scope when able. - Protonix IV BID. - Avoid antiplatelets/anticoagulation, normally on Plavix. 2. Hx Gastritis/esophagitis/GERD - c/w PPI 3. NIDDM - Hold oral meds. continue with FS with sliding scale q6. 4. COPD - Duonebs PRN. - Does not appear to be in exacerbation. 5. hx Hep C - s/p treatment. 6. HTN - BP controlled at this time. Hold oral meds. DVT ppx: TEDs in setting of GI bleed Code status: Full code Vital Signs Vital Signs Date Time Temp Pulse Resp B/P (MAP) Pulse Ox O2 Delivery O2 Flow Rate FiO2 11/12/19 12:00 98.5 121 24 125/58 (80) 94 Room Air Laboratory Data Labs 24H Laboratory Tests 2 11/12/19 11:24: Nucleated Red Blood Cells % (auto) 0.2H, Anion Gap 10, Glomerular Filtration Rate > 60.0, Lactic Acid Level 4.7*H, Calcium Level 9.0, Magnesium Level 2.1, Total Bilirubin 0.6, Aspartate Amino Transf (AST/SGOT) 76H, Alanine Aminotransferase (ALT/SGPT) 40, Alkaline Phosphatase 94, Total Protein 8.5H, Albumin 1.9L, Albumin/Globulin Ratio 0.29L CBC/BMP Laboratory Tests 11/12/19 11:24 Microbiology Microbiology 11/12/19 Blood Culture, Received Pending Home Medications Scheduled Atorvastatin Calcium (Atorvastatin Calcium) 80 Mg Tablet, 80 MG PEG QHS Captopril (Captopril) 12.5 Mg Tablet, 6.25 MG PEG TID Carvedilol (Carvedilol) 12.5 Mg Tablet, 12.5 MG PEG BID Clopidogrel Bisulfate (Clopidogrel) 75 Mg Tablet, 75 MG PEG DAILY Doxazosin Mesylate (Doxazosin) 4 Mg Tablet, 4 MG PEG DAILY Famotidine (Famotidine) 20 Mg Tablet, 20 MG PEG BID Ferrous Sulfate (Ferrous Sulfate) 325 Mg Tablet, 325 MG PEG BID Folic Acid (Folic Acid) 1 Mg Tablet, 1 MG PEG DAILY Insulin Lispro (Humalog Kwikpen U-100) 100 Unit/1 Ml Insuln.pen, 1 DOSE SC ACHS PER SLIDING SCALE Multivitamins (Thera M Plus Tablet) 1 Each Tablet, 1 TAB PEG DAILY Sennosides (Senna) 8.8 Mg/5 Ml Syrup, 10 M PEG DAILY Thiamine HCl (Thiamine HCl) 100 Mg Tablet, 100 MG PEG DAILY Scheduled PRN Bisacodyl (Bisacodyl) 10 Mg Supp.rect, 10 MG MI DAILY PRN for CONSTIPATION ADMINISTER IF NO RESULTS FROM MILK OF MAG Cyclobenzaprine HCl (Cyclobenzaprine HCl) 5 Mg Tablet, 5 MG PEG TID PRN for MUSCLE SPASMS Magnesium Hydroxide (Milk of Magnesia) 400 Mg/5 Ml Oral.susp, 30 ML PO DAILY PRN for CONSTIPATION GIVE IF NO BM AFTER 48 HOURS Sodium Phosphate,[place]-Dibasic (Fleet Enema) 133 Ml Enema, 1 JOSE MI DAILY PRN for CONST' ADMINISTER IF NO RESULTS FROM BISACODYL SUPPOSITORY Allergies Coded Allergies: No Known Allergies (Unverified , 01/30/18) A-FIB/CHADSVASC A-FIB History Current/History of A-Fib/PAF?: No CONSTANTIN MOON MD Nov 12, 2019 12:53
[2019-11-12] MEDS: cefTRIAXone SOD 1 GM in D5W MINI-BAG PLUS 50 ML IV SCH (13:32)
[2019-11-12] MEDS: NS 1,000 ML IV SCH (13:33)
[2019-11-12] MEDS: PANTOPRAZOLE 40MG INJ (PROTONIX) (C9113) IV SCH ×2 (13:33→21:57)
[2019-11-12] MEDS: HumaLOG INSULIN (NovoLOG) PER UNIT SC SCH ×2 (13:33→19:00)
[2019-11-12] MEDS ORDERED: PROPOFOL 200 MG/20 ML VIAL As Ordered ONE (15:26)
[2019-11-12] MEDS ORDERED: fentaNYL 100 MCG/2 ML INJECTION (J3010) As Ordered ONE (15:26)
[2019-11-12] MEDS ORDERED: SUCCINYLCHOLINE 100 MG/5 ML SYRINGE (J0330) As Ordered ONE (15:26)
[2019-11-12] MEDS ORDERED: LIDOCAINE 2% INJ 100 MG/5 ML SDV (FOR ANES.) As Ordered ONE (15:26)
[2019-11-12] MEDS ORDERED: PHENYLephrine HCL 500 MCG/5 ML (100MCG/ML) SYRINGE (J2370) As Ordered ONE (15:37)
--- NOTE | 2019-11-12 16:53 | ROOR ---
Patient Name: Kenny Ramirez Procedure Date: 11/12/2019 2:53 PM Date of : 1950 Age: 68 Gender: Male Note Status: Finalized Procedure: Upper GI endoscopy Indications: Acute post hemorrhagic anemia, Iron deficiency anemia secondary to chronic blood loss, Coffee-ground emesis Providers: Yuri ONOFRE MD Referring MD: 1. No Referring Physician 1. No Referring Physician, Admin. Requesting Provider: Medicines: Monitored Anesthesia Care Complications: No immediate complications. Procedure: Pre-Anesthesia Assessment: - The heart rate, respiratory rate, oxygen saturations, blood pressure, adequacy of pulmonary ventilation, and response to care were monitored throughout the procedure. The Endoscope was introduced through the mouth, and advanced to the second part of duodenum. The upper GI endoscopy was accomplished without difficulty. The patient tolerated the procedure well. Findings: Moderate esophagitis with mild diffuse ooze/weeping bleeding was found in the entire esophagus. Biopsies were taken with a cold forceps for histology. A medium-sized hiatal hernia was present. There was evidence of an intact gastrostomy with a patent G-tube present in the gastric body. This was characterized by healthy appearing mucosa. The exam of the stomach was otherwise normal. The examined duodenum was normal. Impression: - Moderate to severe diffuse erosive esophagitis. Mildly hemorrhagic appearance. Biopsied. - Medium-sized hiatal hernia. - Intact gastrostomy with a patent G-tube present characterized by healthy appearing mucosa. - Normal examined duodenum. Recommendation: - Use PPI BID indefinitely i.e. Prilosec (omeprazole) 40 mg via PEG BID for known Barretts esophagus and known recurrent severe erosive reflux esophagitis on multiple previous scopes) - (For PEG tube- use CAPSULE formulation---may open capsule, do not crush spheres). Alternatively, Use Prevacid solutab 30 mg BID via PEG). - Periodically re-assess need for Anticoagulants/Antiplatelet therapy. Stop if no longer of benefit. - OK to resume PEG tube use for meds/feeds. Yuir Onofre MD Yuri ONOFRE MD 11/12/2019 4:52:56 PM Electronically signed by Yuri ONOFRE MD Number of Addenda: 0 Note Initiated On: 11/12/2019 2:53 PM Estimated Blood Loss: Estimated blood loss: none.
[2019-11-13] VITALS (7 sets, daily range): BP systolic 126–146; BP diastolic 60–75
[2019-11-13] MEDS: HumaLOG INSULIN (NovoLOG) PER UNIT SC SCH ×4 (00:33→18:00)
[2019-11-13] MEDS ORDERED: ACETAMINOPHEN *IV* 1,000 MG in IV 1 EA IV ONE (01:00)
[2019-11-13] MEDS: NS 1,000 ML IV SCH (03:07)
[2019-11-13 05:30] LABS: HEMATOCRIT 32.7 % (42.0-52.0); MEAN CORPUSCULAR HEMOGLOBIN 23.3 pg (27.0-33.0); MEAN CORPUSCULAR HGB CONC 31.2 g/dl (32.0-36.5); MEAN CORPUSCULAR VOLUME 74.7 fl (80.0-96.0); PLATELET COUNT, AUTOMATED 279 10^3/uL (150-450); RED BLOOD COUNT 4.38 10^6/uL (4.30-6.10); WHITE BLOOD COUNT 12.3 10^3/uL (4.0-10.0)
[2019-11-13 05:38] LABS: HEMOGLOBIN 10.2 g/dl (13.5-17.5)
[2019-11-13 05:50] LABS: BLOOD UREA NITROGEN 25 MG/DL (7-18); CALCIUM LEVEL 8.4 MG/DL (8.8-10.2); CARBON DIOXIDE LEVEL 26 MEQ/L (21-32); CHLORIDE LEVEL 113 MEQ/L (98-107); CREATININE FOR GFR 1.02 MG/DL (0.70-1.30); GLOMERULAR FILTRATION RATE > 60.0 (>49); GLUCOSE, FASTING 122 MG/DL (70-100); SODIUM LEVEL 145 MEQ/L (136-145)
--- NOTE | 2019-11-13 07:48 | IPNPDOC ---
Text Note Date of Service The patient was seen on 11/13/19. NOTE Subjective: Patient seen and examined at bedside. No acute overnight events reported. Difficult to obtain information from patient, only shakes his head as form of communication. Objective: General: Alert, limited extremity movement and verbal communication, somewhat overall contracted HEENT: NC/AT, EOMI Cardiovascular: Normal rate, normal rhythm. Pulmonary: Clear to auscultation b/l, no wheezing GI: Soft, nondistended, PEG tube intact. Skin: Warm and dry Neuro: Limited movement in extremities spontaneously, unable to fully assess due to neurological status. ASSESSMENT AND PLAN: 68M with PMHx Jasper's esophagus (previous documentation reported varices with banding?) s/p multiple admission for endoscopies, recent CVA 3 weeks prior at [facility] s/p PEG tube placement, GERD, NIDDM, Hep C s/p treatment, COPD, HTN. He was apparently transferred to LTAC facility in [place] after his discharge from [facility]. He presented to [place] ER for coffee ground emesis, and subsequently transferred here for GI evaluation. # Coffee ground emesis with anemia - s/p EGD = severe diffuse erosive esophagitis - Hb appear to be around 10 at baseline, on admission 7.5. - 3 units pRBC ordered. - s/p Rocephin given at [place], will continue. - GI consulted, s/p EGD - recommend prilosec 40 BID capsule or prevacid 30 BID - via PEG - started prevacid BID - GI recs to resume antiplatelets - periodically review utility - normally on Plavix. 2. Hx Gastritis/esophagitis/GERD - c/w PPI 3. NIDDM - resuming diet today, ISS 4. COPD - Duonebs PRN. - Does not appear to be in exacerbation. 5. hx Hep C - s/p treatment. 6. HTN - BP controlled at this time. DVT ppx: TEDs in setting of GI bleed Code status: Full code Dispo: monitor H/H, resume feeds, anticipate d/c to home facility in 24-48 hours VS,Fishbone, I+O VS, Fishbone, I+O Laboratory Tests 11/12/19 11:24 11/13/19 05:05 Vital Signs Date Time Temp Pulse Resp B/P (MAP) Pulse Ox O2 Delivery O2 Flow Rate FiO2 11/13/19 04:00 98.0 84 21 146/72 (96) 97 Room Air 11/12/19 17:59 98.0 I&O- Last 24 Hours up to 6 AM 11/13/19 06:00 Intake Total 500 ml Output Total 1725 ml Balance -1225 ml LIBERTY MARRUFO MD Nov 13, 2019 07:48
[2019-11-13] MEDS: PANTOPRAZOLE 40MG INJ (PROTONIX) (C9113) IV SCH (09:42)
[2019-11-13] MEDS: cefTRIAXone SOD 1 GM in D5W MINI-BAG PLUS 50 ML IV SCH (13:34)
[2019-11-13] MEDS ORDERED: CYCLOBENZAPRINE 5MG TABLET PEG PRN (14:45)
[2019-11-13] MEDS: MULTIVITAMINS/MINERALS THERAP 1 TAB PEG SCH (16:04)
[2019-11-13] MEDS: THIAMINE 100 MG TAB PEG SCH (16:04)
[2019-11-13] MEDS: CLOPIDOGREL 75 MG TAB PEG SCH (16:04)
[2019-11-13] MEDS: FOLIC ACID 1 MG TAB PEG SCH (16:04)
[2019-11-13] MEDS: CAPTOpril 6.25 MG PER 1/2 TABLET PEG SCH ×2 (17:59→20:07)
[2019-11-13] MEDS: DOXAZOSIN MESYLATE 4 MG TAB PEG SCH (17:59)
[2019-11-13] MEDS: ATORVASTATIN 20 MG TAB PEG SCH (20:07)
[2019-11-13] MEDS: FERROUS SULFATE 325MG TAB PEG SCH (20:07)
[2019-11-13] MEDS: LANSOPRAZOLE SUSPENSION 30 MG/10 ML ORAL SYRINGE (FIRST-LANSOPRAZOLE) GT SCH (20:08)
[2019-11-13] MEDS: CARVedilol 12.5 MG TAB PEG SCH (20:08)
[2019-11-13] MEDS ORDERED: FAMOTIDINE 20 MG TAB PEG SCH (21:00)
[2019-11-14] VITALS (7 sets, daily range): BP systolic 130–155; BP diastolic 60–86
[2019-11-14] MEDS: HumaLOG INSULIN (NovoLOG) PER UNIT SC SCH ×4 (00:21→18:18)
[2019-11-14] MEDS: FERROUS SULFATE 325MG TAB PEG SCH (09:00)
[2019-11-14 09:07] LABS: HEMATOCRIT 32.8 % (42.0-52.0); HEMOGLOBIN 10.4 g/dl (13.5-17.5); MEAN CORPUSCULAR HEMOGLOBIN 23.6 pg (27.0-33.0); MEAN CORPUSCULAR HGB CONC 31.7 g/dl (32.0-36.5); MEAN CORPUSCULAR VOLUME 74.5 fl (80.0-96.0); PLATELET COUNT, AUTOMATED 262 10^3/uL (150-450); WHITE BLOOD COUNT 10.7 10^3/uL (4.0-10.0)
[2019-11-14 09:42] LABS: BLOOD UREA NITROGEN 20 MG/DL (7-18); CALCIUM LEVEL 8.2 MG/DL (8.8-10.2); CARBON DIOXIDE LEVEL 23 MEQ/L (21-32); CHLORIDE LEVEL 115 MEQ/L (98-107); CREATININE FOR GFR 0.81 MG/DL (0.70-1.30); FERRITIN 299 NG/ML (26-388); GLOMERULAR FILTRATION RATE > 60.0 (>49); GLUCOSE, FASTING 161 MG/DL (70-100); IRON (FE) 25 UG/DL (65-175); PERCENT SATURATION 11.3 % (19.7-50.0); POTASSIUM SERUM 4.1 MEQ/L (3.5-5.1); SODIUM LEVEL 146 MEQ/L (136-145); TOTAL IRON BINDING CAPACITY 221 UG/DL (250-450)
[2019-11-14 09:46] LABS: FOLATE > 24.0 NG/ML (>5.4); VITAMIN B12 LEVEL 924 PG/ML (247-911)
[2019-11-14] MEDS: LANSOPRAZOLE SUSPENSION 30 MG/10 ML ORAL SYRINGE (FIRST-LANSOPRAZOLE) GT SCH ×2 (09:53→21:49)
[2019-11-14] MEDS: CAPTOpril 6.25 MG PER 1/2 TABLET PEG SCH ×3 (09:57→21:49)
[2019-11-14] MEDS: DOXAZOSIN MESYLATE 4 MG TAB PEG SCH (10:00)
[2019-11-14] MEDS: MULTIVITAMINS/MINERALS THERAP 1 TAB PEG SCH (10:00)
[2019-11-14] MEDS: CLOPIDOGREL 75 MG TAB PEG SCH (10:00)
[2019-11-14] MEDS: THIAMINE 100 MG TAB PEG SCH (10:00)
[2019-11-14] MEDS: CARVedilol 12.5 MG TAB PEG SCH ×2 (10:00→21:50)
[2019-11-14] MEDS: FOLIC ACID 1 MG TAB PEG SCH (10:01)
[2019-11-14] MEDS: cefTRIAXone SOD 1 GM in D5W MINI-BAG PLUS 50 ML IV SCH (12:08)
--- NOTE | 2019-11-14 13:16 | IPNPDOC ---
Text Note Date of Service The patient was seen on 11/14/19. NOTE Subjective: Patient seen and examined at bedside. No acute overnight events reported. Difficult to obtain information from patient, only shakes his head as form of communication. Does not move the right side of the body much. Right leg is in contracted position. Objective: Vitals: as as below. General: Alert, limited extremity movement and verbal communication, somewhat overall contracted HEENT: NC/AT, EOMI, moist mucous membranes. Cardiovascular: Normal rate, normal rhythm. No rub , murmur or gallop Pulmonary: Clear to auscultation b/l, no wheezing GI: Soft, nondistended, PEG tube intact. Skin: Warm and dry, chronic changes, dry discolored with abnormal nails Extremities: looks like with chronic poor arterial circulation. Neuro:right residual paresis, upper extremity weaker than lower, right lower extremity is contracted. ASSESSMENT AND PLAN: 68M with PMHx Jasper's esophagus, recurrent reflux esophagitis s/p multiple admission for endoscopies, recent CVA 3 weeks prior at [facility] s/p PEG tube placement, GERD, NIDDM, Hep C s/p treatment, COPD, HTN. He was apparently transferred to LTAC facility in [place] after his discharge from [facility]. He presented to [place] ER for coffee ground emesis, and subsequently transferred here for GI evaluation. Upper GIB bleed with acute blood loss anemia. s/p EGD = severe diffuse erosive reflux esophagitis, hiatal hernia, Pineda's esophagus Hb appear to be around 10 at baseline, on admission 7.5. 3 units pRBC transfused. s/p Rocephin given at [place], will continue. GI recommend prilosec 40 BID capsule or prevacid 30 BID - via PEG started prevacid BID GI recs to resume antiplatelets - periodically review utility - normally on Plavix. Hx Gastritis/esophagitis/GERD c/w PPI NIDDM continue tube feeding with free water boluses. ISS COPD Duonebs PRN. Does not appear to be in exacerbation. Hx Hep C s/p treatment. HTN BP controlled at this time. Possible PAD bilateral legs are discolored with dry skin and abnormal nails will get bilateral lower extremity arterial Doppler. DVT ppx: TEDs in setting of GI bleed Code status: Full code Dispo: monitor H/H, resume feeds, anticipate d/c to home facility in 24-48 hours VS,Subhashbone, I+O VS, Fishbone, I+O Laboratory Tests 11/14/19 08:39 Vital Signs Date Time Temp Pulse Resp B/P (MAP) Pulse Ox O2 Delivery O2 Flow Rate FiO2 11/14/19 12:00 97.5 72 20 140/70 (93) 98 Room Air 11/12/19 17:59 98.0 I&O- Last 24 Hours up to 6 AM 11/14/19 06:00 Intake Total 50 ml Output Total 1450 ml Balance -1400 ml GLENYS GALAN MD Nov 14, 2019 13:16
[2019-11-14 14:28] LABS: HEMATOCRIT 35.1 % (42.0-52.0); HEMOGLOBIN 10.9 g/dl (13.5-17.5)
--- NOTE | 2019-11-14 16:16 | REP ---
Bilateral lower extremity arterial Doppler ultrasound: History: Poor pulses and lower extremities by Doppler. Sonographic findings: Exam quality and completeness was inhibited by a patient's altered mental status and inability to cooperate with positioning. ABIs could not be obtained. The right mid superficial femoral artery appears to be occluded. Monophasic waveforms are seen throughout the lower extremities. The left superficial femoral artery appears to be occluded with distal reversal of flow. Right lower extremity arterial Doppler velocity chart: CF A 75 cm/S Profunda 70 Proximal SFA 47 Mid SFA 9.5/8.7 Distal SFA occluded Popliteal seven Proximal AT A six Tibioperoneal trunk not seen Proximal RAILROAD POLICE 22 Distal RAILROAD POLICE 14 Distal AT A not seen Left lower extremity arterial Doppler velocity chart: CF A 67 cm/S Profunda 157 Proximal SFA 13/12 Mid SFA occluded Distal SFA 177, reversed Popliteal unable to visualize Proximal AT A not seen Tibioperoneal trunk not seen Mid posterior tibial artery 36 Distal RAILROAD POLICE 27 Distal AT A 33 Electronically Signed by Terrell Roy MD 11/14/2019 04:08 P
[2019-11-14] MEDS: FERROUS SULFATE 300MG/5ML UDC LIQUID PO SCH (21:49)
[2019-11-14] MEDS: ATORVASTATIN 20 MG TAB PEG SCH (21:49)
[2019-11-15] MEDS: HumaLOG INSULIN (NovoLOG) PER UNIT SC SCH ×4 (00:33→18:09)
[2019-11-15 06:00] VITALS: BP 135/63
[2019-11-15 06:58] LABS: HEMATOCRIT 34.2 % (42.0-52.0); HEMOGLOBIN 10.5 g/dl (13.5-17.5); MEAN CORPUSCULAR HEMOGLOBIN 23.3 pg (27.0-33.0); MEAN CORPUSCULAR HGB CONC 30.7 g/dl (32.0-36.5); PLATELET COUNT, AUTOMATED 258 10^3/uL (150-450)
[2019-11-15 07:25] LABS: BLOOD UREA NITROGEN 16 MG/DL (7-18); CALCIUM LEVEL 8.4 MG/DL (8.8-10.2); CARBON DIOXIDE LEVEL 23 MEQ/L (21-32); CHLORIDE LEVEL 114 MEQ/L (98-107); CREATININE FOR GFR 0.81 MG/DL (0.70-1.30); GLOMERULAR FILTRATION RATE > 60.0 (>49); GLUCOSE, FASTING 183 MG/DL (70-100); POTASSIUM SERUM 3.6 MEQ/L (3.5-5.1); SODIUM LEVEL 146 MEQ/L (136-145)
[2019-11-15] MEDS: FERROUS SULFATE 300MG/5ML UDC LIQUID PO SCH ×2 (09:50→20:50)
[2019-11-15] MEDS: LANSOPRAZOLE SUSPENSION 30 MG/10 ML ORAL SYRINGE (FIRST-LANSOPRAZOLE) GT SCH ×2 (09:50→22:43)
[2019-11-15] MEDS: FOLIC ACID 1 MG TAB PEG SCH (09:51)
[2019-11-15] MEDS: THIAMINE 100 MG TAB PEG SCH (09:51)
[2019-11-15] MEDS: CLOPIDOGREL 75 MG TAB PEG SCH (09:52)
[2019-11-15] MEDS: CARVedilol 12.5 MG TAB PEG SCH ×2 (09:52→20:51)
[2019-11-15] MEDS: MULTIVITAMINS/MINERALS THERAP 1 TAB PEG SCH (09:52)
[2019-11-15] MEDS: CAPTOpril 6.25 MG PER 1/2 TABLET PEG SCH ×3 (09:52→20:52)
[2019-11-15] MEDS: DOXAZOSIN MESYLATE 4 MG TAB PEG SCH (09:53)
--- NOTE | 2019-11-15 11:14 | CR.PDOC ---
General Date of Consultation: Nov 15, [address] Pinon HPI: Patient is a 68M with was transferred here from [facility] for concern of GI bleed. Patient reportedly was transferred to LTAC facility in [place] after having a stroke from [facility] and noted to have coffee ground emesis and was taken to [place] ER where a request was made to transfer patient to [facility] for GI evaluation. The patient is noted to have dysphasia secondary to recent stroke, the patient is unable to provide history. He shakes his head to some questions and sometimes answers with a one word response. Much of history is taken from the chart. Patient has history of dysphagia with feeding tube in place. Patient is also noted to have right-sided weakness with contracture of the right lower extremity. Vascular surgery was consulted regarding right lower extremity wound/PAD. PAST MEDICAL HISTORY: Jasper's esophagus (previous documentation reported varices with banding?) s/p multiple admission for endoscopies, recent CVA 3 weeks prior at [facility] s/p PEG tube placement, GERD, NIDDM, Hep C s/p treatment, COPD, HTN PAST SURGICAL HISTORY: EGD SOCIAL HISTORY: Previous smoking, alcohol and drug use. FAMILY HISTORY: CAD in both parents ROS: The patient is unable to provide much history, history is taken from the chart. PE: GEN: 68yoM, appears chronically ill. Pt with dysarthria and dysphagia. Alert, shakes head to some questions and short one word responses at times. HEENT: Normocephalic, atraumatic. Moist mucous membranes. CHEST: Regular rate and rhythm, +S1, +S2 LUNGS: Breathing is unlabored. ABD: Flat, feeding tube in place. EXT: Tissue loss noted to anterior RLE with dry eschar pretibial area with no cellulitis or erythema noted. Monophasic DP/PT with severe muscle wasting bilaterally. NEURO: Rt sided weakness with severe contracture RLE. Bilateral lower extremity arterial Doppler ultrasound: History: Poor pulses and lower extremities by Doppler. Sonographic findings: Exam quality and completeness was inhibited by a patient's altered mental status and inability to cooperate with positioning. ABIs could not be obtained. The right mid superficial femoral artery appears to be occluded. Monophasic waveforms are seen throughout the lower extremities. The left superficial femoral artery appears to be occluded with distal reversal of flow. Right lower extremity arterial Doppler velocity chart: CF A 75 cm/S Profunda 70 Proximal SFA 47 Mid SFA 9.5/8.7 Distal SFA occluded Popliteal seven Proximal AT A six Tibioperoneal trunk not seen Proximal APPLICATION SPECIALIST 22 Distal APPLICATION SPECIALIST 14 Distal AT A not seen Left lower extremity arterial Doppler velocity chart: CF A 67 cm/S Profunda 157 Proximal SFA 13/12 Mid SFA occluded Distal SFA 177, reversed Popliteal unable to visualize Proximal AT A not seen Tibioperoneal trunk not seen Mid posterior tibial artery 36 Distal APPLICATION SPECIALIST 27 Distal AT A 33 Electronically Signed by Terrell Roy MD 11/14/2019 04:08 P A&P: 1. PAD with wound RLE pretibial area. Unclear if the patient is a candidate for endovascular intervention. He is noncommunicable. He is not following commands well. He has eversion at the right hip with flexion contraction of the right knee and no ability to extend or straighten by himself or with assistance. The left lower extremity is mobile however he does not move it to command. At this point goals of care unclear, there is no family member or power of real estate associate attorney available at the bedside to discuss recommendations and further plans. For the reasons listed above and also considering the patient's recent GI bleed, the patient would be high risk for any endovascular procedure. He does not appear to be a good candidate for open procedure either. However, due to pretibial eschar right lower extremity suggesting ischemia with tissue loss, we would consider the patient for arteriogram if he was medically optimized and his family was agreeable to the additional risk associated with intervention on this complicated patient. Thank you for your consultation. We will continue to follow along with you. Vital Signs/I&O Vital Signs Date Time Temp Pulse Resp B/P (MAP) Pulse Ox O2 Delivery O2 Flow Rate FiO2 11/15/19 09:53 140/62 11/15/19 09:52 78 11/15/19 06:00 98.2 21 97 Room Air 11/12/19 17:59 98.0 I&O- Last 24 Hours up to 6 AM 11/15/19 05:59 Intake Total 1250 ml Output Total 675 ml Balance 575 ml Laboratory Data Labs 24H Laboratory Tests 2 11/14/19 11:50: Bedside Glucose (Misc Panel) 143H 11/14/19 17:53: Bedside Glucose (Misc Panel) 114 11/15/19 00:08: Bedside Glucose (Misc Panel) 157H 11/15/19 05:59: Bedside Glucose (Misc Panel) 184H, Nucleated Red Blood Cells % (auto) 0.5H, Anion Gap 9, Glomerular Filtration Rate > 60.0, Calcium Level 8.4L CBC/BMP Laboratory Tests 11/14/19 14:18 11/15/19 05:59 Microbiology Microbiology 11/12/19 Blood Culture - Preliminary, Resulted No Growth after 48 hours. All Specime... 11/12/19 Blood Culture - Preliminary, Resulted No Growth after 48 hours. All Specime... Allergies Coded Allergies: No Known Allergies (Unverified , 01/30/18) Home Medications Scheduled Atorvastatin Calcium (Atorvastatin Calcium) 80 Mg Tablet, 80 MG PEG QHS, (Reported) Captopril (Captopril) 12.5 Mg Tablet, 6.25 MG PEG TID, (Reported) Carvedilol (Carvedilol) 12.5 Mg Tablet, 12.5 MG PEG BID, (Reported) Clopidogrel Bisulfate (Clopidogrel) 75 Mg Tablet, 75 MG PEG DAILY, (Reported) Doxazosin Mesylate (Doxazosin) 4 Mg Tablet, 4 MG PEG DAILY, (Reported) Famotidine (Famotidine) 20 Mg Tablet, 20 MG PEG BID, (Reported) Ferrous Sulfate (Ferrous Sulfate) 325 Mg Tablet, 325 MG PEG BID, (Reported) Folic Acid (Folic Acid) 1 Mg Tablet, 1 MG PEG DAILY, (Reported) Insulin Lispro (Humalog Kwikpen U-100) 100 Unit/1 Ml Insuln.pen, 1 DOSE SC ACHS, (Reported) PER SLIDING SCALE Multivitamins (Thera M Plus Tablet) 1 Each Tablet, 1 TAB PEG DAILY, (Reported) Sennosides (Senna) 8.8 Mg/5 Ml Syrup, 10 M PEG DAILY, (Reported) Thiamine HCl (Thiamine HCl) 100 Mg Tablet, 100 MG PEG DAILY, (Reported) Scheduled PRN Bisacodyl (Bisacodyl) 10 Mg Supp.rect, 10 MG MT DAILY PRN for CONSTIPATION, (R eported) ADMINISTER IF NO RESULTS FROM MILK OF MAG Cyclobenzaprine HCl (Cyclobenzaprine HCl) 5 Mg Tablet, 5 MG PEG TID PRN for MUSCLE SPASMS, (Reported) Magnesium Hydroxide (Milk of Magnesia) 400 Mg/5 Ml Oral.susp, 30 ML PO DAILY PRN for CONSTIPATION, (Reported) GIVE IF NO BM AFTER 48 HOURS Sodium Phosphate,[place]-Dibasic (Fleet Enema) 133 Ml Enema, 1 JOSE MT DAILY PRN for CONST', (Reported) ADMINISTER IF NO RESULTS FROM BISACODYL SUPPOSITORY Deandra Jordan Nov 15, 2019 11:14
[2019-11-15] MEDS: cefTRIAXone SOD 1 GM in D5W MINI-BAG PLUS 50 ML IV SCH (12:57)
[2019-11-15 14:00] VITALS: BP 138/59
--- NOTE | 2019-11-15 16:10 | IPNPDOC ---
Text Note Date of Service The patient was seen on 11/15/19. NOTE Subjective: Patient seen and examined at bedside. No acute overnight events reported. Difficult to obtain information from patient, only shakes his head as form of communication. Does not move the right side of the body much. Right leg is in contracted position. does move left upper and lower extremity spontaneously. Objective: Vitals: as as below. General: Alert, limited extremity movement and verbal communication, somewhat overall contracted HEENT: NC/AT, EOMI, moist mucous membranes. Cardiovascular: Normal rate, normal rhythm. No rub , murmur or gallop Pulmonary: Clear to auscultation b/l, no wheezing GI: Soft, nondistended, PEG tube intact. Skin: Warm and dry, chronic changes, dry discolored with abnormal nails Extremities: looks like with chronic poor arterial circulation. With arterial ulcers on the [place] with ? eshchar. Neuro:right residual paresis, upper extremity weaker than lower, right lower extremity is contracted. ASSESSMENT AND PLAN: 68M with PMHx Pineda's esophagus, recurrent reflux esophagitis s/p multiple admission for endoscopies, recent CVA 3 weeks prior at [facility] s/p PEG tube placement, GERD, NIDDM, Hep C s/p treatment, COPD, HTN. He was apparently transferred to LTAC facility in [place] after his discharge from [facility]. He presented to [place] ER for coffee ground emesis, and subsequently transferred here for GI evaluation. Upper GIB bleed with acute blood loss anemia. s/p EGD = severe diffuse erosive reflux esophagitis, hiatal hernia, Pineda's esophagus Hb appear to be around 10 at baseline, on admission 7.5. 3 units pRBC transfused. received 5 days of rocephin started at [place]. Leg ulcers do not look infected. started prevacid BID GI recs to resume antiplatelets - periodically review utility - normally on Plav ix. Hx Gastritis/esophagitis/GERD c/w PPI Recent CVA in Sep 2019 with right Hemiparesis and right leg contracture dysphagia with PEG tube Persistent cognitive impairment severe. only smiles and shakes his head infrequently follows commands. NIDDM continue tube feeding with free water boluses. ISS Hypernatremia will increase free water boluses. COPD Duonebs PRN. Does not appear to be in exacerbation. Hx Hep C s/p treatment. HTN BP controlled at this time. PAD with right [place] arterial ulcers Bilateral lower ex doppler noted consulted vascular. will get in touch with daughter to seen if she is agreable to any procedure. DVT ppx: TEDs in setting of GI bleed Code status: Full code Dispo: monitor H/H, resume feeds, anticipate dc to [facility] soon if no intervention done at this time for his leg VS,Fishbone, I+O VS, Fishbone, I+O Laboratory Tests 11/15/19 05:59 Vital Signs Date Time Temp Pulse Resp B/P (MAP) Pulse Ox O2 Delivery O2 Flow Rate FiO2 11/15/19 15:12 150/67 11/15/19 14:00 99.3 75 20 97 Room Air 11/12/19 17:59 98.0 I&O- Last 24 Hours up to 6 AM 11/15/19 06:00 Intake Total 1250 ml Output Total 650 ml Balance 600 ml GLENYS GALAN MD Nov 15, 2019 16:10
[2019-11-15] MEDS: ATORVASTATIN 20 MG TAB PEG SCH (20:51)
[2019-11-15 22:00] VITALS: BP 144/67
[2019-11-16] MEDS: HumaLOG INSULIN (NovoLOG) PER UNIT SC SCH ×5 (00:15→23:44)
[2019-11-16 06:00] VITALS: BP 142/67
[2019-11-16 06:04] LABS: HEMATOCRIT 35.2 % (42.0-52.0); HEMOGLOBIN 10.6 g/dl (13.5-17.5); MEAN CORPUSCULAR HEMOGLOBIN 22.9 pg (27.0-33.0); MEAN CORPUSCULAR HGB CONC 30.1 g/dl (32.0-36.5); MEAN CORPUSCULAR VOLUME 76.2 fl (80.0-96.0); PLATELET COUNT, AUTOMATED 268 10^3/uL (150-450); RED BLOOD COUNT 4.62 10^6/uL (4.30-6.10); WHITE BLOOD COUNT 9.4 10^3/uL (4.0-10.0)
[2019-11-16 06:32] LABS: BLOOD UREA NITROGEN 14 MG/DL (7-18); CALCIUM LEVEL 8.7 MG/DL (8.8-10.2); CARBON DIOXIDE LEVEL 24 MEQ/L (21-32); CHLORIDE LEVEL 113 MEQ/L (98-107); CREATININE FOR GFR 0.85 MG/DL (0.70-1.30); GLOMERULAR FILTRATION RATE > 60.0 (>49); GLUCOSE, FASTING 177 MG/DL (70-100); POTASSIUM SERUM 3.8 MEQ/L (3.5-5.1); SODIUM LEVEL 143 MEQ/L (136-145)
[2019-11-16] MEDS: THIAMINE 100 MG TAB PEG SCH (09:56)
[2019-11-16] MEDS: MULTIVITAMINS/MINERALS THERAP 1 TAB PEG SCH (09:57)
[2019-11-16] MEDS: DOXAZOSIN MESYLATE 4 MG TAB PEG SCH (09:57)
[2019-11-16] MEDS: CARVedilol 12.5 MG TAB PEG SCH ×2 (09:57→20:32)
[2019-11-16] MEDS: FOLIC ACID 1 MG TAB PEG SCH (09:57)
[2019-11-16] MEDS: FERROUS SULFATE 300MG/5ML UDC LIQUID PO SCH ×2 (09:57→20:30)
[2019-11-16] MEDS: CAPTOpril 6.25 MG PER 1/2 TABLET PEG SCH ×3 (09:57→20:31)
[2019-11-16] MEDS: CLOPIDOGREL 75 MG TAB PEG SCH (09:57)
[2019-11-16] MEDS: LANSOPRAZOLE SUSPENSION 30 MG/10 ML ORAL SYRINGE (FIRST-LANSOPRAZOLE) GT SCH ×2 (09:57→20:31)
--- NOTE | 2019-11-16 13:06 | IPNPDOC ---
Text Note Date of Service The patient was seen on 11/16/19. NOTE Subjective: Patient seen and examined at bedside. No acute overnight events reported. Difficult to obtain information from patient, only shakes his head as form of communication. Does not move the right side of the body much. Right leg is in contracted position. does move left upper and lower extremity spontaneously. Objective: Vitals: as as below. General: Alert, limited extremity movement and verbal communication, somewhat overall contracted HEENT: NC/AT, EOMI, moist mucous membranes. Cardiovascular: Normal rate, normal rhythm. No rub , murmur or gallop Pulmonary: Clear to auscultation b/l, no wheezing GI: Soft, nondistended, PEG tube intact. Skin: Warm and dry, chronic changes, dry discolored with abnormal nails Extremities: looks like with chronic poor arterial circulation. With arterial ulcers on the boyce with ? eshchar. Neuro:right residual paresis, upper extremity weaker than lower, right lower extremity is contracted. ASSESSMENT AND PLAN: 68M with PMHx Pineda's esophagus, recurrent reflux esophagitis s/p multiple admission for endoscopies, recent CVA 3 weeks prior at [facility] s/p PEG tube placement, GERD, NIDDM, Hep C s/p treatment, COPD, HTN. He was apparently transferred to LTAC facility in [place] after his discharge from [facility]. He presented to [place] ER for coffee ground emesis, and subsequently transferred here for GI evaluation. Upper GIB bleed with acute blood loss anemia. s/p EGD = severe diffuse erosive reflux esophagitis, hiatal hernia, Pineda's esophagus Hb appear to be around 10 at baseline, on admission 7.5. 3 units PRBC transfused. received 5 days of Rocephin started at [place]. Leg ulcers do not look infected. started Prevacid BID GI recs to resume antiplatelets - periodically review utility - normally on Plav ix will continue for now. HH remains stable. Hx Gastritis/esophagitis/GERD c/w PPI PAD with right boyce arterial ulcers with eschar. Bilateral lower ex doppler noted with arterial occlusions. consulted vascular. will get in touch with daughter to seen if she is agreeable to any procedure. Recent CVA in Sep 2019 with right Hemiparesis and right leg contracture dysphagia with PEG tube Persistent cognitive impairment severe. only smiles and shakes his head infrequently follows commands. NIDDM continue tube feeding with free water boluses. ISS Hypernatremia resolved with increase free water boluses. COPD Duonebs PRN. Does not appear to be in exacerbation. Hx Hep C s/p treatment. HTN BP controlled at this time. DVT ppx: TEDs in setting of GI bleed Code status: Full code Dispo: monitor H/H, resume feeds, anticipate dc to [facility] soon if no intervention done at this time for his leg VS,Fishbone, I+O VS, Fishbone, I+O Laboratory Tests 11/16/19 05:35 Vital Signs Date Time Temp Pulse Resp B/P (MAP) Pulse Ox O2 Delivery O2 Flow Rate FiO2 11/16/19 09:57 144/68 11/16/19 09:57 82 11/16/19 06:00 98.0 18 99 Room Air 11/12/19 17:59 98.0 I&O- Last 24 Hours up to 6 AM 11/16/19 06:00 Intake Total 3350 ml Output Total 575 ml Balance 2775 ml GLENYS GALAN MD Nov 16, 2019 13:06
[2019-11-16 14:00] VITALS: BP 135/66
[2019-11-16] MEDS: ATORVASTATIN 20 MG TAB PEG SCH (20:31)
[2019-11-16 22:00] VITALS: BP 147/68
[2019-11-17 06:00] VITALS: BP 139/66
[2019-11-17 06:08] LABS: HEMATOCRIT 33.9 % (42.0-52.0); HEMOGLOBIN 10.4 g/dl (13.5-17.5); MEAN CORPUSCULAR HEMOGLOBIN 23.1 pg (27.0-33.0); MEAN CORPUSCULAR HGB CONC 30.7 g/dl (32.0-36.5); MEAN CORPUSCULAR VOLUME 75.3 fl (80.0-96.0); PLATELET COUNT, AUTOMATED 276 10^3/uL (150-450); WHITE BLOOD COUNT 9.9 10^3/uL (4.0-10.0)
[2019-11-17] MEDS: HumaLOG INSULIN (NovoLOG) PER UNIT SC SCH ×3 (06:11→17:24)
[2019-11-17 06:32] LABS: BLOOD UREA NITROGEN 14 MG/DL (7-18); CALCIUM LEVEL 8.5 MG/DL (8.8-10.2); CARBON DIOXIDE LEVEL 24 MEQ/L (21-32); CHLORIDE LEVEL 109 MEQ/L (98-107); CREATININE FOR GFR 0.77 MG/DL (0.70-1.30); GLOMERULAR FILTRATION RATE > 60.0 (>49); GLUCOSE, FASTING 173 MG/DL (70-100); SODIUM LEVEL 140 MEQ/L (136-145)
[2019-11-17] MEDS: FOLIC ACID 1 MG TAB PEG SCH (09:50)
[2019-11-17] MEDS: FERROUS SULFATE 300MG/5ML UDC LIQUID PO SCH ×2 (09:50→21:58)
[2019-11-17] MEDS: CLOPIDOGREL 75 MG TAB PEG SCH (09:50)
[2019-11-17] MEDS: CAPTOpril 6.25 MG PER 1/2 TABLET PEG SCH ×3 (09:50→21:58)
[2019-11-17] MEDS: CARVedilol 12.5 MG TAB PEG SCH ×2 (09:51→21:58)
[2019-11-17] MEDS: THIAMINE 100 MG TAB PEG SCH (09:51)
[2019-11-17] MEDS: MULTIVITAMINS/MINERALS THERAP 1 TAB PEG SCH (09:51)
[2019-11-17] MEDS: DOXAZOSIN MESYLATE 4 MG TAB PEG SCH (09:51)
[2019-11-17] MEDS: LANSOPRAZOLE SUSPENSION 30 MG/10 ML ORAL SYRINGE (FIRST-LANSOPRAZOLE) GT SCH ×2 (12:55→21:58)
[2019-11-17 14:00] VITALS: BP 126/65
[2019-11-17] MEDS: ATORVASTATIN 20 MG TAB PEG SCH (21:57)
[2019-11-17 22:00] VITALS: BP 131/69
[2019-11-18] MEDS: HumaLOG INSULIN (NovoLOG) PER UNIT SC SCH ×4 (00:15→17:26)
[2019-11-18 06:00] VITALS: BP 129/61
--- NOTE | 2019-11-18 06:49 | IPNPDOC ---
Text Note Date of Service The patient was seen on 11/17/19. NOTE Subjective: Patient seen and examined at bedside. No acute overnight events reported. Difficult to obtain information from patient, only shakes his head as form of communication. Does not move the right side of the body much. Right leg is in contracted position. does move left upper and lower extremity spontaneously. Objective: Vitals: as as below. General: Alert, limited extremity movement and verbal communication, somewhat overall contracted HEENT: NC/AT, EOMI, moist mucous membranes. Cardiovascular: Normal rate, normal rhythm. No rub , murmur or gallop Pulmonary: Clear to auscultation b/l, no wheezing GI: Soft, nondistended, PEG tube intact. Skin: Warm and dry, chronic changes, dry discolored with abnormal nails Extremities: looks like with chronic poor arterial circulation. With arterial ulcers on the boyce with ? eshchar. Neuro:right residual paresis, upper extremity weaker than lower, right lower extremity is contracted. ASSESSMENT AND PLAN: 68M with PMHx Pineda's esophagus, recurrent reflux esophagitis s/p multiple admission for endoscopies, recent CVA 3 weeks prior at [facility] s/p PEG tube placement, GERD, NIDDM, Hep C s/p treatment, COPD, HTN. He was apparently transferred to LTAC facility in [place] after his discharge from [facility]. He presented to [place] ER for coffee ground emesis, and subsequently transferred here for GI evaluation. Upper GIB bleed with acute blood loss anemia. s/p EGD = severe diffuse erosive reflux esophagitis, hiatal hernia, Pineda's esophagus Hb appear to be around 10 at baseline, on admission 7.5. 3 units PRBC transfused. received 5 days of Rocephin started at [place]. Leg ulcers do not look infected. started Prevacid BID GI recs to resume antiplatelets - periodically review utility - normally on Plav ix will continue for now. HH remains stable. Hx Gastritis/esophagitis/GERD c/w PPI PAD with right boyce arterial ulcers with eschar. Bilateral lower ex doppler noted with arterial occlusions. consulted vascular. They think it can be done later in 2 to 3 weeks time after discharge. daughter is agreable to the procedure. will follow up with vascular as outpatient Recent CVA in Sep 2019 with right Hemiparesis and right leg contracture dysphagia with PEG tube Persistent cognitive impairment severe. only smiles and shakes his head infrequently follows commands. NIDDM continue tube feeding with free water boluses. ISS Hypernatremia resolved with increase free water boluses. COPD Duonebs PRN. Does not appear to be in exacerbation. Hx Hep C s/p treatment. HTN BP controlled at this time. DVT ppx: TEDs in setting of GI bleed Code status: Full code Dispo: d/c to [place] when transportation can be set up. VS,Fishbone, I+O VS, Fishbone, I+O Laboratory Tests 11/17/19 05:54 Vital Signs Date Time Temp Pulse Resp B/P (MAP) Pulse Ox O2 Delivery O2 Flow Rate FiO2 11/17/19 06:00 98.2 84 16 139/66 (90) 95 Room Air 11/12/19 17:59 98.0 I&O- Last 24 Hours up to 6 AM 11/17/19 06:00 Intake Total 0 ml Output Total 1225 ml Balance -1225 ml GLENYS GALAN MD Nov 17, 2019 07:50
[2019-11-18] MEDS: THIAMINE 100 MG TAB PEG SCH (08:10)
[2019-11-18] MEDS: LANSOPRAZOLE SUSPENSION 30 MG/10 ML ORAL SYRINGE (FIRST-LANSOPRAZOLE) GT SCH ×2 (08:10→22:12)
[2019-11-18] MEDS: FERROUS SULFATE 300MG/5ML UDC LIQUID PO SCH ×2 (08:10→22:11)
[2019-11-18] MEDS: MULTIVITAMINS/MINERALS THERAP 1 TAB PEG SCH (08:11)
[2019-11-18] MEDS: CLOPIDOGREL 75 MG TAB PEG SCH (08:11)
[2019-11-18] MEDS: DOXAZOSIN MESYLATE 4 MG TAB PEG SCH (08:11)
[2019-11-18] MEDS: CARVedilol 12.5 MG TAB PEG SCH ×2 (08:12→22:12)
[2019-11-18] MEDS: FOLIC ACID 1 MG TAB PEG SCH (08:12)
[2019-11-18] MEDS: CAPTOpril 6.25 MG PER 1/2 TABLET PEG SCH ×3 (08:13→22:11)
[2019-11-18 19:35] VITALS: BP 144/73
[2019-11-18] MEDS: ATORVASTATIN 20 MG TAB PEG SCH (22:11)
[2019-11-19] MEDS: HumaLOG INSULIN (NovoLOG) PER UNIT SC SCH ×5 (00:36→23:52)
[2019-11-19 06:15] VITALS: BP 141/72
[2019-11-19] MEDS: CLOPIDOGREL 75 MG TAB PEG SCH (09:18)
[2019-11-19] MEDS: FOLIC ACID 1 MG TAB PEG SCH (09:18)
[2019-11-19] MEDS: CARVedilol 12.5 MG TAB PEG SCH ×2 (09:18→20:44)
[2019-11-19] MEDS: FERROUS SULFATE 300MG/5ML UDC LIQUID PO SCH ×2 (09:19→20:43)
[2019-11-19] MEDS: LANSOPRAZOLE SUSPENSION 30 MG/10 ML ORAL SYRINGE (FIRST-LANSOPRAZOLE) GT SCH ×2 (09:19→20:43)
[2019-11-19] MEDS: THIAMINE 100 MG TAB PEG SCH (09:19)
[2019-11-19] MEDS: MULTIVITAMINS/MINERALS THERAP 1 TAB PEG SCH (09:19)
[2019-11-19] MEDS: DOXAZOSIN MESYLATE 4 MG TAB PEG SCH (09:19)
[2019-11-19] MEDS: CAPTOpril 6.25 MG PER 1/2 TABLET PEG SCH ×3 (09:19→20:44)
[2019-11-19] MEDS: ATORVASTATIN 20 MG TAB PEG SCH (20:44)
[2019-11-19 22:00] VITALS: BP 127/82
[2019-11-20 06:00] VITALS: BP 133/66
[2019-11-20] MEDS: HumaLOG INSULIN (NovoLOG) PER UNIT SC SCH ×3 (06:15→18:36)
[2019-11-20 09:37] LABS: HEMATOCRIT 34.9 % (42.0-52.0); HEMOGLOBIN 10.4 g/dl (13.5-17.5); MEAN CORPUSCULAR HEMOGLOBIN 22.8 pg (27.0-33.0); MEAN CORPUSCULAR HGB CONC 29.8 g/dl (32.0-36.5); MEAN CORPUSCULAR VOLUME 76.4 fl (80.0-96.0); PLATELET COUNT, AUTOMATED 234 10^3/uL (150-450); RED BLOOD COUNT 4.57 10^6/uL (4.30-6.10); WHITE BLOOD COUNT 8.6 10^3/uL (4.0-10.0)
[2019-11-20 09:48] VITALS: BP 133/66
[2019-11-20] MEDS: LANSOPRAZOLE SUSPENSION 30 MG/10 ML ORAL SYRINGE (FIRST-LANSOPRAZOLE) GT SCH ×2 (09:50→22:55)
[2019-11-20] MEDS: FERROUS SULFATE 300MG/5ML UDC LIQUID PO SCH (09:50)
[2019-11-20] MEDS: THIAMINE 100 MG TAB PEG SCH (09:51)
[2019-11-20] MEDS: CARVedilol 12.5 MG TAB PEG SCH ×2 (09:51→22:55)
[2019-11-20] MEDS: CAPTOpril 6.25 MG PER 1/2 TABLET PEG SCH ×3 (09:52→22:54)
[2019-11-20] MEDS: MULTIVITAMINS/MINERALS THERAP 1 TAB PEG SCH (09:52)
[2019-11-20] MEDS: FOLIC ACID 1 MG TAB PEG SCH (09:53)
[2019-11-20] MEDS: CLOPIDOGREL 75 MG TAB PEG SCH (09:53)
[2019-11-20] MEDS: DOXAZOSIN MESYLATE 4 MG TAB PEG SCH (09:54)
[2019-11-20 10:12] LABS: BLOOD UREA NITROGEN 15 MG/DL (7-18); CARBON DIOXIDE LEVEL 25 MEQ/L (21-32); CHLORIDE LEVEL 104 MEQ/L (98-107); CREATININE FOR GFR 0.69 MG/DL (0.70-1.30); GLOMERULAR FILTRATION RATE > 60.0 (>49); GLUCOSE, FASTING 104 MG/DL (70-100); POTASSIUM SERUM 4.8 MEQ/L (3.5-5.1); SODIUM LEVEL 136 MEQ/L (136-145)
--- NOTE | 2019-11-20 13:26 | IPNPDOC ---
Text Note Date of Service The patient was seen on 11/20/19. NOTE Vascular surgery. Dr. Pinon HPI: Patient is a 68M with was transferred here from [facility] for GI bleed S/P 3 u PREBC during this admission. The patient is noted to have dysphasia secondary to recent stroke, the patient is unable to provide history. History is taken from the chart. Patient has history of dysphagia with feeding tube in place. Patient is also noted to have right-sided weakness with contracture of the right lower extremity. Vascular surgery was requested to re evaluate the pt today related to coolness of the right foot. PE: GEN: 68yoM, appears chronically ill. Pt with dysarthria and dysphagia. Alert, shakes head to some questions and short one word responses at times. HEENT: Normocephalic, atraumatic. CHEST: Regular rate and rhythm, +S1, +S2 LUNGS: Breathing is unlabored. ABD: Flat, feeding tube in place. EXT: Tissue loss noted to anterior RLE with dry eschar pretibial area with foam dressing intact. Dark discoloration of the dorsal aspect of mid foot, Wound at tip of Rt great toe, no drainage. Dark discoloration of the 3/5th toes. RLE with Monophasic PT, unable to obtain DP. Monophasic Lt DP/PT. Severe muscle wasting bilaterally. NEURO: Rt sided weakness with severe contracture RLE. Bilateral lower extremity arterial Doppler ultrasound: History: Poor pulses and lower extremities by Doppler. Sonographic findings: Exam quality and completeness was inhibited by a patient's altered mental status and inability to cooperate with positioning. ABIs could not be obtained. The right mid superficial femoral artery appears to be occluded. Monophasic waveforms are seen throughout the lower extremities. The left superficial femoral artery appears to be occluded with distal reversal of flow. Right lower extremity arterial Doppler velocity chart: CF A 75 cm/S Profunda 70 Proximal SFA 47 Mid SFA 9.5/8.7 Distal SFA occluded Popliteal seven Proximal AT A six Tibioperoneal trunk not seen Proximal BUSINESS INTEGRATION MANAGER 22 Distal BUSINESS INTEGRATION MANAGER 14 Distal AT A not seen Left lower extremity arterial Doppler velocity chart: CF A 67 cm/S Profunda 157 Proximal SFA 13/12 Mid SFA occluded Distal SFA 177, reversed Popliteal unable to visualize Proximal AT A not seen Tibioperoneal trunk not seen Mid posterior tibial artery 36 Distal BUSINESS INTEGRATION MANAGER 27 Distal AT A 33 Electronically Signed by Terrell Roy MD 11/14/2019 04:08 P A&P: PAD with wound RLE pretibial area/Rt foot. The pt continues to be noncommunicable. He is not following commands well. He has eversion at the right hip with flexion contraction of the right knee and no ability to extend or straighten by himself or with assistance. The left lower extremity is mobile however he does not move it to command. For the reasons listed above and also considering the patient's recent GI bleed, the patient continues to be high risk for any endovascular procedure. He does not appear to be a good candidate for open procedure either. However, due to pretibial eschar right lower extremity suggesting ischemia with tissue loss, we would consider the patient for arteriogram if he was medically optimized and his family was agreeable to the additional risk associated with intervention on this complicated patient. Rt great toe wound is noted with dark discoloration of the toes and mid foot area. Rt foot was noted to be cool earlier. Will recheck BLE arterial US to further evaluate if there has been any interval change from last study. Continue to follow. VS,Fishbone, I+O VS, Fishbone, I+O Laboratory Tests 11/20/19 09:14 Vital Signs Date Time Temp Pulse Resp B/P (MAP) Pulse Ox O2 Delivery O2 Flow Rate FiO2 11/20/19 09:54 133/66 11/20/19 09:51 84 11/20/19 06:00 98.1 16 96 Nasal Cannula 3.0 I&O- Last 24 Hours up to 6 AM 11/20/19 05:59 Intake Total 2100 ml Output Total 1250 ml Balance 850 ml Deadnra Jordan Nov 20, 2019 13:26
[2019-11-20 14:00] VITALS: BP 136/88
--- NOTE | 2019-11-20 15:33 | IPNPDOC ---
Subjective Date Seen The patient was seen on 11/20/19. Subjective Chief Complaint/HPI Mr. Ramirez is a 68 year old male admitted with a diagnosis of Pineda's Esophagus, CVA s/p PEG tube placement. Pt is unable to provide any history as he is non-verbal, presumably secondary to his stroke; he shakes his head as a means to communicate. Pt is being seen today as his R pedal pulses were severely diminished/non-palpable per nursing. General: Reports: ROS Unobtainable Objective Physical Examination General Exam: Positive: Alert (appears older than stated age) Eye Exam: Positive: Conjunctiva & lids normal ENT Exam: Positive: Atraumatic Chest Exam: Positive: Clear to auscultation, Normal air movement Heart Exam: Positive: Rate Normal, Murmurs (distant heart sounds ) Abdomen Exam: Positive: Soft; Negative: Tenderness Extremity Exam: Positive: Normal pulses (pulses LLE leg - slow, barely palpable. RLE shallow ulcers, dry pretibial eschar, largely discolored d/t poor circulation. R great toe wound with tissue loss ), Tenderness (Palpation of the RLE elicits pain response), Other (RLE fixed external rotation. does not move LLE willingly - noted pain response with passive mavement) Skin Exam: Positive: Nl turgor and temperature (RLE cool vs LLE. ), Breakdown Neuro Exam: Negative: Normal Speech Assessment /Plan Assessment 68M with PMHx Pineda's esophagus, recurrent reflux esophagitis s/p multiple admission for endoscopies, recent CVA 3 weeks prior at [facility] s/p PEG tube placement, GERD, NIDDM, Hep C s/p treatment, COPD, HTN. He was apparently transferred to LTAC facility in [place] after his discharge from [facility]. He presented to [place] ER for coffee ground emesis, and subsequently transferred here for GI evaluation. Upper GI bleed with acute blood loss anemia. s/p EGD = severe diffuse erosive reflux esophagitis, hiatal hernia, Pineda's esophagus Hb appear to be around 10 at baseline, on admission 7.5. 3 units PRBC transfused. received 5 days of Rocephin started at [place]. Leg ulcers do not look infected. started Prevacid BID GI recs to resume antiplatelets - periodically review utility - normally on Plavix will continue for now. HH remains stable. Hx Gastritis/esophagitis/GERD c/w PPI PAD with right boyce arterial ulcers with eschar. Bilateral lower ex doppler noted with arterial occlusions. RLE cool Consulted vascular: Considered high risk for endovascular procedure; however due to RLE ischemia, he would be considered for arteriogram if medically optimized family to be consulted for consent BLE arterial USG to be re-checked Continued management per CV service Recent CVA in Sep 2019 with right Hemiparesis and right leg contracture dysphagia with PEG tube Persistent cognitive impairment severe. only smiles and shakes his head infrequently follows commands. NIDDM continue tube feeding with free water boluses. ISS Hypernatremia resolved with increase free water boluses. COPD Duonebs PRN. Does not appear to be in exacerbation. Hx Hep C s/p treatment. HTN BP controlled at this time. DVT ppx: TEDs in setting of GI bleed Code status: Full code Dispo: d/c to [place] when transportation can be set up. Plan/VTE VTE Prophylaxis Ordered?: Yes (Plavix ) Plan Anticipated Discharge: [facility] VS, I&O, 24H, Fishbone Vital Signs/I&O Vital Signs Date Time Temp Pulse Resp B/P (MAP) Pulse Ox O2 Delivery O2 Flow Rate FiO2 11/20/19 14:00 98.4 82 20 136/88 (104) 98 Nasal Cannula 3.0 I&O- Last 24 Hours up to 6 AM 11/20/19 06:00 Intake Total 2100 ml Output Total 950 ml Balance 1150 ml Laboratory Data 24H LABS Laboratory Tests 2 11/19/19 17:38: Bedside Glucose (Misc Panel) 162H 11/19/19 23:49: Bedside Glucose (Misc Panel) 161H 11/20/19 05:57: Bedside Glucose (Misc Panel) 162H 11/20/19 09:14: Nucleated Red Blood Cells % (auto) 0.0, Anion Gap 7L, Glomerular Filtration Rate > 60.0, Calcium Level 8.0L 11/20/19 11:52: Bedside Glucose (Misc Panel) 154H CBC/BMP Laboratory Tests 11/20/19 09:14 Microbiology Microbiology 11/12/19 Blood Culture - Final, Complete NO GROWTH AFTER 5 DAYS 11/12/19 Blood Culture - Final, Complete NO GROWTH AFTER 5 DAYS ADÁN HAMILTON PA-C Nov 20, 2019 15:33
--- NOTE | 2019-11-20 17:12 | REP ---
RIGHT LOWER EXTREMITY DUPLEX DOPPLER ARTERIAL ULTRASOUND: Real-time ultrasound evaluation and duplex Doppler interrogation of the right lower extremity arterial system is performed. Severe plaquing and narrowing is seen. There is occlusion of the proximal right superficial femoral artery. There appear to be two collateral vessels reconstituting a portion of the mid superficial femoral artery with reversal of flow in that [place] vessel. There is only a very small trickle flow in that portion of the mid superficial femoral artery. A third collateral vessel is seen at the distal superficial femoral artery with the proximal portion of the distal SFA demonstrating reversal of flow in addition to that third collateral vessel. The 4th large collateral vessel reconstitutes the distal aspect of the distal superficial femoral artery with antegrade flow in that portion of the SFA. The anterior tibial artery is occluded. There are monophasic wave forms throughout. RIGHT Common femoral artery 102 cm/s Profunda 107 cm/s Proximal SFA Occluded Mid SFA Occluded Distal SFA 25.1 cm/s Popliteal 18.8 cm/s Proximal FAUSTO Occluded Tibioperoneal trunk 16.6 cm/s Proximal SEROLOGIST 17.9 cm/s Distal SEROLOGIST 15.1 cm/s Distal FAUSTO Occluded IMPRESSION: Severe plaquing and narrowing. There is occlusion of the right superficial femoral artery proximally. Two small collateral vessels are seen at the mid right SFA with a small amount of trickle reversed flow in that portion of the SFA. A third collateral just distal to that connects with the proximal aspect of the distal SFA with reversal of flow in that portion of the vessel as well. A fourth collateral vessel reconstitutes the very distal right SFA with antegrade flow in that portion of the vessel extending into the calf. There is occlusion of the right anterior tibial artery. Electronically Signed by Lm Kirk MD 11/23/2019 12:27 P
[2019-11-20 22:00] VITALS: BP 132/67
[2019-11-20] MEDS: ATORVASTATIN 20 MG TAB PEG SCH (22:52)
[2019-11-20] MEDS: FERROUS SULFATE 300MG/5ML UDC LIQUID PEG SCH (22:55)
[2019-11-21] MEDS: HumaLOG INSULIN (NovoLOG) PER UNIT SC SCH ×4 (00:32→18:27)
[2019-11-21 04:00] VITALS: BP 132/63
[2019-11-21 10:15] VITALS: BP 142/68
[2019-11-21] MEDS: FERROUS SULFATE 300MG/5ML UDC LIQUID PEG SCH ×2 (10:19→21:36)
[2019-11-21] MEDS: LANSOPRAZOLE SUSPENSION 30 MG/10 ML ORAL SYRINGE (FIRST-LANSOPRAZOLE) GT SCH ×2 (10:20→21:36)
[2019-11-21] MEDS: DOXAZOSIN MESYLATE 4 MG TAB PEG SCH (10:20)
[2019-11-21] MEDS: THIAMINE 100 MG TAB PEG SCH (10:21)
[2019-11-21] MEDS: CAPTOpril 6.25 MG PER 1/2 TABLET PEG SCH ×3 (10:21→21:37)
[2019-11-21] MEDS: CLOPIDOGREL 75 MG TAB PEG SCH (10:22)
[2019-11-21] MEDS: FOLIC ACID 1 MG TAB PEG SCH (10:22)
[2019-11-21] MEDS: MULTIVITAMINS/MINERALS THERAP 1 TAB PEG SCH (10:23)
[2019-11-21] MEDS: CARVedilol 12.5 MG TAB PEG SCH ×2 (10:23→21:38)
--- NOTE | 2019-11-21 12:45 | IPNPDOC ---
Date Seen The patient was seen on 11/21/19. Progress Note Mr. Ramirez is a very pleasant 68-year-old gentleman status post CVA with long- standing peripheral vascular disease, and superficial eschars over the pretibial region of the right lower extremity, the dorsal foot and toes. There was concern yesterday that the patient's foot was cooler than it had been, which I anticipate was because it was uncovered, as he moves around considerably in the bed and is difficult to keep any kind of heel protection boot on or covers on. His exam is unchanged. His arterial study is unchanged. He has severe peripheral vascular disease, but at this point he is very high risk for endovascular intervention for multiple reasons. First, it is risky to try to do an endovascular intervention right after his stroke and with recent GI bleed as we will give considerable heparin during the procedure, and depending on what we do he may need additional anticoagulation postprocedure. Second, the patient is not able to follow commands, is very impulsive, has a contracture of the right lower extremity making positioning for endovascular procedures challenging, and I do not anticipate his disease will be easy to treat which means a lengthy procedure with the patient flat on his back having to hold still the entire time. I just don't see that he would be able to do this right now. Perhaps after a few weeks his mental status might improve enough that he could tolerate the procedure better. I think it would be safer to wait. It is unclear at this point if we could offer an endovascular solution for his severe arterial disease, and it is unclear if he would be able to tolerate an open vascular procedure should that be required. For now, I would recommend local wound care, best efforts to keep the legs warm, heel and foot protection if able, tight glucose control and high-protein diet to help with wound healing. VS, I&O, 24H, Fishbone Vital Signs/I&O Vital Signs Date Time Temp Pulse Resp B/P (MAP) Pulse Ox O2 Delivery O2 Flow Rate FiO2 11/21/19 10:23 84 142/68 11/21/19 04:00 97.4 19 94 Room Air 11/20/19 22:00 3.0 I&O- Last 24 Hours up to 6 AM 11/21/19 06:00 Intake Total 770 ml Output Total 1050 ml Balance -280 ml Laboratory Data 24H LABS Laboratory Tests 2 11/20/19 17:40: Bedside Glucose (Misc Panel) 131H 11/20/19 23:46: Bedside Glucose (Misc Panel) 131H 11/21/19 05:54: Bedside Glucose (Misc Panel) 144H 11/21/19 11:45: Bedside Glucose (Misc Panel) 126H Microbiology Microbiology 11/12/19 Blood Culture - Final, Complete NO GROWTH AFTER 5 DAYS 11/12/19 Blood Culture - Final, Complete NO GROWTH AFTER 5 DAYS JUDY ARTEAGA MD Nov 21, 2019 12:45
[2019-11-21 17:09] VITALS: BP 142/69
[2019-11-21 19:12] LABS: HEP C VIRUS AB INDEX SOURCE PT > 11.0 INDEX (0.0-0.8)
[2019-11-21] MEDS: ATORVASTATIN 20 MG TAB PEG SCH (21:37)
[2019-11-21 22:00] VITALS: BP 144/69
[2019-11-22] VITALS: BP 131/66
[2019-11-22] MEDS: HumaLOG INSULIN (NovoLOG) PER UNIT SC SCH ×4 (00:32→17:11)
[2019-11-22 02:27] LABS: CHLAMYDIA DNA AMPLIFICATION NEGATIVE (NEGATIVE); GC DNA AMPLIFICATION NEGATIVE (NEGATIVE)
[2019-11-22 06:00] VITALS: BP 131/63
[2019-11-22] MEDS: FERROUS SULFATE 300MG/5ML UDC LIQUID PEG SCH ×2 (08:52→20:35)
[2019-11-22] MEDS: LANSOPRAZOLE SUSPENSION 30 MG/10 ML ORAL SYRINGE (FIRST-LANSOPRAZOLE) GT SCH ×2 (08:52→20:35)
[2019-11-22] MEDS: CLOPIDOGREL 75 MG TAB PEG SCH (08:53)
[2019-11-22] MEDS: MULTIVITAMINS/MINERALS THERAP 1 TAB PEG SCH (08:53)
[2019-11-22] MEDS: DOXAZOSIN MESYLATE 4 MG TAB PEG SCH (08:53)
[2019-11-22] MEDS: CAPTOpril 6.25 MG PER 1/2 TABLET PEG SCH ×3 (08:53→20:35)
[2019-11-22] MEDS: THIAMINE 100 MG TAB PEG SCH (08:53)
[2019-11-22] MEDS: CARVedilol 12.5 MG TAB PEG SCH ×2 (08:53→20:36)
[2019-11-22] MEDS: FOLIC ACID 1 MG TAB PEG SCH (08:53)
[2019-11-22] MEDS: CYCLOBENZAPRINE 5MG TABLET PEG SCH ×3 (10:37→20:36)
[2019-11-22] MEDS: ACETAMINOPHEN 500 MG TAB PO SCH ×2 (10:37→20:36)
[2019-11-22] MEDS: ATORVASTATIN 20 MG TAB PEG SCH (20:36)
[2019-11-23] MEDS: HumaLOG INSULIN (NovoLOG) PER UNIT SC SCH ×2 (00:36→06:05)
[2019-11-23 06:00] VITALS: BP 136/63
[2019-11-23] MEDS ORDERED: ACET-683 PO (08:35)
[2019-11-23] MEDS ORDERED: Lansoprazole Suspension GT (08:35)
[2019-11-23] MEDS ORDERED: CYCL5TAB PEG (08:35)
--- NOTE | 2019-11-23 08:56 | DS.PDOC ---
Discharge Summary General Date of Admission Nov 12, 2019 at 10:12 Date of Discharge 11/23/19 Discharge Summary PROCEDURES PERFORMED DURING STAY: EGD: Findings: Moderate esophagitis with mild diffuse ooze/weeping bleeding was found in the entire esophagus. Biopsies were taken with a cold forceps for histology. A medium-sized hiatal hernia was present. There was evidence of an intact gastrostomy with a patent G-tube present in the gastric body. This was characterized by healthy appearing mucosa. The exam of the stomach was otherwise normal. The examined duodenum was normal. Impression: - Moderate to severe diffuse erosive esophagitis. Mildly hemorrhagic appearance. Biopsied. - Medium-sized hiatal hernia. - Intact gastrostomy with a patent G-tube present characterized by healthy appearing mucosa. - Normal examined duodenum. Recommendation: - Use PPI BID indefinitely i.e. Prilosec (omeprazole) 40 mg via PEG BID for known Barretts esophagus and known recurrent severe erosive reflux esophagitis on multiple previous scopes) - (For PEG tube- use CAPSULE formulation---may open capsule, do not crush spheres). Alternatively, Use Prevacid solutab 30 mg BID via PEG). - Periodically re-assess need for Anticoagulants/Antiplatelet therapy. Stop if no longer of benefit. DISCHARGE DIAGNOSES: Upper GIB due to severe diffuse erosive reflux esophagitis Acute blood loss anemia Hiatal hernia Pineda's esophagus Severe Peripheral arterial disease with right leg arterial ulcers with eschar. Hypernatremia resolved SECONDARY DIAGNOSIS: Pineda's esophagus, recurrent reflux esophagitis s/p multiple admission for endoscopies, recent CVA on 10/22/19 for which he was admitted to [facility], s/p PEG tube placement and AMADO, GERD, NIDDM, Hep C s/p treatment, COPD, HTN. COMPLICATIONS/CHIEF COMPLAINT: Upper Gi Bleed. HISTORY OF PRESENT ILLNESS: See history and physical HOSPITAL COURSE: 68M with PMHx Pineda's esophagus, recurrent reflux esophagitis s/p multiple admission for endoscopies, recent CVA on 10/22/19 for which he was admitted to [facility], s/p PEG tube placement and AMADO, GERD, NIDDM, Hep C s/p treatment, COPD, HTN. was transferred to LTAC facility in [place] after his discharge from [facility]. He presented to [place] ER for coffee ground emesis, and subsequently transferred here for GI evaluation. Upper GI bleed with acute blood loss anemia. s/p EGD = severe diffuse erosive reflux esophagitis, hiatal hernia, Pineda's esophagus Hb appear to be around 10 at baseline, on admission 7.5. 3 units PRBC transfused. Now HH stable. received 5 days of Rocephin started at [place]. Leg ulcers do not look infected. started Prevacid BID GI recs to resume antiplatelets - periodically review utility - normally on Plavix will continue for now. HH remains stable. Hx Gastritis/esophagitis/GERD c/w PPI Severe PAD with right boyce arterial ulcers with eschar. Bilateral lower ex doppler noted with bilateral arterial occlusions. RLE cool Consulted vascular: Considered high risk for endovascular procedure; however due to RLE ischemia, he would be considered for arteriogram if medically optimized. Would like to wait at least a month after the GIB before planning for any procedure if possible. Follow up Vascular surgeon Dr Davis in 2 to 3 weeks. Continue local wound care, keeps the legs warm and protect the heels and foot. Had 2 arterial doppler studies on 11/14 and 11/20 Recent CVA in Sep with right Hemiparesis and right leg contracture dysphagia with PEG tube Persistent cognitive impairment severe. only smiles and shakes his head infrequently follows commands. NIDDM continue tube feeding with free water boluses. ISS Hypernatremia resolved with increase free water boluses. COPD Duonebs PRN. Does not appear to be in exacerbation. Hx Hep C s/p treatment. HTN BP controlled at this time. DVT ppx: TEDs in setting of GI bleed Code status: Full code DISCHARGE MEDICATIONS: Please see below. ALLERGIES: Please see below. PHYSICAL EXAMINATION ON DISCHARGE: VITAL SIGNS: Please see below. Eye Exam: Positive: Conjunctiva & lids normal ENT Exam: Positive: Atraumatic Chest Exam: Positive: Clear to auscultation, Normal air movement Heart Exam: Positive: Rate Normal, Murmurs (distant heart sounds ) Abdomen Exam: Positive: Soft; normal bowel sounds, PEG tube in place Negative: Tenderness Extremity Exam: Positive: Normal pulses (pulses LLE leg - slow, barely palpable. RLE shallow ulcers, dry pretibial eschar, largely discolored d/t poor circulation. R great toe wound with tissue loss ), Tenderness (Palpation of the RLE elicits pain response), Other (RLE fixed external rotation. does not move LLE willingly - noted pain response with passive movement), right lower extremity contracted at the hips and knees. Skin Exam: Positive: Nl turgor and temperature (RLE cool vs LLE. ), Breakdown Neuro Exam: non verbal , only nods when spoken too, aphasic, right hemiparesis with contracted right lower extremity, spontaneously moves left upper and lower extremity. LABORATORY DATA: Please see below. RADIOLOGY: Lower extremity Arterial doppler 11/20 :Severe plaquing and narrowing. There is occlusion of the right superficial femoral artery proximally. Two small collateral vessels are seen at the mid right SFA with a small amount of trickle reversed flow in that portion of the SFA. A third collateral just distal to that connects with the proximal aspect of the distal SFA with reversal of flow in that portion of the vessel as well. A fourth lateral collateral vessel reconstitutes the very distal right SFA with antegrade flow in that portion of the vessel extending into the calf. There is occlusion of the right anterior tibial artery. ACTIVITY: [As tolerated]. DIET: Tube feeding DISCHARGE PLAN: [facility] for [facility] care DISPOSITION: [facility] DISCHARGE INSTRUCTIONS: Follow up Dr Davis vascular in 2 to 3 weeks. ITEMS TO FOLLOWUP ON ON OUTPATIENT: Lower extremity pulses. DISCHARGE CONDITION: [Stable]. TIME SPENT ON DISCHARGE: 35 minutes. Vital Signs/I&Os Vital Signs Date Time Temp Pulse Resp B/P (MAP) Pulse Ox O2 Delivery O2 Flow Rate FiO2 11/23/19 06:00 97.6 87 18 136/63 (87) 100 Room Air 11/20/19 22:00 3.0 I&O- Last 24 Hours up to 6 AM 11/23/19 05:59 Intake Total 810 ml Output Total 1625 ml Balance -815 ml Laboratory Data Labs 24H Laboratory Tests 2 11/22/19 11:51: Bedside Glucose (Misc Panel) 144H 11/22/19 17:08: Bedside Glucose (Misc Panel) 104 11/23/19 00:31: Bedside Glucose (Misc Panel) 174H 11/23/19 05:51: Bedside Glucose (Misc Panel) 127H FSBS Laboratory Tests Test 11/22/19 11:51 11/22/19 17:08 11/23/19 00:31 11/23/19 05:51 Range/Units Bedside Glucose (Misc Panel) 144 104 174 127 80-115 MG/DL Microbiology Microbiology 11/22/19 Gram Stain - Final, Resulted 11/22/19 Body Fluid Culture, Resulted Pending Discharge Medications Scheduled Acetaminophen (Acetaminophen) 500 Mg Tablet, 1,000 MG PO Q12H Atorvastatin Calcium (Atorvastatin Calcium) 80 Mg Tablet, 80 MG PEG QHS, (Reported) Captopril (Captopril) 12.5 Mg Tablet, 6.25 MG PEG TID, (Reported) Carvedilol (Carvedilol) 12.5 Mg Tablet, 12.5 MG PEG BID, (Reported) Clopidogrel Bisulfate (Clopidogrel) 75 Mg Tablet, 75 MG PEG DAILY, (Reported) Cyclobenzaprine HCl (Cyclobenzaprine HCl) 5 Mg Tablet, 5 MG PEG TID Doxazosin Mesylate (Doxazosin) 4 Mg Tablet, 4 MG PEG DAILY, (Reported) Ferrous Sulfate (Ferrous Sulfate) 325 Mg Tablet, 325 MG PEG BID, (Reported) Folic Acid (Folic Acid) 1 Mg Tablet, 1 MG PEG DAILY, (Reported) Insulin Lispro (Humalog Kwikpen U-100) 100 Unit/1 Ml Insuln.pen, 1 DOSE SC ACHS, (Reported) PER SLIDING SCALE Multivitamins (Thera M Plus Tablet) 1 Each Tablet, 1 TAB PEG DAILY, (Reported) Sennosides (Senna) 8.8 Mg/5 Ml Syrup, 10 M PEG DAILY, (Reported) Thiamine HCl (Thiamine HCl) 100 Mg Tablet, 100 MG PEG DAILY, (Reported) [Lansoprazole Suspension] 30 MG/10 ML MARISABEL, 30 MG GT BID Scheduled PRN Bisacodyl (Bisacodyl) 10 Mg Supp.rect, 10 MG AK DAILY PRN for CONSTIPATION, (Reported) ADMINISTER IF NO RESULTS FROM MILK OF MAG Magnesium Hydroxide (Milk of Magnesia) 400 Mg/5 Ml Oral.susp, 30 ML PO DAILY PRN for CONSTIPATION, (Reported) GIVE IF NO BM AFTER 48 HOURS Sodium Phosphate,Mesa-Dibasic (Fleet Enema) 133 Ml Enema, 1 JOSE AK DAILY PRN for CONST', (Reported) ADMINISTER IF NO RESULTS FROM BISACODYL SUPPOSITORY Allergies Coded Allergies: No Known Allergies (Unverified , 01/30/18) GLENYS GALAN MD Nov 23, 2019 08:56
[2019-11-23] MEDS: MULTIVITAMINS/MINERALS THERAP 1 TAB PEG SCH (09:38)
[2019-11-23] MEDS: ACETAMINOPHEN 500 MG TAB PO SCH (09:38)
[2019-11-23 09:39] VITALS: BP 127/57
[2019-11-23] MEDS: CLOPIDOGREL 75 MG TAB PEG SCH (09:39)
[2019-11-23] MEDS: DOXAZOSIN MESYLATE 4 MG TAB PEG SCH (09:39)
[2019-11-23] MEDS: LANSOPRAZOLE SUSPENSION 30 MG/10 ML ORAL SYRINGE (FIRST-LANSOPRAZOLE) GT SCH (09:39)
[2019-11-23] MEDS: CAPTOpril 6.25 MG PER 1/2 TABLET PEG SCH (09:39)
[2019-11-23] MEDS: FOLIC ACID 1 MG TAB PEG SCH (09:39)
[2019-11-23] MEDS: CARVedilol 12.5 MG TAB PEG SCH (09:39)
[2019-11-23] MEDS: CYCLOBENZAPRINE 5MG TABLET PEG SCH (09:39)
[2019-11-23] MEDS: FERROUS SULFATE 300MG/5ML UDC LIQUID PEG SCH (09:39)
[2019-11-23] MEDS: THIAMINE 100 MG TAB PEG SCH (09:40)
[2019-11-23 09:46] LABS: HEMATOCRIT 35.5 % (42.0-52.0); HEMOGLOBIN 10.5 g/dl (13.5-17.5); MEAN CORPUSCULAR HEMOGLOBIN 22.7 pg (27.0-33.0); MEAN CORPUSCULAR HGB CONC 29.6 g/dl (32.0-36.5); MEAN CORPUSCULAR VOLUME 76.7 fl (80.0-96.0); PLATELET COUNT, AUTOMATED 234 10^3/uL (150-450); RED BLOOD COUNT 4.63 10^6/uL (4.30-6.10); WHITE BLOOD COUNT 7.8 10^3/uL (4.0-10.0)
[2019-11-23 10:13] LABS: BLOOD UREA NITROGEN 15 MG/DL (7-18); CALCIUM LEVEL 8.4 MG/DL (8.8-10.2); CARBON DIOXIDE LEVEL 28 MEQ/L (21-32); CHLORIDE LEVEL 100 MEQ/L (98-107); CREATININE FOR GFR 0.81 MG/DL (0.70-1.30); GLOMERULAR FILTRATION RATE > 60.0 (>49); GLUCOSE, FASTING 122 MG/DL (70-100); POTASSIUM SERUM 4.8 MEQ/L (3.5-5.1); SODIUM LEVEL 134 MEQ/L (136-145)
[2019-11-23 12:43] LABS: HEPATITIS B SURFACE ANTIGEN NEGATIVE (NEGATIVE)
== END 2019-11-23 11:33 | DRG 392 ==
LOC: M PCU 10:12 → M MSPAV 11-14 18:48
PROVIDERS: ADMIT Internal Medicine; ATTEND Internal Medicine Nephrology
PROC: 0DJ08ZZ Inspection of Upper Intestinal Tract, Via Natural or Artificial Opening Endoscopic (ICD-10-PCS; 2019-11-12)
PROC: 30233N1 Transfusion of Nonautologous Red Blood Cells into Peripheral Vein, Percutaneous Approach (ICD-10-PCS; principal; 2019-11-12 15:00)
DX: K21.0 Gastro-esophageal reflux disease with esophagitis (principal); D62 Acute posthemorrhagic anemia; E87.0 Hyperosmolality and hypernatremia; K44.9 Diaphragmatic hernia without obstruction or gangrene; K22.70 Barrett's esophagus without dysplasia; I70.25 Atherosclerosis of native arteries of other extremities with ulceration; Z86.73 Personal history of transient ischemic attack (TIA), and cerebral infarction without residual deficits; E11.9 Type 2 diabetes mellitus without complications; B18.2 Chronic viral hepatitis C; J44.9 Chronic obstructive pulmonary disease, unspecified; I10 Essential (primary) hypertension; Z93.1 Gastrostomy status; Z79.4 Long term (current) use of insulin; Z79.899 Other long term (current) drug therapy

== ENCOUNTER 2019-12-30 14:03 | Inpatient (IN) | payer MEDICARE ==
[~2019-12-30] VITALS: Ht 180.3 cm; Wt 66.2 kg
[~2019-12-30 14:03] MED LIST changes: +ACET-683 PO; +ATOR80TA59 PEG; +BISA10SU27 PR; +CAPT62TA PEG; +CARV12.5 PEG; +CLOP75TA2 GT; +CYCL5TAB PEG; +DOXA1TAB67 PEG; +FAMO20TA PEG; +FERR1TAB8 PEG; +FLEEENE12 PR; +FOLI1TAB11 PEG; +HUMA100I5 SC; +Lansoprazole Suspension GT; +MILKSUS7 PO; +SENN8.8S5 PEG; +THIA100T7 PEG; +VITMTA PEG
[2019-12-30] MEDS ORDERED: GLUCOSE 4 GM CHEW TABLET PO PRN ×2 (16:45→17:00)
[2019-12-30] MEDS ORDERED: GLUCAGON FOR INJ 1 MG VIAL (J1610) SC PRN ×2 (16:45→17:00)
[2019-12-30] MEDS ORDERED: DEXTROSE 50% 50 ML SYRINGE IV PRN ×2 (16:45→17:00)
[2019-12-30 17:28] LABS: ABG BASE EXCESS -5.1 (-2.0-2.0); ABG HCO3 17.4 MEQ/L (22.0-26.0); ABG O2 SATURATION 97.8 % (95.0-99.0); ABG PARTIAL PRESSURE CO2 24.2 mmHg (35.0-45.0); ABG PARTIAL PRESSURE O2 100.4 mmHg (75.0-100.0); ABG STANDARD HCO3 20.3 MEQ/L (22.0-26.0); ABG TOTAL CO2 18.1 MEQ/L (23.0-31.0); ABG pH (ARTERIAL) 7.474 UNITS (7.350-7.450)
[2019-12-30] MEDS ORDERED: HumaLOG INSULIN (NovoLOG) PER UNIT SC SCH ×2 (17:30→21:00)
[2019-12-30] MEDS ORDERED: ACET-683 GT (17:42)
[2019-12-30] MEDS ORDERED: FERR1ELX GT (17:42)
[2019-12-30] MEDS ORDERED: PROMLIQ9 GT (17:42)
[2019-12-30] MEDS ORDERED: BASA100I SC (17:42)
[2019-12-30] MEDS ORDERED: CYCL5TAB GT (17:42)
[2019-12-30] MEDS ORDERED: IPRA0.00 INH (17:42)
[2019-12-30] MEDS ORDERED: CEFD250S26 PO (17:42)
[2019-12-30] MEDS ORDERED: OMEP40CA97 GT (17:42)
[2019-12-30 18:00] VITALS: BP 146/86
[2019-12-30 18:07] LABS: HEMATOCRIT 29.8 % (42.0-52.0); HEMOGLOBIN 8.4 g/dl (13.5-17.5); MEAN CORPUSCULAR HEMOGLOBIN 21.4 pg (27.0-33.0); MEAN CORPUSCULAR HGB CONC 28.2 g/dl (32.0-36.5); PLATELET COUNT, AUTOMATED 166 10^3/uL (150-450); RED BLOOD COUNT 3.92 10^6/uL (4.30-6.10); WHITE BLOOD COUNT 10.9 10^3/uL (4.0-10.0)
--- NOTE | 2019-12-30 18:07 | HPEPDOC ---
[facility] Medical History & Physical Date of Admission Dec 30, 2019 Date of Service: Dec 30, 2019 Attending Physician: GLENYS GALAN MD History and Physical CHIEF COMPLAINT: Transfer from [place] HISTORY OF PRESENT ILLNESS: This is a 69-year-old male with multiple comorbidities who was transferred to [facility] for hypoxia and difficulty breathing. He is a resident of the [facility]. History was not obtained for the patient due to a stroke he had late last year (September 2019) and his only form of medication and shaking his head which he could not do today. All of the history was obtained from reviewing records from [place]. On December 25, the patient had some concerns aggressive behavior and high glucose reading while at the group home. At that time he had a large amount of feces in his mouth which was noted by nursing. Chest Xray at that time showed a right lung pneumonia with the suspicion of possible aspiration from the feces. His vitals at that time were stable and physical exam was benign with the exception of coarse sounds on the right mid and upper lobe. He was started on cefepime 2 g and IV fluids. Despite antibiotics, Mr. Ramirez, went into res piratory distress early this morning and was transferred to [place] ER for further evaluation. In the ER, he was tachycardic and hypoxic satting at 84% on a non-rebreather at 15 L/m. Influenza panel was negative. Surprisingly no leukocytosis but he had initial lactic acid of 4.9 which improved to 3.5 after 3.5L of NS. He was given 1 dose of Zosyn and a stress dose of Solu-Medrol 125 mg. Interestingly enough, he had an elevation of troponin which peaked at 0.13 but downtrended to 0.06 by the afternoon. EKG at the time showed sinus tachycardia, left axis deviation, right bundle branch block and left anterior fascicular block which is unchanged from his September 2017 EKG at [facility]. Dr. Carmona, was called by [place] who states he will see the patient at [facility] once admitted. [facility] hospitalist team was then called for transfer due to the need of cardiology consult and possibly pulmonary consult. PAST MEDICAL HISTORY: PMH Pineda's esophagus,s/p multiple admission for endoscopies, CVA, s/p PEG tube placement, GERD, NIDDM, Hep C s/p treatment, COPD, HTN PAST SURGICAL HISTORY: peg tube, EGD SOCIAL HISTORY: Previous smoking, alcohol and drug use. (obtained from old records) FAMILY HISTORY: CAD in both parents ALLERGIES: Please see below. REVIEW OF SYSTEMS: Unable to obtain HOME MEDICATIONS: Please see below. PHYSICAL EXAMINATION: General: Alert, overall contracted, does not responds to question, maintains eye contact Eyes: Normal sclera, EOMI, MIA Cardiovascular: Normal rate, normal rhythm. S1 and S2 no murmurs Pulmonary: Unable to follow commands, no wheezing, no apparent use of accessory muscle, currently on nasal cannula GI: Soft, nondistended, PEG tube intact. Skin: Very dry skin, sacral ulcer, stage III noted on patient's left buttocks Neuro: Limited movement in extremities spontaneously, unable to fully assess due to neurological status. Able to move only one arm LABORATORY DATA: See below. MICROBIOLOGY: Please see below. ASSESSMENT Patient is a 69-year-old gentleman with complicated past medical history, presented as a transfer from [facility] for respiratory depression, secondary to aspiration pneumonia. PLAN: #Aspiration pneumonia vs HCAP -Will remain nothing by mouth but will c/w tube feeds via peg tube -Ordered Blood culturesx2, repeat LA, pro-calcitonin, CBC WITH diff -S/P cefepime 5 days (12/25-12/29) + Zosyn x1 from [place] -c/w Zosyn to cover gram-negative and anaerobic coverage -Start vanco to cover for HCAP for recently admitted last month and currently lives in a group home. MRSA screen ordered, de-escalate if negative -Place patient on aspiration precautions -ER ABG: pH of 7.32, PCo2 of 32.4, repeat ABG now for he continues to need oxygen. (Normally stat appropriately on room air) -Oxygen titration order to maintain sats above 80-92% #Acidemia -Initially lactic acid: 4.9 which improved to 3.5 after 3.5L of NS -We'll repeat lactic acid, pending levels will consider if need to have anymore for the fluid intervention. #Elevated troponins -peaked at 0.13 at [place] -Was transferred from [place] for Cardiology evaluation after discussing case with Dr. Carmona -Cardiology, Dr. Carmona, consult in place #3 Stage 3 Pressure ulcer on the left buttock present on admission frequent position changes. #Insulin-dependent diabetes -Currently nothing by mouth but resume home tube feeds -Every 6 hours fingerstick w/ sliding-scale insulin coverage. #History of CVA s/p peg tube placement -C/W with plavix -continue with home tube feeds. -Start of 15 mL per hour and increase by 15 mL per hour every 2 hours for max of 60 ml per hour. Hold for residuals greater than 200 #Microcyctic Anemia. -Reported History of feces ingestion -could be posisbly 2/2 PICA -will order iron studies, folate, and B12. #Abnormal EKG showing sinus tachycardia with right bundle branch block, also showing bifascicular block -Unchanged from prior EKGs at [facility]. Will repeat EKG in at [facility] -patient currently DNI and DNR -Cardiology consultation in place. #Elevated BNP without diagnosis of CHF. -Reported BNP of 2837 from [place] -currently euvolemic -Will not further diuresis at this current time and will monitor. -No previous echocardiogram done in the past. #Hx Gastritis/esophagitis/GERD - c/w ppi -Currently stable, but will monitor for bleeds -if hemoglobin <7 transfuse #COPD - Duonebs PRN. - Does not appear to be in exacerbation. -Supplemental oxygen -ABG order # Hx Hep C - s/p treatment. #HTN -BP controlled at this time. DVT ppx: Heparin BID Code status:DNR/DNI Home Medications Scheduled Atorvastatin Calcium (Atorvastatin Calcium) 80 Mg Tablet, 80 MG PEG QHS Captopril (Captopril) 12.5 Mg Tablet, 6.25 MG PEG TID Carvedilol (Carvedilol) 12.5 Mg Tablet, 12.5 MG PEG BID Cefdinir (Cefdinir) 250 Mg/5 Ml Susp.recon, 6 ML PO Q12H 2ND OF 4 DOSES. CAN CEFDINIR BE TAKEN BY G-TUBE? Clopidogrel Bisulfate (Clopidogrel) 75 Mg Tablet, 75 MG GT DAILY Doxazosin Mesylate (Doxazosin) 4 Mg Tablet, 4 MG PEG QHS Ferrous Sulfate (Ferrous Sulfate) 220 Mg/5 Ml Solution, 7.4 ML GT DAILY Folic Acid (Folic Acid) 1 Mg Tablet, 1 MG PEG DAILY Insulin Glargine,Hum.rec.anlog (Basaglar Kwikpen U-100) 100 Unit/1 Ml Insuln.pen, 14 UNIT SC QHS Insulin Lispro (Humalog Kwikpen U-100) 100 Unit/1 Ml Insuln.pen, 1 DOSE SC Q6H PER SLIDING SCALE @ 0000, 0600, 1200, 1800 Multivitamins (Thera M Plus Tablet) 1 Each Tablet, 1 TAB PEG DAILY Omeprazole (Omeprazole) 40 Mg Capsule.dr, 40 MG GT BID Protein Supplement (Promod) 946 Ml Liquid, 30 ML GT BID Sennosides (Senna) 8.8 Mg/5 Ml Syrup, 10 ML PEG DAILY Thiamine HCl (Thiamine HCl) 100 Mg Tablet, 100 MG PEG DAILY Scheduled PRN Acetaminophen (Acetaminophen) 500 Mg Tablet, 1,000 MG GT Q12H PRN for PAIN Bisacodyl (Bisacodyl) 10 Mg Supp.rect, 10 MG AL DAILY PRN for CONSTIPATION ADMINISTER IF NO RESULTS FROM MILK OF MAG Cyclobenzaprine HCl (Cyclobenzaprine HCl) 5 Mg Tablet, 5 MG GT TID PRN for MUSCLE SPASMS 0800, 1400, 2000 Ipratropium/Albuterol Sulfate (Iprat-Albut 0.5-3(2.5) mg/3 ml) 3 Ml Ampul.neb, 1 VIAL INH Q4H PRN for SOB/WHEEZING Magnesium Hydroxide (Milk of Magnesia) 400 Mg/5 Ml Oral.susp, 30 ML PO DAILY PRN for CONSTIPATION GIVE IF NO BM AFTER 48 HOURS. DO NOT GIVE IF ON DIALYSIS Sodium Phosphate,Mower-Dibasic (Fleet Enema) 133 Ml Enema, 1 JOSE AL DAILY PRN for CONST' ADMINISTER IF NO RESULTS FROM BISACODYL SUPPOSITORY Allergies Coded Allergies: No Known Allergies (Unverified , 01/30/18) Attending Note I personally obtained a history, evaluated and examined the patient. I have reviewed the above history and physical and agree with the assessment and plan as documented in the resident's note. RUSSELL SHIPMAN DO Dec 30, 2019 18:07 MEKA SIGALA DO Dec 30, 2019 18:22 GLENYS GALAN MD Jan 01, 2020 11:43
[2019-12-30] MEDS ORDERED: MOM 30ML SUSPENSION UDC PO PRN (18:15)
[2019-12-30] MEDS ORDERED: CYCLOBENZAPRINE 5MG TABLET GT PRN (18:15)
[2019-12-30] MEDS ORDERED: IPRATROPIUM 0.5MG/ALBUTEROL 2.5MG INH SOL UD 3ML (DUONEB)(J7620) NEB PRN (18:15)
[2019-12-30] MEDS ORDERED: BISACODYL 10 MG SUPP PR PRN (18:15)
[2019-12-30] MEDS ORDERED: ACETAMINOPHEN 500 MG TAB GT PRN (18:15)
[2019-12-30 18:35] LABS: BLOOD UREA NITROGEN 45 MG/DL (7-18); CALCIUM LEVEL 8.1 MG/DL (8.8-10.2); CARBON DIOXIDE LEVEL 19 MEQ/L (21-32); CHLORIDE LEVEL 128 MEQ/L (98-107); CREATININE FOR GFR 1.28 MG/DL (0.70-1.30); FERRITIN 806 NG/ML (26-388); GLOMERULAR FILTRATION RATE > 60.0 (>49); GLUCOSE, FASTING 165 MG/DL (70-100); IRON (FE) 15 UG/DL (65-175); NT-PRO BNP 3943 PG/ML (<125); PERCENT SATURATION 10.9 % (19.7-50.0); POTASSIUM SERUM 4.1 MEQ/L (3.5-5.1); SODIUM LEVEL 157 MEQ/L (136-145); TOTAL IRON BINDING CAPACITY 137 UG/DL (250-450); TROPONIN I < 0.02 NG/ML (< 0.10)
[2019-12-30 18:55] LABS: LYMPHOCYTES 15 % (16-44); METAMYELOCYTES 2 % (0-0); MYELOCYTES 1 % (0-0); NEUTROPHILS 68 % (28-66); PLATELET ESTIMATE NORMAL (NORMAL)
[2019-12-30 18:57] LABS: ANISOCYTOSIS 3+; BURR CELLS 1+; HYPOCHROMASIA 2+; MICROCYTOSIS 1+; POLYCHROMASIA 1+
[2019-12-30 18:59] LABS: TARGET CELLS 1+
[2019-12-30 19:00] VITALS: O2SAT 98
[2019-12-30] MEDS ORDERED: CLOPIDOGREL 75 MG TAB GT SCH (19:00)
[2019-12-30] MEDS: HumaLOG INSULIN (NovoLOG) PER UNIT SC SCH (19:00)
[2019-12-30 20:00] VITALS: BP 140/67
[2019-12-30] MEDS ORDERED: VANCOMYCIN HCL 1,000 MG, VIAL MATE ADAPTER 1 EACH in D5W 250 ML IV ONE (21:00)
[2019-12-30] MEDS: PIPERACILLIN/TAZOBACTAM SOD 4.5 GM in D5W MINI-BAG PLUS 50 ML IV SCH (21:16)
[2019-12-30] MEDS: ATORVASTATIN 20 MG TAB PEG SCH (21:17)
[2019-12-30] MEDS: CAPTOpril 6.25 MG PER 1/2 TABLET PEG SCH (21:17)
[2019-12-30] MEDS: HEPARIN SOD (PORCINE) 5000 UNITS/ML VIAL (J1644 PER 1000UNITS) SQ SCH (21:18)
[2019-12-30] MEDS: DOXAZOSIN MESYLATE 4 MG TAB PEG SCH (21:18)
[2019-12-30] MEDS: CARVedilol 12.5 MG TAB PEG SCH (21:18)
[2019-12-30] MEDS ORDERED: VANCOMYCIN HCL 500 MG in D5W MINI-BAG PLUS 100 ML IV ONE (22:00)
[2019-12-31] VITALS (16 sets, daily range): BP systolic 110–147; BP diastolic 54–73; O2SAT 89–99
[2019-12-31] MEDS: HumaLOG INSULIN (NovoLOG) PER UNIT SC SCH ×4 (01:17→18:00)
[2019-12-31] MEDS: PIPERACILLIN/TAZOBACTAM SOD 4.5 GM in D5W MINI-BAG PLUS 50 ML IV SCH ×4 (03:37→20:45)
[2019-12-31 05:31] LABS: HEMATOCRIT 24.4 % (42.0-52.0); HEMOGLOBIN 7.2 g/dl (13.5-17.5); MEAN CORPUSCULAR HEMOGLOBIN 21.8 pg (27.0-33.0); MEAN CORPUSCULAR HGB CONC 29.5 g/dl (32.0-36.5); MEAN CORPUSCULAR VOLUME 73.9 fl (80.0-96.0); PLATELET COUNT, AUTOMATED 188 10^3/uL (150-450); WHITE BLOOD COUNT 10.5 10^3/uL (4.0-10.0)
[2019-12-31 05:51] LABS: BLOOD UREA NITROGEN 47 MG/DL (7-18); CARBON DIOXIDE LEVEL 19 MEQ/L (21-32); CHLORIDE LEVEL 128 MEQ/L (98-107); CREATININE FOR GFR 1.15 MG/DL (0.70-1.30); GLOMERULAR FILTRATION RATE > 60.0 (>49); GLUCOSE, FASTING 190 MG/DL (70-100); POTASSIUM SERUM 3.7 MEQ/L (3.5-5.1); SODIUM LEVEL 155 MEQ/L (136-145)
--- NOTE | 2019-12-31 07:27 | REP ---
Portable chest, 07:25 p.m., single AP view with the the patient semi upright: Comparison is the portable chest dated 10/10/2017. There is a focal density inferiorly in the right lung as an interval change, nonspecific, infiltrate versus mass. Left lung is clear. There are no pleural effusions. Cardiac size is normal. The patient is rotated. Impression: Mass versus infiltrate inferiorly in the right lung as an interval change. Electronically Signed by Lm Fermin MD 12/31/2019 07:19 A
[2019-12-31] MEDS: PANTOPRAZOLE 40MG INJ (PROTONIX) (C9113) IV SCH (08:42)
[2019-12-31] MEDS: CLOPIDOGREL 75 MG TAB GT SCH (08:43)
[2019-12-31] MEDS: MULTIVITAMINS/MINERALS THERAP 1 TAB PEG SCH (08:44)
[2019-12-31] MEDS: CARVedilol 12.5 MG TAB PEG SCH ×2 (08:44→20:47)
[2019-12-31] MEDS: CAPTOpril 6.25 MG PER 1/2 TABLET PEG SCH ×3 (08:44→20:47)
[2019-12-31] MEDS: THIAMINE 100 MG TAB PEG SCH (08:44)
[2019-12-31] MEDS: HEPARIN SOD (PORCINE) 5000 UNITS/ML VIAL (J1644 PER 1000UNITS) SQ SCH ×2 (08:45→20:46)
[2019-12-31] MEDS: FOLIC ACID 1 MG TAB PEG SCH (08:49)
[2019-12-31] MEDS ORDERED: ENOXAPARIN 40 MG/0.4 ML SYRINGE (J1650) SC SCH (09:00)
[2019-12-31 09:33] LABS: ALBUMIN 1.1 GM/DL (3.2-5.2); ALT/SGPT 55 U/L (12-78); BILIRUBIN,DIRECT 0.2 MG/DL (0.0-0.2); BILIRUBIN,TOTAL 0.4 MG/DL (0.2-1.0); TOTAL PROTEIN 7.3 GM/DL (6.4-8.2)
[2019-12-31] MEDS: BUDESONIDE 0.5 MG/2 ML INHALATION SUSPENSION INH SCH ×2 (09:37→20:35)
[2019-12-31] MEDS: ALBUTEROL SULFATE 2.5 MG/0.5 ML INH NEB SOLN NEB SCH ×3 (09:37→20:35)
--- NOTE | 2019-12-31 09:38 | IPNPDOC ---
Text Note Date of Service The patient was seen on 12/31/19. NOTE SUBJECTIVE: Seen laying comfortably in bed with right leg contracted above the hip. He is awake following some commands like raise your leg, open and close your eyes. Voice is very low and hoarse and speech is gibberish but fluent. Cough is very weak . Seems like there is secretions at the back of his throat which he cannot cough out. PHYSICAL EXAMINATION: VITALS : As below. General: Alert, overall contracted, maintains eye contact, follows some commands, talks gibberish with a very low voice. Eyes: Normal sclera, EOMI, MIA Cardiovascular: Normal rate, normal rhythm. S1 and S2 no murmurs Pulmonary: good air entry, bilateral ronchi and crackles at both base right > left. GI: Soft, nondistended, PEG tube intact. Skin: Very dry skin, sacral ulcer, stage III noted on patient's left buttocks Neuro: Limited movement in extremities spontaneously, unable to fully assess due to neurological status.left upper extremity 4/5 power and left lower extremity 2/5 power, right hemiparesis with right leg contracted. Extremities: Right leg cooler than the left. Right leg has several arterial ulcers on the boyce. Left toes to chronic ischemic changes. LABORATORY DATA: See below. MICROBIOLOGY: Please see below. ASSESSMENT Patient is a 69-year-old gentleman with PMH of Upper GIB due to severe diffuse erosive reflux esophagitis in oct 2019, Hiatal hernia, Pineda's esophagus, Severe Peripheral arterial disease with right leg arterial ulcers with eschar, recent CVA on 10/22/19 for which he was admitted to [facility], with residular right hemiplegia with right leg contracture, PEG tube placement and [facility], GERD, NIDDM, Hep C s/p treatment, COPD, HTN. resident of [facility] presented as a transfer from [facility] for respiratory distress, secondary to aspiration pneumonia. Patient was admitted for aspiration pneumonia Vs HCAP PLAN: #Aspiration pneumonia vs HCAP -Will remain nothing by mouth but will c/w tube feeds via peg tube -S/P cefepime 5 days (12/25-12/29) + Zosyn x1 from [place] -c/w Zosyn to cover gram-negative and anaerobic coverage and vanco to cover for HCAP for recently admitted last month and currently lives in a snf. - MRSA screen is positive -Place patient on aspiration precautions #Microcytic Anemia. -HH lower today. partly could be dilutional. will discuss with HCP for possible PRBC transfusion. Will transfuse if less than 7.0 - No iron deficiency - b12 and folate pending. #Acidemia--resolved -Initially lactic acid: 4.9 which improved to 3.5 after 3.5L of NS - lactate normalized #Acid base abnormality Now has alkalemia due resp alkalosis #Elevated troponins -peaked at 0.13 at [place] -Was transferred from [place] for Cardiology evaluation after discussing case with Dr. Carmona -Cardiology, Dr. Carmona, consult in place #3 Stage 3 Pressure ulcer on the left buttock present on admission frequent position changes. #Insulin-dependent diabetes -Every 6 hours fingerstick w/ sliding-scale insulin coverage. #History of CVA with right hemiplegia s/p peg tube placement -C/W with plavix -continue with home tube feeds. #Abnormal EKG showing sinus tachycardia with right bundle branch block, also showing bifascicular block -Unchanged from prior EKGs at [facility]. Will repeat EKG in at [facility] -patient currently DNI and DNR -Cardiology consultation in place. #Elevated BNP without diagnosis of CHF. -Reported BNP of 2837 from [place] -currently euvolemic -Will not further diuresis at this current time and will monitor. -No previous echocardiogram done in the past. #Hx Gastritis/esophagitis/GERD - c/w ppi -Currently stable, but will monitor for bleeds -if hemoglobin <7 transfuse #COPD - Duonebs PRN. albuterol and budesonide nebs - Does not appear to be in exacerbation. -Supplemental oxygen # Hx Hep C - s/p treatment. #HTN -BP controlled at this time. DVT ppx: Heparin BID Code status:DNR/DNI VS,Fishbone, I+O VS, Fishbone, I+O Laboratory Tests 12/30/19 17:36 12/31/19 05:18 Vital Signs Date Time Temp Pulse Resp B/P (MAP) Pulse Ox O2 Delivery O2 Flow Rate FiO2 12/31/19 08:44 91 142/66 12/31/19 08:00 97.0 27 96 Room Air 12/30/19 19:00 4.0 I&O- Last 24 Hours up to 6 AM 12/31/19 06:00 Intake Total 100 ml Output Total 1000 ml Balance -900 ml GLENYS GALAN MD Dec 31, 2019 09:38
[2019-12-31] MEDS ORDERED: VANCOMYCIN HCL 1,000 MG, VIAL MATE ADAPTER 1 EACH in D5W 250 ML IV SCH (10:00)
[2019-12-31] MEDS: VANCOMYCIN HCL 1,000 MG, VIAL MATE ADAPTER 1 EACH in D5W 250 ML IV SCH ×2 (10:00→23:00)
[2019-12-31] MEDS: DOXAZOSIN MESYLATE 4 MG TAB PEG SCH (20:46)
[2019-12-31] MEDS: ATORVASTATIN 20 MG TAB PEG SCH (20:46)
--- NOTE | 2019-12-31 23:25 | ECGEPIP ---
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
[2020-01-01] VITALS (15 sets, daily range): BP systolic 114–166; BP diastolic 62–90; O2SAT 91–100
[2020-01-01] MEDS: HumaLOG INSULIN (NovoLOG) PER UNIT SC SCH ×4 (00:27→18:16)
[2020-01-01] MEDS: PIPERACILLIN/TAZOBACTAM SOD 4.5 GM in D5W MINI-BAG PLUS 50 ML IV SCH ×4 (02:21→21:01)
[2020-01-01 05:26] LABS: VENOUS BASE EXCESS -4.7 (-2.0-2.0); VENOUS HCO3 19.7 MEQ/L (23.0-27.0); VENOUS O2 SATURATION 93.7 % (60.0-80.0); VENOUS PARTIAL PRESSURE CO2 33.5 mmHg (38.0-50.0); VENOUS PARTIAL PRESSURE O2 76.9 mmHg (30.0-50.0); VENOUS PH 7.388 UNITS (7.330-7.430); VENOUS STANDARD HCO3 20.5 MEQ/L; VENOUS TOTAL CO2 20.8 MEQ/L (24.0-28.0)
[2020-01-01 05:43] LABS: HEMATOCRIT 29.4 % (42.0-52.0); MEAN CORPUSCULAR HEMOGLOBIN 20.6 pg (27.0-33.0); MEAN CORPUSCULAR HGB CONC 27.2 g/dl (32.0-36.5); MEAN CORPUSCULAR VOLUME 75.8 fl (80.0-96.0); PLATELET COUNT, AUTOMATED 174 10^3/uL (150-450); RED BLOOD COUNT 3.88 10^6/uL (4.30-6.10); WHITE BLOOD COUNT 7.9 10^3/uL (4.0-10.0)
[2020-01-01 06:06] LABS: BLOOD UREA NITROGEN 35 MG/DL (7-18); CARBON DIOXIDE LEVEL 21 MEQ/L (21-32); CHLORIDE LEVEL 127 MEQ/L (98-107); GLOMERULAR FILTRATION RATE > 60.0 (>49); GLUCOSE, FASTING 113 MG/DL (70-100); POTASSIUM SERUM 3.3 MEQ/L (3.5-5.1); SODIUM LEVEL 159 MEQ/L (136-145)
[2020-01-01] MEDS ORDERED: POTASSIUM CHLORIDE 10 MEQ SR TABLET PO ONE (08:00)
[2020-01-01] MEDS: MULTIVITAMINS/MINERALS THERAP 1 TAB PEG SCH (08:05)
[2020-01-01] MEDS: CLOPIDOGREL 75 MG TAB GT SCH (08:05)
[2020-01-01] MEDS: CAPTOpril 6.25 MG PER 1/2 TABLET PEG SCH ×3 (08:05→20:37)
[2020-01-01] MEDS: FOLIC ACID 1 MG TAB PEG SCH (08:05)
[2020-01-01] MEDS: CARVedilol 12.5 MG TAB PEG SCH ×2 (08:05→20:38)
[2020-01-01] MEDS: THIAMINE 100 MG TAB PEG SCH (08:06)
[2020-01-01] MEDS: ALBUTEROL SULFATE 2.5 MG/0.5 ML INH NEB SOLN NEB SCH ×2 (08:12→16:00)
[2020-01-01] MEDS: BUDESONIDE 0.5 MG/2 ML INHALATION SUSPENSION INH SCH ×2 (08:13→20:42)
[2020-01-01] MEDS: HEPARIN SOD (PORCINE) 5000 UNITS/ML VIAL (J1644 PER 1000UNITS) SQ SCH ×2 (08:14→21:03)
--- NOTE | 2020-01-01 08:47 | REP ---
Portable chest, 08:32 a.m., single AP view with the patient upright: Comparison is 12/30/2019. The density inferiorly in the right lung has significantly improved, compatible with resolving infiltrate. There is a subtle infiltrate in the right upper lobe as an interval change. Left lung is clear. Cardiac size is normal. Electronically Signed by Lm Fermin MD 01/01/2020 08:38 A
[2020-01-01] MEDS: PANTOPRAZOLE 40MG INJ (PROTONIX) (C9113) IV SCH (09:31)
[2020-01-01] MEDS: KCL 10MEQ/100ML SWI (KRUN) 10 MEQ in IV 1 EA IV SCH ×2 (09:32→10:34)
[2020-01-01 10:19] LABS: FOLATE 20.8 NG/ML (>5.4); VITAMIN B12 LEVEL 1298 PG/ML (247-911)
--- NOTE | 2020-01-01 10:23 | IPNPDOC ---
Text Note Date of Service The patient was seen on 01/01/20. NOTE SUBJECTIVE: Overnight patient had an episode of aspiration. His PEG tube feeding was held and he was suctioned. This a.m. patient appears to be tachypneic, with hypertension, he also had an increase in his sodium levels. He continues to be on IV vancomycin and Zosyn. PHYSICAL EXAMINATION: VITALS : As below. General: maintains eye contact, nonverbal Eyes: Nonicteric Cardiovascular: Normal rate, normal rhythm. S1 and S2 no murmurs Pulmonary: Decreased air entry, no wheezing, rhonchi, patient is tachypneic. Skin: stage III noted on patient's left buttocks Neuro: Limited movement in extremities spontaneously, unable to fully assess due to neurological status.left upper extremity 4/5 power and left lower extremity 2/5 power, right hemiparesis with right leg contracted. Extremities: Right leg cooler than the left. Right leg has several arterial ulcers on the boyce. Left toes to chronic ischemic changes. LABORATORY DATA: See below. MICROBIOLOGY: Please see below. ASSESSMENT Patient is a 69-year-old gentleman with PMH of Upper GIB due to severe diffuse erosive reflux esophagitis in oct 2019, Hiatal hernia, Pineda's esophagus, Severe Peripheral arterial disease with right leg arterial ulcers with eschar, recent CVA on 10/22/19 for which he was admitted to [facility], with residular right hemiplegia with right leg contracture, PEG tube placement and [facility], GERD, NIDDM, Hep C s/p treatment, COPD, HTN. resident of [facility] presented as a transfer from [facility] for respiratory distress, secondary to aspiration pneumonia. Patient was admitted for aspiration pneumonia Vs HCAP PLAN: #Aspiration pneumonia vs HCAP -Will remain nothing by mouth but will c/w tube feeds via peg tube -S/P cefepime 5 days (12/25-12/29) + Zosyn x1 from [facility] -c/w Zosyn to cover gram-negative and anaerobic coverage and vanco to cover for HCAP for recently admitted last month and currently lives in a long term. - MRSA screen is positive -Place patient on aspiration precautions #Tachypnea secondary to metabolic alkalosis, respiratory alkalosis, nonionic gap metabolic acidosis -Patient's underlying problem is most likely non-anion gap Metabolic acidosis 2/2 hyperchloremia and diarrhea. Patient did have large amounts of stool yesterday and we had to put in a rectal tube. This will likely explains patient's compensated respiratory alkalosis. Will attempt to correct his electrolyte imbalances. -Patient is having a respiratory rate in the low 40s, without hypoxia which i think is compensation for underlying acidosis. -Current pH is 7.388, which is compensated due to combination of acidosis and alkalosis #Hypernatremia -D5 at 100 ml/h -Monitor closely #Microcytic Anemia. -HH lower today. partly could be dilutional. will discuss with HCP for possible PRBC transfusion. Will transfuse if less than 7.0 - No iron deficiency - b12 and folate pending. #Elevated troponins -peaked at 0.13 at [facility] -Was transferred from [facility] for Cardiology evaluation after discussing case with Dr. Carmona -Cardiology, Dr. Carmona, consult in place #3 Stage 3 Pressure ulcer on the left buttock present on admission frequent position changes. #Insulin-dependent diabetes -Every 6 hours fingerstick w/ sliding-scale insulin coverage. #History of CVA with right hemiplegia s/p peg tube placement -C/W with plavix -continue with home tube feeds. #Abnormal EKG showing sinus tachycardia with right bundle branch block, also showing bifascicular block -Unchanged from prior EKGs at [facility]. Will repeat EKG in at [facility] -patient currently DNI and DNR -Cardiology consultation in place. #Elevated BNP without diagnosis of CHF. -Reported BNP of 2837 from [facility] -currently euvolemic -Will not further diuresis at this current time and will monitor. -No previous echocardiogram done in the past. #Hx Gastritis/esophagitis/GERD - c/w ppi -Currently stable, but will monitor for bleeds -if hemoglobin <7 transfuse #COPD - Duonebs PRN. albuterol and budesonide nebs - Does not appear to be in exacerbation. -Supplemental oxygen # Hx Hep C - s/p treatment. #HTN -BP controlled at this time. DVT ppx: Heparin BID Code status:DNR/DNI VS,Fishbone, I+O VS, Fishbone, I+O Laboratory Tests 01/01/20 05:20 Vital Signs Date Time Temp Pulse Resp B/P (MAP) Pulse Ox O2 Delivery O2 Flow Rate FiO2 01/01/20 05:08 93 148/68 (94) 01/01/20 05:00 95 Room Air 01/01/20 04:00 97.2 40 12/30/19 19:00 4.0 I&O- Last 24 Hours up to 6 AM 01/01/20 06:00 Intake Total 700 ml Output Total 1250 ml Balance -550 ml Attending Note I personally saw and evaluated the patient. I agree with the findings and the plan of care documented above in the resident's note. RUSSELL SHIPMAN DO Jan 01, 2020 07:39 GLENYS GALAN MD Jan 01, 2020 11:52
[2020-01-01] MEDS: VANCOMYCIN HCL 1,000 MG, VIAL MATE ADAPTER 1 EACH in D5W 250 ML IV SCH ×2 (10:33→22:45)
[2020-01-01] MEDS: D5W 1,000 ML IV SCH ×2 (10:34→21:02)
[2020-01-01 12:24] LABS: ABG BASE EXCESS -2.3 (-2.0-2.0); ABG HCO3 20.3 MEQ/L (22.0-26.0); ABG O2 SATURATION 95.7 % (95.0-99.0); ABG PARTIAL PRESSURE CO2 26.8 mmHg (35.0-45.0); ABG PARTIAL PRESSURE O2 79.3 mmHg (75.0-100.0); ABG STANDARD HCO3 22.5 MEQ/L (22.0-26.0); ABG TOTAL CO2 21.2 MEQ/L (23.0-31.0); ABG pH (ARTERIAL) 7.498 UNITS (7.350-7.450)
[2020-01-01 14:59] LABS: BLOOD UREA NITROGEN 28 MG/DL (7-18); CARBON DIOXIDE LEVEL 23 MEQ/L (21-32); CHLORIDE LEVEL 128 MEQ/L (98-107); GLOMERULAR FILTRATION RATE > 60.0 (>49); GLUCOSE, FASTING 143 MG/DL (70-100); POTASSIUM SERUM 3.7 MEQ/L (3.5-5.1); SODIUM LEVEL 155 MEQ/L (136-145)
[2020-01-01] MEDS: DOXAZOSIN MESYLATE 4 MG TAB PEG SCH (20:37)
[2020-01-01] MEDS: ATORVASTATIN 20 MG TAB PEG SCH (20:38)
[2020-01-02] VITALS (8 sets, daily range): BP systolic 118–146; BP diastolic 56–81; O2SAT 95–96
[2020-01-02] MEDS: HumaLOG INSULIN (NovoLOG) PER UNIT SC SCH ×3 (00:35→11:54)
[2020-01-02] MEDS: PIPERACILLIN/TAZOBACTAM SOD 4.5 GM in D5W MINI-BAG PLUS 50 ML IV SCH ×2 (03:09→09:07)
[2020-01-02 06:16] LABS: HEMATOCRIT 26.8 % (42.0-52.0); HEMOGLOBIN 7.8 g/dl (13.5-17.5); MEAN CORPUSCULAR HEMOGLOBIN 21.7 pg (27.0-33.0); MEAN CORPUSCULAR HGB CONC 29.1 g/dl (32.0-36.5); MEAN CORPUSCULAR VOLUME 74.7 fl (80.0-96.0); PLATELET COUNT, AUTOMATED 200 10^3/uL (150-450); RED BLOOD COUNT 3.59 10^6/uL (4.30-6.10); WHITE BLOOD COUNT 8.4 10^3/uL (4.0-10.0)
[2020-01-02 06:39] LABS: BLOOD UREA NITROGEN 21 MG/DL (7-18); CALCIUM LEVEL 8.5 MG/DL (8.8-10.2); CARBON DIOXIDE LEVEL 24 MEQ/L (21-32); CHLORIDE LEVEL 124 MEQ/L (98-107); CREATININE FOR GFR 0.93 MG/DL (0.70-1.30); GLOMERULAR FILTRATION RATE > 60.0 (>49); GLUCOSE, FASTING 136 MG/DL (70-100); POTASSIUM SERUM 3.4 MEQ/L (3.5-5.1); SODIUM LEVEL 151 MEQ/L (136-145)
[2020-01-02] MEDS: BUDESONIDE 0.5 MG/2 ML INHALATION SUSPENSION INH SCH (07:09)
[2020-01-02] MEDS: ALBUTEROL SULFATE 2.5 MG/0.5 ML INH NEB SOLN NEB SCH ×3 (07:09→15:39)
[2020-01-02] MEDS ORDERED: POTASSIUM CHLORIDE 10 MEQ SR TABLET PO ONE (07:30)
[2020-01-02] MEDS: FOLIC ACID 1 MG TAB PEG SCH (09:00)
[2020-01-02] MEDS: MULTIVITAMINS/MINERALS THERAP 1 TAB PEG SCH (09:00)
[2020-01-02] MEDS: CARVedilol 12.5 MG TAB PEG SCH (09:00)
[2020-01-02] MEDS: THIAMINE 100 MG TAB PEG SCH (09:00)
[2020-01-02] MEDS: CAPTOpril 6.25 MG PER 1/2 TABLET PEG SCH (09:00)
[2020-01-02] MEDS: CLOPIDOGREL 75 MG TAB GT SCH (09:00)
[2020-01-02] MEDS ORDERED: BACITRACIN OINT 30GM TOP SCH (09:00)
[2020-01-02] MEDS: PANTOPRAZOLE 40MG INJ (PROTONIX) (C9113) IV SCH (09:09)
[2020-01-02] MEDS: HEPARIN SOD (PORCINE) 5000 UNITS/ML VIAL (J1644 PER 1000UNITS) SQ SCH (09:09)
[2020-01-02] MEDS ORDERED: VANCOMYCIN HCL 750 MG, VIAL MATE ADAPTER 1 EACH in D5W 250 ML IV SCH (10:00)
[2020-01-02] MEDS ORDERED: MORPHINE 2 MG/ML 1ML VIAL (J2270) IV ONE (11:00)
--- NOTE | 2020-01-02 11:52 | IPNPDOC ---
Text Note Date of Service The patient was seen on 01/02/20. NOTE SUBJECTIVE: Continues to be to Tachypnic, with rates in the 40s. . He also occ asionally will wincing pain. Continues to maintain good eye contact. She heads occasionally to questions. PHYSICAL EXAMINATION: VITALS : As below. General: maintains eye contact, nonverbal, will occasionally wincing in pain Eyes: Nonicteric Cardiovascular: Normal rate, normal rhythm. S1 and S2 no murmurs Pulmonary: Decreased air entry, no wheezing, rhonchi, patient is tachypneic. Skin: stage III noted on patient's left buttocks Extremities: Necrotic left foot, multiple ulcers tracks out from left foot to patient's knee LABORATORY DATA: See below. MICROBIOLOGY: Please see below. ASSESSMENT Patient is a 69-year-old gentleman with PMH of Upper GIB due to severe diffuse erosive reflux esophagitis in oct 2019, Hiatal hernia, Pineda's esophagus, Severe Peripheral arterial disease with right leg arterial ulcers with eschar, recent CVA on 10/22/19 for which he was admitted to [facility], with residular right hemiplegia with right leg contracture, PEG tube placement and [facility], GERD, NIDDM, Hep C s/p treatment, COPD, HTN. resident of [facility] presented as a transfer from [facility] for respiratory distress, secondary to aspiration pneumonia. Patient was admitted for aspiration pneumonia Vs HCAP. This management was complicated by chronic aspiration, anemia, tachycardia, tachypnea, metabolic alkalosis, respiratory alkalosis, nonionic gap metabolic acidosis. PLAN: Due to patient's prior prognosis, discussed patient's condition with patient's daughter, healthcare proxy Leann Padgett. Who decided to make to make patient comfort care only with hospice consult. Family will like patient either placed with hospice in the hospital or hospice house. They do not desire to return to patient's prior usp. Comfort care only. Orders placed today. VS,Fishbone, I+O VS, Fishbone, I+O Laboratory Tests 01/01/20 14:14 01/02/20 06:03 Vital Signs Date Time Temp Pulse Resp B/P (MAP) Pulse Ox O2 Delivery O2 Flow Rate FiO2 01/02/20 04:00 97.2 94 42 138/70 (92) 93 Room Air 01/01/20 10:00 2.0 I&O- Last 24 Hours up to 6 AM 01/02/20 06:00 Intake Total 2635 ml Output Total 750 ml Balance 1885 ml GME ATTESTATION GME ATTESTATION My faculty preceptor for this patient encounter was physically present during the encounter and was fully available. All aspects of the patient interview, examination, medical decision making process, and medical care plan development were reviewed and approved by the faculty preceptor. The faculty preceptor is aware and concurs with the plan as stated in the body of this note and will attest to such by his/her cosignature. ATTENDING NOTE I examine and discussed the plan for Mr. Ramirez with Dr. Russell and agree with his assessment and plan above. Briefly, Mr. Ramirez is a 69-year-old gentleman with a history of recent CVA with residual right hemiplegia with right leg co ntracture, and now chronic PEG who was transferred from [place] for hypoxemic respiratory failure 2/2 aspiration pneumonia with multiple complications including acid/base disturbances in the setting of diarrhea. Unfortunately, Mr. Ramirez has continued to declien with current issue being profound tachypnea to RR40s and after the team's discussion (Dr. 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 At this time, his MOLST has been updated, and PFS is aware of the change in status and making consultation with hospice to evaluate him for discharge to an inpatient hospice facility. RUSSELL SHIPMAN DO Jan 02, 2020 07:26 HARRISON SOTO MD Jan 02, 2020 15:50
[2020-01-02] MEDS: KCL 10MEQ/100ML SWI (KRUN) 10 MEQ in IV 1 EA IV SCH ×2 (11:54→13:46)
[2020-01-02] MEDS ORDERED: LORazepam 2 MG/ML VIAL (J2060) IV PRN (12:15)
[2020-01-02] MEDS ORDERED: ONDANSETRON 4MG/2ML VIAL (J2405) IV PRN (12:15)
[2020-01-02] MEDS: MORPHINE 10MG/0.5ML ORAL CONCENTRATE SOLUTION U/D SL PRN ×3 (17:43→23:36)
[2020-01-02] MEDS ORDERED: LORazepam 2 MG/ML VIAL (J2060) SL PRN (20:15)
[2020-01-02] MEDS ORDERED: ONDANSETRON 4 MG ORAL DISINTEGRATING TAB (Q0162 PER 1MG) SL PRN (20:15)
[2020-01-03] MEDS: ALBUTEROL SULFATE 2.5 MG/0.5 ML INH NEB SOLN NEB SCH ×4 (00:51→23:39)
[2020-01-03] MEDS: MORPHINE 10MG/0.5ML ORAL CONCENTRATE SOLUTION U/D SL PRN ×6 (03:10→18:48)
--- NOTE | 2020-01-03 07:54 | IPNPDOC ---
Text Note Date of Service The patient was seen on 01/03/20. NOTE SUBJECTIVE: Patient was examined at bedside. 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 Hospice was consulted yesterday and is currently awaiting placement LABORATORY DATA: See below. MICROBIOLOGY: Please see below. ASSESSMENT Patient is a 69-year-old gentleman with PMH of Upper GIB due to severe diffuse erosive reflux esophagitis in oct 2019, Hiatal hernia, Pineda's esophagus, Severe Peripheral arterial disease with right leg arterial ulcers with eschar, recent CVA on 10/22/19 for which he was admitted to [facility], with residular right hemiplegia with right leg contracture, PEG tube placement and [facility], GERD, NIDDM, Hep C s/p treatment, COPD, HTN. resident of [facility] presented as a transfer from [facility] for respiratory distress, secondary to aspiration pneumonia. Patient was admitted for aspiration pneumonia Vs HCAP. This management was complicated by chronic aspiration, anemia, tachycardia, tachypnea, metabolic alkalosis, respiratory alkalosis, nonionic gap metabolic acidosis. PLAN: Due to patient's prior prognosis, discussed patient's condition with patient's daughter, healthcare proxy Leann Padgett. Who decided to make to make patient comfort care only with hospice consult. Family will like patient either placed with hospice in the hospital or hospice house. They do not desire to return to patient's prior retirement. Comfort care only. Comfort care orders placed yesterday. He will made ALC today VS,Fishbone, I+O VS, Fishbone, I+O Vital Signs Date Time Temp Pulse Resp B/P (MAP) Pulse Ox O2 Delivery O2 Flow Rate FiO2 01/02/20 19:25 2.0 01/02/20 12:04 42 Room Air 01/02/20 12:00 97.8 140/63 (88) 01/02/20 11:00 96 01/02/20 08:00 92 I&O- Last 24 Hours up to 6 AM 01/03/20 05:59 Intake Total 975 ml Output Total 650 ml Balance 325 ml GME ATTESTATION GME ATTESTATION My faculty preceptor for this patient encounter was physically present during the encounter and was fully available. All aspects of the patient interview, examination, medical decision making process, and medical care plan development were reviewed and approved by the faculty preceptor. The faculty preceptor is aware and concurs with the plan as stated in the body of this note and will attest to such by his/her cosignature. 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 RUSSELL SHIPMAN DO Jan 03, 2020 07:54 HARRISON SOTO MD Jan 03, 2020 11:24
[2020-01-04] MEDS: MORPHINE 10MG/0.5ML ORAL CONCENTRATE SOLUTION U/D SL PRN ×4 (00:44→14:02)
[2020-01-04] MEDS: ALBUTEROL SULFATE 2.5 MG/0.5 ML INH NEB SOLN NEB SCH ×2 (08:00→15:45)
[2020-01-04] MEDS ORDERED: FENTANYL REMOVAL DOCUMENTATION MISC XX SCH (09:00)
[2020-01-04] MEDS ORDERED: fentaNYL 12 MCG/HR PATCH TOP SCH (09:00)
[2020-01-04] MEDS ORDERED: SCOPOLAMINE 1MG TRANSDERMAL PATCH TOP SCH (12:00)
[2020-01-05] MEDS: ALBUTEROL SULFATE 2.5 MG/0.5 ML INH NEB SOLN NEB SCH ×2 (08:00)
[2020-01-05] MEDS ORDERED: ATIV2INJ5 SL (09:58)
[2020-01-05] MEDS ORDERED: [UNRECOGNIZED DRUG - CODE] TOP (09:58)
[2020-01-05] MEDS ORDERED: Morphine Sulfate Oral Conc. SL (09:58)
[2020-01-05] MEDS ORDERED: ONDA4TAB6 SL (09:58)
[2020-01-05] MEDS ORDERED: CYCL5TAB GT (09:58)
[2020-01-05] MEDS ORDERED: SCOP1PAT2 TOP (09:58)
--- NOTE | 2020-01-05 11:44 | DS.PDOC ---
Discharge Summary General Date of Admission Dec 30, 2019 at 15:57 Date of Discharge 01/05/2020 Attending Physician: HARRISON SOTO MD Specialist/Consultants Involve: A Discharge Summary PROCEDURES PERFORMED DURING STAY: None ADMITTING DIAGNOSES: 1. Hypoxia 2. Shortness of breath DISCHARGE DIAGNOSES: 1. Aspiration pneumonia 2. HCAP 3. Acidemia 4. Elevated troponins 5. Right stage III pressure ulcer 6. Insulin-dependent diabetes 7. History of CVA 8. Microcystic anemia 9. GERD 10. COPD 11. HTN COMPLICATIONS/CHIEF COMPLAINT: Aspiration Pneumonia. HISTORY OF PRESENT ILLNESS: This is a 69-year-old male with multiple comorbidities who was transferred to [facility] for hypoxia and difficulty breathing. He is a resident of the [facility]. History was not obtained from the patient due to a stroke he had late last year (September 2019) and his only form of medication was his shaking his head which he could not do today. All of the history was obtained from reviewing records from [place]. On December 25, the patient had some concerns of aggressive behavior and high glucose reading while at the retirement. At that time he had a large amount of feces in his mouth which was noted by nursing. Chest Xray at that time showed a right lung pneumonia with the suspicion of possible aspiration from the feces. His vitals at that time were stable and physical exam was benign with the exception of coarse sounds on the right mid and upper lobe. He was started on cefepime 2 g and IV fluids. Despite antibiotics, Mr. Ramirez, went into respiratory distress early this morning and was transferred to [place] ER for further evaluation. In the ER, he was tachycardic and hypoxic satting at 84% on a non-rebreather at 15 L/m. Influenza panel was negative. Surprisingly no leukocytosis but he had initial lactic acid of 4.9 which improved to 3.5 after 3.5L of NS. He was given 1 dose of Zosyn and a stress dose of Solu-Medrol 125 mg. Interestingly enough, he had an elevation of troponin which peaked at 0.13 but downtrended to 0.06 by the afternoon. EKG at the time showed sinus tachycardia, left axis deviation, right bundle branch block and left anterior fascicular block which is unchanged from his September 2017 EKG at [facility]. Dr. Carmona, was called by Giovanni who states he will see the patient at [facility] once admitted. [facility] hospitalist team was then called for transfer due to the need of cardiology consult and possibly pulmonary consult. HOSPITAL COURSE: Patient's hospital course was complicated by aspiration pneumonia versus HCAP, metabolic alkalosis, respiratory alkalosis, nonionic gap metabolic acidosis, significant right all respiratory tachypnea unresponsive to medication and electrolyte correction. Patient continued to progressively deteriorate during the hospital stay. Due to patient's worsening health status. A Discussion was had with patient's daughter,/healthcare proxy, Leann Padgett. Who decided to make to make patient comfort care only with hospice consult. Comfort care orders were placed. Patient was then made ALC. He was discharged to hospice. DISCHARGE MEDICATIONS: Please see below. ALLERGIES: Please see below. PHYSICAL EXAMINATION ON DISCHARGE: VITAL SIGNS: Please see below. LABORATORY DATA: Please see below. IMAGING: Portable Chest Xray: Dated 12/31/19 The density inferiorly in the right lung has significantly improved, compatible with resolving infiltrate. There is a subtle infiltrate in the right upper lobe as an interval change. Left lung is clear. Cardiac size is normal. Portable chest x-ray dated 12/30/2019 Mass versus infiltrate inferiorly in the right lung as an interval change. ACTIVITY: As tolerated DIET: As tolerated DISCHARGE PLAN: To hospice DISPOSITION: 50 Hospice Home. DISCHARGE INSTRUCTIONS: 1. Comfort Care ITEMS TO FOLLOWUP ON ON OUTPATIENT: 1. Comfort care at hospice DISCHARGE CONDITION: Stable for hospice care TIME SPENT ON DISCHARGE: 40 minutes Vital Signs/I&Os Vital Signs Date Time Temp Pulse Resp B/P (MAP) Pulse Ox O2 Delivery O2 Flow Rate FiO2 01/05/20 09:40 2.0 01/02/20 12:04 42 Room Air 01/02/20 12:00 97.8 140/63 (88) 01/02/20 11:00 96 01/02/20 08:00 92 I&O- Last 24 Hours up to 6 AM 01/05/20 06:00 Intake Total 1320 ml Output Total 550 ml Balance 770 ml Microbiology Microbiology 12/30/19 Blood Culture - Final, Complete NO GROWTH AFTER 5 DAYS 12/30/19 Blood Culture - Final, Complete NO GROWTH AFTER 5 DAYS Discharge Medications Scheduled Fentanyl (Duragesic) 12 Mcg Patch.td72, 12 MCG TOP Q72H Protein Supplement (Promod) 946 Ml Liquid, 30 ML GT BID, (Reported) Scopolamine (Transderm-Scop) 1 Each Patch.td.3, 1 MG TOP Q72H Scheduled PRN Cyclobenzaprine HCl (Cyclobenzaprine HCl) 5 Mg Tablet, 5 MG GT TID PRN for MUSCLE SPASMS Ipratropium/Albuterol Sulfate (Iprat-Albut 0.5-3(2.5) mg/3 ml) 3 Ml Ampul.neb, 1 VIAL INH Q4H PRN for SOB/WHEEZING, (Reported) Lorazepam (Ativan) 2 Mg/1 Ml Vial, 1 MG SL Q2HP PRN for ANXIETY Ondansetron (Ondansetron Odt) 4 Mg Tab.rapdis, 5 MG SL Q6HP PRN for Nausea Sodium Phosphate,Person-Dibasic (Fleet Enema) 133 Ml Enema, 1 JOSE NH DAILY PRN for CONST', (Reported) ADMINISTER IF NO RESULTS FROM BISACODYL SUPPOSITORY [Morphine Sulfate Oral Conc.] 10 MG/0.5 ML CONC, 10 MG SL Q2HP PRN for SEVERE PAIN (PS 8-10) Allergies Coded Allergies: No Known Allergies (Unverified , 01/30/18) GME ATTESTATION GME ATTESTATION My faculty preceptor for this patient encounter was physically present during the encounter and was fully available. All aspects of the patient interview, examination, medical decision making process, and medical care plan development were reviewed and approved by the faculty preceptor. The faculty preceptor is aware and concurs with the plan as stated in the body of this note and will attest to such by his/her cosignature. ATTENDING NOTE Mr. Cox was admitted for hypoxemic respiratory failure to [place], with a history of noted feculant material in his emesis, and was diagnosed with a right lung pneumonia and was started on cefepime and his course was c/b persistent respiratory distress and troponinemia with c/f NSTEMI and he was transferred to [facility]. At [facility] his course was complicated by persistent PNA, acid/base disturbances mainly, mixed metabolic and respiratory alkalosis and NAGMA with persistent tachypnea unresponsive to medication and electrolyte derangements. He unfortunately continued to clinically deteriorate and after discussion with his daughter who is the HCP and her discussion with the rest of the family, the decision was made to make him comfort care only with hospice and he is now being discharged to inpatient hospice. RUSSELL SHIPMAN DO Jan 05, 2020 11:44 HARRISON SOTO MD Jan 07, 2020 06:34
== END 2020-01-05 10:50 | disposition hospice, home (50) | DRG 177 ==
LOC: M PCU 15:57 → M MS5PR 01-02 17:17
PROVIDERS: ADMIT Internal Medicine Nephrology; ATTEND Internal Medicine
DX: J69.0 Pneumonitis due to inhalation of food and vomit (principal); L89.323 Pressure ulcer of left buttock, stage 3; I63.59 Cerebral infarction due to unspecified occlusion or stenosis of other cerebral artery; E87.2 Acidosis; I45.2 Bifascicular block; I69.351 Hemiplegia and hemiparesis following cerebral infarction affecting right dominant side; E87.0 Hyperosmolality and hypernatremia; E87.3 Alkalosis; Z93.1 Gastrostomy status; Z66 Do not resuscitate; Z51.5 Encounter for palliative care; R79.89 Other specified abnormal findings of blood chemistry; E11.65 Type 2 diabetes mellitus with hyperglycemia; D50.9 Iron deficiency anemia, unspecified; I45.10 Unspecified right bundle-branch block; R79.0 Abnormal level of blood mineral; K21.9 Gastro-esophageal reflux disease without esophagitis; K29.70 Gastritis, unspecified, without bleeding; K20.9 Esophagitis, unspecified; J44.9 Chronic obstructive pulmonary disease, unspecified; I10 Essential (primary) hypertension; Z86.19 Personal history of other infectious and parasitic diseases; Z79.4 Long term (current) use of insulin; Z79.51 Long term (current) use of inhaled steroids; Z79.899 Other long term (current) drug therapy; K22.70 Barrett's esophagus without dysplasia; R00.0 Tachycardia, unspecified; R19.7 Diarrhea, unspecified